=== PATIENT | female | born 1955 | race Caucasian/White ===

== ENCOUNTER 2018-01-23 04:26 | Emergency (ER) | payer MEDICARE, MEDICAID, SELFPAY ==
[2018-01-23] VITALS (16 sets, daily range): BP systolic 129–144; BP diastolic 69–83; PULSE 72–80; RESP 28; TEMP 36.5; O2SAT 90–96
--- NOTE | 2018-01-23 04:46 | ED.GENADUL_ITS ---
Discharge Plan Disposition Patient Disposition: HOME Condition: Good Discharge Details Chief Complaint: SOB Clinical Impression: COPD exacerbation Reason For Visit: VIPUL Primary Care Provider: Valerie Jiang ED Provider: Marcelino Lockhart Horton Meds and New Rx's Prescriptions: New prednisone 20 mg tablet 40 mg PO DAILY Qty: 8 RF: 0 amoxicillin-pot clavulanate [Augmentin] 875-125 mg tablet 1 tab PO BID Qty: 14 RF: 0 Continue tiotropium bromide [Spiriva with HandiHaler] 1 PUFF capsule, w/inhalation device 1 cap Inhalation DAILY RF: 0 buprenorphine-naloxone [Suboxone] 1 EACH film 1 strip PO DAILY RF: 0 quetiapine [Seroquel XR] 200 MG tablet extended release 24 hr 100 mg PO TID RF: 0 budesonide-formoterol [Symbicort] 60 PUFF HFA aerosol inhaler 2 puff Inhalation BID RF: 0 mirtazapine 45 MG tablet 30 mg PO HS RF: 0 gabapentin 800 MG tablet 800 mg PO QID RF: 0 albuterol sulfate 2.5 mg /3 mL (0.083 %) Solution For Nebulization 2.5 mg INHALATION Q4H PRNRF: 0 montelukast [Singulair] 10 MG tablet 10 mg PO DAILY RF: 0 losartan 50 MG tablet 100 mg PO DAILY RF: 0 escitalopram oxalate [Lexapro] 20 MG tablet 30 mg PO DAILY RF: 0 Discharge Instructions Instructions: COPD (Chronic Obstructive Pulmonary Disease) (ED) Additional Instructions: Your EKG, chest x-ray and laboratory studies looked okay tonight. We will start you on prednisone and antibiotics for COPD exacerbation. Please use your albuterol nebulizer every 4-6 hours for wheezing and shortness of breath. Please follow-up with your primary care this week. Return to ED for fever, worsening shortness of breath, chest pain, other concerns. Referrals: Valerie Jiang MD [Primary Care Provider] - Medical Decision Making Patient presenting with shortness of breath, increased cough, increased sputum production and wheezing that has gotten better with DuoNeb treatment. She does continue to smoke. She has no fever. She had no chest pain. She has few wheezes in the lower bases and a little diminished. Saturations are in the low to mid 90s. She does not look to be in distress. Will obtain EKG, chest x-ray , labs and give prednisone as well as start antibiotics for COPD exacerbation. EKG is sinus rhythm at a rate of 70. Normal axis and intervals. No acute ST changes. Chest x-ray read by radiology with chronic changes no infiltrates. Laboratory studies for the most part unremarkable. Troponin negative. Magnesium a little low at 1.6 and will be replaced orally. Patient has been resting comfortably here. She continues to have no difficulty breathing here. She is given Augmentin. She will be discharged home to continue inhalers/ nebulizers every 4-6 hours while ill. Continue prednisone and antibiotic. Follow-up with primary care this week for reevaluation. Return to ED if worse. Medical Records Medical records reviewed: Yes I reviewed the patient's medical records. Lab Data Lab results reviewed: Yes I reviewed the patient's lab results. ECG Data Attestation: I personally reviewed and interpreted this ECG (s) as follows: Interpretation: EKG is sinus rhythm at a rate of 70. Normal axis and intervals. No acute ST changes. HPI General Mode of arrival: EMS . Date/Time Provider Initiated Documentation: 01/23/18 04:36 . Limitations to Documentation: no limitations . Information obtained by: patient, RN notes reviewed and old records reviewed . HPI Narrative: Patient presents to ED with complaint of shortness of breath and cough. She has a history of COPD. She still smokes. For the last few days she has had some increased shortness of breath and cough. There is some increased sputum production but it remains white. She has had no fever that she is aware of. She does have a runny nose. She denies other URI type symptoms. She denies chest pain. She denies leg pain or leg swelling. She did have one episode of vomiting and diarrhea earlier tonight but none since. She denies any abdominal pain. She called the ambulance earlier tonight and sent them away after the DuoNeb because she felt better. Shortness of breath came back and she started to become concerned and called EMS back. She has now had 2 duo nebs and is feeling better but is anxious. Related Data Home Medications Medication Instructions Recorded Confirmed tiotropium bromide [Spiriva with 1 cap INHALATION DAILY 12/25/12 01/23/18 HandiHaler] buprenorphine-naloxone [Suboxone] 1 strip PO DAILY 03/20/14 01/23/18 quetiapine [Seroquel XR] 100 mg PO TID 04/24/14 04/10/17 budesonide-formoterol [Symbicort] 2 puff INHALATION BID 08/25/14 01/23/18 gabapentin 800 mg PO QID 09/11/15 01/23/18 mirtazapine 30 mg PO HS 09/11/15 01/23/18 losartan 100 mg PO DAILY 08/17/16 01/23/18 montelukast [Singulair] 10 mg PO DAILY 08/17/16 01/23/18 escitalopram oxalate [Lexapro] 30 mg PO DAILY 09/08/16 01/23/18 albuterol sulfate 2.5 mg INHALATION Q4H PRN 01/23/18 01/23/18 amoxicillin-pot clavulanate 1 tab PO BID #14 tab 01/23/18 [Augmentin] prednisone 40 mg PO DAILY #8 tab 01/23/18 Previous Rx's Medication Instructions Recorded amoxicillin-pot clavulanate 1 tab PO BID #14 tab 01/23/18 [Augmentin] prednisone 40 mg PO DAILY #8 tab 01/23/18 Allergies Allergy/AdvReac Type Severity Reaction Status Date / Time No Known Allergies Allergy Unverified 01/23/18 04:32 General Stated Complaint: SOB NEGRITA: 3 Review of Systems Constitutional Denies chills, Denies fever(s), Denies headache(s), Denies malaise and Denies weakness Eyes Denies change in vision and Denies eye discharge ENT Denies otalgia, Denies headache(s), Reports nasal congestion, Denies sinus pain , Denies sinus pressure and Denies sore throat Cardiovascular Denies chest pain, Denies syncope, Denies pedal edema, Denies edema, Denies palpitations and Reports dyspnea Respiratory Reports cough, Reports dyspnea and Reports wheezing Gastrointestinal Denies abdominal pain, Reports diarrhea, Denies nausea and Reports vomiting Genitourinary Denies hematuria and Denies dysuria Musculoskeletal Denies back pain, Denies myalgias, Denies arthralgias and Denies numbness Integumentary/Breasts Denies erythema and Denies rash Neurologic Denies syncope, Denies headache(s), Denies numbness and Denies weakness Endocrine Denies palpitations Allergic/Immunologic Reports wheezing PFSH Medical History Multiple sclerosis (Chronic) Anxiety (Chronic) COPD (chronic obstructive pulmonary disease) (Chronic) HTN (hypertension) (Chronic) Hypercholesterolemia (Chronic) Social History Smoking/Tobacco Use Status: Current every day Surgical History H/O section (Inactive) S/P cholecystectomy (Inactive) Status post shoulder surgery (Inactive) Exam Const General: cooperative and no acute distress Orientation: alert and oriented x3 HENMT Head: normocephalic and atraumatic Neck Neck: supple Resp Effort & Inspection: normal respiratory effort Auscultation: diminished lung sounds, no rales, no rhonchi and wheezes lower bilaterally Cardio Rate: regular rate Rhythm: regular rhythm Heart Sounds: S1 normal and S2 normal GI Palpation: soft, no guarding and nontender Skin General skin exam: no erythema Rashes: no rashes Neuro General: alert, oriented x3, no focal motor deficits and CN's II-XI intact bilaterally Extrem General: no pedal edema and no calf tenderness Course Vital Signs Temperature 97.7 F 01/23/18 04:23 Pulse 80 01/23/18 04:23 Respiratory Rate 28 H 01/23/18 04:23 Blood Pressure 144/83 H 01/23/18 04:23 Pulse Oximetry 93 L 01/23/18 04:23 Temperature 97.7 F 01/23/18 04:23 Temperature Source Skin 01/23/18 04:23 Pulse 80 01/23/18 04:23 Respiratory Rate 28 H 01/23/18 04:30 Respiratory Effort 01/23/18 04:30 Respiratory Depth Shallow 01/23/18 04:30 Respiratory Pattern Tachypnea 01/23/18 04:30 Blood Pressure 144/83 H 01/23/18 04:23 Blood Pressure Position Sitting 01/23/18 04:23 Pulse Oximetry 93 L 01/23/18 04:23 Oxygen Delivery Method Room Air 01/23/18 04:23 Oxygen Flow Rate 0 01/23/18 04:23 Pain Level 0 01/23/18 04:23
[2018-01-23] MEDS: predniSONE 20 MG TAB 60 MG PO (05:01)
--- NOTE | 2018-01-23 05:55 | DI.RAD_ITS ---
SYMPTOM/DIAGNOSIS: SOB, COUGH PA AND LATERAL CHEST: Comparison is made with 04/10/17. Heart size and pulmonary vasculature are within normal limits. There is a chronic diffuse interstitial process present. No new focal consolidating infiltrates, effusions or pneumothoraces are identified. There does appear to be hyperinflation of the lungs suggesting COPD. Degenerative changes are seen in the spine. There is reciprocal scoliosis of the thoracolumbar spine. Surgical clips are seen in the right upper quadrant of the abdomen, likely reflecting prior cholecystectomy. IMPRESSION: No acute pulmonary process. Findings suggestive of chronic interstitial disease.
[2018-01-23 05:59] LABS: Abs Immature Grans 0.01 k/cumm (0.0-0.09); Absolute Basophil Count 0.05 k/cumm (0.0-0.2); Absolute Eosinophil Count 0.09 k/cumm (0.0-0.7); Absolute Lymphocyte Count 1.42 k/cumm (1.2-3.4); Absolute Neutrophil Count 4.58 k/cumm (1.2-6.7); Basophils % 0.7; Eosinophils % 1.3; HCT 36.8 % (36.0-46.0); Immature Grans % 0.1; Mean Corp. HGB Concentration 32.6 g/dL (32.0-36.0); Mean Corpuscular Hemoglobin 26.4 pg (27.0-33.0); Mean Corpuscular Volume 81.1 fL (80-95); Mean Platelet Volume 10.8 fL (8.0-11.0); Monocytes % 8.9; Platelet Count 270 x1000/uL (130-400); RBC 4.54 m/cumm (4.00-5.20); White Blood Cell Count 6.75 k/cumm (4.4-10.8)
--- NOTE | 2018-01-23 06:08 | DI.VRAD_ITS ---
EXAM: XR Chest, 2 Views CLINICAL HISTORY: 62 years old, female; Signs and symptoms; Cough and shortness of breath; Patient HX: SOB worsening for a week TECHNIQUE: Frontal and lateral views of the chest. COMPARISON: CR CHEST 2 VIEWS PA,LAT 04/10/2017 4:58 AM FINDINGS: Lungs: Diffuse mild interstitial process. Pleural space: Unremarkable. No pneumothorax. Heart: Unremarkable. No cardiomegaly. Mediastinum: Unremarkable. Bones/joints: Unremarkable. IMPRESSION: Mild chronic interstitial changes. No evidence of acute infiltrate. Dictated and Authenticated by: Kaushal Montemayor MD. Ordering:ARLETH HE MD
[2018-01-23 06:12] LABS: Anion Gap 8.1 mmol/L (3-11); BUN 12 mg/dL (7-18); CO2 31.9 mmol/L (21.0-32.0); CREATININE 0.68 mg/dL (0.55-1.02); Calcium 8.5 mg/dL (8.5-10.1); Chloride 103 mmol/L (98-107); Glucose 138 mg/dL (70-100); Magnesium 1.6 mg/dL (1.8-2.4); Potassium 3.6 mmol/L (3.5-5.1); Sodium 143 mmol/L (136-145)
[2018-01-23 06:22] LABS: Troponin I < 0.02 ng/mL (0.00-0.06)
[2018-01-23] MEDS: Magnesium Oxide 400 MG TAB 800 MG PO (06:55)
[2018-01-23] MEDS: Amoxicillin 875/Clav. 125 TAB PO (06:55)
== END 2018-01-23 07:26 | disposition home or self-care (01) ==
PROVIDERS: Emergency Provider Emergency Medicine; PCP Family Medicine
DX: J44.1 Chronic obstructive pulmonary disease with (acute) exacerbation (principal); F17.210 Nicotine dependence, cigarettes, uncomplicated; E83.42 Hypomagnesemia; I10 Essential (primary) hypertension; G35 Multiple sclerosis
CPT/HCPCS: 36415; 80048; 93005; 99285; 71046; 83735; 84484; 85025; 93010; J7512

== ENCOUNTER 2018-02-19 12:23 | Emergency (ER) | payer MEDICARE, MEDICAID, SELFPAY ==
[2018-02-19] VITALS (7 sets, daily range): BP systolic 77–159; BP diastolic 44–111; PULSE 89–127; RESP 4–28; TEMP 36.7–36.8; O2SAT 88–99
--- NOTE | 2018-02-19 12:28 | ED.GENADUL_ITS ---
Discharge Plan Discharge Details Chief Complaint: SOB Reason For Visit: VIPUL Primary Care Provider: Valerie Jiang ED Provider: Jayda Chen Home Meds and New Rx's Prescriptions: No Action tiotropium bromide [Spiriva with HandiHaler] 1 PUFF capsule, w/inhalation device 1 cap Inhalation DAILY RF: 0 buprenorphine-naloxone [Suboxone] 1 EACH film 1 strip PO DAILY RF: 0 quetiapine [Seroquel XR] 200 MG tablet extended release 24 hr 100 mg PO TID RF: 0 budesonide-formoterol [Symbicort] 60 PUFF HFA aerosol inhaler 2 puff Inhalation BID RF: 0 mirtazapine 45 MG tablet 30 mg PO HS RF: 0 gabapentin 800 MG tablet 800 mg PO QID RF: 0 albuterol sulfate 2.5 mg /3 mL (0.083 %) Solution For Nebulization 2.5 mg INHALATION Q4H PRNRF: 0 prednisone 20 mg tablet 40 mg PO DAILY Qty: 8 RF: 0 amoxicillin-pot clavulanate [Augmentin] 875-125 mg tablet 1 tab PO BID Qty: 14 RF: 0 montelukast [Singulair] 10 MG tablet 10 mg PO DAILY RF: 0 losartan 50 MG tablet 100 mg PO DAILY RF: 0 escitalopram oxalate [Lexapro] 20 MG tablet 30 mg PO DAILY RF: 0 Discharge Data Discharge Date/Time-TO BE ENTERED AT DEPARTURE: 02/19/18 17:57 Medical Decision Making Tatum Loya is a 62 y/o woman with h/o COPD, MS, HLD, HTN, polysubstance on suboxone, anxiety, who presented to the emergency department with 2 days of SOB and anxiety, has not been taking COPD meds. On exam Pt is in mod resp distress, appears chronically ill, wheeze throughout on auscultation. Concern for COPD exacerbation, PE, PNA. Less likely ACS, metabolic/lyte disurbance. Plan for EKG , CXR, screening labs, IVF, duonebs, solumedrol, telemetry. Will monitor. Pt with some improvement after first duoneb here, states that she feels better, but objective exam without major improvement. Will repeat duoneb, plan for mag. Pt reassessed after second duoneb, now reporting that she feels at baseline. Denies any further SOB. Lungs with rales b/l bases, no further wheeze. Will hold mag at this time. CXR with infiltrates vs atelectasis, d-dimer elevated, plan for CT chest for r/ o PE and further characterization of possible infiltrates. Pt continuing to report that she feels at baseline, no further SOB. No resp distress. Will hold abx at this time pending CT. Doubt PE given complete improvement in SOB with duonebs. Tachycardia resolved. Pt developed hypotension to SBP 75. Pt denies any symptoms, reports that she feels the same. Continue fluid bolus. Pt with labile BP between SBP 70-100 despite continued IVF. Concern for early sepsis. Plan for abx for PNA, lactate, blood cultures, levophed if BP not improved after 2L IVF. Pt also becoming somewhat somnolent, but arouses easily to voice. Reports that she has been very sleepy in the afternoons recently with family telling her that she has been difficult to arouse, Pt reports that she thinks this is due to recent nighttime insomnia. Low suspicion PE as etiology at this time as no further SOB, tachycardia. Holding CT at this time pending stabilization. Pt with worsening somnolence, though arouses easily to physical stimulation. Pupils 4mm b/l, possible opiate-related though Pt with polysubstance abuse, possible mixed drug picture. BP not significantly with fluids, starting levophed gtt. Discussed Pt with crit care at [facility], Dr. Clifford accepting physician, requests UDS, no further recs. Plan for [facility]. Trial narcan 0.4mg with good response. Given chronic suboxone use, will use judiciously to prevent full withdrawal. Total of 1.2mg narcan given for recurrent somnolence at time of [facility] transfer. Pt alert, conversing normally. Levophed continued. No CT at this time to prevent delay in transfer. Pt left ED with [facility] team without further incident. Clinical Impression: PNA, shock, AMS Disposition: transferred to [facility] Critical Care Time: I have spent a total of one hour of critical care time with this critically ill Pt Medical Records Medical records reviewed: Yes I reviewed the patient's medical records. Imaging Data Radiologic Study: Attestation: I personally reviewed and interpreted this imaging study as follows: Radiologist's impression: PORTABLE AP CHEST: Comparison is made with 01/23/18. The heart size is normal. The lungs are somewhat suboptimally inflated and there is mild respiratory motion. Leads overlie the chest. There are increased densities at the lung bases, right greater than left which could represent atelectasis versus infiltrates. IMPRESSION: Basilar infiltrates versus atelectasis, right greater than left. Lab Data Lab results reviewed: Yes I reviewed the patient's lab results. 02/19/18 15:20 Blood Blood Culture - Preliminary Gram Positive Cocci 02/19/18 15:35 Blood Blood Culture - Preliminary Laboratory Tests Range/Units 02/19/18 02/19/18 02/19/18 13:11 13:11 13:11 WBC (4.4-10.8) k/cumm 12.00 H RBC (4.00-5.20) m/cumm 4.63 Hgb (12.0-15.5) g/dL 12.1 Hct (36.0-46.0) % 38.6 MCV (80-95) fL 83.4 MCH (27.0-33.0) pg 26.1 L MCHC (32.0-36.0) g/dL 31.3 L RDW (11.7-14.6) % 17.5 H Plt Count (130-400) x1000/uL 263 MPV (8.0-11.0) fL 11.0 Immature Gran % 0.4 Neutrophils % 90.9 Lymphocytes % 4.3 Monocytes % 3.4 Eosinophils % 0.8 Basophils % 0.2 Absolute Neutrophils (1.2-6.7) k/cumm 10.91 H Absolute Lymphocytes (1.2-3.4) k/cumm 0.52 L Absolute Monocytes (0.11-0.7) k/cumm 0.41 Absolute Eosinophils (0.0-0.7) k/cumm 0.10 Absolute Basophils (0.0-0.2) k/cumm 0.02 D-Dimer (<500) ng/mlFEU 1353 H Sample Site pCO2 (34-47) mmHg pO2 (83-108) mmHg O2 Saturation (94-98) % ABG pH (7.35-7.45) ABG HCO3 (22-28) mmol/L ABG Total CO2 (22-29) mmol/L ABG Base Excess (-3-3) mmol/L Oxygen Liter Flow L FiO2 % Sodium (136-145) mmol/L 143 Potassium (3.5-5.1) mmol/L 3.6 Chloride (98-107) mmol/L 101 Carbon Dioxide (21.0-32.0) mmol/L 34.7 H Anion Gap (3-11) mmol/L 7.3 BUN (7-18) mg/dL 16 Creatinine (0.55-1.02) mg/dL 0.79 Estimated GFR/1.73 m2 (mL/min/1.73m2) >= 60.00 Glucose (70-100) mg/dL 127 H Lactate (0.6-1.4) mmol/L Calcium (8.5-10.1) mg/dL 8.5 Total Bilirubin (0.2-1.0) mg/dL 0.4 AST (15-37) U/L 74 H ALT (12-78) U/L 181 H Alkaline Phosphatase (46-116) U/L 127 H Troponin I (0.00-0.06) ng/mL < 0.02 NT-Pro-B Natriuret Pep ( - 299) pg/mL 306 H Total Protein (6.4-8.2) g/dL 7.5 Albumin (3.4-5.0) g/dL 3.1 L Urine Color (Yellow) Urine Clarity Urine pH (5-8) Ur Specific [place] (1.005-1.025) Urine Protein (Negative) mg/dL Urine Ketones (Negative) mg/dL Urine Blood (Negative) Urine Nitrite (Negative) Urine Bilirubin (Negative) Urine Urobilinogen (Up TO 0.2) EU/dL Ur Leukocyte Esterase (Negative) Urine Glucose (Negative) mg/dL Urine Opiates Screen (Negative) Urine Methadone Screen (Negative) Ur Barbiturates Screen (Negative) Ur Tricyclics Screen (Negative) Ur Amphetamines Screen (Negative) U Benzodiazepines Scrn (Negative) Urine Cocaine Screen (Negative) Ur THC Screen (Negative) Range/Units 02/19/18 02/19/18 02/19/18 15:31 15:45 17:20 WBC (4.4-10.8) k/cumm RBC (4.00-5.20) m/cumm Hgb (12.0-15.5) g/dL Hct (36.0-46.0) % MCV (80-95) fL MCH (27.0-33.0) pg MCHC (32.0-36.0) g/dL RDW (11.7-14.6) % Plt Count (130-400) x1000/uL MPV (8.0-11.0) fL Immature Gran % Neutrophils % Lymphocytes % Monocytes % Eosinophils % Basophils % Absolute Neutrophils (1.2-6.7) k/cumm Absolute Lymphocytes (1.2-3.4) k/cumm Absolute Monocytes (0.11-0.7) k/cumm Absolute Eosinophils (0.0-0.7) k/cumm Absolute Basophils (0.0-0.2) k/cumm D-Dimer (<500) ng/mlFEU Sample Site Left radial pCO2 (34-47) mmHg 75 H* pO2 (83-108) mmHg 124 H O2 Saturation (94-98) % 98 ABG pH (7.35-7.45) 7.29 L ABG HCO3 (22-28) mmol/L 36 H ABG Total CO2 (22-29) mmol/L 38 H ABG Base Excess (-3-3) mmol/L 9.0 H Oxygen Liter Flow L FiO2 % 100 Sodium (136-145) mmol/L Potassium (3.5-5.1) mmol/L Chloride (98-107) mmol/L Carbon Dioxide (21.0-32.0) mmol/L Anion Gap (3-11) mmol/L BUN (7-18) mg/dL Creatinine (0.55-1.02) mg/dL Estimated GFR/1.73 m2 (mL/min/1.73m2) Glucose (70-100) mg/dL Lactate (0.6-1.4) mmol/L 1.3 Calcium (8.5-10.1) mg/dL Total Bilirubin (0.2-1.0) mg/dL AST (15-37) U/L ALT (12-78) U/L Alkaline Phosphatase (46-116) U/L Troponin I (0.00-0.06) ng/mL NT-Pro-B Natriuret Pep ( - 299) pg/mL Total Protein (6.4-8.2) g/dL Albumin (3.4-5.0) g/dL Urine Color (Yellow) Yellow Urine Clarity Clear Urine pH (5-8) 5.5 Ur Specific [place] (1.005-1.025) 1.015 Urine Protein (Negative) mg/dL Negative Urine Ketones (Negative) mg/dL Negative Urine Blood (Negative) Negative Urine Nitrite (Negative) Negative Urine Bilirubin (Negative) Negative Urine Urobilinogen (Up TO 0.2) EU/dL 0.2 Ur Leukocyte Esterase (Negative) Negative Urine Glucose (Negative) mg/dL Negative Urine Opiates Screen (Negative) Urine Methadone Screen (Negative) Ur Barbiturates Screen (Negative) Ur Tricyclics Screen (Negative) Ur Amphetamines Screen (Negative) U Benzodiazepines Scrn (Negative) Urine Cocaine Screen (Negative) Ur THC Screen (Negative) Range/Units 02/19/18 02/19/18 02/19/18 17:20 17:20 17:37 WBC (4.4-10.8) k/cumm RBC (4.00-5.20) m/cumm Hgb (12.0-15.5) g/dL Hct (36.0-46.0) % MCV (80-95) fL MCH (27.0-33.0) pg MCHC (32.0-36.0) g/dL RDW (11.7-14.6) % Plt Count (130-400) x1000/uL MPV (8.0-11.0) fL Immature Gran % Neutrophils % Lymphocytes % Monocytes % Eosinophils % Basophils % Absolute Neutrophils (1.2-6.7) k/cumm Absolute Lymphocytes (1.2-3.4) k/cumm Absolute Monocytes (0.11-0.7) k/cumm Absolute Eosinophils (0.0-0.7) k/cumm Absolute Basophils (0.0-0.2) k/cumm D-Dimer (<500) ng/mlFEU Sample Site Right radial pCO2 (34-47) mmHg 57 H pO2 (83-108) mmHg 67 L O2 Saturation (94-98) % 91 L ABG pH (7.35-7.45) 7.33 L ABG HCO3 (22-28) mmol/L 30 H ABG Total CO2 (22-29) mmol/L 32 H ABG Base Excess (-3-3) mmol/L 4.0 H Oxygen Liter Flow L 6 FiO2 % Unknown/not given Sodium (136-145) mmol/L Potassium (3.5-5.1) mmol/L Chloride (98-107) mmol/L Carbon Dioxide (21.0-32.0) mmol/L Anion Gap (3-11) mmol/L BUN (7-18) mg/dL Creatinine (0.55-1.02) mg/dL Estimated GFR/1.73 m2 (mL/min/1.73m2) Glucose (70-100) mg/dL Lactate (0.6-1.4) mmol/L Calcium (8.5-10.1) mg/dL Total Bilirubin (0.2-1.0) mg/dL AST (15-37) U/L ALT (12-78) U/L Alkaline Phosphatase (46-116) U/L Troponin I (0.00-0.06) ng/mL NT-Pro-B Natriuret Pep ( - 299) pg/mL Total Protein (6.4-8.2) g/dL Albumin (3.4-5.0) g/dL Urine Color (Yellow) Cancelled Urine Clarity Cancelled Urine pH (5-8) Cancelled Ur Specific [place] (1.005-1.025) Cancelled Urine Protein (Negative) mg/dL Cancelled Urine Ketones (Negative) mg/dL Cancelled Urine Blood (Negative) Cancelled Urine Nitrite (Negative) Cancelled Urine Bilirubin (Negative) Cancelled Urine Urobilinogen (Up TO 0.2) EU/dL Cancelled Ur Leukocyte Esterase (Negative) Cancelled Urine Glucose (Negative) mg/dL Cancelled Urine Opiates Screen (Negative) Negative Urine Methadone Screen (Negative) Negative Ur Barbiturates Screen (Negative) Negative Ur Tricyclics Screen (Negative) Positive Ur Amphetamines Screen (Negative) Negative U Benzodiazepines Scrn (Negative) Negative Urine Cocaine Screen (Negative) Negative Ur THC Screen (Negative) Negative ECG Data Attestation: I personally reviewed and interpreted this ECG (s) as follows: Interpretation: EKG shows ST at 129 with nl axis, non-specific ST changes, no STEMI, non-diagnostic EKG HPI General Mode of arrival: EMS . Date/Time Provider Initiated Documentation: 02/19/18 12:28 . Limitations to Documentation: no limitations . Information obtained by: patient, EMS, RN notes reviewed and old records reviewed . HPI Narrative: Tatum Loya is a 62 y/o woman with h/o COPD, HTN, HLD, MS, anxiety, polysubstance abuse on suboxone presents to the emergency department with SOB and anxiety. Pt reports that she has been feeling SOB since yesterday. Pt reports that she has also had significant anxiety with her SOB, as she becomes very afraid of dying. She lives at home with relatives. Pt reports that she has not used her COPD meds yesterday or today. She reports chronic cough. Denies fever, n/v/d, chest pain, abd pain, or any other pain, rash, new weakness /n/t. She received duonebs x2 in the field from EMS TA, and reports that it did make her feel better. She thinks that her anxiety is a significant component of her symptoms today. Has not been hospitalized in the past 6 months. No recent travel. Has been eating and drinking as usual. Pt reports that she is on 3L O2 at night, no daytime O2. Baseline O2 sats 90-93%. Related Data Home Medications Medication Instructions Recorded Confirmed tiotropium bromide [Spiriva with 1 cap INHALATION DAILY 12/25/12 01/23/18 HandiHaler] buprenorphine-naloxone [Suboxone] 1 strip PO DAILY 03/20/14 01/23/18 quetiapine [Seroquel XR] 100 mg PO TID 04/24/14 04/10/17 budesonide-formoterol [Symbicort] 2 puff INHALATION BID 08/25/14 01/23/18 gabapentin 800 mg PO QID 09/11/15 01/23/18 mirtazapine 30 mg PO HS 09/11/15 01/23/18 losartan 100 mg PO DAILY 08/17/16 01/23/18 montelukast [Singulair] 10 mg PO DAILY 08/17/16 01/23/18 escitalopram oxalate [Lexapro] 30 mg PO DAILY 09/08/16 01/23/18 albuterol sulfate 2.5 mg INHALATION Q4H PRN 01/23/18 01/23/18 amoxicillin-pot clavulanate 1 tab PO BID #14 tab 01/23/18 [Augmentin] prednisone 40 mg PO DAILY #8 tab 01/23/18 Previous Rx's Medication Instructions Recorded amoxicillin-pot clavulanate 1 tab PO BID #14 tab 01/23/18 [Augmentin] prednisone 40 mg PO DAILY #8 tab 01/23/18 Allergies Allergy/AdvReac Type Severity Reaction Status Date / Time No Known Allergies Allergy Unverified 01/23/18 04:32 General NEGRITA: 3 Review of Systems Review of Systems Constitutional: denies fevers Eyes: denies eye pain ENT: denies facial pain, dental pain, sore throat Cardiovascular: denies chest pain, edema Respiratory: reports SOB, chronic cough GI: denies abdominal pain, vomiting, diarrhea : denies flank pain MSK: denies back pain, neck pain, arthralgias, myalgias Skin: denies rash Neuro: denies headaches, lightheadedness, new weakness PFSH Medical History Anxiety (Chronic) COPD (chronic obstructive pulmonary disease) (Chronic) HTN (hypertension) (Chronic) Hypercholesterolemia (Chronic) Multiple sclerosis (Chronic) Social History Smoking/Tobacco Use Status: Current every day Surgical History H/O section (Inactive) S/P cholecystectomy (Inactive) Status post shoulder surgery (Inactive) Exam Narrative Exam Narrative: Constitutional: chronicalli ill appearing, moderately anxious, mod resp distress speaking in partial sentences HENT: head atraumatic, normocephalic normal inspection, mucous membranes moist Eyes: conjunctiva normal, sclera normal, pupils 3mm b/l Neck: no stridor, normal ROM, trachea midline Chest: normal inspection Resp: mod resp distress with accessory muscle use, wheeze throughout b/l Cardio: tachycardic, normal rhythm, no murmur appreciated GI: abdomen soft, non-tender, non-distended Back: normal inspection, no rash Skin: warm, dry, normal color, no rash Neuro: alert, not altered, grossly non-focal, normal tone Ext: no edema, no posterior calf TTP Psych: anxious mood, normal affect, normal behavior
--- NOTE | 2018-02-19 12:34 | DI.RAD_ITS ---
SYMPTOM/DIAGNOSIS: SOB PORTABLE AP CHEST: Comparison is made with 01/23/18. The heart size is normal. The lungs are somewhat suboptimally inflated and there is mild respiratory motion. Leads overlie the chest. There are increased densities at the lung bases, right greater than left which could represent atelectasis versus infiltrates. IMPRESSION: Basilar infiltrates versus atelectasis, right greater than left.
[2018-02-19] MEDS: Albuterol/Ipratropium 3 ML UPD VIAL UPD (12:57)
[2018-02-19 13:26] LABS: Abs Immature Grans 0.05 k/cumm (0.0-0.09); Absolute Basophil Count 0.02 k/cumm (0.0-0.2); Absolute Monocyte Count 0.41 k/cumm (0.11-0.7); Absolute Neutrophil Count 10.91 k/cumm (1.2-6.7); Basophils % 0.2; Eosinophils % 0.8; HCT 38.6 % (36.0-46.0); HGB 12.1 g/dL (12.0-15.5); Immature Grans % 0.4; Lymphocytes % 4.3; Mean Corp. HGB Concentration 31.3 g/dL (32.0-36.0); Mean Corpuscular Hemoglobin 26.1 pg (27.0-33.0); Mean Corpuscular Volume 83.4 fL (80-95); Monocytes % 3.4; Neutrophils % 90.9; Platelet Count 263 x1000/uL (130-400); RBC 4.63 m/cumm (4.00-5.20); RBC Distribution Width 17.5 % (11.7-14.6)
[2018-02-19 13:29] LABS: Absolute Lymphocyte Count 0.52 k/cumm (1.2-3.4)
[2018-02-19 13:45] LABS: ALT 181 U/L (12-78); AST 74 U/L (15-37); Albumin 3.1 g/dL (3.4-5.0); Alkaline Phosphatase 127 U/L (46-116); Anion Gap 7.3 mmol/L (3-11); BUN 16 mg/dL (7-18); Bilirubin, Total 0.4 mg/dL (0.2-1.0); CO2 34.7 mmol/L (21.0-32.0); CREATININE 0.79 mg/dL (0.55-1.02); Calcium 8.5 mg/dL (8.5-10.1); Chloride 101 mmol/L (98-107); Glucose 127 mg/dL (70-100); NT-proBNP 306 pg/mL; Potassium 3.6 mmol/L (3.5-5.1); Sodium 143 mmol/L (136-145); Total Protein 7.5 g/dL (6.4-8.2); Troponin I < 0.02 ng/mL (0.00-0.06)
[2018-02-19 13:51] LABS: D-Dimer 1353 ng/mlFEU (<500)
[2018-02-19] MEDS: methylPREDNISolone SUCC 125 MG VIAL IVP (14:11)
[2018-02-19] MEDS: CEFEPIME 2 GM in Normal Saline 100 ML IVPB (15:37)
[2018-02-19 15:43] LABS: Lactate-non-spesis 1.3 mmol/L (0.6-1.4)
[2018-02-19] MEDS: LEVOFLOXACIN 750 MG/150 ML BAG 150 MG IVPB (15:58)
[2018-02-19 16:01] LABS: FIO2 100 %; Site Left Radial; pH 7.29 (7.35-7.45)
[2018-02-19 16:04] LABS: HCO3 36 mmol/L (22-28); pCO2 75 mmHg (34-47); pO2 124 mmHg (83-108); sO2 98 % (94-98); tCO2 38 mmol/L (22-29)
--- NOTE | 2018-02-19 16:15 | RESPIRATORY ---
Critical PCO2 results given to Dr. Chen. Pt taken off NRB at this time and changed to 4L via NC. She is keeping sats 88-90% on the 4L
[2018-02-19] MEDS: Naloxone 0.4 MG/ML VIAL ×2 (17:17→17:18)
[2018-02-19] MEDS: VANCOMYCIN 2,000 MG in Normal Saline 500 ML 250 MG IVPB (17:19)
[2018-02-19 17:42] LABS: FIO2 Unknown/Not Given %; pH 7.33 (7.35-7.45)
[2018-02-19 17:43] LABS: FIO2L 6 L; HCO3 30 mmol/L (22-28); Site Right Radial; pCO2 57 mmHg (34-47); pO2 67 mmHg (83-108); sO2 91 % (94-98); tCO2 32 mmol/L (22-29)
[2018-02-19 17:55] LABS: *AMPHETAMINES SCREEN URINE Negative (Negative); *BARBITURATES SCREEN URINE Negative (Negative); *BENZODIAZEPINES SCREEN URINE Negative (Negative); Cannabinoids THC Negative (Negative); Cocaine Screen,Urine Negative (Negative); METHADONE URINE SCREEN Negative (Negative); OPIATES URINE SCREEN Negative (Negative)
[2018-02-19 18:04] LABS: Tricyclic Antidepressants POSITIVE (Negative)
[2018-02-19 18:33] LABS: Bilirubin Negative (Negative); Blood Negative (Negative); Clarity Clear; Glucose Negative (Negative); Ketones Negative (Negative); Leukocyte Esterase Negative (Negative); Nitrite Negative (Negative); Specific Gravity 1.015 (1.005-1.025); Urobilinogen 0.2 EU/dL (Up TO 0.2); pH 5.5 (5-8)
== END 2018-02-19 17:57 ==
LOC: ER 13:15
PROVIDERS: Emergency Provider Student in an Organized Health Care Education/Training Program; PCP Family Medicine
DX: J18.9 Pneumonia, unspecified organism (principal); J44.9 Chronic obstructive pulmonary disease, unspecified; I10 Essential (primary) hypertension
CPT/HCPCS: 36415; 80053; 80307; 82805; 87040; 87077; 93005; 94640; 96374; 96375; 99291; 36600; 71045; 81003; 83605; 83880; 84484; 85025; 85379; 87186; 93010; J1956; J2310; J2930; J7620

== ENCOUNTER 2018-03-19 00:45 | Outpatient (CLI) | payer MEDICARE, MEDICAID, SELFPAY ==
--- NOTE | 2018-03-19 15:10 | DI.MAMMO_ITS ---
SYMPTOMS/DIAGNOSIS: SCREENING, Z12.31 MAMMOGRAM: Mammograms were interpreted according to the usual protocol including computer analysis with CAD system, tomosynthesis and C view imaging. The breasts are of moderate density with fairly symmetrical distribution of fibroglandular tissue. No dominant mass or clumped microcalcification is identified in either breast. Current examination is compared with the previous examinations including September 2016 and there has been no gross interval change in appearance in comparison with the previous studies. CONCLUSION: No specific evidence of malignancy at this time. Routine screening examinations are suggested at yearly intervals in this age group according to the ACS/ACR guidelines. Category 1, breast density category B. MQSA ASSESSMENT OF FINDINGS: Negative. Category 1. Patient will receive a letter notifying them of these results. BI-RADS category B. There are scattered areas of fibroglandular density.
== END 2018-03-19 01:05 ==
PROVIDERS: PCP Family Medicine; Visit Provider Family Medicine
DX: Z12.31 Encounter for screening mammogram for malignant neoplasm of breast (principal)
CPT/HCPCS: 77063; 77067

== ENCOUNTER 2018-04-11 10:39 | Outpatient (REF) | payer MEDICARE, SELFPAY ==
[2018-04-14 06:59] LABS: Benzoylecgonine 159 ng/mL (Cutoff: 50); Cocaine Negative ng/mL (Cutoff: 50); Cocaine Interpretation Positive.
[2018-04-15 12:44] LABS: Fentanyl Interpretation Positive.; Fentanyl by LC-MS/MS Negative
== END 2018-04-11 10:59 ==
LOC: NCHCN 10:39
PROVIDERS: PCP Family Medicine; Visit Provider Family Medicine
DX: F14.10 Cocaine abuse, uncomplicated (principal); F11.20 Opioid dependence, uncomplicated
CPT/HCPCS: 80353; 80354

== ENCOUNTER 2018-04-30 11:30 | Outpatient (CLI) | payer MEDICARE, MEDICAID, SELFPAY | END 2018-04-30 11:50 | PROVIDERS: PCP Family Medicine; Visit Provider Physical Therapy Assistant | DX: Z12.11 Encounter for screening for malignant neoplasm of colon (principal); J44.9 Chronic obstructive pulmonary disease, unspecified; I10 Essential (primary) hypertension; F17.210 Nicotine dependence, cigarettes, uncomplicated; Z80.0 Family history of malignant neoplasm of digestive organs ==

== ENCOUNTER 2018-06-13 12:32 | Outpatient (REF) | payer MEDICARE, MEDICAID, SELFPAY ==
[2018-06-18 07:30] LABS: Benzoylecgonine 52 ng/mL (Cutoff: 50); Cocaine Negative ng/mL (Cutoff: 50); Cocaine Interpretation Positive.
== END 2018-06-13 12:52 ==
LOC: NCHCN 12:32
PROVIDERS: PCP Family Medicine; Visit Provider Family Medicine
DX: F11.20 Opioid dependence, uncomplicated (principal)
CPT/HCPCS: 80353

== ENCOUNTER 2018-07-26 11:20 | Inpatient (IN) | payer MEDICARE, MEDICAID, SELFPAY ==
[2018-07-26] VITALS (18 sets, daily range): BP systolic 88–136; BP diastolic 62–84; PULSE 76–87; RESP 13–20; TEMP 36.6–37.6; O2SAT 85–97
--- NOTE | 2018-07-26 11:58 | DI.RAD_ITS ---
SYMPTOMS/DIAGNOSIS: COUGH, SHORTNESS OF BREATH; RIGHT HEEL PAIN S/P INJURY AP CHEST: A region of infiltration involving the left lower lobe is demonstrated. The right lung is clear. The heart is not enlarged. The findings would be consistent with an acute left lower lobe pneumonitis. RIGHT HEEL: The bony structures are normally mineralized. There is no demonstrated acute fracture. A tiny calcaneal spur is demonstrated, nil else.
[2018-07-26] MEDS: Lactated Ringers 500 ML IV ×2 (12:54→15:30)
[2018-07-26] MEDS: Normal Saline Flush 10 ML SYR IVP ×2 (12:54→19:35)
[2018-07-26 13:51] LABS: Lactate 1.2 mmol/L (0.6-1.4)
[2018-07-26 14:01] LABS: Abs Immature Grans 0.07 k/cumm (0.0-0.09); Absolute Basophil Count 0.01 k/cumm (0.0-0.2); Absolute Monocyte Count 1.11 k/cumm (0.11-0.7); Absolute Neutrophil Count 11.78 k/cumm (1.2-6.7); Basophils % 0.1; HCT 36.1 % (36.0-46.0); HGB 10.9 g/dL (12.0-15.5); Immature Grans % 0.5; Lymphocytes % 10.2; Mean Corp. HGB Concentration 30.2 g/dL (32.0-36.0); Mean Corpuscular Hemoglobin 25.9 pg (27.0-33.0); Mean Corpuscular Volume 85.7 fL (80-95); Mean Platelet Volume 10.3 fL (8.0-11.0); Monocytes % 7.7; Neutrophils % 81.5; Platelet Count 250 x1000/uL (130-400); RBC 4.21 m/cumm (4.00-5.20); White Blood Cell Count 14.45 k/cumm (4.4-10.8)
[2018-07-26 14:02] LABS: Absolute Lymphocyte Count 1.47 k/cumm (1.2-3.4)
[2018-07-26 14:09] LABS: ALT 14 U/L (12-78); AST 14 U/L (15-37); Albumin 2.9 g/dL (3.4-5.0); Alkaline Phosphatase 97 U/L (46-116); Anion Gap 5.7 mmol/L (3-11); BUN 13 mg/dL (7-18); Bilirubin, Total 0.3 mg/dL (0.2-1.0); CO2 35.3 mmol/L (21.0-32.0); CREATININE 0.74 mg/dL (0.55-1.02); Calcium 8.4 mg/dL (8.5-10.1); Chloride 101 mmol/L (98-107); Glucose 97 mg/dL (70-100); Potassium 3.7 mmol/L (3.5-5.1); Sodium 142 mmol/L (136-145); Total Protein 7.4 g/dL (6.4-8.2)
--- NOTE | 2018-07-26 14:34 | ED.GENADUL_ITS ---
Discharge Plan Disposition Condition: Improving Discharge Details Chief Complaint: Dizzy/Sync Admit Date/Time: 07/26/18 14:43 Admit Provider: Rebekah Wilkinson Attending Provider: Rebekah Wilkinson Primary Care Provider: Valerie Jiang ED Provider: Vick Chen Discharge Instructions Activity:: Activity as Tolerated Equipment/Supplies:: No Equipment Needed Diet:: Heart healthy diet Discharge Orders Discharge Orders: Discharge Order (Routine); Ordered 07/28/18 Ordered By: Sangeeta Maya Discharge Data Discharge Date/Time-TO BE ENTERED AT DEPARTURE: 07/26/18 16:49 Medical Decision Making 14:30 -- 63-year-old female with multiple medical problems, here with generalized weakness, recently diagnosed with pneumonia and started on Levaquin -has received only 1 dose yesterday. Patient is hypotensive and hypoxic. Supplemental oxygen was applied and oxygen improved. Patient in no respiratory distress. I will give crystalloid bolus 500 mL. Exam is consistent with pneumonia. Plan to and chest x-ray. I will give a dose of Levaquin 750mg IV. Delay in care secondary to difficult IV access. Eventually access was obtained by Dr. Whalen with ultrasound guidance. Labs reviewed: lactate neg. leukocytosis noted. ECG reviewed and interpreted by me: Normal sinus rhythm 87 bpm, normal axis, no ischemia, nondiagnostic. Patient reassessed after 500ml IVF bolus and she is improved with normalized BP. 14:42 --I called and spoke with Dr. Wilkinson who will admit the patient. Chest x-ray and labs pending at time of admission. HPI General Mode of arrival: ambulatory . Date/Time Provider Initiated Documentation: 07/26/18 11:56 . Limitations to Documentation: no limitations . Information obtained by: patient . HPI Narrative: 63-year-old female with multiple medical problems presents with EMS with complaint of generalized weakness. Patient notes severe generalized weakness this morning after waking. No modifiers. Patient notes that she has had a cough for the past couple days. She was seen by her primary care physician yesterday and diagnosed clinically with pneumonia. She did not have a chest x-ray. She was started on antibiotic which she took yesterday. She did not take dose of antibiotic at today. Cough persists. She has chronic shortness of breath and at baseline uses oxygen 2 L at night. She has no associated chest pain. She does note that she missed her diuretic dosing yesterday. Also of note, patient banged her right foot on bed this am and has pain in her right heel. Related Data Home Medications Medication Instructions Recorded Confirmed Spiriva with HandiHaler 1 cap INHALATION DAILY 12/25/12 07/26/18 Symbicort 2 puff INHALATION BID 08/25/14 07/26/18 gabapentin 800 mg PO QID 09/11/15 07/26/18 montelukast [Singulair] 10 mg PO DAILY 08/17/16 07/26/18 escitalopram oxalate [Lexapro] 20 mg PO DAILY 09/08/16 07/26/18 albuterol sulfate 2.5 mg INHALATION Q4H PRN 01/23/18 07/26/18 atorvastatin 40 mg PO HS 05/04/18 07/26/18 furosemide 20 mg tablet 40 mg PO DAILY tab 06/18/18 07/26/18 mirtazapine 30 mg tablet 30 mg PO HS 06/18/18 07/26/18 amlodipine 5 mg PO DAILY 07/26/18 07/26/18 buprenorphine-naloxone [Suboxone] 1 film SUBLINGUAL DAILY 07/26/18 07/26/18 buprenorphine-naloxone [Suboxone] 1 film SUBLINGUAL DAILY 07/26/18 07/26/18 losartan 100 mg PO DAILY 07/26/18 07/26/18 sumatriptan succinate 50 mg PO DIRECTED 07/26/18 07/26/18 benzonatate 100 mg PO TID #9 cap 07/28/18 guaifenesin [Mucinex] 600 mg PO BID #6 tab 07/28/18 ibuprofen 800 mg PO TID PRN #30 tab 07/28/18 levofloxacin 750 mg PO DAILY #3 tab 07/28/18 nicotine 7 mg TRANSDERMAL DAILY PRN PRN #14 07/28/18 ea nicotine [Nicotrol] 10 mg INHALATION Q2H PRN PRN #30 ea 07/28/18 prednisone 10 mg PO DAILY #30 tab 07/28/18 prochlorperazine maleate 5 mg PO Q8H PRN PRN #10 tab 07/28/18 [Compazine] Previous Rx's Medication Instructions Recorded benzonatate 100 mg PO TID #9 cap 07/28/18 guaifenesin [Mucinex] 600 mg PO BID #6 tab 07/28/18 ibuprofen 800 mg PO TID PRN #30 tab 07/28/18 levofloxacin 750 mg PO DAILY #3 tab 07/28/18 nicotine 7 mg TRANSDERMAL DAILY PRN PRN #14 07/28/18 ea nicotine [Nicotrol] 10 mg INHALATION Q2H PRN PRN #30 ea 07/28/18 prednisone 10 mg PO DAILY #30 tab 07/28/18 prochlorperazine maleate 5 mg PO Q8H PRN PRN #10 tab 07/28/18 [Compazine] Allergies Allergy/AdvReac Type Severity Reaction Status Date / Time No Known Allergies Allergy Unverified 07/26/18 11:43 General Stated Complaint: Dizzy/Sync NEGRITA: 3 Review of Systems Review of Systems All systems reviewed & are unremarkable except as noted in HPI and below Constitutional Denies fever(s) and Reports weakness Cardiovascular Denies syncope Musculoskeletal Reports as per HPI Neurologic Reports as per HPI, Denies syncope and Reports weakness PFS Medical History Family history of colon cancer (Acute) Constipation (Acute) Pancreatic mass (Acute ~01/2017) Lethargy (Chronic) Polysubstance abuse (Chronic) Chronic pain (Chronic) Colon polyps (Chronic) History of suicide attempt (Chronic) Tobacco use (Acute) Allergic rhinitis (Chronic) Anxiety (Chronic) COPD (chronic obstructive pulmonary disease) (Chronic) 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) Depression (Chronic) Edema (Chronic) Goiter diffuse (Chronic) HTN (hypertension) (Chronic) Hepatitis C (Chronic) Hypercholesterolemia (Chronic) Left knee pain (Chronic) Lumbar back pain (Chronic) Migraine headache (Chronic) Multiple sclerosis (Chronic) PETERSON (obstructive sleep apnea) (Chronic) Opioid dependence (Chronic) Cocaine abuse (Resolved) Surgical History H/O section (Inactive) S/P cholecystectomy (Inactive) Status post shoulder surgery (Inactive) Social History Smoking/Tobacco Use Status: Current every day Drug use: Never Do you feel safe in your relationship?: Yes Exam Const General: cooperative and no acute distress HENMT Head: normocephalic Mouth: mucous membranes dry Eyes Conjunctivae: normal conjunctivae Sclera: normal sclerae Neck Neck: trachea midline and supple Resp Auscultation: rales bilaterally, rhonchi and no wheezes Cardio Jugular venous pressure: no JVD Rate: regular rate and not tachycardic Rhythm: regular rhythm GI Palpation: soft, not firm, no guarding, no masses, not rigid and nontender Skin General skin exam: no rashes or lesions noted Neuro General: alert, awake, oriented x3 and tone normal Extrem General: no calf tenderness bilaterally and no edema Right lower extremity: foot Details: tenderness Location: of the calcaneus Details: with squeeze Psych Appearance: grossly normal Mental Status: mental status grossly normal Speech and Movement: speech and movement normal Course Vital Signs Temperature 36.6 C 07/26/18 11:38 Pulse 87 07/26/18 11:38 Respiratory Rate 18 07/26/18 11:38 Blood Pressure 88/62 L 07/26/18 11:38 Pulse Oximetry 89 L 07/26/18 11:38 Temperature 36.6 C 07/26/18 11:38 Temperature Source Skin 07/26/18 11:38 Pulse 87 07/26/18 11:38 Respiratory Rate 18 07/26/18 11:38 Respiratory Effort 07/26/18 11:38 Blood Pressure 88/62 L 07/26/18 11:38 Blood Pressure Position Supine 07/26/18 11:38 Pulse Oximetry 89 L 07/26/18 11:38 Oxygen Delivery Method Nasal Cannula 07/26/18 11:38 Oxygen Flow Rate 1 07/26/18 11:38 Lab/Test Results Lab/Test Results: 07/26/18 11:57 Blood Blood Culture - Pending 07/26/18 11:57 Blood Blood Culture - Pending Laboratory Tests Range/Units 07/26/18 07/26/18 07/26/18 13:40 13:40 13:40 WBC (4.4-10.8) k/cumm 14.45 H RBC (4.00-5.20) m/cumm 4.21 Hgb (12.0-15.5) g/dL 10.9 L Hct (36.0-46.0) % 36.1 MCV (80-95) fL 85.7 MCH (27.0-33.0) pg 25.9 L MCHC (32.0-36.0) g/dL 30.2 L RDW (11.7-14.6) % 15.0 H Plt Count (130-400) x1000/uL 250 MPV (8.0-11.0) fL 10.3 Immature Gran % 0.5 Neutrophils % 81.5 Lymphocytes % 10.2 Monocytes % 7.7 Eosinophils % 0.0 Basophils % 0.1 Absolute Neutrophils (1.2-6.7) k/cumm 11.78 H Absolute Lymphocytes (1.2-3.4) k/cumm 1.47 Absolute Monocytes (0.11-0.7) k/cumm 1.11 H Absolute Eosinophils (0.0-0.7) k/cumm 0.00 Absolute Basophils (0.0-0.2) k/cumm 0.01 Sodium (136-145) mmol/L 142 Potassium (3.5-5.1) mmol/L 3.7 Chloride (98-107) mmol/L 101 Carbon Dioxide (21.0-32.0) mmol/L 35.3 H Anion Gap (3-11) mmol/L 5.7 BUN (7-18) mg/dL 13 Creatinine (0.55-1.02) mg/dL 0.74 Estimated GFR/1.73 m2 (mL/min/1.73m2) >= 60.00 Glucose (70-100) mg/dL 97 Lactate (0.6-1.4) mmol/L 1.2 Calcium (8.5-10.1) mg/dL 8.4 L Total Bilirubin (0.2-1.0) mg/dL 0.3 AST (15-37) U/L 14 L ALT (12-78) U/L 14 Alkaline Phosphatase (46-116) U/L 97 Total Protein (6.4-8.2) g/dL 7.4 Albumin (3.4-5.0) g/dL 2.9 L
[2018-07-26] MEDS: levoFLOXacin 750 MG/150 ML BAG 100 MG IVPB (14:41)
[2018-07-26 15:14] LABS: NT-proBNP 409 pg/mL
[2018-07-26 15:20] LABS: Troponin I < 0.02 ng/mL (0.00-0.06)
[2018-07-26] MEDS: Albuterol/Ipratropium 3 ML UPD VIAL UPD ×2 (15:47→23:55)
[2018-07-26] MEDS: Enoxaparin 40 MG/0.4 ML SYR SC (18:20)
[2018-07-26] MEDS: Lactated Ringers 1,000 ML 100 ML IV (18:20)
--- NOTE | 2018-07-26 18:49 | HPE_ITS ---
Date of service: 07/26/18 Time of Service: 18:27 Assessment and Plan (1) CAP (community acquired pneumonia): Current visit: Yes Status: Acute The patient does need to be hospitalized for this as she is failing at home, which is not to say that she failed antibiotic therapy. I feel that giving levofloxacin another 24 hours is a good plan. Await culture results. Obtain sputum culture. Provide antitussives, nebs, continue symbicort. (2) Acute exacerbation of chronic obstructive pulmonary disease (COPD): Current visit: Yes Status: Acute As above (3) Acute and chronic respiratory failure with hypoxia: Current visit: Yes Status: Acute Due to above - wean O2 as tolerated (4) Dehydration: Current visit: Yes Status: Acute The benefits of IVF outweigh the risks. The patient does have a history of diastolic Dysfunction, so will monitor respiratory status carefully. 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 Continue GPN/suboxone. PT/OT consulted (6) Chronic pain: Current visit: Yes Status: Chronic As above (7) PETERSON (obstructive sleep apnea): Current visit: Yes Status: Chronic Intolerant of CPAP. Continue nocturnal O2 therapy (8) Edema of both lower extremities: Current visit: Yes Status: Acute R/o DVT - check venous doppler BLE's Most likely due to pulmonary hypertension - echo is being obtained (9) Generalized weakness: Current visit: Yes Status: Acute As above (10) Ambulatory dysfunction: Current visit: Yes Status: Acute As above (11) Tobacco use disorder: Current visit: No Status: Acute Advised to quit. Provide nicotrol and nicotine patch (12) Benign hypertension: Current visit: No Status: Chronic Hold antihypertensives given the BP in ED. (13) Discharge planning issues: Current visit: Yes Status: Acute Full code. (14) DVT prophylaxis: Current visit: Yes Status: Acute Lovenox SC History of Present Illness Chief Complaint: I couldn't breathe Narrative: Ms Loya is a 63 year old female with PMHx of COPD and PETERSON with chronic hypoxic respiratory failure, intolerant of CPAP, who uses 3L of O2 at night, as well as HTN, Hyperlipidemia, and Xviiepl-Wlacm-Docns disease, on suboxone therapy, who presented to [facility] ED today complaining of shortness of breath and extreme weakness. The symptoms started about 4 days ago. The patient states that she had a fever, shortness of breath, nonproductive cough, some sore throat and L-sided chest yanelis n only when coughing. She saw her PCP, Dr Jiang, yesterday, who prescribed her levofloxacin for pneumonia. She took her first dose last night, but this morning woke up so weak, she felt she had to come in. She states that her CMT does get worse and she does get weaker whenever she is sick. In the ED, her workup was consistent with pneumonia. She was hypoxic to about 88% on room air and was placed on 2L of O2 by CT. She was hypotensive to 88/62, but responded to IVF. The patient does state that she feels really thirsty and dry. Her BP now is 131/78. She was continued on levofloxacin. We were asked to admit the patient for further evaluation and care. Review of Systems Review of Systems 12 systems reviewed. Pertinent positives and negatives are as per HPI. Also, reports R heel pain. [facility] Medical History Family history of colon cancer (Acute) Constipation (Acute) Pancreatic mass (Acute ~01/2017) Lethargy (Chronic) Polysubstance abuse (Chronic) Chronic pain (Chronic) Colon polyps (Chronic) History of suicide attempt (Chronic) Tobacco use (Acute) Allergic rhinitis (Chronic) Anxiety (Chronic) COPD (chronic obstructive pulmonary disease) (Chronic) 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) Depression (Chronic) Edema (Chronic) Goiter diffuse (Chronic) HTN (hypertension) (Chronic) Hepatitis C (Chronic) Hypercholesterolemia (Chronic) Left knee pain (Chronic) Lumbar back pain (Chronic) Migraine headache (Chronic) Multiple sclerosis (Chronic) PETERSON (obstructive sleep apnea) (Chronic) Opioid dependence (Chronic) Cocaine abuse (Resolved) Surgical History H/O section (Inactive) S/P cholecystectomy (Inactive) Status post shoulder surgery (Inactive) Social History Smoking/Tobacco Use Status: Current every day Drug use: Never Do you feel safe in your relationship?: Yes Meds Home Medications Medication Instructions Recorded Confirmed Type Spiriva with HandiHaler 1 cap INHALATION DAILY 12/25/12 07/26/18 History Symbicort 2 puff INHALATION BID 08/25/14 07/26/18 History gabapentin 800 mg PO QID 09/11/15 07/26/18 History montelukast [Singulair] 10 mg PO DAILY 08/17/16 07/26/18 History escitalopram oxalate [Lexapro] 20 mg PO DAILY 09/08/16 07/26/18 History albuterol sulfate 2.5 mg INHALATION Q4H PRN 01/23/18 07/26/18 History atorvastatin 40 mg PO HS 05/04/18 07/26/18 History furosemide 20 mg tablet 40 mg PO DAILY tab 06/18/18 07/26/18 History mirtazapine 30 mg tablet 30 mg PO HS 06/18/18 07/26/18 History amlodipine 5 mg PO DAILY 07/26/18 07/26/18 History buprenorphine-naloxone [Suboxone] 1 film SUBLINGUAL DAILY 07/26/18 07/26/18 History buprenorphine-naloxone [Suboxone] 1 film SUBLINGUAL DAILY 07/26/18 07/26/18 History levofloxacin [Levaquin] 500 mg PO DAILY 07/26/18 07/26/18 History losartan 100 mg PO DAILY 07/26/18 07/26/18 History sumatriptan succinate 50 mg PO DIRECTED 07/26/18 07/26/18 History Allergies Allergy/AdvReac Type Severity Reaction Status Date / Time No Known Allergies Allergy Unverified 07/26/18 11:43 Exam Narrative Exam Narrative: General: Very pleasant obese female, ill appearing, laying comfortably in bed, not visibly short of breath, no trouble speaking in complete sentences Neurological: A&OX3, generlized, but nonfocal weakness, 4/5. Psychiatric: Appropriate speech pattern/content Skin: Generally dry HEENT: Atraumatic, normocephalic, purple hair, EOMI, Dry MM, no submandibular or cervical lymphadenopathy, no goiter or JVD Cardiovascular: RRR, no m/r/g Lungs: Rhonchi on expiration B Gastrointestinal: abdomen is soft, nontender, nondistended Extremities: +1 BLE edema, no obvious clubbing or cyanosis. Results Imaging Additional studies: CXR: A region of infiltration involving the left lower lobe is demonstrated. The right lung is clear. The heart is not enlarged. The findings would be consistent with an acute left lower lobe pneumonitis. XR R heel: The bony structures are normally mineralized. There is no demonstrated acute fracture. A tiny calcaneal spur is demonstrated, nil else. Also reviewed: Echo 04/28/2017: 1. Left ventricle: The cavity size was normal. Wall thickness was normal. Systolic function was normal. The estimated ejection fraction was 60-65%. Wall motion was normal; there were no regional wall motion abnormalities. Findings consistent with diastolic dysfunction. There was no evidence of elevated ventricular filling pressure by Doppler parameters. 2. Left atrium: The atrium was mildly dilated. 3. Right ventricle: The cavity size was normal. Wall thickness was normal. Systolic function was normal. Labs : 07/26/18 13:40 07/26/18 13:40 Laboratory Results - last 24 hr 07/26/18 07/26/18 07/26/18 13:40 13:40 13:40 WBC 14.45 H RBC 4.21 Hgb 10.9 L Hct 36.1 MCV 85.7 MCH 25.9 L MCHC 30.2 L RDW 15.0 H Plt Count 250 MPV 10.3 Immature Gran % 0.5 Neutrophils % 81.5 Lymphocytes % 10.2 Monocytes % 7.7 Eosinophils % 0.0 Basophils % 0.1 Absolute Neutrophils 11.78 H Absolute Lymphocytes 1.47 Absolute Monocytes 1.11 H Absolute Eosinophils 0.00 Absolute Basophils 0.01 Sodium 142 Potassium 3.7 Chloride 101 Carbon Dioxide 35.3 H Anion Gap 5.7 BUN 13 Creatinine 0.74 Estimated GFR/1.73 m2 >= 60.00 Glucose 97 Lactate 1.2 Calcium 8.4 L Total Bilirubin 0.3 AST 14 L ALT 14 Alkaline Phosphatase 97 Troponin I NT-Pro-B Natriuret Pep Total Protein 7.4 Albumin 2.9 L 07/26/18 13:40 WBC RBC Hgb Hct MCV MCH MCHC RDW Plt Count MPV Immature Gran % Neutrophils % Lymphocytes % Monocytes % Eosinophils % Basophils % Absolute Neutrophils Absolute Lymphocytes Absolute Monocytes Absolute Eosinophils Absolute Basophils Sodium Potassium Chloride Carbon Dioxide Anion Gap BUN Creatinine Estimated GFR/1.73 m2 Glucose Lactate Calcium Total Bilirubin AST ALT Alkaline Phosphatase Troponin I < 0.02 NT-Pro-B Natriuret Pep 409 H Total Protein Albumin Last Vital Signs Temp 37.6 C H 07/26/18 17:13 Pulse 87 07/26/18 17:13 Resp 20 07/26/18 17:13 BP 131/78 07/26/18 17:13 Pulse Ox 94 L 07/26/18 17:13
[2018-07-26] MEDS: guaiFENesin 600 MG TABCR PO (19:36)
[2018-07-26] MEDS: Gabapentin 800 MG TAB PO (19:36)
[2018-07-26] MEDS: Benzonatate 100 MG CAP PO (19:36)
[2018-07-26] MEDS: methylPREDNISolone SUCC 125 MG VIAL 60 MG IVP (19:36)
[2018-07-26] MEDS: Budesonide/Formoterol 160/4.5 6 GM 60 PUFF INH IH (20:47)
[2018-07-26 21:39] LABS: Creatine Kinase 120 U/L (26-192)
[2018-07-26] MEDS: Mirtazapine 15 MG TAB 30 MG PO (22:19)
[2018-07-26] MEDS: Montelukast 10 MG TAB PO (22:19)
[2018-07-27] VITALS (13 sets, daily range): BP systolic 111–174; BP diastolic 69–86; PULSE 74–84; RESP 8–20; TEMP 36.2–37.4; O2SAT 85–96
[2018-07-27] MEDS: methylPREDNISolone SUCC 125 MG VIAL 60 MG IVP ×2 (04:03→12:47)
[2018-07-27] MEDS: Lactated Ringers 1,000 ML 100 ML IV (04:04)
[2018-07-27] MEDS: Normal Saline Flush 10 ML SYR IVP ×6 (04:04→21:45)
[2018-07-27] MEDS: Albuterol/Ipratropium 3 ML UPD VIAL UPD ×2 (05:36→11:25)
--- NOTE | 2018-07-27 07:44 | MERGE_ITS ---
*[facility]* *[facility]* [address] [place] [address] Date of study: 07/27/2018 Transthoracic Echocardiography M-mode, complete 2D, complete spectral Doppler, and color Doppler *STUDY CONCLUSIONS* Summary: 1. Left ventricle: The cavity size was normal. Wall thickness was normal. Systolic function was normal. The estimated ejection fraction was 60-65%. Wall motion was normal; there were no regional wall motion abnormalities. 2. Right ventricle: The cavity size was normal. Systolic function was normal. 3. Left atrium: The atrium was mildly dilated. 4. Mitral valve: Mildly calcified annulus. Mildly thickened leaflets. There was mild regurgitation. 5. Inferior vena cava: The vessel was normal in size. The respirophasic diameter changes were in the normal range (greater than or equal to 50%), consistent with normal central venous pressure. *PATIENT PRESENTATION* Height: 157.5cm ((62in) ) S/D Pressure: 135 / 86 Weight: 82.6kg ((181.6lb) ) BSA: 1.94m^2 Test start time: 07:40 AM. Test stop time: 08:30 AM. CONSULTING Valerie Jiang PERFORMING Unknown PERFORMING [facility] SENIOR MECHANICAL ENGINEER Leslie Leone Yelena A REFERRING Kogan, Yelena A *PROCEDURE DATA* Procedure information: This study was interpreted by [facility]. Pertinent images and digital data are archived for permanent storage and are available for subsequent review. Comparison was made to the study of 04/28/2017. Study status: Routine. Transthoracic echocardiography. M-mode, complete 2D, complete spectral Doppler, and color Doppler. A Transthoracic Echocardiogram was performed. Scanning was performed from the parasternal, apical, subcostal, and suprasternal notch acoustic windows. Images were obtained using an [id number] SC 2000 cardiac ultrasound machine. Image quality was adequate. Study completion: The patient tolerated the procedure well. There were no complications. History: PMH: CHF. *CARDIAC ANATOMY* Left ventricle: The cavity size was normal. Wall thickness was normal. Systolic function was normal. The estimated ejection fraction was 60-65%. Wall motion was normal; there were no regional wall motion abnormalities. Findings consistent with diastolic dysfunction. There was no evidence of elevated ventricular filling pressure by Doppler parameters. Aortic valve: Trileaflet; normal thickness leaflets. Mobility was not restricted. Doppler: Transvalvular velocity was within the normal range. There was no stenosis. There was no significant regurgitation. VTI ratio of LVOT to aortic valve: 0.78. Valve area (VTI): 3cm^2. Indexed valve area (VTI): 1.5cm^2/m^2. Peak velocity ratio of LVOT to aortic valve: 0.77. Valve area (Vmax): 2.9cm^2. Indexed valve area (Vmax): 1.5cm^2/m^2. Mean velocity ratio of LVOT to aortic valve: 0.7. Valve area (Vmean): 2.6cm^2. Indexed valve area (Vmean): 1.4cm^2/m^2. Mean gradient (S): 5.1mm Hg. Peak gradient (S): 9.4mm Hg. Aorta: Aortic root: The aortic root was normal in size. Ascending aorta: The ascending aorta was normal in size. Mitral valve: Mildly calcified annulus. Mildly thickened leaflets. Mobility was not restricted. Doppler: Transvalvular velocity was within the normal range. There was no evidence for stenosis. There was mild regurgitation. Valve area by pressure half-time: 5.8cm^2. Indexed valve area by pressure half-time: 3cm^2/m^2. Peak gradient (D): 3.5mm Hg. Left atrium: The atrium was mildly dilated. Right ventricle: The cavity size was normal. Systolic function was normal. Pulmonic valve: Poorly visualized. Doppler: Transvalvular velocity was within the normal range. There was no evidence for stenosis. There was no significant regurgitation. Tricuspid valve: Structurally normal valve. Doppler: Transvalvular velocity was within the normal range. There was no evidence for stenosis. There was mild regurgitation. Pulmonary artery: Poorly visualized. Pulmonary systolic pressure was within the normal range, in the range of 20mm Hg to 25mm Hg. Right atrium: The atrium was normal in size. Pericardium: There was no pericardial effusion. Systemic veins: Inferior vena cava: The vessel was normal in size. The respirophasic diameter changes were in the normal range (greater than or equal to 50%), consistent with normal central venous pressure. Measurements Left ventricle Value 04/28/2017 Reference LV ID, ED, PLAX 4.6 cm 4.4 3.5 - 6.0 LV ID, ES, PLAX 3.0 cm 2.7 2.1 - 4.0 LV PW thickness, ED, PLAX 0.9 cm 1.0 LV end-diastolic volume, 103 ml 95 1-p A2C LV ejection fraction, 1-p 61 % 55 A2C LV end-diastolic volume, 101 ml 99 1-p A4C LV e', lateral 0.097 m/sec LV E/e', lateral 10 LV e', medial 0.095 m/sec LV E/e', medial 10 LV e', average 0.096 m/sec LV E/e', average 10 Ventricular septum Value 04/28/2017 Reference IVS thickness, ED, PLAX 0.9 cm 1.0 LVOT Value 04/28/2017 Reference LVOT ID, A-P 2.2 cm 2.2 LVOT area 3.8 cm^2 3.9 LVOT peak velocity, S 1.19 m/sec 1.22 LVOT mean velocity, S 0.74 m/sec LVOT VTI, S 25.9 cm 20.7 LVOT peak gradient, S 5.7 mm Hg 6 LVOT mean gradient, S 2.6 mm Hg 2.4 Stroke volume (SV), LVOT 98 ml DP Stroke index (SV/bsa), 50 ml/m^2 LVOT DP Aortic valve Value 04/28/2017 Reference Aortic valve peak 1.5 m/sec velocity, S Aortic valve mean 1.06 m/sec 0.01 velocity, S Aortic valve VTI, S 33.0 cm Aortic mean gradient, S 5.1 mm Hg 5.4 Aortic peak gradient, S 9.4 mm Hg VTI ratio, LVOT/AV 0.78 0.72 Aortic valve area, VTI 3 cm^2 2.8 Velocity ratio, peak, 0.77 LVOT/AV Aortic valve area, peak 2.9 cm^2 3.1 velocity Velocity ratio, mean, 0.7 LVOT/AV Aortic valve area, mean 2.6 cm^2 velocity Aortic valve area/bsa, 1.4 cm^2/m^2 mean velocity Aorta Value 04/28/2017 Reference Aortic root ID, ED 3.0 cm 3.1 Ascending aorta ID, A-P, S 3.3 cm 3.1 Left atrium Value 04/28/2017 Reference LA ID, A-P, ES 3.5 cm LA ID/bsa, A-P 1.8 cm/m^2 <=2.2 LA area, ES, A4C 17.9 cm^2 20 8.8 - 23.4 LA area, ES, A2C 20 cm^2 LA volume, ES, 2-p 59 ml LA volume/bsa, ES, 2-p 30 ml/m^2 LA/aortic root ratio 1.16 0.91 Mitral valve Value 04/28/2017 Reference Mitral E-wave peak 0.94 m/sec 0.91 velocity Mitral A-wave peak 1.12 m/sec 1.05 velocity Mitral deceleration time (L) 131 ms 188 150 - 230 Mitral pressure half-time 38 ms 55 Mitral peak gradient, D 3.5 mm Hg 3.3 Mitral E/A ratio, peak 0.84 0.86 Mitral valve area, PHT, DP 5.8 cm^2 4 Tricuspid valve Value 04/28/2017 Reference Tricuspid regurg peak 2.3 m/sec 3 velocity Tricuspid peak RV-RA 22 mm Hg 35.3 gradient Right atrium Value 04/28/2017 Reference RA area, ES, A4C 14.1 cm^2 14.5 8.3 - 19.5 Legend: (L) and (H) tammy values outside specified reference range. I have personally reviewed the images and have reviewed and edited the reported findings. Electronically signed by Eddie Trevizo 07/27/2018 09:10
--- NOTE | 2018-07-27 08:00 | DI.US_ITS ---
SYMPTOM/DIAGNOSIS: 1+ BILAT LOWER EXTREMITY EDEMA, ? DVT BILATERAL LOWER EXTREMITY ULTRASOUND: The deep veins of both lower extremities were evaluated. They show normal compression, augmentation and color flow. No evidence of a deep venous thrombus is seen in either lower extremity. The saphenofemoral junctions appear intact. No findings to suggest superficial thrombophlebitis are identified. No focal fluid collections are seen in the lower extremities. IMPRESSION: No evidence of a deep venous thrombus in either lower extremity.
[2018-07-27] MEDS: Buprenorphine/Naloxone 12 mg/3 mg FILM 1 EACH SL (11:09)
[2018-07-27] MEDS: Acetaminophen 325 MG TAB PO (11:11)
[2018-07-27] MEDS: guaiFENesin 600 MG TABCR PO ×2 (11:11→20:10)
[2018-07-27] MEDS: Escitalopram 20 MG TAB PO (11:12)
[2018-07-27] MEDS: Gabapentin 800 MG TAB PO ×4 (11:12→20:10)
[2018-07-27] MEDS: Ibuprofen 400 MG TAB PO (11:12)
[2018-07-27] MEDS: Benzonatate 100 MG CAP PO ×3 (11:12→20:10)
[2018-07-27] MEDS: Pantoprazole 40 MG VIAL IVP (11:13)
[2018-07-27] MEDS: Prochlorperazine 5 MG TAB PO (11:13)
[2018-07-27] MEDS: Budesonide/Formoterol 160/4.5 6 GM 60 PUFF INH IH ×2 (11:36→20:10)
--- NOTE | 2018-07-27 14:23 | W.PM.PROGNOT ---
Date of Service Date of service: 07/27/18 Time of Service: 14:23 Assessment and Plan (1) CAP (community acquired pneumonia): Current visit: Yes Status: Acute Improving. Sputum culture revealed rare gram-positive cocci. Blood cultures pending. Continue Levaquin. Change duonebs to as needed. Begin to taper steroids. Repeat labs in the morning. (2) Acute exacerbation of chronic obstructive pulmonary disease (COPD): Current visit: Yes Status: Acute As above. (3) Dehydration: Current visit: Yes Status: Acute Improved. Discontinue IV fluids. BMP in the morning. 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 Continue gabapentin and Suboxone. Continue physical therapy and occupational therapy. (5) Chronic pain: Current visit: Yes Status: Chronic Stable. As above. (6) PETERSON (obstructive sleep apnea): Current visit: Yes Status: Chronic Intolerant of CPAP. Continue nocturnal O2 therapy. (7) Edema of both lower extremities: Current visit: Yes Status: Acute Bilateral lower extremity ultrasounds negative for DVT. Echocardiogram showed LVEF of 60-65%, left atrium was mildly dilated, mitral valve had mild regurgitation, no pulmonary hypertension, although the pulmonary artery was poorly visualized. Discontinue IV fluids. Restart home Lasix. (8) Benign hypertension: Current visit: No Status: Chronic Hypotensive on admission. Antihypertensives currently on hold. Continue to monitor blood pressure and restart antihypertensives as indicated. (9) DVT prophylaxis: Current visit: Yes Status: Acute Subcutaneous Lovenox. (10) Discharge planning issues: Current visit: Yes Status: Acute She is a full code. She has improved overnight, she will likely be ready for discharge home in the next 24-48 hours if she continues to improve. Occupational therapy recommends returning home with home health OT to work on improvement in ADLs/IADLs in the home setting. OT also recommend shower bench to increase safety during bathing routine in the shower. This case was discussed with Dr. Wilkinson who is in agreement. Subjective Interval history since last seen: Tatum states that she feels much better today, she does not feel weak, she has ambulated to the bathroom without shortness of breath, she continues to have a nonproductive cough, she does not feel wheezy. She denies fever, chills, dizziness. She denies chest pain/pressure, palpitations. She is eating and drinking, she did have some nausea, however, antiemetics are helping. Her bowels are functioning normally, no dysuria or hematuria. She is craving nicotine and requesting nicotine replacement. Exam Narrative Exam Narrative: General: Very pleasant overweight female, sitting up in the chair, in no acute distress. She is alert and oriented x3, she is speaking in complete sentences with no increased shortness of breath. HEENT: Normocephalic, atraumatic, her hair is purple, extraocular movements intact, mucous membranes moist. Neck: Supple, no JVD, no lymphadenopathy. Cardiovascular: Heart has regular rate and rhythm, soft systolic murmur 1-2/6, heard best at the left sternal border. Respiratory: Respirations even and unlabored, rhonchi noted bilaterally on expiration. No rales. Gastrointestinal: Normoactive bowel sounds throughout, abdomen is soft, nontender on palpation, nondistended. Extremities: 1+ pitting edema to bilateral lower extremities. Peripheral pulses palpable bilaterally. Objective Objective Clinical Data: Abnormal lab results 07/26/18 Range/Units 13:40 NT-Pro-B Natriuret Pep 409 H ( - 299) pg/mL Vital Signs Temperature 36.3 C L 07/27/18 11:50 Temperature Source Tympanic 07/27/18 11:50 Pulse 84 07/27/18 11:50 Pulse Rhythm Regular 07/26/18 21:00 Pulse 80 07/26/18 14:34 Respiratory Rate 18 07/27/18 11:50 Respiratory Effort 07/26/18 21:00 Respiratory Depth Normal 07/26/18 21:00 Respiratory Pattern Normal 07/26/18 21:00 Blood Pressure 124/72 07/27/18 11:50 Blood Pressure Mean 78 07/26/18 14:33 Blood Pressure Position Supine 07/26/18 11:38 Pulse Oximetry 94 L 07/27/18 11:50 Oxygen Delivery Method Room Air 07/27/18 11:50 Oxygen Flow Rate 0 07/27/18 11:50 Pain Level 8 07/27/18 11:12 Comment 07/26/18 17:13 Intake & Output 07/26/18 07/27/18 07/27/18 23:59 11:59 23:59 Intake Total 710 / 710 1463.333 / 1713.333 250 / 1713.333 Output Total 425 / 425 800 / 800 Balance 285 / 285 663.333 / 913.333 250 / 913.333 Weight 82.7 kg 88.1 kg Intake: IV 650 / 650 983.333 / 983.333 Oral 60 / 60 480 / 730 250 / 730 Output: Urine 425 / 425 800 / 800 Other: Urine Color Yellow Yellow Urine Appearance Clear Clear Urine Odor None Comment patient voids in the bedside commode pt voided unknown amount in toilet. Stool Size Moderate Stool Characteristics Soft Formed Brown Voiding Methods Bedpan Bedside Commode Laboratory Results WBC 14.45 k/cumm (4.4-10.8) H 07/26/18 13:40 RBC 4.21 m/cumm (4.00-5.20) 07/26/18 13:40 Hgb 10.9 g/dL (12.0-15.5) L 07/26/18 13:40 Hct 36.1 % (36.0-46.0) 07/26/18 13:40 MCV 85.7 fL (80-95) 07/26/18 13:40 MCH 25.9 pg (27.0-33.0) L 07/26/18 13:40 MCHC 30.2 g/dL (32.0-36.0) L 07/26/18 13:40 RDW 15.0 % (11.7-14.6) H 07/26/18 13:40 Plt Count 250 x1000/uL (130-400) 07/26/18 13:40 MPV 10.3 fL (8.0-11.0) 07/26/18 13:40 Immature Gran % 0.5 07/26/18 13:40 Neutrophils % 81.5 07/26/18 13:40 Lymphocytes % 10.2 07/26/18 13:40 Monocytes % 7.7 07/26/18 13:40 Eosinophils % 0.0 07/26/18 13:40 Basophils % 0.1 07/26/18 13:40 Absolute Neutrophils 11.78 k/cumm (1.2-6.7) H 07/26/18 13:40 Absolute Lymphocytes 1.47 k/cumm (1.2-3.4) 07/26/18 13:40 Absolute Monocytes 1.11 k/cumm (0.11-0.7) H 07/26/18 13:40 Absolute Eosinophils 0.00 k/cumm (0.0-0.7) 07/26/18 13:40 Absolute Basophils 0.01 k/cumm (0.0-0.2) 07/26/18 13:40 Sodium 142 mmol/L (136-145) 07/26/18 13:40 Potassium 3.7 mmol/L (3.5-5.1) 07/26/18 13:40 Chloride 101 mmol/L (98-107) 07/26/18 13:40 Carbon Dioxide 35.3 mmol/L (21.0-32.0) H 07/26/18 13:40 Anion Gap 5.7 mmol/L (3-11) 07/26/18 13:40 BUN 13 mg/dL (7-18) 07/26/18 13:40 Creatinine 0.74 mg/dL (0.55-1.02) 07/26/18 13:40 Estimated GFR/1.73 m2 >= 60.00 (mL/min/1.73m2) 07/26/18 13:40 Glucose 97 mg/dL (70-100) 07/26/18 13:40 Lactate 1.2 mmol/L (0.6-1.4) 07/26/18 13:40 Calcium 8.4 mg/dL (8.5-10.1) L 07/26/18 13:40 Total Bilirubin 0.3 mg/dL (0.2-1.0) 07/26/18 13:40 AST 14 U/L (15-37) L 07/26/18 13:40 ALT 14 U/L (12-78) 07/26/18 13:40 Alkaline Phosphatase 97 U/L (46-116) 07/26/18 13:40 Creatine Kinase 120 U/L (26-192) 07/26/18 13:40 Troponin I < 0.02 ng/mL (0.00-0.06) 07/26/18 13:40 NT-Pro-B Natriuret Pep 409 pg/mL (-299) H 07/26/18 13:40 Total Protein 7.4 g/dL (6.4-8.2) 07/26/18 13:40 Albumin 2.9 g/dL (3.4-5.0) L 07/26/18 13:40
[2018-07-27] MEDS: levoFLOXacin 750 MG/150 ML BAG 100 MG IVPB (14:26)
--- NOTE | 2018-07-27 14:27 | OT.INIE ---
Occupational Therapy Notes Inpatient Occupational Therapy Evaluation Date: 07/27/18 Referring Doctor:Rebekah Wilkinson MD OT Orders: Eval and Treat Precautions: Standard PATIENT PROFILE/ADMITTING DIAGNOSIS: Pt is a 63 year old female who was admitted through the ER for generalized weakness, pneumonia, hypotensive, and hypoxia. She was dx yesterday with pneumonia and had taken one dose of her medication when she felt significantly worse and presented to the ER. Past Medical History: Family history of colon cancer (Acute) Constipation (Acute) Pancreatic mass (Acute ~01/2017) Lethargy (Chronic) Polysubstance abuse (Chronic) Chronic pain (Chronic) Colon polyps (Chronic) History of suicide attempt (Chronic) Tobacco use (Acute) Allergic rhinitis (Chronic) Anxiety (Chronic) COPD (chronic obstructive pulmonary disease) (Chronic) 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) Depression (Chronic) Edema (Chronic) Goiter diffuse (Chronic) HTN (hypertension) (Chronic) Hepatitis C (Chronic) Hypercholesterolemia (Chronic) Left knee pain (Chronic) Lumbar back pain (Chronic) Migraine headache (Chronic) Multiple sclerosis (Chronic) PETERSON (obstructive sleep apnea) (Chronic) Opioid dependence (Chronic) Cocaine abuse (Resolved) Surgical History H/O section (Inactive) S/P cholecystectomy (Inactive) Status post shoulder surgery (Inactive) Social History/Home Situation: Pt lives in a home with her daughter. She reports that she is able to drive but does not due to not having a car, she reports that her daughter takes care of all driving, grocery shopping, cooking and laundry. Pt reports that she is able to perform her ADLs (I) but she has her daughter who helps and (A) as needed. Equipment owned/DME: grab bars, O2 3L at night SUBJECTIVE: Pt was returning to her room after multiple tests performed this morning. She reports that she feels so much better today and is able to do so much more. She states that when she gets sick she tends to get really sick limiting what she is able to do. Pt is agreeable to OT consult. OBJECTIVE: General Observation: Pleasant, answers questions appropriately Mental Status: A&Ox3 Pain: no c/o pain ROM: RUE AROM WNL L UE AROM WNL STRENGTH: RUE 4/5 throughout globally LUE 4/5 throughout globally FUNCTIONAL MOBILITY/ADLS: Transfers Sit-Stand (I) Stand-sit (S) Bed-Chair (S) Chair-bed (S) BATHING Sitting in chair Bathing UE (I) Bathing LE (I) DRESSING Sitting in chair Dressing UE (I) with donning and doffing hospital gown Dressing LE (I) donning and doffing (B) socks. GROOMING Standing at the sink with good functional standing tolerance, pt was able to wash her hands (I) with (S). TOILETING on toilet (I), no assistive device for functional mobility EATING (I) sitting in chair. BALANCE: Static sitting Normal Dynamic Sitting Normal Static Standing Normal Dynamic Standing Good SPECIAL TESTS: Daily Activity Limitations Standardized Measure [facility] AM -PAC ?6 clicks? Daily Activity Inpatient Short Form: Raw score: 22 INFORMED CONSENT/EDUCATION: Pt instructed in purpose of OT Consult and plan of care. ASSESSMENT: Patient is a 63-year-old female referred to occupational therapy services with diagnosis of generalized weakness, pneumonia, hypotensive and hypoxia. Patient presents with clinical signs and symptoms consistent with dx, as demonstrated by the following impairment level findings/functional limitations: decreased functional activity tolerance, labored breathing post functional activities. Pt does not feel that she needs OT services at this time as she is (I) with ADLs and her daughter (A) when needed. OT will discharge pt from skilled OT services at this time. Patient is assessed as a Low 85068 complexity based on the following: History: See Above Examination: See Above Presentation: Evolving Decision Making: Low based on examination GOALS N/A PLAN OF CARE/TREATMENT PLAN: OT eval only. DISCHARGE RECOMMENDATIONS OT recommends that pt return home with home health services to increase (I) in ADLs/IADLs in the home setting. OT recommends that pt get shower bench to increase pts safety during bathing routine in the shower. TREATMENT TIME/MINUTES/CODES 96126, 07019, 25 minutes (10:40) [facility]
[2018-07-27] MEDS: Furosemide 40 MG TAB PO (15:47)
[2018-07-27] MEDS: Nicotine 7 MG/24 HR PATCH TD (15:48)
--- NOTE | 2018-07-27 15:48 | CHAPLAIN ---
Tatum was having lunch when I visited. She was quiet, but engaged in a conversation. She said he daughter will be in to visit later today.
--- NOTE | 2018-07-27 15:50 | PDOC.CMIN ---
Care Management Initial Assess REASON FOR HOSPITALIZATION:: CAP, Acute on chronic hypoxic respiratory failure PAST MEDICAL HISTORY/PAST SURGICAL HISTORY:: Edema of bilat LE, chronic respiratory failure, DVT prohylaxis, PETERSON, CAP, ambulatory dysfunction, acute exacerbation of COPD, dehydration, generalized weakness, chronic pain, Zgggcof-Mocnc-Tdlgq disease, hx colon cancer, constipation, pancreatic mass, COPD, benign hypertension, tobacco dependence syndrome, hyperlipidemia, lethargy, chronic anxiety, MS, sleep apnea, migraine, allergic rhinitis, depressive disorder, polysubstance abuse, multinodular thyroid, colon polyps, suicide attempt, surgical procedure, right lower lobe pneumonia, Hep C antibody test positive PREVIOUS FUNCTIONAL STATUS/SOCIAL/FAMILY SUPPORTS:: Tatum resides with her adult daughter at [facility] in [facility]. Tatum is disabled and transports via [facility]. She wears home oxygen at night as she is unable to tolerate CPAP device. Tatum reports that she is able to drive but does not currently own a car, she reports that her daughter takes care of all driving, grocery shopping, cooking and laundry. Tatum is mostly independent with ADLs. CURRENT FUNCTIONAL STATUS:: Tatum is sitting on the side of her bed, pleasant in interaction and forthcoming with information. She reports feeling much better. ADVANCE DIRECTIVES:: July Has patient been provided with information about the portal?: Yes Did the patient sign up for the portal?: No CODE STATUS:: Full Code INSURANCE COVERAGE / FINANCIAL ISSUES:: Medicare. Medicaid CURRENT HOME/COMMUNITY SERVICES/EQUIPMENT:: Home oxygen; 3L at night at night for sleep apnea, RCT, suboxone for chronic pain/Lycjldr-Hkbgq-Bjdjq disease. PRIMARY CARE PHYSICIAN:: Valerie Jiang POTENTIAL DISCHARGE NEEDS:: Follow up appointment with PCP, further evaluation with PT/OT. PATIENT/FAMILY EDUCATION NEEDS:: Review discharge instructions regarding medications, activity restrictions and follow up care. Discuss Ask Me Three questions to assure patient understanding of reason for hospitalization and knowledge of self care needs upon discharge. ANTICIPATED BARRIERS TO DISCHARGE:: None identified at this time. TRANSPORTATION:: Transport via [facility]; CM to assist with arranging transportation. PLAN:: Tatum will return home when ready per MD. She will follow up with her PCP and plan of care as prescribed. She will transport via [facility] coordinated by CM.
--- NOTE | 2018-07-27 16:21 | INITIAL_ITS ---
Care Management Initial Assess REASON FOR HOSPITALIZATION:: CAP, Acute on chronic hypoxic respiratory failure PAST MEDICAL HISTORY/PAST SURGICAL HISTORY:: Edema of bilat LE, chronic respiratory failure, DVT prohylaxis, PETERSON, CAP, ambulatory dysfunction, acute exacerbation of COPD, dehydration, generalized weakness, chronic pain, Gwopbvx-Fnkfh-Fepfy disease, hx colon cancer, constipation, pancreatic mass, COPD, benign hypertension, tobacco dependence syndrome, hyperlipidemia, lethargy, chronic anxiety, MS, sleep apnea, migraine, allergic rhinitis, depressive disorder, polysubstance abuse, multinodular thyroid, colon polyps, suicide attempt, surgical procedure, right lower lobe pneumonia, Hep C antibody test positive PREVIOUS FUNCTIONAL STATUS/SOCIAL/FAMILY SUPPORTS:: Tatum resides with her adult daughter at [facility] in [facility]. Tatum is disabled and transports via [facility]. She wears home oxygen at night as she is unable to tolerate CPAP device. Tatum reports that she is able to drive but does not currently own a car, she reports that her daughter takes care of all driving, grocery shopping, cooking and laundry. Tatum is mostly independent with ADLs. CURRENT FUNCTIONAL STATUS:: Tatum is sitting on the side of her bed, pleasant in interaction and forthcoming with information. She reports feeling much better. ADVANCE DIRECTIVES:: July Has patient been provided with information about the portal?: Yes Did the patient sign up for the portal?: No CODE STATUS:: Full Code INSURANCE COVERAGE / FINANCIAL ISSUES:: Medicare. Medicaid CURRENT HOME/COMMUNITY SERVICES/EQUIPMENT:: Home oxygen; 3L at night at night for sleep apnea, RCT, suboxone for chronic pain/Irruqiz-Rfnkb-Gznsk disease. PRIMARY CARE PHYSICIAN:: Valerie Jiang POTENTIAL DISCHARGE NEEDS:: Follow up appointment with PCP, further evaluation with PT/OT. PATIENT/FAMILY EDUCATION NEEDS:: Review discharge instructions regarding medications, activity restrictions and follow up care. Discuss Ask Me Three questions to assure patient understanding of reason for hospitalization and knowledge of self care needs upon discharge. ANTICIPATED BARRIERS TO DISCHARGE:: None identified at this time. TRANSPORTATION:: Transport via RCT; CM to assist with arranging transportation. PLAN:: Tatum will return home when ready per MD. She will follow up with her PCP and plan of care as prescribed. She will transport via [facility] coordinated by CM.
[2018-07-27] MEDS: Enoxaparin 40 MG/0.4 ML SYR SC (17:27)
[2018-07-27 17:46] LABS: Abs Immature Grans 0.04 k/cumm (0.0-0.09); Absolute Basophil Count 0.01 k/cumm (0.0-0.2); Absolute Lymphocyte Count 1.16 k/cumm (1.2-3.4); Absolute Monocyte Count 0.25 k/cumm (0.11-0.7); Absolute Neutrophil Count 7.27 k/cumm (1.2-6.7); Basophils % 0.1; HCT 34.1 % (36.0-46.0); HGB 10.6 g/dL (12.0-15.5); Immature Grans % 0.5; Lymphocytes % 13.3; Mean Corp. HGB Concentration 31.1 g/dL (32.0-36.0); Mean Corpuscular Hemoglobin 25.8 pg (27.0-33.0); Mean Platelet Volume 10.6 fL (8.0-11.0); Monocytes % 2.9; Neutrophils % 83.2; Platelet Count 260 x1000/uL (130-400); RBC 4.11 m/cumm (4.00-5.20); RBC Distribution Width 14.9 % (11.7-14.6); White Blood Cell Count 8.74 k/cumm (4.4-10.8)
[2018-07-27 18:00] LABS: Anion Gap 7.2 mmol/L (3-11); BUN 17 mg/dL (7-18); CO2 32.8 mmol/L (21.0-32.0); CREATININE 0.75 mg/dL (0.55-1.02); Calcium 8.7 mg/dL (8.5-10.1); Chloride 100 mmol/L (98-107); Glucose 141 mg/dL (70-100); Magnesium 1.7 mg/dL (1.8-2.4); Sodium 140 mmol/L (136-145)
[2018-07-27] MEDS: methylPREDNISolone SUCC 40 MG VIAL IVP (21:44)
[2018-07-27] MEDS: Mirtazapine 15 MG TAB 30 MG PO (21:44)
[2018-07-27] MEDS: Montelukast 10 MG TAB PO (21:45)
[2018-07-28 03:55] VITALS: BP 135/79; PULSE 77; RESP 18; TEMP 36.7; O2SAT 92
[2018-07-28 07:18] LABS: HCT 33.8 % (36.0-46.0); HGB 10.6 g/dL (12.0-15.5); Mean Corp. HGB Concentration 31.4 g/dL (32.0-36.0); Mean Corpuscular Hemoglobin 25.7 pg (27.0-33.0); Mean Platelet Volume 10.5 fL (8.0-11.0); Platelet Count 263 x1000/uL (130-400); RBC 4.12 m/cumm (4.00-5.20); White Blood Cell Count 8.96 k/cumm (4.4-10.8)
[2018-07-28] MEDS: Budesonide/Formoterol 160/4.5 6 GM 60 PUFF INH IH (08:22)
[2018-07-28] MEDS: Buprenorphine/Naloxone 12 mg/3 mg FILM 1 EACH SL (08:41)
[2018-07-28] MEDS: Normal Saline Flush 10 ML SYR IVP (08:43)
[2018-07-28] MEDS: Pantoprazole 40 MG VIAL IVP (08:43)
[2018-07-28] MEDS: Magnesium Oxide 400 MG TAB PO (08:44)
[2018-07-28] MEDS: Escitalopram 20 MG TAB PO (08:44)
[2018-07-28] MEDS: guaiFENesin 600 MG TABCR PO (08:44)
[2018-07-28] MEDS: Furosemide 20 MG TAB 40 MG PO (08:44)
[2018-07-28] MEDS: Gabapentin 800 MG TAB PO (08:44)
[2018-07-28] MEDS: Benzonatate 100 MG CAP PO (08:44)
[2018-07-28 08:50] VITALS: BP 150/70; PULSE 86; RESP 21; TEMP 37; O2SAT 93
[2018-07-28] MEDS: Nicotine 7 MG/24 HR PATCH TD (08:54)
[2018-07-28] MEDS: Prochlorperazine 5 MG TAB PO (08:55)
[2018-07-28] MEDS: methylPREDNISolone SUCC 40 MG VIAL IVP (10:18)
--- NOTE | 2018-07-28 10:18 | W.PM.DS.N ---
Date of service: 07/28/18 Time of Service: 10:20 DS: Diagnosis Discharge Diagnosis (1) CAP (community acquired pneumonia): Status: Acute (2) Acute exacerbation of chronic obstructive pulmonary disease (COPD): Status: Acute (3) Dehydration: Status: Acute (4) Alofqvx-Ngzgz-Teapp disease: Status: Chronic (5) Chronic pain: Status: Chronic (6) PETERSON (obstructive sleep apnea): Status: Chronic (7) Edema of both lower extremities: Status: Acute (8) Benign hypertension: Status: Chronic Discharge Plan Disposition Patient Disposition: HOME Condition: Improving Discharge Details Reason For Visit: CAP,ACUTE ON CHRONIC HYPOXIC RESPIRATORY FAILURE Admit Date/Time: 07/26/18 14:43 Admit Provider: Rebekah Wilkinson Attending Provider: Rebekah Wilkinson Primary Care Provider: Valerie Jiang [place] Hospital Course Hospital Course: Tatum Loya is a very pleasant 63-year-old female with a past medical history significant for COPD, obstructive sleep apnea with chronic hypoxic respiratory failure, intolerant of CPAP, who wears oxygen at night at home at baseline, as well as hypertension, hyperlipidemia and Charcot Ashley tooth disease, on Suboxone therapy for history of polysubstance abuse, chronic pain who presented to the emergency department on 07/26/2018. She had been seen by her primary care provider the day prior and was diagnosed with pneumonia. Her primary care provider started her on Levaquin, she received 1 dose. On presentation she had generalized weakness, hypotension and hypoxia. Checks x-ray revealed a region of infiltration involving the left lower lobe. She was given supplemental oxygen, IV fluids and was admitted to the [facility] floor for further observation and management. Although the patient was failing at home, she did not necessarily fail antibiotic therapy. She was continued on Levaquin, started on high-dose IV steroids, given nebulizer treatments and IV fluids. Her condition improved over the following days. By the day of discharge, she is denying shortness of breath, she has an occasional nonproductive cough, denies wheezing. She is eager for discharge home. She has no leukocytosis, she has remained afebrile, she no longer has wheezing on examination, she is no longer requiring supplemental oxygen. Her blood cultures have yielded no growth at 24 hours. She was noted to have bilateral lower extremity edema on admission, she was referred for bilateral lower extremity ultrasounds to assess for DVT, no evidence of DVT was noted. She also had an echocardiogram which showed LVEF of 60-65%, left atrium was mildly dilated, mild mitral regurgitation, no pulmonary hypertension. She initially reported right ankle pain, she had a right heel x-ray which noted a tiny calcaneal spur, no acute fracture with normal mineralization to the bony structures. Throughout the rest of her time in the hospital, she did not report any further right ankle pain. She is discharged home today in improved condition. She will complete a full 7-day course of Levaquin, she will be tapered slowly off of steroids, she will be advised to follow-up with her primary care provider within the next 2 weeks. Home Meds and New Rx's Prescriptions: New Nicotrol 10 mg Cartridge 10 mg Inhalation Q2H PRN PRNQty: 30 RF: 0 benzonatate 100 mg Capsule 100 mg PO TID Qty: 9 RF: 0 nicotine 7 mg/24 hr Patch 24 Hour 7 mg Transdermal DAILY PRN PRNQty: 14 RF: 0 guaifenesin [Mucinex] 600 mg Tablet Extended Release 12hr 600 mg PO BID Qty: 6 RF: 0 prednisone 10 mg tablet 10 mg PO DAILY Qty: 30 RF: 0 levofloxacin 750 mg tablet 750 mg PO DAILY Qty: 3 RF: 0 ibuprofen 800 mg tablet 800 mg PO TID PRN (Reason: pain) Qty: 30 RF: 0 Continued mirtazapine 30 mg tablet 30 mg PO HS RF: 0 furosemide 20 mg tablet 40 mg PO DAILY RF: 0 Spiriva with HandiHaler 1 PUFF capsule, w/inhalation device 1 cap Inhalation DAILY RF: 0 Symbicort 60 PUFF HFA aerosol inhaler 2 puff Inhalation BID RF: 0 gabapentin 800 MG tablet 800 mg PO QID RF: 0 albuterol sulfate 2.5 mg /3 mL (0.083 %) Solution For Nebulization 2.5 mg INHALATION Q4H PRNRF: 0 montelukast [Singulair] 10 MG tablet 10 mg PO DAILY RF: 0 escitalopram oxalate [Lexapro] 20 MG tablet 20 mg PO DAILY RF: 0 atorvastatin 40 mg Tablet 40 mg PO HS RF: 0 amlodipine 5 mg Tablet 5 mg PO DAILY RF: 0 sumatriptan succinate 50 mg Tablet 50 mg PO DIRECTED RF: 0 losartan 100 mg Tablet 100 mg PO DAILY RF: 0 buprenorphine-naloxone [Suboxone] 2-0.5 mg Film 1 film Sublingual DAILY RF: 0 buprenorphine-naloxone [Suboxone] 12-3 mg Film 1 film Sublingual DAILY RF: 0 Discontinued levofloxacin [Levaquin] 500 mg Tablet 500 mg PO DAILY RF: 0 Discharge Instructions Instructions: Community Acquired Pneumonia (DC) Additional Instructions: Take Levaquin x3 more days. Taper steroids: tomorrow morning take 4 tablets (x3 days), then take 3 tablets x3 days, then 2 tablets x3 days, then 1 tablet x3 days, then stop. Call your PCP office Monday to set up a follow up appointment within the next 1-2 weeks. Continue smoking cessation. Take care! Referrals: Megan Victor MD [ NON-[facility] STAFF PHYSICIAN] - Valerie Jiang MD [Primary Care Provider] - (Call your PCP office on Monday to set up a follow-up appointment.) Activity:: Activity as Tolerated Equipment/Supplies:: No Equipment Needed Diet:: Heart healthy diet Discharge Orders Discharge Orders: Discharge Order (Routine); Ordered 07/28/18 Ordered By: Sangeeta Maya Exam Narrative Exam Narrative: General: Very pleasant overweight female, sitting up in bed, in no acute distress. She is alert and oriented x3, she is speaking in complete sentences with no shortness of breath. HEENT: Normocephalic, atraumatic, her hair is purple, extraocular movements intact, mucous membranes moist. Neck: Supple, no JVD, no lymphadenopathy. Cardiovascular: Heart has regular rate and rhythm, no murmur appreciated. Respiratory: Respirations even and unlabored, lung sounds are clear to auscultation throughout, no rales or wheezing. Gastrointestinal: Normoactive bowel sounds throughout, abdomen is soft, nontender on palpation, nondistended. Extremities: Trace edema to bilateral hands and bilateral lower extremities. Peripheral pulses palpable bilaterally. DS: Data Vitals/I&O Vitals and I&O: Vital Signs Temperature 36.7 C 07/28/18 03:55 Temperature Source Tympanic 07/28/18 03:55 Pulse 77 07/28/18 03:55 Pulse Rhythm Regular 07/27/18 22:42 Pulse 80 07/26/18 14:34 Respiratory Rate 18 07/28/18 03:55 Respiratory Effort 07/27/18 22:42 Respiratory Depth Normal 07/27/18 22:42 Respiratory Pattern Normal 07/27/18 22:42 Blood Pressure 135/79 07/28/18 03:55 Blood Pressure Mean 78 07/26/18 14:33 Blood Pressure Position Supine 07/26/18 11:38 Pulse Oximetry 92 L 07/28/18 03:55 Oxygen Delivery Method Room Air 07/28/18 03:55 Oxygen Flow Rate 0 07/28/18 03:55 Pain Level 0 07/28/18 03:55 Comment 07/27/18 23:17 Intake & Output 07/27/18 07/27/18 07/28/18 11:59 23:59 11:59 Intake Total 1463.333 / 2213.333 750 / 2213.333 1130 / 1130 Output Total 800 / 800 Balance 663.333 / 1413.333 750 / 9761.058 3314 / 1130 Weight 88.1 kg 92.788 kg Intake: IV 983.333 / 1003.333 20 / 2778.581 7975 / 1030 Oral 480 / 1210 730 / 1210 100 / 100 Output: Urine 800 / 800 Other: Urine Color Yellow Pale Yellow Urine Appearance Clear Clear Urine Odor None None Comment patient voids in the bedside commode patient voids independently in the bathroom Stool Size Moderate Stool Characteristics Soft Formed Brown Voiding Methods Bedside Commode Completed studies during hospitalization [Text1]: 07/26/2018: AP CHEST: A region of infiltration involving the left lower lobe is demonstrated. The right lung is clear. The heart is not enlarged. The findings would be consistent with an acute left lower lobe pneumonitis. RIGHT HEEL: The bony structures are normally mineralized. There is no demonstrated acute fracture. A tiny calcaneal spur is demonstrated, nil else. Date of study: 07/27/2018 Transthoracic Echocardiography M-mode, complete 2D, complete spectral Doppler, and color Doppler *STUDY CONCLUSIONS* Summary: 1. Left ventricle: The cavity size was normal. Wall thickness was normal. Systolic function was normal. The estimated ejection fraction was 60-65%. Wall motion was normal; there were no regional wall motion abnormalities. 2. Right ventricle: The cavity size was normal. Systolic function was normal. 3. Left atrium: The atrium was mildly dilated. 4. Mitral valve: Mildly calcified annulus. Mildly thickened leaflets. There was mild regurgitation. 5. Inferior vena cava: The vessel was normal in size. The respirophasic diameter changes were in the normal range (greater than or equal to 50%), consistent with normal central venous pressure. BILATERAL LOWER EXTREMITY ULTRASOUND: The deep veins of both lower extremities were evaluated. They show normal compression, augmentation and color flow. No evidence of a deep venous thrombus is seen in either lower extremity. The saphenofemoral junctions appear intact. No findings to suggest superficial thrombophlebitis are identified. No focal fluid collections are seen in the lower extremities. IMPRESSION: No evidence of a deep venous thrombus in either lower extremity. Labs on day of discharge: Labs from last 24 hours 07/28/18 07/27/18 07/27/18 06:40 17:30 17:30 WBC 8.96 8.74 D RBC 4.12 4.11 Hgb 10.6 L 10.6 L Hct 33.8 L 34.1 L MCV 82.0 83.0 MCH 25.7 L 25.8 L MCHC 31.4 L 31.1 L RDW 15.0 H 14.9 H Plt Count 263 260 MPV 10.5 10.6 Immature Gran % 0.5 Neutrophils % 83.2 Lymphocytes % 13.3 Monocytes % 2.9 Eosinophils % 0.0 Basophils % 0.1 Absolute Neutrophils 7.27 H Absolute Lymphocytes 1.16 L Absolute Monocytes 0.25 Absolute Eosinophils 0.00 Absolute Basophils 0.01 Sodium 140 Potassium 4.0 Chloride 100 Carbon Dioxide 32.8 H Anion Gap 7.2 BUN 17 Creatinine 0.75 Estimated GFR/1.73 m2 >= 60.00 Glucose 141 H Calcium 8.7 Magnesium 1.7 L Preliminary micro results at discharge 07/26/18 22:30 Blood Culture - Preliminary Blood NO GROWTH 24 HOURS 07/26/18 22:30 Blood Culture - Preliminary Blood NO GROWTH 24 HOURS [facility] Medical History Family history of colon cancer (Acute) Constipation (Acute) Pancreatic mass (Acute ~01/2017) Lethargy (Chronic) Polysubstance abuse (Chronic) Chronic pain (Chronic) Colon polyps (Chronic) History of suicide attempt (Chronic) Tobacco use (Acute) Allergic rhinitis (Chronic) Anxiety (Chronic) COPD (chronic obstructive pulmonary disease) (Chronic) 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) Depression (Chronic) Edema (Chronic) Goiter diffuse (Chronic) HTN (hypertension) (Chronic) Hepatitis C (Chronic) Hypercholesterolemia (Chronic) Left knee pain (Chronic) Lumbar back pain (Chronic) Migraine headache (Chronic) Multiple sclerosis (Chronic) PETERSON (obstructive sleep apnea) (Chronic) Opioid dependence (Chronic) Cocaine abuse (Resolved) Surgical History H/O section (Inactive) S/P cholecystectomy (Inactive) Status post shoulder surgery (Inactive) Social History Smoking/Tobacco Use Status: Current every day Drug use: Never Do you feel safe in your relationship?: Yes
--- NOTE | 2018-07-28 10:30 | DSE_ITS ---
Date of service: 07/28/18 Time of Service: 10:20 DS: Diagnosis Discharge Diagnosis (1) CAP (community acquired pneumonia): Status: Acute (2) Acute exacerbation of chronic obstructive pulmonary disease (COPD): Status: Acute (3) Dehydration: Status: Acute (4) Rrcxgmy-Rndub-Duszn disease: Status: Chronic (5) Chronic pain: Status: Chronic (6) PETERSON (obstructive sleep apnea): Status: Chronic (7) Edema of both lower extremities: Status: Acute (8) Benign hypertension: Status: Chronic Discharge Plan Disposition Patient Disposition: HOME Condition: Improving Discharge Details Reason For Visit: CAP,ACUTE ON CHRONIC HYPOXIC RESPIRATORY FAILURE Admit Date/Time: 07/26/18 14:43 Admit Provider: Rebekah Wilkinson Attending Provider: Rebekah Wilkinson Primary Care Provider: Valerie Jiang [place] Hospital Course Hospital Course: Tatum Loya is a very pleasant 63-year-old female with a past medical history significant for COPD, obstructive sleep apnea with chronic hypoxic respiratory failure, intolerant of CPAP, who wears oxygen at night at home at baseline, as well as hypertension, hyperlipidemia and Charcot Ashley tooth disease, on Suboxone therapy for history of polysubstance abuse, chronic pain who presented to the emergency department on 07/26/2018. She had been seen by her primary care provider the day prior and was diagnosed with pneumonia. Her primary care provider started her on Levaquin, she received 1 dose. On presentation she had generalized weakness, hypotension and hypoxia. Checks x-ray revealed a region of infiltration involving the left lower lobe. She was given supplemental oxygen, IV fluids and was admitted to the [facility] floor for further observation and management. Although the patient was failing at home, she did not necessarily fail antibiotic therapy. She was continued on Levaquin, started on high-dose IV s teroids, given nebulizer treatments and IV fluids. Her condition improved over the following days. By the day of discharge, she is denying shortness of breath, she has an occasional nonproductive cough, denies wheezing. She is eager for discharge home. She has no leukocytosis, she has remained afebrile, she no longer has wheezing on examination, she is no longer requiring supplemental oxygen. Her blood cultures have yielded no growth at 24 hours. She was noted to have bilateral lower extremity edema on admission, she was referred for bilateral lower extremity ultrasounds to assess for DVT, no evidence of DVT was noted. She also had an echocardiogram which showed LVEF of 60-65%, left atrium was mildly dilated, mild mitral regurgitation, no pulmonary hypertension. She initially reported right ankle pain, she had a right heel x-ray which noted a tiny calcaneal spur, no acute fracture with normal mineralization to the bony structures. Throughout the rest of her time in the hospital, she did not report any further right ankle pain. She is discharged home today in improved condition. She will complete a full 7- day course of Levaquin, she will be tapered slowly off of steroids, she will be advised to follow-up with her primary care provider within the next 2 weeks. Home Meds and New Rx's Prescriptions: New Nicotrol 10 mg Cartridge 10 mg Inhalation Q2H PRN PRNQty: 30 RF: 0 benzonatate 100 mg Capsule 100 mg PO TID Qty: 9 RF: 0 nicotine 7 mg/24 hr Patch 24 Hour 7 mg Transdermal DAILY PRN PRNQty: 14 RF: 0 guaifenesin [Mucinex] 600 mg Tablet Extended Release 12hr 600 mg PO BID Qty: 6 RF: 0 prednisone 10 mg tablet 10 mg PO DAILY Qty: 30 RF: 0 levofloxacin 750 mg tablet 750 mg PO DAILY Qty: 3 RF: 0 ibuprofen 800 mg tablet 800 mg PO TID PRN (Reason: pain) Qty: 30 RF: 0 Continued mirtazapine 30 mg tablet 30 mg PO HS RF: 0 furosemide 20 mg tablet 40 mg PO DAILY RF: 0 Spiriva with HandiHaler 1 PUFF capsule, w/inhalation device 1 cap Inhalation DAILY RF: 0 Symbicort 60 PUFF HFA aerosol inhaler 2 puff Inhalation BID RF: 0 gabapentin 800 MG tablet 800 mg PO QID RF: 0 albuterol sulfate 2.5 mg /3 mL (0.083 %) Solution For Nebulization 2.5 mg INHALATION Q4H PRNRF: 0 montelukast [Singulair] 10 MG tablet 10 mg PO DAILY RF: 0 escitalopram oxalate [Lexapro] 20 MG tablet 20 mg PO DAILY RF: 0 atorvastatin 40 mg Tablet 40 mg PO HS RF: 0 amlodipine 5 mg Tablet 5 mg PO DAILY RF: 0 sumatriptan succinate 50 mg Tablet 50 mg PO DIRECTED RF: 0 losartan 100 mg Tablet 100 mg PO DAILY RF: 0 buprenorphine-naloxone [Suboxone] 2-0.5 mg Film 1 film Sublingual DAILY RF: 0 buprenorphine-naloxone [Suboxone] 12-3 mg Film 1 film Sublingual DAILY RF: 0 Discontinued levofloxacin [Levaquin] 500 mg Tablet 500 mg PO DAILY RF: 0 Discharge Instructions Instructions: Community Acquired Pneumonia (DC) Additional Instructions: Take Levaquin x3 more days. Taper steroids: tomorrow morning take 4 tablets (x3 days), then take 3 tablets x3 days, then 2 tablets x3 days, then 1 tablet x3 days, then stop. Call your PCP office Monday to set up a follow up appointment within the next 1- 2 weeks. Continue smoking cessation. Take care! Referrals: Megan Victor MD [ NON-[facility] STAFF PHYSICIAN] - Valerie Jiang MD [Primary Care Provider] - (Call your PCP office on Monday to set up a follow-up appointment.) Activity:: Activity as Tolerated Equipment/Supplies:: No Equipment Needed Diet:: Heart healthy diet Discharge Orders Discharge Orders: Discharge Order (Routine); Ordered 07/28/18 Ordered By: Sangeeta Maya Exam Narrative Exam Narrative: General: Very pleasant overweight female, sitting up in bed, in no acute distress. She is alert and oriented x3, she is speaking in complete sentences with no shortness of breath. HEENT: Normocephalic, atraumatic, her hair is purple, extraocular movements intact, mucous membranes moist. Neck: Supple, no JVD, no lymphadenopathy. Cardiovascular: Heart has regular rate and rhythm, no murmur appreciated. Respiratory: Respirations even and unlabored, lung sounds are clear to auscultation throughout, no rales or wheezing. Gastrointestinal: Normoactive bowel sounds throughout, abdomen is soft, nontender on palpation, nondistended. Extremities: Trace edema to bilateral hands and bilateral lower extremities. Peripheral pulses palpable bilaterally. DS: Data Vitals/I&O Vitals and I&O: Vital Signs Temperature 36.7 C 07/28/18 03:55 Temperature Source Tympanic 07/28/18 03:55 Pulse 77 07/28/18 03:55 Pulse Rhythm Regular 07/27/18 22:42 Pulse 80 07/26/18 14:34 Respiratory Rate 18 07/28/18 03:55 Respiratory Effort 07/27/18 22:42 Respiratory Depth Normal 07/27/18 22:42 Respiratory Pattern Normal 07/27/18 22:42 Blood Pressure 135/79 07/28/18 03:55 Blood Pressure Mean 78 07/26/18 14:33 Blood Pressure Position Supine 07/26/18 11:38 Pulse Oximetry 92 L 07/28/18 03:55 Oxygen Delivery Method Room Air 07/28/18 03:55 Oxygen Flow Rate 0 07/28/18 03:55 Pain Level 0 07/28/18 03:55 Comment 07/27/18 23:17 Intake & Output 07/27/18 07/27/18 07/28/18 11:59 23:59 11:59 Intake Total 1463.333 / 2213.333 750 / 2213.333 1130 / 1130 Output Total 800 / 800 Balance 663.333 / 1413.333 750 / 3345.479 1015 / 1130 Weight 88.1 kg 92.788 kg Intake: IV 983.333 / 1003.333 20 / 0979.065 0069 / 1030 Oral 480 / 1210 730 / 1210 100 / 100 Output: Urine 800 / 800 Other: Urine Color Yellow Pale Yellow Urine Appearance Clear Clear Urine Odor None None Comment patient voids in the bedside commode patient voids independently in the bathroom Stool Size Moderate Stool Characteristics Soft Formed Brown Voiding Methods Bedside Commode Completed studies during hospitalization [Text1]: 07/26/2018: AP CHEST: A region of infiltration involving the left lower lobe is demonstrated. The right lung is clear. The heart is not enlarged. The findings would be consistent with an acute left lower lobe pneumonitis. RIGHT HEEL: The bony structures are normally mineralized. There is no demonstrated acute fracture. A tiny calcaneal spur is demonstrated, nil else. Date of study: 07/27/2018 Transthoracic Echocardiography M-mode, complete 2D, complete spectral Doppler, and color Doppler *STUDY CONCLUSIONS* Summary: 1. Left ventricle: The cavity size was normal. Wall thickness was normal. Systolic function was normal. The estimated ejection fraction was 60-65%. Wall motion was normal; there were no regional wall motion abnormalities. 2. Right ventricle: The cavity size was normal. Systolic function was normal. 3. Left atrium: The atrium was mildly dilated. 4. Mitral valve: Mildly calcified annulus. Mildly thickened leaflets. There was mild regurgitation. 5. Inferior vena cava: The vessel was normal in size. The respirophasic diameter changes were in the normal range (greater than or equal to 50%), consistent with normal central venous pressure. BILATERAL LOWER EXTREMITY ULTRASOUND: The deep veins of both lower extremities were evaluated. They show normal compression, augmentation and color flow. No evidence of a deep venous thrombus is seen in either lower extremity. The saphenofemoral junctions appear intact. No findings to suggest superficial thrombophlebitis are identified. No focal fluid collections are seen in the lower extremities. IMPRESSION: No evidence of a deep venous thrombus in either lower extremity. Labs on day of discharge: Labs from last 24 hours 07/28/18 07/27/18 07/27/18 06:40 17:30 17:30 WBC 8.96 8.74 D RBC 4.12 4.11 Hgb 10.6 L 10.6 L Hct 33.8 L 34.1 L MCV 82.0 83.0 MCH 25.7 L 25.8 L MCHC 31.4 L 31.1 L RDW 15.0 H 14.9 H Plt Count 263 260 MPV 10.5 10.6 Immature Gran % 0.5 Neutrophils % 83.2 Lymphocytes % 13.3 Monocytes % 2.9 Eosinophils % 0.0 Basophils % 0.1 Absolute Neutrophils 7.27 H Absolute Lymphocytes 1.16 L Absolute Monocytes 0.25 Absolute Eosinophils 0.00 Absolute Basophils 0.01 Sodium 140 Potassium 4.0 Chloride 100 Carbon Dioxide 32.8 H Anion Gap 7.2 BUN 17 Creatinine 0.75 Estimated GFR/1.73 m2 >= 60.00 Glucose 141 H Calcium 8.7 Magnesium 1.7 L Preliminary micro results at discharge 07/26/18 22:30 Blood Culture - Preliminary Blood NO GROWTH 24 HOURS 07/26/18 22:30 Blood Culture - Preliminary Blood NO GROWTH 24 HOURS [facility] Medical History Family history of colon cancer (Acute) Constipation (Acute) Pancreatic mass (Acute ~01/2017) Lethargy (Chronic) Polysubstance abuse (Chronic) Chronic pain (Chronic) Colon polyps (Chronic) History of suicide attempt (Chronic) Tobacco use (Acute) Allergic rhinitis (Chronic) Anxiety (Chronic) COPD (chronic obstructive pulmonary disease) (Chronic) 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) Depression (Chronic) Edema (Chronic) Goiter diffuse (Chronic) HTN (hypertension) (Chronic) Hepatitis C (Chronic) Hypercholesterolemia (Chronic) Left knee pain (Chronic) Lumbar back pain (Chronic) Migraine headache (Chronic) Multiple sclerosis (Chronic) PETERSON (obstructive sleep apnea) (Chronic) Opioid dependence (Chronic) Cocaine abuse (Resolved) Surgical History H/O section (Inactive) S/P cholecystectomy (Inactive) Status post shoulder surgery (Inactive) Social History Smoking/Tobacco Use Status: Current every day Drug use: Never Do you feel safe in your relationship?: Yes
[2018-07-28] MEDS: Bacitracin 1 PACKET (10:55)
[2018-07-28 11:18] VITALS: PULSE 100; PULSE 111; PULSE 113; PULSE 98; O2SAT 86; O2SAT 89; O2SAT 93
--- NOTE | 2018-07-28 14:55 | CMDISCH_ITS ---
- If Service Date Differs Date of service: 07/28/18 Time of Service: 14:53 LACE Index Scoring Tool - Questions: Length of Stay (in days): 2 Acuity (Admit via E.D.?): Yes Comorbidities: Chronic Pulmonary Disease E.D. Visits: 3 - Answers: Total Score: 10 Risk of Readmission: High Risk Care Management Discharge Reason for Hospitalization: CAP, Acute on chronic hypoxic respiratory failure Discharge Plan: Tatum will return home today with no services. She will F/U with PCP and plan of care as prescribed. Tatum states that she will need assistance with transport through [facility] which has arranged for 1130. Tatum will also need to stop at [facility], which [facility] has been notified of. Patient/Family Education Needs: Review DC instructions, any limitations, and discuss 'Ask Me Three' Services Needed at Discharge: Transportation
== END 2018-07-28 11:23 | disposition home or self-care (01) | DRG 190 ==
LOC: ER 16:13 → MS 16:52
PROVIDERS: Nurse Practitioner; Admitting Provider Internal Medicine; Emergency Provider Student in an Organized Health Care Education/Training Program; PCP Family Medicine; Visit Provider Internal Medicine
DX: J44.0 Chronic obstructive pulmonary disease with (acute) lower respiratory infection (principal); J18.9 Pneumonia, unspecified organism; J96.21 Acute and chronic respiratory failure with hypoxia; J44.1 Chronic obstructive pulmonary disease with (acute) exacerbation; R60.0 Localized edema; E86.0 Dehydration; E78.5 Hyperlipidemia, unspecified; R11.0 Nausea; I05.1 Rheumatic mitral insufficiency; I51.7 Cardiomegaly; M77.31 Calcaneal spur, right foot; G60.0 Hereditary motor and sensory neuropathy; I10 Essential (primary) hypertension; G47.33 Obstructive sleep apnea (adult) (pediatric); G89.4 Chronic pain syndrome; F17.210 Nicotine dependence, cigarettes, uncomplicated
CPT/HCPCS: 36415; 36569; 80048; 80053; 82550; 85027; 87040; 93005; 93306; 94618; 94640; 96361; 96365; 97165; 97535; 99223; 99232; 99239; 99285; J1650; 71046; 73650; 83605; 83735; 83880; 84484; 85025; 87070; 87205; 93010; 93970; J1956; J2930; J3490; J7620

== ENCOUNTER 2018-08-08 21:20 | Outpatient (REF) | payer MEDICARE, MEDICAID, SELFPAY ==
[2018-08-16 13:24] LABS: Methylphenidate NEGATIVE; Ritalinic Acid 121 ng/mL
== END 2018-08-08 21:40 ==
LOC: NCHCN 21:20
PROVIDERS: PCP Family Medicine; Visit Provider Family Medicine
DX: F41.9 Anxiety disorder, unspecified (principal); Z51.81 Encounter for therapeutic drug level monitoring
CPT/HCPCS: 80360

== ENCOUNTER 2018-08-17 23:40 | Inpatient (IN) | payer MEDICARE, MEDICAID, SELFPAY ==
--- NOTE | 2018-08-17 01:14 | DI.CT_ITS ---
SYMPTOM/DIAGNOSIS: ALTERED MENTAL STATUS HEAD CT NONCONTRAST: Comparison is made with 24 December 2015. No intracranial hemorrhage, mass or infarct is seen. There is no evidence of skull fracture. There is no significant atrophy. The ventricles are normal in size.. IMPRESSION: No acute abnormality.
[2018-08-17 23:42] VITALS: BP 149/119; PULSE 103; PULSE 106; RESP 20; O2SAT 89
[2018-08-17 23:47] VITALS: BP 149/119; PULSE 105; RESP 17; TEMP 36.1
[2018-08-17 23:51] VITALS: RESP 18
--- NOTE | 2018-08-17 23:51 | DI.RAD_ITS ---
SYMPTOM/DIAGNOSIS: ALTERED MENTAL STATUS AP AND LATERAL CHEST: Comparison is made with 26 July 2018. The exam is limited by patient positioning and technique. There is a right pleural effusion. There is tubing overlying the chest as well as leads. The heart size appears within normal limits. IMPRESSION: Right pleural effusion.
[2018-08-17 23:54] VITALS: BP 59/24; PULSE 101; PULSE 99; RESP 17; O2SAT 94
[2018-08-17 23:56] VITALS: BP 74/33; PULSE 101; PULSE 102; RESP 28; O2SAT 94
[2018-08-18] VITALS (135 sets, daily range): BP systolic 75–149; BP diastolic 20–95; PULSE 75–219; RESP 1–33; TEMP 36–36.3; O2SAT 85–99
[2018-08-18 00:11] LABS: HCO3 30 mmol/L (22-28); pO2 85 mmHg (83-108); sO2 94 % (94-98); tCO2 29 mmol/L (22-29)
[2018-08-18 00:13] LABS: pH 7.19 (7.35-7.45)
[2018-08-18 00:14] LABS: FIO2 12 %; FIO2L NRB L; Site Left Radial; pCO2 79 mmHg (34-47)
[2018-08-18] MEDS: Normal Saline 1,000 ML 1000 ML IV (00:14)
--- NOTE | 2018-08-18 00:15 | ED.GENADUL_ITS ---
Discharge Plan Disposition Patient Disposition: [facility] INPATIENT Condition: Serious Discharge Details Chief Complaint: AMS/LOC Clinical Impression: Acute exacerbation of chronic obstructive pulmonary disease (COPD), Acute and chronic respiratory failure with hypoxia Primary Care Provider: Valerie Jiang ED Provider: Marcelino Lockhart [place] Meds and New Rx's Prescriptions: No Action mirtazapine 30 mg tablet 30 mg PO HS RF: 0 furosemide 20 mg tablet 40 mg PO DAILY RF: 0 Spiriva with HandiHaler 1 PUFF capsule, w/inhalation device 1 cap Inhalation DAILY RF: 0 Symbicort 60 PUFF HFA aerosol inhaler 2 puff Inhalation BID RF: 0 gabapentin 800 MG tablet 800 mg PO QID RF: 0 albuterol sulfate 2.5 mg /3 mL (0.083 %) Solution For Nebulization 2.5 mg INHALATION Q4H PRNRF: 0 melatonin 1 mg Tablet 6 mg PO HS PRNRF: 0 montelukast [Singulair] 10 MG tablet 10 mg PO DAILY RF: 0 escitalopram oxalate [Lexapro] 20 MG tablet 20 mg PO DAILY RF: 0 atorvastatin 40 mg Tablet 40 mg PO HS RF: 0 amlodipine 5 mg Tablet 5 mg PO DAILY RF: 0 sumatriptan succinate 50 mg Tablet 50 mg PO DIRECTED RF: 0 losartan 100 mg Tablet 100 mg PO DAILY RF: 0 buprenorphine-naloxone [Suboxone] 2-0.5 mg Film 1 film Sublingual DAILY RF: 0 Nicotrol 10 mg Cartridge 10 mg Inhalation Q2H PRN PRNQty: 30 RF: 0 nicotine 7 mg/24 hr Patch 24 Hour 7 mg Transdermal DAILY PRN PRNQty: 14 RF: 0 ibuprofen 800 mg tablet 800 mg PO TID PRN (Reason: pain) Qty: 30 RF: 0 prochlorperazine maleate [Compazine] 5 mg tablet 5 mg PO Q8H PRN PRN (Reason: nausea and vomiting) Qty: 10 RF: 0 Medical Decision Making Patient has a history of COPD with documentation of sleep apnea as well as previous events of acute on chronic respiratory failure. She does wake to voice. She denies taking any medication she should have. She denies any street drugs. She has no complaints of anything other than being sleepy. Pupils are normal and reactive. She appears to be nonfocal neurologically. Patient is protecting her airway. On nonrebreather her pulse ox is reasonable. Elected not to proceed with intubation at that time. ABG ordered. Laboratory studies ordered. Head CT and chest x-ray ordered. Fluids running through the IO. Plan to obtain ultrasound-guided IV once back from imaging. Patient's ABG markedly abnormal with a pH of 7.19, PCO2 of 79, PO2 of 85 on nonrebreather. At this point elected to place her on BiPAP. Still wakes easily and still protecting airway. Nair catheter placed. Patient taken to radiology where imaging was obtained. On return ultrasound-guided IV was placed by nursing. CT of head is negative. Chest x-ray does not appear to have anything acute other than elevated right hemidiaphragm. Laboratory studies of significance is white count of 13. Creatinine is a little elevated from baseline and is 1.4. Glucose 235. Urine drug screen negative. Alcohol negative. Troponin negative. Urinalysis negative. Liver function mildly elevated but these tend to go up and down over time. Ultrasound IV infiltrated. Further attempts being made to establish access. For now I/O is still in place. Discussed case with hospitalist. Recommend admission to ICU for stabilization. She has received DuoNeb treatment, albuterol treatment, Solu-Medrol, Zosyn. Will obtain another ABG at this point to see where her respiratory status is. Patient is accepted to the ICU for further management. Ultrasound-guided IV placed by me in the right forearm. There was good blood return and IV easily flushes. Repeat ABG is better on BiPAP. She is now 7.29 with a PCO2 of 64. We will continue her on neb treatments and BiPAP in the ICU. Dr. Del Rio is here to see her. Medical Records Medical records reviewed: Yes I reviewed the patient's medical records. Lab Data Lab results reviewed: Yes I reviewed the patient's lab results. ECG Data Attestation: I personally reviewed and interpreted this ECG (s) as follows: Prior ECG tracings: not available for review Interpretation: Sinus tachycardia at 106. Normal axis and intervals. Evidence of right atrial enlargement. Nonspecific ST changes but no acute elevation or depression. HPI General Mode of arrival: EMS . Date/Time Provider Initiated Documentation: 08/17/18 23:50 . Limitations to Documentation: altered mental status . Information obtained by: patient, EMS and old records reviewed . HPI Narrative: Patient is transported in by EMS for evaluation of altered mental status. Per EMS family reports that they heard her snoring loudly after she had gone to bed. Apparently they checked on her because they did not hear her snoring anymore. There is report of her being apneic. Not completely clear but family may have done CPR. EMS arrived and reports that she was somnolent but able to wake for them. She was rhonchorous. She was mildly hypotensive. An IO was established and patient given fluids. She was placed on nonrebreather. She was transported here. On arrival I am able to wake the patient by just saying her name loudly. She reports no pain other than in her leg where the IO is. She states that she is just tired and wants to sleep. She denies being ill prior. She does not stay awake unless stimulated. Related Data Home Medications Medication Instructions Recorded Confirmed Spiriva with HandiHaler 1 cap INHALATION DAILY 12/25/12 07/26/18 Symbicort 2 puff INHALATION BID 08/25/14 07/26/18 gabapentin 800 mg PO QID 09/11/15 07/26/18 montelukast [Singulair] 10 mg PO DAILY 08/17/16 07/26/18 escitalopram oxalate [Lexapro] 20 mg PO DAILY 09/08/16 08/18/18 albuterol sulfate 2.5 mg INHALATION Q4H PRN 01/23/18 07/26/18 atorvastatin 40 mg PO HS 05/04/18 08/18/18 furosemide 20 mg tablet 40 mg PO DAILY tab 06/18/18 08/18/18 mirtazapine 30 mg tablet 30 mg PO HS 06/18/18 08/18/18 amlodipine 5 mg PO DAILY 07/26/18 08/18/18 buprenorphine-naloxone [Suboxone] 1 film SUBLINGUAL DAILY 07/26/18 07/26/18 losartan 100 mg PO DAILY 07/26/18 08/18/18 sumatriptan succinate 50 mg PO DIRECTED 07/26/18 07/26/18 ibuprofen 800 mg PO TID PRN #30 tab 07/28/18 nicotine 7 mg TRANSDERMAL DAILY PRN PRN #14 07/28/18 ea nicotine [Nicotrol] 10 mg INHALATION Q2H PRN PRN #30 ea 07/28/18 prochlorperazine maleate 5 mg PO Q8H PRN PRN #10 tab 07/28/18 [Compazine] melatonin 6 mg PO HS PRN 08/18/18 08/18/18 Previous Rx's Medication Instructions Recorded ibuprofen 800 mg PO TID PRN #30 tab 07/28/18 nicotine 7 mg TRANSDERMAL DAILY PRN PRN #14 07/28/18 ea nicotine [Nicotrol] 10 mg INHALATION Q2H PRN PRN #30 ea 07/28/18 prochlorperazine maleate 5 mg PO Q8H PRN PRN #10 tab 07/28/18 [Compazine] Allergies Allergy/AdvReac Type Severity Reaction Status Date / Time No Known Allergies Allergy Unverified 08/18/18 00:16 General Stated Complaint: AMS/LOC NEGRITA: 2 Review of Systems Review of Systems Unobtainable due to mental status [facility] Medical History Family history of colon cancer (Acute) Constipation (Acute) Pancreatic mass (Acute ~01/2017) Lethargy (Chronic) Polysubstance abuse (Chronic) Chronic pain (Chronic) Colon polyps (Chronic) History of suicide attempt (Chronic) Tobacco use (Acute) Allergic rhinitis (Chronic) Anxiety (Chronic) COPD (chronic obstructive pulmonary disease) (Chronic) 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) Depression (Chronic) Edema (Chronic) Goiter diffuse (Chronic) HTN (hypertension) (Chronic) Hepatitis C (Chronic) Hypercholesterolemia (Chronic) Left knee pain (Chronic) Lumbar back pain (Chronic) Migraine headache (Chronic) Multiple sclerosis (Chronic) PETERSON (obstructive sleep apnea) (Chronic) Opioid dependence (Chronic) Cocaine abuse (Resolved) Surgical History H/O section (Inactive) S/P cholecystectomy (Inactive) Status post shoulder surgery (Inactive) Social History Smoking/Tobacco Use Status: Current every day Drug use: Never Do you feel safe in your relationship?: Yes Exam Narrative Exam Narrative: Vitals: Afebrile. Not tachycardic. Blood pressure soft in the 90-100 range. Respiratory rate in the teens. Saturations on nonrebreather in the low to mid 90s. Const: Obese female somnolent but wakes to voice. HEENT: NC/AT. Normal facial exam. Eyes: Normal conjunctiva and sclera. PERRL Neck: Supple. Trachea midline. Lungs: Normal respiratory effort. Lungs with diffuse rhonchi/wheeze. Cor: RRR without murmur/gallop. Good radial pulses. GI: Soft. NT/ND. No guarding or rebound. Neuro: Awakes to voice and answers questions, follows commands. OLEARY x4. Ext: No C/C. Some LE edema. Skin: Warm and dry without rash. Course Vital Signs Temperature 97 F L 08/17/18 23:47 Pulse 105 H 08/17/18 23:47 Respiratory Rate 17 08/17/18 23:47 Blood Pressure 149/119 H 08/17/18 23:47 Temperature 97 F L 08/17/18 23:47 Temperature Source Skin 08/17/18 23:47 Pulse 105 H 08/17/18 23:47 Respiratory Rate 18 08/17/18 23:51 Respiratory Effort Grunting 08/17/18 23:51 Blood Pressure 149/119 H 08/17/18 23:47 Lab/Test Results Lab/Test Results: Laboratory Tests Range/Units 08/18/18 00:05 Sample Site Left radial pCO2 (34-47) mmHg 79 H* pO2 (83-108) mmHg 85 O2 Saturation (94-98) % 94 ABG pH (7.35-7.45) 7.19 L* ABG HCO3 (22-28) mmol/L 30 H ABG Total CO2 (22-29) mmol/L 29 ABG Base Excess (-3-3) mmol/L 2.0 Oxygen Liter Flow L Nrb FiO2 % 12 Procedures EJ/Peripheral Line Arm R: Skin Cleansed in Sterile Fashion: Yes Size (gauge): 18 IV Secured and Dressing Applied: Yes Patient Tolerated Procedure: well Additional Comments: Ultrasound-guided IV placed in right forearm by me. Critical Care Time Critical Care Time: Yes Total Critical Care Time: 60 Attestation: Management of altered mental status/acute on chronic respiratory failure.
[2018-08-18] MEDS: Albuterol/Ipratropium 3 ML UPD VIAL UPD ×4 (00:34→18:01)
[2018-08-18 00:40] LABS: Abs Immature Grans 0.07 k/cumm (0.0-0.09); Absolute Basophil Count 0.03 k/cumm (0.0-0.2); Absolute Eosinophil Count 0.27 k/cumm (0.0-0.7); Absolute Monocyte Count 1.33 k/cumm (0.11-0.7); Basophils % 0.2; Eosinophils % 2.1; HCT 37.9 % (36.0-46.0); HGB 11.5 g/dL (12.0-15.5); Immature Grans % 0.5; Mean Corp. HGB Concentration 30.3 g/dL (32.0-36.0); Mean Corpuscular Hemoglobin 25.2 pg (27.0-33.0); Mean Corpuscular Volume 82.9 fL (80-95); Mean Platelet Volume 11.3 fL (8.0-11.0); Monocytes % 10.3; Neutrophils % 79.9; Platelet Count 216 x1000/uL (130-400); RBC 4.57 m/cumm (4.00-5.20); RBC Distribution Width 15.6 % (11.7-14.6); White Blood Cell Count 12.92 k/cumm (4.4-10.8)
[2018-08-18 00:44] LABS: Absolute Neutrophil Count 10.32 k/cumm (1.2-6.7)
[2018-08-18 00:50] LABS: Bilirubin Negative (Negative); Blood Negative (Negative); Clarity Cloudy; Glucose Negative (Negative); Ketones Negative (Negative); Leukocyte Esterase Negative (Negative); Nitrite Negative (Negative); Specific Gravity 1.025 (1.005-1.025); pH 5.5 (5-8)
[2018-08-18 00:58] LABS: ALT 239 U/L (12-78); AST 180 U/L (15-37); Albumin 3.1 g/dL (3.4-5.0); Alkaline Phosphatase 99 U/L (46-116); Anion Gap 11.6 mmol/L (3-11); BUN 9 mg/dL (7-18); Bilirubin, Total 0.4 mg/dL (0.2-1.0); CO2 27.4 mmol/L (21.0-32.0); CREATININE 1.39 mg/dL (0.55-1.02); Calcium 7.8 mg/dL (8.5-10.1); Chloride 103 mmol/L (98-107); Estimated GFR 38.42 (mL/min/1.73m2); Glucose 235 mg/dL (70-100); Magnesium 1.7 mg/dL (1.8-2.4); Potassium 3.5 mmol/L (3.5-5.1); Sodium 142 mmol/L (136-145)
[2018-08-18 00:59] LABS: Bacteria Moderate HPF (Negative); C & S Indicated? Yes; Casts Negative LPF (Negative); Crystals Many Amorphous HPF (Negative); Epithelial Cells Few HPF (Negative); Mucus Heavy (Negative)
[2018-08-18 01:02] LABS: *AMPHETAMINES SCREEN URINE Negative (Negative); *BARBITURATES SCREEN URINE Negative (Negative); *BENZODIAZEPINES SCREEN URINE Negative (Negative); Cannabinoids THC Negative (Negative); Cocaine Screen,Urine Negative (Negative); METHADONE URINE SCREEN Negative (Negative); OPIATES URINE SCREEN Negative (Negative)
[2018-08-18 01:03] LABS: ETHANOL BLOOD < 3.0 mg/dL (<3); Troponin I < 0.02 ng/mL (0.00-0.06)
[2018-08-18 01:04] LABS: Tricyclic Antidepressants Negative (Negative)
[2018-08-18] MEDS: methylPREDNISolone SUCC 125 MG VIAL IVP (01:16)
[2018-08-18] MEDS: Albuterol 2.5 MG/3 ML INH SOLN VIAL UPD (01:17)
[2018-08-18] MEDS: PIPERACILLIN/TAZO 4.5 GM in Normal Saline 100 ML IVPB ×4 (01:37→19:32)
--- NOTE | 2018-08-18 01:38 | DI.VRAD_ITS ---
EXAM: CT Head Without Contrast EXAM DATE/TIME: 08/17/2018 11:54 PM CLINICAL HISTORY: 63 years old, female; Signs and symptoms; Altered mental status/memory loss; Other: Not specified TECHNIQUE: Imaging protocol: Axial computed tomography images of the head/brain without contrast. Coronal and sagittal reformatted images were created and reviewed. Radiation optimization: All CT scans at this facility use at least one of these dose optimization techniques: automated exposure control; mA and/or kV adjustment per patient size (includes targeted exams where dose is matched to clinical indication); or iterative reconstruction. COMPARISON: CT HEAD WITHOUT CONTRAST 09/03/2013 9:56 AM FINDINGS: Brain: There is no evidence of hemorrhage or mass effect. Minimal areas of hypoattenuation in the bilateral periventricular white matter are consistent with gliosis in the setting of chronic microvascular ischemia. Jonas-white matter differentiation is preserved. There is mild cerebral volume loss. Ventricles: Normal. No ventriculomegaly. Bones/joints: Unremarkable. No acute fracture. Sinuses: Small amount of debris is present in a few ethmoid air cells. Paranasal sinuses are otherwise clear. Mastoid air cells: Visualized mastoid air cells are unremarkable. No mastoid effusion. Soft tissues: Unremarkable. Vasculature: Mild vascular calcifications are present. IMPRESSION: No acute intracranial abnormality. Dictated and Authenticated by: Malik Solis MD. Ordering:ARLETH Benson MD
--- NOTE | 2018-08-18 01:42 | DI.VRAD_ITS ---
EXAM: XR Chest, 2 Views EXAM DATE/TIME: 08/17/2018 11:54 PM CLINICAL HISTORY: 63 years old, female; Signs and symptoms; Other: Altered mental status TECHNIQUE: Imaging protocol: XR of the chest, 2 views. COMPARISON: CR XR CHEST 2V PA LATERAL 07/26/2018 3:08 PM FINDINGS: Tubes, catheters and devices: Telemetry leads overlie the thorax. Lungs: Lung volumes are slightly low. Otherwise, no focal consolidation is seen. Pleural space: Apparent elevation of the right hemidiaphragm versus right subpulmonic effusion or dense consolidation at the right base. No pneumothorax. Heart/Mediastinum: Heart size is within normal limits. Vascular calcifications are present in the aortic arch. Bones/joints: Osseous degenerative change commensurate with age are noted, with apparent postoperative changes from right rotator cuff repair and distal clavicle excision. No acute osseous abnormalities are seen. IMPRESSION: Possible elevation of the right hemidiaphragm versus dense right lower lobe consolidation or subpulmonic effusion. Dictated and Authenticated by: Malik Solis MD. Ordering:ARLETH Benson MD
[2018-08-18 02:20] LABS: Ammonia 64 umol/L (11-32)
[2018-08-18 02:38] LABS: BE 4.1 mmol/L (-3-3); HCO3 31 mmol/L (22-28); pH 7.29 (7.35-7.45); pO2 65 mmHg (83-108); sO2 92 % (94-98); tCO2 29 mmol/L (22-29)
[2018-08-18 02:40] LABS: FIO2 60 %; FIO2L BiPAP L; Site Left Radial; pCO2 64 mmHg (34-47)
[2018-08-18] MEDS: Lactated Ringers 1,000 ML 200 ML IV ×2 (03:22→04:30)
--- NOTE | 2018-08-18 03:32 | W.PM.HP.N ---
Date of service: 08/18/18 Time of Service: 03:32 Assessment and Plan (1) Acute and chronic respiratory failure with hypoxia: Current visit: No Status: Acute ABGs on presentation consistent with acute on chronic respiratory failure. This is likely multifactorial, including component of active COPD and sleep apnea. There may also be an element of central apnea, possibly medication or drug related, no presentation is not consistent with opioid overdose. Chest x-ray clearly shows a new area of consolidation in the right base. This may be an elevation of the hemidiaphragm, but could also be a dense infiltrate. Also of note, Dr. Lockhart emergency room felt that the patient may have a blood clot in her brachial vein. Pulmonary embolus contributing to rest. Failure is in the differential. To clarify this and assess the right lower lung field I like to get a CT with contrast. Plan to hydrate her given the creatinine being elevated and get the CT in the morning. We will treat with a single dose of 1 make per cake Lovenox overnight. I agree with IV steroids for COPD exacerbation. Change them to hydrocortisone given her recent long steroid taper and soft blood pressures as she may be at risk for adrenal insufficiency. I agree with Zosyn as antibiotic choice. Looking at her imaging she could have a postobstructive pneumonia, and she is at risk for aspiration given her mental status changes. (2) Mental status, decreased: Current visit: Yes Status: Acute It appears that the mental status changes may have been the cause of the respiratory failure. She is on Suboxone for opiate dependence, and she did have a recent positive fentanyl level, which would not show on her UDS. However, her presentation is not consistent with opiate overdose, that she is also under the influence of a stimulant. Cocaine was negative and her urine and we do not have evidence of this. Hypercarbia could be the cause as well, and she does have untreated sleep apnea, though we still need to explain her acute worsening overnight. For now, we will continue BiPAP and reassess her mental status in the morning. I did send a fentanyl level, which is a send out. She does have a history of overdose attempt noted, though she denies suicidality to Dr. Lockhart. With LFTs up should get acetaminophen level. (3) PETERSON (obstructive sleep apnea): Current visit: No Status: Chronic Treated with BiPAP as long as she will tolerate it. (4) Acute exacerbation of chronic obstructive pulmonary disease (COPD): Current visit: No Status: Acute See above, treating with IV steroids and antibiotics. Continue chronic inhalers and nebulized bronchodilators dilators as needed. I am not continuing the Daliresp as I am not sure she actually started this and it is her only new medication. (5) Tobacco dependence syndrome: Current visit: No Status: Chronic Patient unable to voice or motivation for quitting smoking at this point. She has used nicotine control in the past and this will be ordered for as needed use. (6) Elevated liver enzymes: Current visit: Yes Status: Acute Elevation of her LFTs as noted. She does have a history of hepatitis C exposure, but negative viral loads. She is certainly at risk for steatohepatitis. Her LFTs have been up and down in the past. Her ammonia is mildly elevated, but she has no history of cirrhosis and her labs are not highly suggestive of significant cirrhosis, so I do not think this represents hepatic encephalopathy. (7) Acute renal insufficiency: Current visit: Yes Status: Acute Patient's creatinine is 1.39 at admission, up from 0.75 on 07/27. This most likely prerenal, possibly related to mental status changes and decrease oral intake. We will hold her angiotensin receptor edaurdo, monitor urine output, and give IV fluids and follow. The rest can also cause renal insufficiency, this is held. (8) Polysubstance abuse: Current visit: No Status: Chronic Patient has been on medically assisted treatment with Suboxone. Recent cocaine and fentanyl use as well as missing strips were noted in the history. Her housing situation does seem to be a challenge. Hopefully will be able to further discuss her challenges and make a plan when her mental status improves. (9) DVT prophylaxis: Current visit: No Status: Acute Getting single dose of therapeutic Lovenox for now until CTA done. Should change to prophylactic if negative. (10) Discharge planning issues: Current visit: No Status: Acute Patient is admitted to the ICU on BiPAP. She is full code. History of Present Illness Chief Complaint: not breathing Narrative: 63-year-old female with history of COPD with recent hospitalization, active sleep apnea intolerant of CPAP, opiate dependence on chronic Suboxone who presents after her family members found her not breathing in her bed. Per her family members report, patient went to bed normally last night. Her family members noted she was snoring loudly, but appeared to have an apneic event. She had blurred blue and there was some attempt to resuscitate her, though there was no note of a lack of pulse. EMS was called and she was found to be hypoxic but arousable. Her blood pressure was low, so she was given IV fluids via intraosseous line and placed on a nonrebreather and brought to the emergency room. History from patient is limited due to her mental status, she arouses but very rapidly falls back asleep giving only minimal answers. She does deny any pain other than the IO line. She states she just wants to sleep. She denies taking any drugs or any changes in medication. She denies any suicidal ideation. Of note, she was admitted July 26- for COPD exacerbation. She was on a prolonged course of Levaquin and prednisone taper she did see pulmonology on August 09, with the only medication change the addition of Daliresp prescription. She did desaturate to 86% after 72 feet of walking during that visit, and was prescribed home oxygen for as needed use. Of note in her history she did have cocaine and fentanyl in her system in March. There are documented concerns from her Suboxone treatment team of the daughter that she lives with actively using. She also was short to Suboxone scripts at last visit. Review of Systems Review of Systems Review of systems very limited due to mental status. She was able to deny pain including headache and abdominal pain and chest pain when questioned repeatedly. She does cough, but not more than her chronic. Unobtainable due to mental status [facility] Medical History Family history of colon cancer (Acute) Constipation (Acute) Pancreatic mass (Acute ~01/2017) Lethargy (Chronic) Polysubstance abuse (Chronic) Chronic pain (Chronic) Colon polyps (Chronic) History of suicide attempt (Chronic) Tobacco use (Acute) Allergic rhinitis (Chronic) Anxiety (Chronic) COPD (chronic obstructive pulmonary disease) (Chronic) 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) Depression (Chronic) Edema (Chronic) Goiter diffuse (Chronic) HTN (hypertension) (Chronic) Hepatitis C (Chronic) Hypercholesterolemia (Chronic) Left knee pain (Chronic) Lumbar back pain (Chronic) Migraine headache (Chronic) Multiple sclerosis (Chronic) PETERSON (obstructive sleep apnea) (Chronic) Opioid dependence (Chronic) Cocaine abuse (Resolved) Surgical History H/O section (Inactive) S/P cholecystectomy (Inactive) Status post shoulder surgery (Inactive) Social History Smoking/Tobacco Use Status: Current every day Drug use: Never Substance use type: former substance user Do you feel safe in your relationship?: Yes Additional Social history: Currently lives with her daughter, possible active drug use in the home Has been recently per clinic notes Meds Home Medications Medication Instructions Recorded Confirmed Type Spiriva with HandiHaler 1 cap INHALATION DAILY 12/25/12 07/26/18 History Symbicort 2 puff INHALATION BID 08/25/14 07/26/18 History gabapentin 800 mg PO QID 09/11/15 07/26/18 History montelukast [Singulair] 10 mg PO DAILY 08/17/16 07/26/18 History escitalopram oxalate [Lexapro] 20 mg PO DAILY 09/08/16 08/18/18 History albuterol sulfate 2.5 mg INHALATION Q4H PRN 01/23/18 07/26/18 History atorvastatin 40 mg PO HS 05/04/18 08/18/18 History furosemide 20 mg tablet 40 mg PO DAILY tab 06/18/18 08/18/18 History mirtazapine 30 mg tablet 30 mg PO HS 06/18/18 08/18/18 History amlodipine 5 mg PO DAILY 07/26/18 08/18/18 History buprenorphine-naloxone [Suboxone] 1 film SUBLINGUAL DAILY 07/26/18 07/26/18 History losartan 100 mg PO DAILY 07/26/18 08/18/18 History sumatriptan succinate 50 mg PO DIRECTED 07/26/18 07/26/18 History ibuprofen 800 mg PO TID PRN #30 tab 07/28/18 Rx nicotine 7 mg TRANSDERMAL DAILY PRN PRN #14 07/28/18 Rx ea nicotine [Nicotrol] 10 mg INHALATION Q2H PRN PRN #30 ea 07/28/18 Rx prochlorperazine maleate 5 mg PO Q8H PRN PRN #10 tab 07/28/18 Rx [Compazine] melatonin 6 mg PO HS PRN 08/18/18 08/18/18 History Allergies Allergy/AdvReac Type Severity Reaction Status Date / Time No Known Allergies Allergy Unverified 08/18/18 00:16 Exam Narrative Exam Narrative: General: Sedated and breathing relatively comfortably on BiPAP. Awakes for a few seconds with loud voice or shaking, but immediately falls back asleep, sometimes really answering questions and sometimes not. Oriented to self, place, and year on repeated questioning HEENT: Head is atraumatic. Conjunctive are clear, no icterus. Pupils 4-5 mm and reactive bilaterally. No discharge from the eyes, no rhinorrhea. Mucous membranes mildly dry, no oropharyngeal lesions or exudate or redness. Neck is supple with trachea midline, no masses or lymphadenopathy, no elevation of jugular venous distention Lungs: Diffusely rhonchorous bilaterally on inspiration and expiration. Diminished breath sounds right base. No rales. She is moving air. Cardiovascular: Regular rate and rhythm with no murmurs, gallops, or rubs. Carotid pulses palpable bilaterally. Normal cap refill. Abdomen: Active bowel sounds, soft, nontender nondistended, including right upper quadrant. No organomegaly or other masses. Extremities: 1+ edema in feet bilaterally. Legs and arms not tender to palpation. I do not feel a cord in the legs or the arms. No cyanosis currently on BiPAP. Skin: No rashes. No pressure sores noted. No medication patches on full body exam. Neurologic: Somnolent, but does arouse briefly as above. Neurologic exam limited due to her mental state, but is moving all 4 extremities. Normal voice. Cranial nerves grossly intact, she is able to stick out her tongue and cough and no asymmetry noted. Results Imaging Chest x-ray: image reviewed Imaging Studies: CXR: Possible elevation of the right hemidiaphragm versus dense right lower lobe consolidation or subpulmonic effusion. clearly new from last month CT head without contrast: No acute intracranial abnormality. Labs : 08/18/18 00:35 08/18/18 00:35 Laboratory Results - last 24 hr 08/18/18 08/18/18 08/18/18 00:05 00:35 00:35 WBC 12.92 H RBC 4.57 Hgb 11.5 L Hct 37.9 MCV 82.9 MCH 25.2 L MCHC 30.3 L RDW 15.6 H Plt Count 216 MPV 11.3 H Immature Gran % 0.5 Neutrophils % 79.9 Lymphocytes % 7.0 Monocytes % 10.3 Eosinophils % 2.1 Basophils % 0.2 Absolute Neutrophils 10.32 H Absolute Lymphocytes 0.90 L Absolute Monocytes 1.33 H Absolute Eosinophils 0.27 Absolute Basophils 0.03 Sample Site Left radial pCO2 79 H* pO2 85 O2 Saturation 94 ABG pH 7.19 L* ABG HCO3 30 H ABG Total CO2 29 ABG Base Excess 2.0 Oxygen Liter Flow Nrb FiO2 12 Sodium 142 Potassium 3.5 Chloride 103 Carbon Dioxide 27.4 Anion Gap 11.6 H BUN 9 Creatinine 1.39 H Estimated GFR/1.73 m2 38.42 Glucose 235 H Calcium 7.8 L Magnesium 1.7 L Total Bilirubin 0.4 AST 180 H ALT 239 H Alkaline Phosphatase 99 Ammonia Troponin I < 0.02 Total Protein 7.0 Albumin 3.1 L Urine Color Urine Clarity Urine pH Ur Specific [place] Urine Protein Urine Ketones Urine Blood Urine Nitrite Urine Bilirubin Urine Urobilinogen Ur Leukocyte Esterase Urine RBC Urine WBC Ur Epithelial Cells Urine Crystals Urine Bacteria Urine Casts Urine Mucus Ur Culture Indicated? Urine Glucose Urine Opiates Screen Urine Methadone Screen Ur Barbiturates Screen Ur Tricyclics Screen Ur Amphetamines Screen U Benzodiazepines Scrn Urine Cocaine Screen Ur THC Screen Ethyl Alcohol < 3.0 08/18/18 08/18/18 08/18/18 00:45 00:45 02:00 WBC RBC Hgb Hct MCV MCH MCHC RDW Plt Count MPV Immature Gran % Neutrophils % Lymphocytes % Monocytes % Eosinophils % Basophils % Absolute Neutrophils Absolute Lymphocytes Absolute Monocytes Absolute Eosinophils Absolute Basophils Sample Site pCO2 pO2 O2 Saturation ABG pH ABG HCO3 ABG Total CO2 ABG Base Excess Oxygen Liter Flow FiO2 Sodium Potassium Chloride Carbon Dioxide Anion Gap BUN Creatinine Estimated GFR/1.73 m2 Glucose Calcium Magnesium Total Bilirubin AST ALT Alkaline Phosphatase Ammonia 64 H Troponin I Total Protein Albumin Urine Color Yellow Urine Clarity Cloudy Urine pH 5.5 Ur Specific [place] 1.025 Urine Protein 100 H Urine Ketones Negative Urine Blood Negative Urine Nitrite Negative Urine Bilirubin Negative Urine Urobilinogen 1.0 H Ur Leukocyte Esterase Negative Urine RBC 3-5 H Urine WBC 5-10 Ur Epithelial Cells Few Urine Crystals Many amorphous Urine Bacteria Moderate Urine Casts Negative Urine Mucus Heavy Ur Culture Indicated? Yes Urine Glucose Negative Urine Opiates Screen Negative Urine Methadone Screen Negative Ur Barbiturates Screen Negative Ur Tricyclics Screen Negative Ur Amphetamines Screen Negative U Benzodiazepines Scrn Negative Urine Cocaine Screen Negative Ur THC Screen Negative Ethyl Alcohol 08/18/18 02:32 WBC RBC Hgb Hct MCV MCH MCHC RDW Plt Count MPV Immature Gran % Neutrophils % Lymphocytes % Monocytes % Eosinophils % Basophils % Absolute Neutrophils Absolute Lymphocytes Absolute Monocytes Absolute Eosinophils Absolute Basophils Sample Site Left radial pCO2 64 H* pO2 65 L O2 Saturation 92 L ABG pH 7.29 L ABG HCO3 31 H ABG Total CO2 29 ABG Base Excess 4.1 H Oxygen Liter Flow Bipap FiO2 60 Sodium Potassium Chloride Carbon Dioxide Anion Gap BUN Creatinine Estimated GFR/1.73 m2 Glucose Calcium Magnesium Total Bilirubin AST ALT Alkaline Phosphatase Ammonia Troponin I Total Protein Albumin Urine Color Urine Clarity Urine pH Ur Specific [place] Urine Protein Urine Ketones Urine Blood Urine Nitrite Urine Bilirubin Urine Urobilinogen Ur Leukocyte Esterase Urine RBC Urine WBC Ur Epithelial Cells Urine Crystals Urine Bacteria Urine Casts Urine Mucus Ur Culture Indicated? Urine Glucose Urine Opiates Screen Urine Methadone Screen Ur Barbiturates Screen Ur Tricyclics Screen Ur Amphetamines Screen U Benzodiazepines Scrn Urine Cocaine Screen Ur THC Screen Ethyl Alcohol Last Vital Signs Temp 36.1 C L 08/17/18 23:47 Pulse 76 08/18/18 02:42 Resp 14 08/18/18 02:42 BP 90/53 L 08/18/18 02:42 Pulse Ox 91 L 08/18/18 02:42
[2018-08-18] MEDS: Enoxaparin 80 MG/0.8 ML SYR SC (04:49)
[2018-08-18] MEDS: Lactated Ringers 1,000 ML 1000 ML IV (05:31)
[2018-08-18 06:10] LABS: Abs Immature Grans 0.02 k/cumm (0.0-0.09); Absolute Basophil Count 0.01 k/cumm (0.0-0.2); Absolute Eosinophil Count 0.01 k/cumm (0.0-0.7); Absolute Lymphocyte Count 0.71 k/cumm (1.2-3.4); Absolute Monocyte Count 0.25 k/cumm (0.11-0.7); Absolute Neutrophil Count 8.42 k/cumm (1.2-6.7); Basophils % 0.1; Eosinophils % 0.1; HCT 35.5 % (36.0-46.0); HGB 10.7 g/dL (12.0-15.5); Immature Grans % 0.2; Lymphocytes % 7.5; Mean Corp. HGB Concentration 30.1 g/dL (32.0-36.0); Mean Corpuscular Hemoglobin 25.3 pg (27.0-33.0); Mean Corpuscular Volume 83.9 fL (80-95); Mean Platelet Volume 10.9 fL (8.0-11.0); Monocytes % 2.7; Neutrophils % 89.4; Platelet Count 200 x1000/uL (130-400); RBC 4.23 m/cumm (4.00-5.20); RBC Distribution Width 15.6 % (11.7-14.6); White Blood Cell Count 9.42 k/cumm (4.4-10.8)
[2018-08-18 06:13] LABS: ALT 242 U/L (12-78); AST 191 U/L (15-37); Albumin 3.2 g/dL (3.4-5.0); Alkaline Phosphatase 95 U/L (46-116); Bilirubin, Direct 0.15 mg/dL (0.00-0.20); Bilirubin, Total 0.4 mg/dL (0.2-1.0); Total Protein 7.1 g/dL (6.4-8.2)
[2018-08-18 06:19] LABS: Prothrombin Time 10.4 sec (9.3-11.0)
[2018-08-18 06:20] LABS: Anion Gap 5.7 mmol/L (3-11); BUN 11 mg/dL (7-18); CO2 33.3 mmol/L (21.0-32.0); CREATININE 0.92 mg/dL (0.55-1.02); Calcium 7.7 mg/dL (8.5-10.1); Chloride 104 mmol/L (98-107); Glucose 188 mg/dL (70-100); Potassium 3.2 mmol/L (3.5-5.1); Sodium 143 mmol/L (136-145)
[2018-08-18] MEDS: Furosemide 40 MG/4 ML VIAL IVP (06:26)
[2018-08-18 06:38] LABS: Salicylate < 2.8 mg/dL (2.8-20.0)
[2018-08-18 06:44] LABS: Acetaminophen < 2 ug/mL (10-30)
--- NOTE | 2018-08-18 07:50 | PDOC.CMIN ---
- If Service Date Differs Date of service: 08/18/18 Time of Service: 07:50 Care Management Initial Assess REASON FOR HOSPITALIZATION:: CAP, Acute on chronic hypoxic respiratory failure PAST MEDICAL HISTORY/PAST SURGICAL HISTORY:: Recent hospitalization for resp failure 06/2018, PETERSON, CAP, ambulatory dysfunction, acute exacerbation of COPD, dehydration, generalized weakness, chronic pain, Yznzrft-Dvufg-Vhnuj disease, hx colon cancer, constipation, pancreatic mass, COPD, benign hypertension, tobacco dependence syndrome, hyperlipidemia, lethargy, chronic anxiety, MS, sleep apnea, migraine, allergic rhinitis, depressive disorder, polysubstance abuse, multinodular thyroid, colon polyps, suicide attempt, surgical procedure, right lower lobe pneumonia, Hep C antibody test positive PREVIOUS FUNCTIONAL STATUS/SOCIAL/FAMILY SUPPORTS:: Tatum resides with her adult daughter at [facility] in [facility]. Tatum is disabled and transports via [facility]. She wears home oxygen at night as she is unable to tolerate CPAP device. Tatum reports that she is able to drive but does not currently own a car, she reports that her daughter takes care of all driving, grocery shopping, cooking and laundry. Tatum is mostly independent with ADLs. CURRENT FUNCTIONAL STATUS:: Tatum is alert and engaged during assessment. She is currently on BIPAP and cardiac monitroing. She states she did feel better for a short time after last discharge. She reports she has not used tobacco in the last two weeks. She does state there are three others that smoke in the home. She reports that she met with her provider primary care and pulmonolgist after her last discharge. ADVANCE DIRECTIVES:: None on file next of kin listed as July Has patient been provided with information about the portal?: Yes Did the patient sign up for the portal?: No CODE STATUS:: Full Code INSURANCE COVERAGE / FINANCIAL ISSUES:: Medicaid, Medicare CURRENT HOME/COMMUNITY SERVICES/EQUIPMENT:: Oxygen through [facility] [facility]. [facility] nurse telephonic nurse case manager Anali Alarcon. PRIMARY CARE PHYSICIAN:: POTENTIAL DISCHARGE NEEDS:: Resumption of home oxygen and [facility] services. Follow up with PCP, Pulmonology and updates related to admission faxed to [facility]. PATIENT/FAMILY EDUCATION NEEDS:: Education r/t self management, and medication and treatments. Education disease specific and hands out related to pneumonia and COPD. ANTICIPATED BARRIERS TO DISCHARGE:: Tatum is currently receiving BIPAP support, she will need to return to baseline prior to discharge. TRANSPORTATION:: Via family vs [facility] at time of discharge. PLAN:: Tatum is currently receiving BIPAP support, cardiac monitoring and IV antibiotics. She remains ICU level of care at this time. Anticipate she will return home with resumption of [facility] support and oxygen through [facility]. CM to continue to provide support to patient ongoing discharge planning and disposition. Readmission - Within the Past 30 Days Yes or No: Y - Date of First Admission Date of 1st Admission: 07/26/18 - Date of this Admission Date of Admission: 08/18/18 This admission was: Through ED - Office Visit Since 1st Admission Have you seen your PCP in the office since discharge?: Yes Date of PCP Appointment: Pt unsure which day the appt was Had an appointment Been Scheduled?: No Date of Scheduled Appointment: appointment was not scheduled prior dc Describe barriers for scheduling or getting an appointment: Patient states she had an appointment with her primary care she is unsure of what day she saw her. She states she was feeling better at the time she was seen at her providers office. - Speicalist Appointments Have you seen any other specialist since your 1st Admission?: Yes Date you saw the Specialist: 08/09/18 Specialist Seen: Pulmonolgist - I. Interview patient and/or Family Difficulty reaching your doctor or getting an office appt?: No Have you had trouble purchasing/ or taking medication?: No Have you had trouble with getting meals at home?: No Did you feel ready for discharge when you left the last time: Yes Were services received that you thought were set up on disch: Yes What services were received?: Home oxygen Did you call your physician beore you came to the ED?: No Did your physician tell you to come in?: No - ED visits How many ED visits in the past 12 months: 5 - Assessment for Readmission Summary of readmission circumstances, based upon interviews: Lona states she felt she was ready for discharge on 07/28/18. She states she was able to complete her antibiotics and steroid taper. She met with primary care and her pulmonolgist as directed. She states she feels that she came down with another illness. She reports environmental factors that may contribute to ongoing illness and COPD exacerbation. She states at least three others smoke in the apartment and she notices that her breathing is worse around the tobacco smoke. Ttaum reports she has a good relationship with her primary care and specialist. She reports she has a community services officer that assist her with services in the community. She denies difficulty obtaining medications and states she takes her medications as directed. CM will follow up with [facility] telephonic nurse case manager to identify any other factors that may contributed to Tatum's admission.
--- NOTE | 2018-08-18 07:54 | INITIAL_ITS ---
- If Service Date Differs Date of service: 08/18/18 Time of Service: 07:50 Care Management Initial Assess REASON FOR HOSPITALIZATION:: CAP, Acute on chronic hypoxic respiratory failure PAST MEDICAL HISTORY/PAST SURGICAL HISTORY:: Recent hospitalization for resp failure 06/2018, PETERSON, CAP, ambulatory dysfunction, acute exacerbation of COPD, dehydration, generalized weakness, chronic pain, Mkypque-Yrmil-Sjxac disease, hx colon cancer, constipation, pancreatic mass, COPD, benign hypertension, tobacco dependence syndrome, hyperlipidemia, lethargy, chronic anxiety, MS, sleep apnea, migraine, allergic rhinitis, depressive disorder, polysubstance abuse, multi nodular thyroid, colon polyps, suicide attempt, surgical procedure, right lower lobe pneumonia, Hep C antibody test positive PREVIOUS FUNCTIONAL STATUS/SOCIAL/FAMILY SUPPORTS:: Tatum resides with her adult daughter at [facility] in [facility]. Tatum is disabled and transports via [facility]. She wears home oxygen at night as she is unable to tolerate CPAP device. Tatum reports that she is able to drive but does not currently own a car, she reports that her daughter takes care of all driving, grocery shopping, cooking and laundry. Tatum is mostly independent with ADLs. CURRENT FUNCTIONAL STATUS:: Tatum is alert and engaged during assessment. She is currently on BIPAP and cardiac monitroing. She states she did feel better for a short time after last discharge. She reports she has not used tobacco in the last two weeks. She does state there are three others that smoke in the home. She reports that she met with her provider primary care and pulmonolgist after her last discharge. ADVANCE DIRECTIVES:: None on file next of kin listed as July Has patient been provided with information about the portal?: Yes Did the patient sign up for the portal?: No CODE STATUS:: Full Code INSURANCE COVERAGE / FINANCIAL ISSUES:: Medicaid, Medicare CURRENT HOME/COMMUNITY SERVICES/EQUIPMENT:: Oxygen through [employer]. [facility] nurse returned case inspector Anali Alarcon. PRIMARY CARE PHYSICIAN:: POTENTIAL DISCHARGE NEEDS:: Resumption of home oxygen and [facility] services. Follow up with PCP, Pulmonology and updates related to admission faxed to [facility]. PATIENT/FAMILY EDUCATION NEEDS:: Education r/t self management, and medication and treatments. Education disease specific and hands out related to pneumonia and COPD. ANTICIPATED BARRIERS TO DISCHARGE:: Tatum is currently receiving BIPAP support, she will need to return to baseline prior to discharge. TRANSPORTATION:: Via family vs RCT at time of discharge. PLAN:: Tatum is currently receiving BIPAP support, cardiac monitoring and IV antibiotics. She remains ICU level of care at this time. Anticipate she will return home with resumption of [facility] support and oxygen through [employer]. CM to continue to provide support to patient ongoing discharge planning and disposi tion. Readmission - Within the Past 30 Days Yes or No: Y - Date of First Admission Date of 1st Admission: 07/26/18 - Date of this Admission Date of Admission: 08/18/18 This admission was: Through ED - Office Visit Since 1st Admission Have you seen your PCP in the office since discharge?: Yes Date of PCP Appointment: Pt unsure which day the appt was Had an appointment Been Scheduled?: No Date of Scheduled Appointment: appointment was not scheduled prior dc Describe barriers for scheduling or getting an appointment: Patient states she had an appointment with her primary care she is unsure of what day she saw her. She states she was feeling better at the time she was seen at her providers office. - Speicalist Appointments Have you seen any other specialist since your 1st Admission?: Yes Date you saw the Specialist: 08/09/18 Specialist Seen: Pulmonolgist - I. Interview patient and/or Family Difficulty reaching your doctor or getting an office appt?: No Have you had trouble purchasing/ or taking medication?: No Have you had trouble with getting meals at home?: No Did you feel ready for discharge when you left the last time: Yes Were services received that you thought were set up on disch: Yes What services were received?: Home oxygen Did you call your physician beore you came to the ED?: No Did your physician tell you to come in?: No - ED visits How many ED visits in the past 12 months: 5 - Assessment for Readmission Summary of readmission circumstances, based upon interviews: Lona states she felt she was ready for discharge on 07/28/18. She states she was able to complete her antibiotics and steroid taper. She met with primary care and her pulmonolgist as directed. She states she feels that she came down with another illness. She reports environmental factors that may contribute to ongoing illness and COPD exacerbation. She states at least three others smoke in the apartment and she notices that her breathing is worse around the tobacco smoke. Tatum reports she has a good relationship with her primary care and specialist. She reports she has a community center coordinator that assist her with services in the community. She denies difficulty obtaining medications and states she takes her medications as directed. CM will follow up with [facility] returned case inspector to identify any other factors that may contributed to Tatum's admission.
[2018-08-18 08:45] LABS: FIO2 100 %; Site Left Radial; pH 7.29 (7.35-7.45)
[2018-08-18 08:46] LABS: BE 5.6 mmol/L (-3-3); HCO3 32 mmol/L (22-28); pCO2 67 mmHg (34-47); pO2 106 mmHg (83-108); sO2 97 % (94-98); tCO2 30 mmol/L (22-29)
[2018-08-18] MEDS: Hydrocortisone SOD SUC. 100 MG VIAL IVP (09:08)
[2018-08-18] MEDS: MAGNESIUM SULFATE 2 GM/50 ML BAG IVPB (09:09)
[2018-08-18] MEDS: Escitalopram 20 MG TAB PO (09:09)
[2018-08-18] MEDS: Montelukast 10 MG TAB PO (09:09)
[2018-08-18] MEDS: POTASSIUM CHLORIDE 20 MEQ/100 ML BAG 50 MEQ IVPB ×2 (09:10→12:25)
[2018-08-18] MEDS: Budesonide/Formoterol 160/4.5 6 GM 60 PUFF INH IH ×2 (09:11→19:32)
[2018-08-18 09:42] LABS: Creatine Kinase 150 U/L (26-192)
[2018-08-18] MEDS: Lactated Ringers 1,000 ML 75 ML IV (11:19)
[2018-08-18] MEDS: Pantoprazole 40 MG VIAL IVP (11:20)
[2018-08-18 11:29] LABS: Ammonia 54 umol/L (11-32)
--- NOTE | 2018-08-18 11:38 | PHARADMIT ---
Addendum entered by Shreyas Salgado III 08/22/18 15:39: Pharmacy Note Subjective Plan this morning was to discharge home today. Did not occur. ABX transitioned to PO Augmentin, IV steroids to PO. Objective BP-194/81 K+3.3 SCr-0.80 H&H,Plts,WBC-OK Wgt-89.1 kg BM today Assessment Zosyn dc'd, Losartan, Norvasc,Gabapentin & Potassium strated. Plan MD considered trying Clonidine for HBP & addiction,(was going to talk to ANDREW) Original Note: Admission Pharmacy Clinical Review respiratory failure Code Status Full Code Current Weight 85.2 kg Renally Cleared and Narrow Therapeutic Index Meds Crcl ~64.3 mL/min using adjusted body weight current meds okay QTc Value / Action Taken QTc 475 has escitalopram and formoterol ordered, mirtazapine BP Control, Fever BP-93/58 afebrile Electrolytes reviewed K+ 3.2 mag 1.7 DVT Prophylaxis therapeutic dosing of enoxaparin (80 mg Q12H) Opiate Usage / Scheduled Bowel Regimen Ordered no/prn Plt/SCr for Heparin / Enoxaparin plt 200 SCr 0.92 INR for Warfarin n/a H/H stable, WBC/Bands h/h 10.7/35.5 WBC 9.42 Antibiotic appropriateness zosyn to cover for possible postobstructive pneumonia per H+P Cultures and Sensitivities urine, blood and sputum cultures pending Surgical ABX d/c within 24 hr n/a DM control / Insulin Dosing BG 188 none Heart Failure (Check EF%) (RAHEL's, B-Block, Diuretics) furosemide (on hold) IV to PO Switch n/a Home Meds Reviewed -multiple anticholinergics may enhance anticholinergic effects- tiotropium, prochlorperazine -multiple CLIENT TECHNICAL SPECIALIST depressants: buprenorphine, gabapentin, mirtazapine, prochlorperazine -ibuprofen may diminish the therapeutic effects of furosemide; furosemide may enhance the nephrotoxic effects of ibuprofen -escitalopram may enhance the antiplatelet effects of ibuprofen; ibuprofen may diminish the therapeutic effects of escitalopram Home Meds Not Ordered amlodipine, atorvastatin, buprenorphine/naloxone, gabapentin, ibuprofen, losartan, melatonin, mirtazapine, prochlorperazine, sumatriptan, tiotropium (has scheduled duonebs ordered) Comments
--- NOTE | 2018-08-18 11:54 | DI.CT_ITS ---
SYMPTOM/DIAGNOSIS: ACUTE SOB, HYPOXIA, DENSITY RIGHT LOWER LUNG FIELD. CHEST CT FOR PULMONARY EMBOLUS: CT angiography was performed with multi slice acquisition and multi planar and 3D reconstruction. The exam is limited by respiratory motion. There is an aberrant right subclavian artery. The pulmonary arteries are well opacified with IV contrast. No pulmonary emboli are seen. There are tiny bilateral pleural effusions. There is dense consolidation seen in the right lower lobe with atelectasis. Infiltrates are also seen in the right upper lobe. There are minimal left basilar densities. There is mild underlying emphysema. IMPRESSION: Right upper and lower lobe pneumonia. Right lower lobe atelectasis. No evidence of pulmonary emboli.
[2018-08-18] MEDS: Omnipaque 350 MG/ML 100 ML BTL IJ (11:56)
--- NOTE | 2018-08-18 12:27 | DI.VRAD_ITS ---
EXAM: CT Angiography Chest With Contrast EXAM DATE/TIME: 08/18/2018 6:52 AM CLINICAL HISTORY: 63 years old, female; Signs and symptoms; Shortness of breath; Patient HX: Copd, hypertension TECHNIQUE: Imaging protocol: Axial computed tomographic angiography images of the chest with intravenous contrast using CT angiography protocol. Coronal and sagittal reformatted images were created and reviewed. 3D rendering: MIP reconstructed images were created and reviewed. Contrast material: OMNIPAQUE 350; Contrast volume: 100 ml; Contrast route: R FOREARM IV; COMPARISON: CT CHEST HIGH RESOLUTION 10/16/2014 1:22 PM FINDINGS: Pulmonary arteries: Normal. No pulmonary emboli. Aorta: Normal. No aortic aneurysm. No aortic dissection. Great vessels off aortic arch: Incidental note is made of aberrant right subclavian artery. Lungs: There is mild COPD. There is dense right upper, middle and lower lobe consolidation. There is fairly diffuse patchy pneumonitis in the right upper lobe with moderate right middle and lower lobe aeration. Pleural space: Trace left and small right pleural effusion. Heart: Normal. No cardiomegaly. No pericardial effusion. Mediastinum: There is mild right-sided mediastinal shift there Lymph nodes: Unremarkable. No enlarged lymph nodes. Bones/joints: Unremarkable. No acute fracture. Soft tissues: Unremarkable. Other findings: Respiratory motion slightly limits the exam. IMPRESSION: Significant, patchy right upper middle and lower lobe pneumonia. There is some degree of atelectasis with volume loss. Follow up to assess clearing recommended. No evidence for pulmonary embolus. COMMENT: Preliminary interpretation is based on receipt of 1206 image(s). A final report will be issued subsequently. Dictated and Authenticated by: Vonda Mistry MD. Ordering:DUC Whalen MD
[2018-08-18 13:41] LABS: Lactate 0.8 mmol/L (0.6-1.4)
--- NOTE | 2018-08-18 13:46 | W.PM.PROGNOT ---
Date of Service Date of service: 08/18/18 Time of Service: 08:15 Assessment and Plan (1) Acute and chronic respiratory failure with hypoxia: Current visit: No Status: Acute Due to CAP and acute exacerbation of COPD. BiPAP settings adjusted based on repeat ABG - again rechecking now. No evidence of PE. Continue IV fluids, zosyn, change steroids to IV solumedrol 80 mg IV Q8 hrs (effectively increasing the dose). Continue nebs, symbicort. Wean BiPAP as tolerated. Patient is full code. (2) Mental status, decreased: Current visit: Yes Status: Acute Toxic metabolic encephalopathy, due to CO2 narcosis in addition to possible EtOH interaction with home meds such as gabapentin or suboxone. Mental status is at baseline. I do not think that Ms Loya had an intentional overdose. (3) Acute exacerbation of chronic obstructive pulmonary disease (COPD): Current visit: No Status: Acute The patient does confirm that she started taking daliresp - we do not currently have this in our hospital. Family to bring in her med. (4) PETERSON (obstructive sleep apnea): Current visit: No Status: Chronic Continue BiPAP here; on discharge, could benefit from addressing this again with pulmonology. (5) Tobacco dependence syndrome: Current visit: No Status: Chronic Patient states that she actually quit smoking at home. She was encourage to continue abstinence. (6) Elevated liver enzymes: Current visit: Yes Status: Acute with h/o hepatitis C exposure. She does take gabapentin and endorses some EtOH use at home - and came in with hyperammonemia, which could be secondary to GPN. Continue to hold gabapentin. Monitor LFT's. Also, CPK checked to ensure that the LFT's were not up as part of rhabdomyolysis - CPK was wnl; no evidence for rhabdo. (7) Acute renal insufficiency: Current visit: Yes Status: Acute Creatinine near baseline. Continue IVF - hold ARB. (8) Polysubstance abuse: Current visit: No Status: Chronic On Suboxone. Endorses recent EtOH use. I spoke with her about her medication interactions. Case management is on board to help address housing situation. (9) DVT prophylaxis: Current visit: No Status: Acute Transitionining to prophylactic lovenox dose (10) Discharge planning issues: Current visit: No Status: Acute Continue BiPAP therapy in ICU. Critical Care Time 35 minutes. Subjective Interval history since last seen: Ms Loya states she is feeling better this am. She states that, at home, she was feeling progressively worse for about a week. She spent the night on BiPAP, a lot more awake this am. Denies dizziness, chest pain, shortness of breath, nausea, vomiting. Thirsty. Admits to drinking alcohol 2 nights ago. Exam Narrative Exam Narrative: General: Very pleasant middle-aged female, awake, speaking fluently on BiPAP, following commands, A&Ox3 HEENT: EOMI, MMM Heart: RRR, no m/r/g Lungs: Rhonchi B, moist respiratory sounds GI: Abdomen is soft, nontender, nondistended Extremities: trace edema BLE's, no clubbing or cyanosis Objective Objective Clinical Data: Abnormal lab results 08/18/18 08/18/18 08/18/18 Range/Units 00:05 00:35 00:35 WBC 12.92 H (4.4-10.8) k/cumm Hgb 11.5 L (12.0-15.5) g/dL Hct (36.0-46.0) % MCH 25.2 L (27.0-33.0) pg MCHC 30.3 L (32.0-36.0) g/dL RDW 15.6 H (11.7-14.6) % MPV 11.3 H (8.0-11.0) fL Absolute Neutrophils 10.32 H (1.2-6.7) k/cumm Absolute Lymphocytes 0.90 L (1.2-3.4) k/cumm Absolute Monocytes 1.33 H (0.11-0.7) k/cumm pCO2 79 H* (34-47) mmHg pO2 (83-108) mmHg O2 Saturation (94-98) % ABG pH 7.19 L* (7.35-7.45) ABG HCO3 30 H (22-28) mmol/L ABG Total CO2 (22-29) mmol/L ABG Base Excess (-3-3) mmol/L Potassium (3.5-5.1) mmol/L Carbon Dioxide (21.0-32.0) mmol/L Anion Gap 11.6 H (3-11) mmol/L Creatinine 1.39 H (0.55-1.02) mg/dL Glucose 235 H (70-100) mg/dL Calcium 7.8 L (8.5-10.1) mg/dL Magnesium 1.7 L (1.8-2.4) mg/dL AST 180 H (15-37) U/L ALT 239 H (12-78) U/L Ammonia (11-32) umol/L Albumin 3.1 L (3.4-5.0) g/dL Urine Protein (Negative) mg/dL Urine Urobilinogen (Up TO 0.2) EU/dL Urine RBC (0-2) Salicylates (2.8-20.0) mg/dL Acetaminophen (10-30) ug/mL 08/18/18 08/18/18 08/18/18 Range/Units 00:45 02:00 02:00 WBC (4.4-10.8) k/cumm Hgb (12.0-15.5) g/dL Hct (36.0-46.0) % MCH (27.0-33.0) pg MCHC (32.0-36.0) g/dL RDW (11.7-14.6) % MPV (8.0-11.0) fL Absolute Neutrophils (1.2-6.7) k/cumm Absolute Lymphocytes (1.2-3.4) k/cumm Absolute Monocytes (0.11-0.7) k/cumm pCO2 (34-47) mmHg pO2 (83-108) mmHg O2 Saturation (94-98) % ABG pH (7.35-7.45) ABG HCO3 (22-28) mmol/L ABG Total CO2 (22-29) mmol/L ABG Base Excess (-3-3) mmol/L Potassium (3.5-5.1) mmol/L Carbon Dioxide (21.0-32.0) mmol/L Anion Gap (3-11) mmol/L Creatinine (0.55-1.02) mg/dL Glucose (70-100) mg/dL Calcium (8.5-10.1) mg/dL Magnesium (1.8-2.4) mg/dL AST 191 H (15-37) U/L ALT 242 H (12-78) U/L Ammonia 64 H (11-32) umol/L Albumin 3.2 L (3.4-5.0) g/dL Urine Protein 100 H (Negative) mg/dL Urine Urobilinogen 1.0 H (Up TO 0.2) EU/dL Urine RBC 3-5 H (0-2) Salicylates (2.8-20.0) mg/dL Acetaminophen (10-30) ug/mL 08/18/18 08/18/18 08/18/18 Range/Units 02:32 05:57 05:57 WBC (4.4-10.8) k/cumm Hgb 10.7 L (12.0-15.5) g/dL Hct 35.5 L (36.0-46.0) % MCH 25.3 L (27.0-33.0) pg MCHC 30.1 L (32.0-36.0) g/dL RDW 15.6 H (11.7-14.6) % MPV (8.0-11.0) fL Absolute Neutrophils 8.42 H (1.2-6.7) k/cumm Absolute Lymphocytes 0.71 L (1.2-3.4) k/cumm Absolute Monocytes (0.11-0.7) k/cumm pCO2 64 H* (34-47) mmHg pO2 65 L (83-108) mmHg O2 Saturation 92 L (94-98) % ABG pH 7.29 L (7.35-7.45) ABG HCO3 31 H (22-28) mmol/L ABG Total CO2 (22-29) mmol/L ABG Base Excess 4.1 H (-3-3) mmol/L Potassium 3.2 L (3.5-5.1) mmol/L Carbon Dioxide 33.3 H (21.0-32.0) mmol/L Anion Gap (3-11) mmol/L Creatinine (0.55-1.02) mg/dL Glucose 188 H (70-100) mg/dL Calcium 7.7 L (8.5-10.1) mg/dL Magnesium (1.8-2.4) mg/dL AST (15-37) U/L ALT (12-78) U/L Ammonia (11-32) umol/L Albumin (3.4-5.0) g/dL Urine Protein (Negative) mg/dL Urine Urobilinogen (Up TO 0.2) EU/dL Urine RBC (0-2) Salicylates (2.8-20.0) mg/dL Acetaminophen (10-30) ug/mL 08/18/18 08/18/18 08/18/18 Range/Units 05:57 05:57 08:32 WBC (4.4-10.8) k/cumm Hgb (12.0-15.5) g/dL Hct (36.0-46.0) % MCH (27.0-33.0) pg MCHC (32.0-36.0) g/dL RDW (11.7-14.6) % MPV (8.0-11.0) fL Absolute Neutrophils (1.2-6.7) k/cumm Absolute Lymphocytes (1.2-3.4) k/cumm Absolute Monocytes (0.11-0.7) k/cumm pCO2 67 H* (34-47) mmHg pO2 (83-108) mmHg O2 Saturation (94-98) % ABG pH 7.29 L (7.35-7.45) ABG HCO3 32 H (22-28) mmol/L ABG Total CO2 30 H (22-29) mmol/L ABG Base Excess 5.6 H (-3-3) mmol/L Potassium (3.5-5.1) mmol/L Carbon Dioxide (21.0-32.0) mmol/L Anion Gap (3-11) mmol/L Creatinine (0.55-1.02) mg/dL Glucose (70-100) mg/dL Calcium (8.5-10.1) mg/dL Magnesium (1.8-2.4) mg/dL AST (15-37) U/L ALT (12-78) U/L Ammonia (11-32) umol/L Albumin (3.4-5.0) g/dL Urine Protein (Negative) mg/dL Urine Urobilinogen (Up TO 0.2) EU/dL Urine RBC (0-2) Salicylates < 2.8 L (2.8-20.0) mg/dL Acetaminophen < 2 L (10-30) ug/mL 08/18/18 Range/Units 11:00 WBC (4.4-10.8) k/cumm Hgb (12.0-15.5) g/dL Hct (36.0-46.0) % MCH (27.0-33.0) pg MCHC (32.0-36.0) g/dL RDW (11.7-14.6) % MPV (8.0-11.0) fL Absolute Neutrophils (1.2-6.7) k/cumm Absolute Lymphocytes (1.2-3.4) k/cumm Absolute Monocytes (0.11-0.7) k/cumm pCO2 (34-47) mmHg pO2 (83-108) mmHg O2 Saturation (94-98) % ABG pH (7.35-7.45) ABG HCO3 (22-28) mmol/L ABG Total CO2 (22-29) mmol/L ABG Base Excess (-3-3) mmol/L Potassium (3.5-5.1) mmol/L Carbon Dioxide (21.0-32.0) mmol/L Anion Gap (3-11) mmol/L Creatinine (0.55-1.02) mg/dL Glucose (70-100) mg/dL Calcium (8.5-10.1) mg/dL Magnesium (1.8-2.4) mg/dL AST (15-37) U/L ALT (12-78) U/L Ammonia 54 H (11-32) umol/L Albumin (3.4-5.0) g/dL Urine Protein (Negative) mg/dL Urine Urobilinogen (Up TO 0.2) EU/dL Urine RBC (0-2) Salicylates (2.8-20.0) mg/dL Acetaminophen (10-30) ug/mL Vital Signs Temperature 36 C L 08/18/18 07:40 Temperature Source Tympanic 08/18/18 07:40 Pulse 90 08/18/18 13:01 Pulse 90 08/18/18 13:15 Respiratory Rate 15 08/18/18 13:15 Respiratory Effort Incrsd Work of Breathing 08/18/18 07:40 Respiratory Depth Normal 08/18/18 07:40 Respiratory Pattern Tachypnea 08/18/18 07:40 Blood Pressure 90/77 L 08/18/18 13:01 Blood Pressure Mean 80 08/18/18 13:01 Blood Pressure Position Supine 08/18/18 07:40 Pulse Oximetry 94 L 08/18/18 13:15 Respiratory End-tidal CO2 45 08/18/18 00:01 Oxygen Delivery Method Bi-pap 08/18/18 07:40 Fraction of Inspired Oxygen (FIO2) 50 08/18/18 12:22 Pain Level 0 08/18/18 07:40 Intake & Output 08/17/18 08/18/18 08/18/18 23:59 11:59 23:59 Intake Total 3393.333 / 3393.333 Output Total 1375 / 1375 Balance / Weight 84.7 kg 85.2 kg Intake: IV 3393.333 / 3393.333 Output: Urine 1375 / 1375 Other: Urine Color Pale Yellow Urine Appearance Clear Comment amezquita cath in place and draining light yellow urine. Laboratory Results WBC 9.42 k/cumm (4.4-10.8) 08/18/18 05:57 RBC 4.23 m/cumm (4.00-5.20) 08/18/18 05:57 Hgb 10.7 g/dL (12.0-15.5) L 08/18/18 05:57 Hct 35.5 % (36.0-46.0) L 08/18/18 05:57 MCV 83.9 fL (80-95) 08/18/18 05:57 MCH 25.3 pg (27.0-33.0) L 08/18/18 05:57 MCHC 30.1 g/dL (32.0-36.0) L 08/18/18 05:57 RDW 15.6 % (11.7-14.6) H 08/18/18 05:57 Plt Count 200 x1000/uL (130-400) 08/18/18 05:57 MPV 10.9 fL (8.0-11.0) 08/18/18 05:57 Immature Gran % 0.2 08/18/18 05:57 Neutrophils % 89.4 08/18/18 05:57 Lymphocytes % 7.5 08/18/18 05:57 Monocytes % 2.7 08/18/18 05:57 Eosinophils % 0.1 08/18/18 05:57 Basophils % 0.1 08/18/18 05:57 Absolute Neutrophils 8.42 k/cumm (1.2-6.7) H 08/18/18 05:57 Absolute Lymphocytes 0.71 k/cumm (1.2-3.4) L 08/18/18 05:57 Absolute Monocytes 0.25 k/cumm (0.11-0.7) 08/18/18 05:57 Absolute Eosinophils 0.01 k/cumm (0.0-0.7) 08/18/18 05:57 Absolute Basophils 0.01 k/cumm (0.0-0.2) 08/18/18 05:57 PT 10.4 sec (9.3-11.0) 08/18/18 05:57 INR 1.0 (0.9-1.1) 08/18/18 05:57 Sample Site Left radial 08/18/18 08:32 pCO2 67 mmHg (34-47) H* 08/18/18 08:32 pO2 106 mmHg (83-108) 08/18/18 08:32 O2 Saturation 97 % (94-98) 08/18/18 08:32 ABG pH 7.29 (7.35-7.45) L 08/18/18 08:32 ABG HCO3 32 mmol/L (22-28) H 08/18/18 08:32 ABG Total CO2 30 mmol/L (22-29) H 08/18/18 08:32 ABG Base Excess 5.6 mmol/L (-3-3) H 08/18/18 08:32 Oxygen Liter Flow Bipap 14/5 L 08/18/18 08:32 FiO2 100 % 08/18/18 08:32 Sodium 143 mmol/L (136-145) 08/18/18 05:57 Potassium 3.2 mmol/L (3.5-5.1) L 08/18/18 05:57 Chloride 104 mmol/L (98-107) 08/18/18 05:57 Carbon Dioxide 33.3 mmol/L (21.0-32.0) H 08/18/18 05:57 Anion Gap 5.7 mmol/L (3-11) 08/18/18 05:57 BUN 11 mg/dL (7-18) 08/18/18 05:57 Creatinine 0.92 mg/dL (0.55-1.02) 08/18/18 05:57 Estimated GFR/1.73 m2 >= 60.00 (mL/min/1.73m2) 08/18/18 05:57 Glucose 188 mg/dL (70-100) H 08/18/18 05:57 Lactate 0.8 mmol/L (0.6-1.4) 08/18/18 13:35 Calcium 7.7 mg/dL (8.5-10.1) L 08/18/18 05:57 Magnesium 1.7 mg/dL (1.8-2.4) L 08/18/18 00:35 Total Bilirubin 0.4 mg/dL (0.2-1.0) 08/18/18 02:00 Conjugated Bilirubin 0.15 mg/dL (0.00-0.20) 08/18/18 02:00 AST 191 U/L (15-37) H 08/18/18 02:00 ALT 242 U/L (12-78) H 08/18/18 02:00 Alkaline Phosphatase 95 U/L (46-116) 08/18/18 02:00 Ammonia 54 umol/L (11-32) H 08/18/18 11:00 Creatine Kinase 150 U/L (26-192) 08/18/18 02:00 Troponin I < 0.02 ng/mL (0.00-0.06) 08/18/18 00:35 Total Protein 7.1 g/dL (6.4-8.2) 08/18/18 02:00 Albumin 3.2 g/dL (3.4-5.0) L 08/18/18 02:00 Urine Color Yellow (Yellow) 08/18/18 00:45 Urine Clarity Cloudy 08/18/18 00:45 Urine pH 5.5 (5-8) 08/18/18 00:45 Ur Specific [place] 1.025 (1.005-1.025) 08/18/18 00:45 Urine Protein 100 mg/dL (Negative) H 08/18/18 00:45 Urine Ketones Negative mg/dL (Negative) 08/18/18 00:45 Urine Blood Negative (Negative) 08/18/18 00:45 Urine Nitrite Negative (Negative) 08/18/18 00:45 Urine Bilirubin Negative (Negative) 08/18/18 00:45 Urine Urobilinogen 1.0 EU/dL (Up TO 0.2) H 08/18/18 00:45 Ur Leukocyte Esterase Negative (Negative) 08/18/18 00:45 Urine RBC 3-5 (0-2) H 08/18/18 00:45 Urine WBC 5-10 HPF (0-5) 08/18/18 00:45 Ur Epithelial Cells Few HPF (Negative) 08/18/18 00:45 Urine Crystals Many amorphous HPF (Negative) 08/18/18 00:45 Urine Bacteria Moderate HPF (Negative) 08/18/18 00:45 Urine Casts Negative LPF (Negative) 08/18/18 00:45 Urine Mucus Heavy (Negative) 08/18/18 00:45 Ur Culture Indicated? Yes 08/18/18 00:45 Urine Glucose Negative mg/dL (Negative) 08/18/18 00:45 Salicylates < 2.8 mg/dL (2.8-20.0) L 08/18/18 05:57 Urine Opiates Screen Negative (Negative) 08/18/18 00:45 Urine Methadone Screen Negative (Negative) 08/18/18 00:45 Acetaminophen < 2 ug/mL (10-30) L 08/18/18 05:57 Ur Barbiturates Screen Negative (Negative) 08/18/18 00:45 Ur Tricyclics Screen Negative (Negative) 08/18/18 00:45 Ur Amphetamines Screen Negative (Negative) 08/18/18 00:45 U Benzodiazepines Scrn Negative (Negative) 08/18/18 00:45 Urine Cocaine Screen Negative (Negative) 08/18/18 00:45 Ur THC Screen Negative (Negative) 08/18/18 00:45 Ethyl Alcohol < 3.0 mg/dL (<3) 08/18/18 00:35 CTA chest: Significant, patchy right upper middle and lower lobe pneumonia. There is some degree of atelectasis with volume loss. Follow up to assess clearing recommended. No evidence for pulmonary embolus.
[2018-08-18 15:04] LABS: BE 8.8 mmol/L (-3-3); HCO3 35 mmol/L (22-28); pH 7.34 (7.35-7.45); pO2 71 mmHg (83-108); sO2 93 % (94-98); tCO2 33 mmol/L (22-29)
[2018-08-18 15:06] LABS: Site Right Radial; pCO2 64 mmHg (34-47)
[2018-08-18 15:07] LABS: FIO2 50% %
[2018-08-18] MEDS: Normal Saline Flush 10 ML SYR IVP (15:46)
[2018-08-18] MEDS: methylPREDNISolone SUCC 125 MG VIAL 80 MG IVP (15:47)
[2018-08-18] MEDS: Lactated Ringers 1,000 ML 125 ML IV (21:38)
[2018-08-19] VITALS (36 sets, daily range): BP systolic 106–144; BP diastolic 49–81; PULSE 66–132; RESP 2–29; TEMP 35.6–36.6; O2SAT 88–97
[2018-08-19] MEDS: Albuterol/Ipratropium 3 ML UPD VIAL UPD ×5 (00:01→23:44)
[2018-08-19] MEDS: methylPREDNISolone SUCC 125 MG VIAL 80 MG IVP ×2 (00:02→08:47)
[2018-08-19] MEDS: PIPERACILLIN/TAZO 4.5 GM in Normal Saline 100 ML IVPB ×4 (01:15→19:31)
[2018-08-19] MEDS: Lactated Ringers 1,000 ML 125 ML IV (05:43)
[2018-08-19 06:20] LABS: Abs Immature Grans 0.02 k/cumm (0.0-0.09); Absolute Lymphocyte Count 1.05 k/cumm (1.2-3.4); Absolute Monocyte Count 0.33 k/cumm (0.11-0.7); Absolute Neutrophil Count 9.17 k/cumm (1.2-6.7); HCT 31.6 % (36.0-46.0); HGB 9.7 g/dL (12.0-15.5); Immature Grans % 0.2; Lymphocytes % 9.9; Mean Corp. HGB Concentration 30.7 g/dL (32.0-36.0); Mean Corpuscular Hemoglobin 25.2 pg (27.0-33.0); Mean Corpuscular Volume 82.1 fL (80-95); Mean Platelet Volume 11.3 fL (8.0-11.0); Monocytes % 3.1; Neutrophils % 86.8; Platelet Count 185 x1000/uL (130-400); RBC 3.85 m/cumm (4.00-5.20); RBC Distribution Width 15.8 % (11.7-14.6); White Blood Cell Count 10.57 k/cumm (4.4-10.8)
[2018-08-19 06:27] LABS: Ammonia 40 umol/L (11-32)
[2018-08-19 06:35] LABS: Anion Gap 7.7 mmol/L (3-11); BUN 15 mg/dL (7-18); CO2 33.3 mmol/L (21.0-32.0); CREATININE 0.67 mg/dL (0.55-1.02); Calcium 8.1 mg/dL (8.5-10.1); Chloride 103 mmol/L (98-107); Glucose 200 mg/dL (70-100); Sodium 144 mmol/L (136-145)
[2018-08-19 06:41] LABS: ALT 194 U/L (12-78); AST 84 U/L (15-37); Albumin 2.7 g/dL (3.4-5.0); Alkaline Phosphatase 74 U/L (46-116); Bilirubin, Direct 0.16 mg/dL (0.00-0.20); Bilirubin, Total 0.4 mg/dL (0.2-1.0); Magnesium 1.9 mg/dL (1.8-2.4); Total Protein 6.4 g/dL (6.4-8.2)
[2018-08-19] MEDS: Budesonide/Formoterol 160/4.5 6 GM 60 PUFF INH IH ×2 (08:26→19:31)
[2018-08-19] MEDS: Normal Saline 500 ML 30 ML IV (08:45)
[2018-08-19] MEDS: Pantoprazole 40 MG VIAL IVP (08:46)
[2018-08-19] MEDS: Enoxaparin 40 MG/0.4 ML SYR SC (08:48)
[2018-08-19] MEDS: Normal Saline Flush 10 ML SYR IVP ×5 (08:48→23:44)
[2018-08-19] MEDS: Montelukast 10 MG TAB PO (08:48)
[2018-08-19] MEDS: Escitalopram 20 MG TAB PO (08:48)
[2018-08-19] MEDS: Buprenorphine/Naloxone 12 mg/3 mg FILM 1 EACH SL (11:21)
[2018-08-19] MEDS: Potassium Chloride 20 MEQ TABCR 40 MEQ PO ×2 (11:21→19:31)
--- NOTE | 2018-08-19 11:55 | PGE_ITS ---
Date of Service Date of service: 08/19/18 Time of Service: 11:51 Assessment and Plan (1) Acute and chronic respiratory failure with hypoxia: Current visit: No Status: Acute Due to CAP and acute exacerbation of COPD. Off BiPAP, improved significantly. Mobilize, start to taper steroids, continue BiPAP HS and prn; Continue zosyn, nebs, symbicort. Wean O2 as tolerated. Ok to transfer out of ICU Add Acapella. (2) Mental status, decreased: Current visit: Yes Status: Resolved Toxic metabolic encephalopathy, due to CO2 narcosis in addition to possible EtOH interaction with home meds such as gabapentin or suboxone and with evidence of hyperammonemia. There is no evidence for cirrhosis on abdominal MRI in 2017, and I doubt true hepatic encephalopathy. The patient states she does not normally drink, but did have a little alcohol recently, so it is possible there was an interaction between GPN and EtOH. This could have resulted in hyperammonemia. Her doses of GPN at home are pretty high - will discuss with PCP if it is better to d/c it entirely or decrease the dose. For now, will continue to hold. I feel it is worth it to check her liver ultrasound tomorrow as she is Hep C Ab (+)ronal. Mental status is at baseline. (3) Acute exacerbation of chronic obstructive pulmonary disease (COPD): Current visit: No Status: Acute The patient does confirm that she started taking daliresp - we do not currently have this in our hospital. Family to bring in her med. (4) PETERSON (obstructive sleep apnea): Current visit: No Status: Chronic Continue BiPAP HS + prn on discharge, could benefit from addressing this again with pulmonology. (5) Tobacco dependence syndrome: Current visit: No Status: Chronic Patient states that she actually quit smoking at home. She was encourage to continue abstinence. (6) Elevated liver enzymes: Current visit: Yes Status: Acute with h/o hepatitis C exposure. As above. Checking US abdomen tomorrow. She does take gabapentin and endorses some EtOH use at home - and came in with hyperammonemia, which could be secondary to GPN. Continue to hold gabapentin. (7) Acute renal insufficiency: Current visit: Yes Status: Acute Creatinine near baseline. D/c IVF and resume lasix (8) Polysubstance abuse: Current visit: No Status: Chronic On Suboxone. Endorses recent EtOH use. I spoke with her about her medication interactions. Suboxone resumed. (9) DVT prophylaxis: Current visit: No Status: Acute lovenox SC Suspcion for a thrombosed RUE vein - US venous pending for Monday. (10) Discharge planning issues: Current visit: No Status: Acute Continue BiPAP HS/prn. Ok to transfer to [facility]. Subjective Interval history since last seen: Ms Loya states she is feeling a lot better today, but still quite CHAVARRIA. She complains of chest tightness, denies chest pain, nausea, dizziness. She states that she took 4 of the 800 mg of neurontin per day, as prescribed. She no longer has a gallbladder. Exam Narrative Exam Narrative: General: Very pleasant middle-aged female, sitting in a chair, recovering from just transferring there from bed, slightly tachypneic, speaking in 4-5 word phrases before having to take a deep breath, on 2L of O2, A&Ox3 HEENT: EOMI, MMM Heart: RRR, no m/r/g Lungs: moist but nonproductive cough, quiet crackles at B bases, otherwise CTAB, improved from yesterday GI: Abdomen is soft, nontender, nondistended Extremities: trace edema BLE's, no clubbing or cyanosis Objective Objective Clinical Data: Abnormal lab results 08/18/18 08/19/18 08/19/18 Range/Units 14:04 06:12 06:12 RBC (4.00-5.20) m/cumm Hgb (12.0-15.5) g/dL Hct (36.0-46.0) % MCH (27.0-33.0) pg MCHC (32.0-36.0) g/dL RDW (11.7-14.6) % MPV (8.0-11.0) fL Absolute Neutrophils (1.2-6.7) k/cumm Absolute Lymphocytes (1.2-3.4) k/cumm pCO2 64 H* (34-47) mmHg pO2 71 L (83-108) mmHg O2 Saturation 93 L (94-98) % ABG pH 7.34 L (7.35-7.45) ABG HCO3 35 H (22-28) mmol/L ABG Total CO2 33 H (22-29) mmol/L ABG Base Excess 8.8 H (-3-3) mmol/L Potassium (3.5-5.1) mmol/L Carbon Dioxide (21.0-32.0) mmol/L Glucose (70-100) mg/dL Calcium (8.5-10.1) mg/dL AST 84 H (15-37) U/L ALT 194 H (12-78) U/L Ammonia 40 H (11-32) umol/L Albumin 2.7 L (3.4-5.0) g/dL 08/19/18 08/19/18 Range/Units 06:12 06:12 RBC 3.85 L (4.00-5.20) m/cumm Hgb 9.7 L (12.0-15.5) g/dL Hct 31.6 L (36.0-46.0) % MCH 25.2 L (27.0-33.0) pg MCHC 30.7 L (32.0-36.0) g/dL RDW 15.8 H (11.7-14.6) % MPV 11.3 H (8.0-11.0) fL Absolute Neutrophils 9.17 H (1.2-6.7) k/cumm Absolute Lymphocytes 1.05 L (1.2-3.4) k/cumm pCO2 (34-47) mmHg pO2 (83-108) mmHg O2 Saturation (94-98) % ABG pH (7.35-7.45) ABG HCO3 (22-28) mmol/L ABG Total CO2 (22-29) mmol/L ABG Base Excess (-3-3) mmol/L Potassium 3.0 L (3.5-5.1) mmol/L Carbon Dioxide 33.3 H (21.0-32.0) mmol/L Glucose 200 H (70-100) mg/dL Calcium 8.1 L (8.5-10.1) mg/dL AST (15-37) U/L ALT (12-78) U/L Ammonia (11-32) umol/L Albumin (3.4-5.0) g/dL Vital Signs Temperature 35.6 C L 08/19/18 07:37 Temperature Source Temporal Artery Scan 08/19/18 07:37 Pulse 79 08/19/18 07:39 Pulse 82 08/19/18 07:39 Respiratory Rate 15 08/19/18 07:39 Respiratory Effort 08/19/18 07:37 Respiratory Depth Normal 08/19/18 07:37 Respiratory Pattern Normal 08/19/18 07:37 Blood Pressure 144/79 H 08/19/18 07:39 Blood Pressure Mean 95 08/19/18 07:39 Blood Pressure Position Supine 08/19/18 07:37 Pulse Oximetry 92 L 08/19/18 07:50 Respiratory End-tidal CO2 45 08/18/18 00:01 Oxygen Delivery Method Nasal Cannula 08/19/18 07:50 Oxygen Flow Rate 2 08/19/18 07:50 Fraction of Inspired Oxygen (FIO2) 40 08/19/18 07:37 Pain Level 0 08/19/18 07:37 Intake & Output 08/18/18 08/18/18 08/19/18 11:59 23:59 11:59 Intake Total 3393.333 / 5680.000 2286.667 / 5680.000 2088.167 / 2088.167 Output Total 1375 / 1775 400 / 1775 Balance 2018.333 / 3905.000 1886.667 / 3905.000 2088.167 / 2088.167 Weight 85.2 kg 86 kg Intake: IV 3393.333 / 5680.000 2286.667 / 5680.000 1598.167 / 1598.167 Oral 490 / 490 Output: Urine 1375 / 1775 400 / 1775 Other: Urine Color Pale Yellow Light Leena Yellow Urine Appearance Clear Clear Clear Comment amezquita cath in place and draining light yellow urine. Amezquita intact Amezquita intact draining clear leena colored urine QS. Laboratory Results WBC 10.57 k/cumm (4.4-10.8) 08/19/18 06:12 RBC 3.85 m/cumm (4.00-5.20) L 08/19/18 06:12 Hgb 9.7 g/dL (12.0-15.5) L 08/19/18 06:12 Hct 31.6 % (36.0-46.0) L 08/19/18 06:12 MCV 82.1 fL (80-95) 08/19/18 06:12 MCH 25.2 pg (27.0-33.0) L 08/19/18 06:12 MCHC 30.7 g/dL (32.0-36.0) L 08/19/18 06:12 RDW 15.8 % (11.7-14.6) H 08/19/18 06:12 Plt Count 185 x1000/uL (130-400) 08/19/18 06:12 MPV 11.3 fL (8.0-11.0) H 08/19/18 06:12 Immature Gran % 0.2 08/19/18 06:12 Neutrophils % 86.8 08/19/18 06:12 Lymphocytes % 9.9 08/19/18 06:12 Monocytes % 3.1 08/19/18 06:12 Eosinophils % 0.0 08/19/18 06:12 Basophils % 0.0 08/19/18 06:12 Absolute Neutrophils 9.17 k/cumm (1.2-6.7) H 08/19/18 06:12 Absolute Lymphocytes 1.05 k/cumm (1.2-3.4) L 08/19/18 06:12 Absolute Monocytes 0.33 k/cumm (0.11-0.7) 08/19/18 06:12 Absolute Eosinophils 0.00 k/cumm (0.0-0.7) 08/19/18 06:12 Absolute Basophils 0.00 k/cumm (0.0-0.2) 08/19/18 06:12 PT 10.4 sec (9.3-11.0) 08/18/18 05:57 INR 1.0 (0.9-1.1) 08/18/18 05:57 Sample Site Right radial 08/18/18 14:04 pCO2 64 mmHg (34-47) H* 08/18/18 14:04 pO2 71 mmHg (83-108) L 08/18/18 14:04 O2 Saturation 93 % (94-98) L 08/18/18 14:04 ABG pH 7.34 (7.35-7.45) L 08/18/18 14:04 ABG HCO3 35 mmol/L (22-28) H 08/18/18 14:04 ABG Total CO2 33 mmol/L (22-29) H 08/18/18 14:04 ABG Base Excess 8.8 mmol/L (-3-3) H 08/18/18 14:04 Oxygen Liter Flow Bipap 16/5 L 08/18/18 14:04 FiO2 50% % 08/18/18 14:04 Sodium 144 mmol/L (136-145) 08/19/18 06:12 Potassium 3.0 mmol/L (3.5-5.1) L 08/19/18 06:12 Chloride 103 mmol/L (98-107) 08/19/18 06:12 Carbon Dioxide 33.3 mmol/L (21.0-32.0) H 08/19/18 06:12 Anion Gap 7.7 mmol/L (3-11) 08/19/18 06:12 BUN 15 mg/dL (7-18) 08/19/18 06:12 Creatinine 0.67 mg/dL (0.55-1.02) 08/19/18 06:12 Estimated GFR/1.73 m2 >= 60.00 (mL/min/1.73m2) 08/19/18 06:12 Glucose 200 mg/dL (70-100) H 08/19/18 06:12 Lactate 0.8 mmol/L (0.6-1.4) 08/18/18 13:35 Calcium 8.1 mg/dL (8.5-10.1) L 08/19/18 06:12 Magnesium 1.9 mg/dL (1.8-2.4) 08/19/18 06:12 Total Bilirubin 0.4 mg/dL (0.2-1.0) 08/19/18 06:12 Conjugated Bilirubin 0.16 mg/dL (0.00-0.20) 08/19/18 06:12 AST 84 U/L (15-37) H 08/19/18 06:12 ALT 194 U/L (12-78) H 08/19/18 06:12 Alkaline Phosphatase 74 U/L (46-116) 08/19/18 06:12 Ammonia 40 umol/L (11-32) H 08/19/18 06:12 Creatine Kinase 150 U/L (26-192) 08/18/18 02:00 Troponin I < 0.02 ng/mL (0.00-0.06) 08/18/18 00:35 Total Protein 6.4 g/dL (6.4-8.2) 08/19/18 06:12 Albumin 2.7 g/dL (3.4-5.0) L 08/19/18 06:12 Urine Color Yellow (Yellow) 08/18/18 00:45 Urine Clarity Cloudy 08/18/18 00:45 Urine pH 5.5 (5-8) 08/18/18 00:45 Ur Specific Langford 1.025 (1.005-1.025) 08/18/18 00:45 Urine Protein 100 mg/dL (Negative) H 08/18/18 00:45 Urine Ketones Negative mg/dL (Negative) 08/18/18 00:45 Urine Blood Negative (Negative) 08/18/18 00:45 Urine Nitrite Negative (Negative) 08/18/18 00:45 Urine Bilirubin Negative (Negative) 08/18/18 00:45 Urine Urobilinogen 1.0 EU/dL (Up TO 0.2) H 08/18/18 00:45 Ur Leukocyte Esterase Negative (Negative) 08/18/18 00:45 Urine RBC 3-5 (0-2) H 08/18/18 00:45 Urine WBC 5-10 HPF (0-5) 08/18/18 00:45 Ur Epithelial Cells Few HPF (Negative) 08/18/18 00:45 Urine Crystals Many amorphous HPF (Negative) 08/18/18 00:45 Urine Bacteria Moderate HPF (Negative) 08/18/18 00:45 Urine Casts Negative LPF (Negative) 08/18/18 00:45 Urine Mucus Heavy (Negative) 08/18/18 00:45 Ur Culture Indicated? Yes 08/18/18 00:45 Urine Glucose Negative mg/dL (Negative) 08/18/18 00:45 Salicylates < 2.8 mg/dL (2.8-20.0) L 08/18/18 05:57 Urine Opiates Screen Negative (Negative) 08/18/18 00:45 Urine Methadone Screen Negative (Negative) 08/18/18 00:45 Acetaminophen < 2 ug/mL (10-30) L 08/18/18 05:57 Ur Barbiturates Screen Negative (Negative) 08/18/18 00:45 Ur Tricyclics Screen Negative (Negative) 08/18/18 00:45 Ur Amphetamines Screen Negative (Negative) 08/18/18 00:45 U Benzodiazepines Scrn Negative (Negative) 08/18/18 00:45 Urine Cocaine Screen Negative (Negative) 08/18/18 00:45 Ur THC Screen Negative (Negative) 08/18/18 00:45 Ethyl Alcohol < 3.0 mg/dL (<3) 08/18/18 00:35
--- NOTE | 2018-08-19 12:10 | HOME_ITS ---
Home Oxygen Equipment: Home care [facility] Home oxygen qualifier: Qualifying SaO2: Date: LPM: 2 Useage (hours/day) Portability: Y Comments: used for exertion and nocuturnal
--- NOTE | 2018-08-19 12:22 | PDOC.CMPRO ---
- If Service Date Differs Date of service: 08/19/18 Time of Service: 12:22 Care Management Progress Note S/O: CM met with Tatum at the bedside she is now on 2l of oxygen nasal canula. She is alert and engaged with CM she states she is feeling better today. Tatum is now a medical surgical overflow in the ICU. She remains on IV antibiotics her diuretics will be restarted today. When she returns home she will continue services through [facility] and substance treatment services. A: Tatum is a 63 year old female admitted with, CAP, Acute on chronic hypoxic respiratory failure with a history of recent hospitalization and COPD. P: Tatum will return home when medically ready. She will transport home via [facility]. CM will fax discharge summary to [facility] nurse SACHIN. Lona will resume oxygen through [facility].
--- NOTE | 2018-08-19 12:28 | CMPROGNOTE_ITS ---
- If Service Date Differs Date of service: 08/19/18 Time of Service: 12:22 Care Management Progress Note S/O: CM met with Tatum at the bedside she is now on 2l of oxygen nasal canula. She is alert and engaged with CM she states she is feeling better today. Tatum is now a medical surgical overflow in the ICU. She remains on IV antibiotics her diuretics will be restarted today. When she returns home she will continue services through [facility] and substance treatment services. A: Tatum is a 63 year old female admitted with, CAP, Acute on chronic hypoxic respiratory failure with a history of recent hospitalization and COPD. P: Tatum will return home when medically ready. She will transport home via [facility]. CM will fax discharge summary to [facility] nurse SACHIN. Lona will resume oxygen through [facility].
[2018-08-19] MEDS: Insulin Aspart 300 UNITS/3 ML PEN SC ×2 (12:30→16:59)
[2018-08-19] MEDS: Furosemide 20 MG/2 ML VIAL IVP (12:44)
--- NOTE | 2018-08-19 15:10 | NUR.NOTE ---
Nursing Note: 1500: pt transferred from icu 219 to ms 215 via pt's own bed. pt oriented to call cintron system. see vs for information.
[2018-08-19] MEDS: methylPREDNISolone SUCC 125 MG VIAL 60 MG IVP ×2 (16:41→23:44)
[2018-08-19] MEDS: Ibuprofen 800 MG TAB PO (19:36)
[2018-08-20] VITALS (12 sets, daily range): BP systolic 108–143; BP diastolic 63–82; PULSE 79–89; RESP 1–91; TEMP 35.8–37; O2SAT 2–96
[2018-08-20] MEDS: PIPERACILLIN/TAZO 4.5 GM in Normal Saline 100 ML IVPB ×4 (01:27→19:33)
[2018-08-20] MEDS: Albuterol/Ipratropium 3 ML UPD VIAL UPD ×4 (06:05→23:39)
--- NOTE | 2018-08-20 08:00 | DI.US_ITS ---
SYMPTOMS/DIAGNOSIS: POSSIBLE CLOT IN BRACHIAL VEIN ON BEDSIDE ULTRASOUND; ELEVATED LFTS, HYPERAMMONEMIA ULTRASOUND OF THE RIGHT UPPER EXTREMITY: Thrombus is visible in the median cubital vein just proximal to the IV catheter. Clot is also present within the brachial veins, seen proximally through distally. The cephalic, basilic, axillary, subclavian and internal jugular veins appear free of thrombus. IMPRESSION: Clot in the brachial veins as well as in a superficial vein, the median cubital vein just proximal to the IV catheter. ABDOMINAL ULTRASOUND: The liver is enlarged to 20 cm. The liver appears normal in echogenicity. No focal liver lesions or biliary dilatation is seen. The patient is status post cholecystectomy. The spleen is normal in size. The kidneys and aorta are unremarkable. The tail of the pancreas was unable to be visualized. IMPRESSION: Hepatomegaly. No focal liver lesion or biliary dilatation. Status post cholecystectomy.
[2018-08-20] MEDS: Budesonide/Formoterol 160/4.5 6 GM 60 PUFF INH IH ×2 (08:03→19:33)
[2018-08-20] MEDS: Insulin Aspart 300 UNITS/3 ML PEN SC ×2 (08:26→12:10)
[2018-08-20] MEDS: Buprenorphine/Naloxone 12 mg/3 mg FILM 1 EACH SL (08:30)
[2018-08-20] MEDS: Montelukast 10 MG TAB PO (08:31)
[2018-08-20] MEDS: Furosemide 20 MG TAB 40 MG PO (08:33)
[2018-08-20] MEDS: Escitalopram 20 MG TAB PO (08:33)
[2018-08-20] MEDS: Potassium Chloride 20 MEQ TABCR 40 MEQ PO (08:33)
[2018-08-20] MEDS: Enoxaparin 40 MG/0.4 ML SYR SC (08:35)
[2018-08-20] MEDS: Pantoprazole 40 MG VIAL IVP (08:37)
[2018-08-20] MEDS: methylPREDNISolone SUCC 125 MG VIAL 60 MG IVP ×2 (08:45→15:30)
[2018-08-20] MEDS: Normal Saline Flush 10 ML SYR IVP ×5 (08:55→23:38)
--- NOTE | 2018-08-20 11:59 | OT.INIE ---
Occupational Therapy Notes Inpatient Occupational Therapy Evaluation Date: 08/20/18 Referring Doctor:Rebekah Wilkinson MD OT Orders: Eval and Treat Precautions: Standard PATIENT PROFILE/ADMITTING DIAGNOSIS: Pt is a 63 year old female who was admitted through the ER for acute exacerbation COPD, respiratory failure, hypoxia, and pneumonia. Past Medical History: Family history of colon cancer (Acute) Constipation (Acute) Pancreatic mass (Acute ~01/2017) Lethargy (Chronic) Polysubstance abuse (Chronic) Chronic pain (Chronic) Colon polyps (Chronic) History of suicide attempt (Chronic) Tobacco use (Acute) Allergic rhinitis (Chronic) Anxiety (Chronic) COPD (chronic obstructive pulmonary disease) (Chronic) 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) Depression (Chronic) Edema (Chronic) Goiter diffuse (Chronic) HTN (hypertension) (Chronic) Hepatitis C (Chronic) Hypercholesterolemia (Chronic) Left knee pain (Chronic) Lumbar back pain (Chronic) Migraine headache (Chronic) Multiple sclerosis (Chronic) PETERSON (obstructive sleep apnea) (Chronic) Opioid dependence (Chronic) Cocaine abuse (Resolved) Surgical History H/O section (Inactive) S/P cholecystectomy (Inactive) Status post shoulder surgery (Inactive) Social History/Home Situation: Pt lives in a home with her daughter. She reports that she is able to drive but does not due to not having a car, she reports that her daughter takes care of all driving, grocery shopping, cooking and laundry. Pt reports that she is able to perform her ADLs (I) but she has her daughter who helps and (A) as needed. Equipment owned/DME: grab bars, O2 2L at night SUBJECTIVE: Pt was sitting on the side of her bed, she was pleasant and answered questions appropriately. Pt states that she has pneumonia again and states that once that goes away she feels that she will be so much better. OBJECTIVE: General Observation: Pleasant, answers questions appropriately, has a barking cough which pt states is from pneumonia, O2 nasal cannula, IV Mental Status: A&Ox3 Pain: no c/o pain ROM: RUE AROM WNL L UE AROM WNL STRENGTH: RUE 4/5 throughout globally LUE 4/5 throughout globally FUNCTIONAL MOBILITY/ADLS: Transfers Sit-Stand (I) Stand-sit (I) Bed-Chair (S) Chair-bed (S) BATHING Sitting in chair Bathing UE (I) face and (B) UE DRESSING Sitting in chair Dressing UE (I) with donning and doffing hospital gown Dressing LE (I) donning and doffing (B) socks. GROOMING NT TOILETING on toilet (I), no assistive device for functional mobility EATING (I) sitting in chair. BALANCE: Static sitting Normal Dynamic Sitting Normal Static Standing Normal Dynamic Standing Good SPECIAL TESTS: Daily Activity Limitations Standardized Measure [facility] AM -PAC ?6 clicks? Daily Activity Inpatient Short Form: Raw score: 22, CMS score 25.80% INFORMED CONSENT/EDUCATION: Pt instructed in purpose of OT Consult and plan of care. ASSESSMENT: Patient is a 63-year-old female referred to occupational therapy services with diagnosis of acute exacerbation COPD, respiratory failure, hypoxia and pneumona, she had a recent stay at [facility] on 07/27/18. Patient presents with clinical signs and symptoms consistent with dx, as demonstrated by the following impairment level findings/functional limitations: decreased functional activity tolerance, labored breathing post functional activities. Pt does not feel that she needs OT services at this time as she is (I) with ADLs and her daughter (A) when needed. OT will discharge pt from skilled OT services at this time. Pt is performing ADLs as she was able to on her recent stay at [facility] on 07/27/18. Patient is assessed as a Low 31742 complexity based on the following: History: See Above Examination: See Above Presentation: Evolving Decision Making: Low based on examination GOALS N/A PLAN OF CARE/TREATMENT PLAN: OT eval only. DISCHARGE RECOMMENDATIONS OT recommends that pt return home with home health services to increase (I) in ADLs/IADLs in the home setting. OT recommends that pt get shower bench to increase pts safety during bathing routine in the shower. Pt states that these have not arrived since her most recent stay at [facility] on 07/27/18. TREATMENT TIME/MINUTES/CODES 85221,15 minutes (08:00) [facility]
--- NOTE | 2018-08-20 12:02 | OTIE_ITS ---
Occupational Therapy Notes Inpatient Occupational Therapy Evaluation Date: 08/20/18 Referring Doctor:Rebekah Wilkinson MD OT Orders: Eval and Treat Precautions: Standard PATIENT PROFILE/ADMITTING DIAGNOSIS: Pt is a 63 year old female who was admitted through the ER for acute exacerbation COPD, respiratory failure, hypoxia, and pneumonia. Past Medical History: Family history of colon cancer (Acute) Constipation (Acute) Pancreatic mass (Acute ~01/2017) Lethargy (Chronic) Polysubstance abuse (Chronic) Chronic pain (Chronic) Colon polyps (Chronic) History of suicide attempt (Chronic) Tobacco use (Acute) Allergic rhinitis (Chronic) Anxiety (Chronic) COPD (chronic obstructive pulmonary disease) (Chronic) 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) Depression (Chronic) Edema (Chronic) Goiter diffuse (Chronic) HTN (hypertension) (Chronic) Hepatitis C (Chronic) Hypercholesterolemia (Chronic) Left knee pain (Chronic) Lumbar back pain (Chronic) Migraine headache (Chronic) Multiple sclerosis (Chronic) PETERSON (obstructive sleep apnea) (Chronic) Opioid dependence (Chronic) Cocaine abuse (Resolved) Surgical History H/O section (Inactive) S/P cholecystectomy (Inactive) Status post shoulder surgery (Inactive) Social History/Home Situation: Pt lives in a home with her daughter. She reports that she is able to drive but does not due to not having a car, she reports that her daughter takes care of all driving, grocery shopping, cooking and laundry. Pt reports that she is able to perform her ADLs (I) but she has her daughter who helps and (A) as needed. Equipment owned/DME: grab bars, O2 2L at night SUBJECTIVE: Pt was sitting on the side of her bed, she was pleasant and answered questions appropriately. Pt states that she has pneumonia again and states that once that goes away she feels that she will be so much better. OBJECTIVE: General Observation: Pleasant, answers questions appropriately, has a barking cough which pt states is from pneumonia, O2 nasal cannula, IV Mental Status: A&Ox3 Pain: no c/o pain ROM: RUE AROM WNL L UE AROM WNL STRENGTH: RUE 4/5 throughout globally LUE 4/5 throughout globally FUNCTIONAL MOBILITY/ADLS: Transfers Sit-Stand (I) Stand-sit (I) Bed-Chair (S) Chair-bed (S) BATHING Sitting in chair Bathing UE (I) face and (B) UE DRESSING Sitting in chair Dressing UE (I) with donning and doffing hospital gown Dressing LE (I) donning and doffing (B) socks. GROOMING NT TOILETING on toilet (I), no assistive device for functional mobility EATING (I) sitting in chair. BALANCE: Static sitting Normal Dynamic Sitting Normal Static Standing Normal Dynamic Standing Good SPECIAL TESTS: Daily Activity Limitations Standardized Measure [facility] AM -PAC ?6 clicks? Daily Activity Inpatient Short Form: Raw score: 22, CMS score 25.80% INFORMED CONSENT/EDUCATION: Pt instructed in purpose of OT Consult and plan of care. ASSESSMENT: Patient is a 63-year-old female referred to occupational therapy services with diagnosis of acute exacerbation COPD, respiratory failure, hypoxia and pneumona, she had a recent stay at [facility] on 07/27/18. Patient presents with clinical signs and symptoms consistent with dx, as demonstrated by the following impairment level findings/functional limitations: decreased functional activity tolerance, labored breathing post functional activities. Pt does not feel that she needs OT services at this time as she is (I) with ADLs and her daughter (A) when needed. OT will discharge pt from skilled OT services at this time. Pt is performing ADLs as she was able to on her recent stay at [facility] on 07/27/18. Patient is assessed as a Low 79483 complexity based on the following: History: See Above Examination: See Above Presentation: Evolving Decision Making: Low based on examination GOALS N/A PLAN OF CARE/TREATMENT PLAN: OT eval only. DISCHARGE RECOMMENDATIONS OT recommends that pt return home with home health services to increase (I) in ADLs/IADLs in the home setting. OT recommends that pt get shower bench to increase pts safety during bathing routine in the shower. Pt states that these have not arrived since her most recent stay at [facility] on 07/27/18. TREATMENT TIME/MINUTES/CODES 52757,15 minutes (08:00) [facility]
[2018-08-20 12:40] LABS: Abs Immature Grans 0.06 k/cumm (0.0-0.09); Absolute Basophil Count 0.01 k/cumm (0.0-0.2); Absolute Lymphocyte Count 0.94 k/cumm (1.2-3.4); Absolute Monocyte Count 0.48 k/cumm (0.11-0.7); Absolute Neutrophil Count 8.34 k/cumm (1.2-6.7); Basophils % 0.1; HCT 32.9 % (36.0-46.0); Immature Grans % 0.6; Lymphocytes % 9.6; Mean Corp. HGB Concentration 30.4 g/dL (32.0-36.0); Mean Corpuscular Hemoglobin 25.2 pg (27.0-33.0); Mean Corpuscular Volume 82.9 fL (80-95); Monocytes % 4.9; Neutrophils % 84.8; Platelet Count 204 x1000/uL (130-400); RBC 3.97 m/cumm (4.00-5.20); RBC Distribution Width 16.4 % (11.7-14.6); White Blood Cell Count 9.83 k/cumm (4.4-10.8)
[2018-08-20 12:48] LABS: Ammonia 19 umol/L (11-32)
[2018-08-20 12:52] LABS: ALT 134 U/L (12-78); AST 32 U/L (15-37); Alkaline Phosphatase 69 U/L (46-116); Anion Gap 6.8 mmol/L (3-11); BUN 26 mg/dL (7-18); Bilirubin, Total 0.3 mg/dL (0.2-1.0); CO2 31.2 mmol/L (21.0-32.0); CREATININE 0.79 mg/dL (0.55-1.02); Calcium 8.5 mg/dL (8.5-10.1); Chloride 104 mmol/L (98-107); Glucose 150 mg/dL (70-100); Magnesium 1.9 mg/dL (1.8-2.4); Potassium 4.1 mmol/L (3.5-5.1); Sodium 142 mmol/L (136-145)
--- NOTE | 2018-08-20 17:23 | IN_ITS ---
Date of service: 08/20/18 Time of Service: 13:25 PT Notes Inpatient Physical Therapy Evaluation Date: 08/20/2018 Referring Doctor: Rebekah Wilkinson MD PT Orders: PT CONSULT: Eval/treat Precautions: Fall. Standard. Patient Profile/Admitting Diagnosis: 63-year-old female with chief complaints of severe shortness of breath who presented to the ED on 08/18/2018 when family found her lying in bed not breathing. Patient was diagnosed with acute on chronic respiratory failure with hypoxia, community-acquired pneumonia and altered mental status from toxic metabolic encephalopathy, acute exacerbation of COPD, and acute renal failure. 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) Depression (Chronic) Edema (Chronic) Goiter diffuse (Chronic) HTN (hypertension) (Chronic) Hepatitis C (Chronic) Hypercholesterolemia (Chronic) Left knee pain (Chronic) Lumbar back pain (Chronic) Migraine headache (Chronic) Multiple sclerosis (Chronic) PETERSON (obstructive sleep apnea) (Chronic) Opioid dependence (Chronic) Cocaine abuse (Resolved) Surgical History H/O section (Inactive) S/P cholecystectomy (Inactive) Status post shoulder surgery (Inactive) Social History/Home Situation: Patient lives with disabled daughter along with 2 other people in an apartment with 14-15 steps to enter with rail on the right going up. She has a field nurse case manager in the community who has been facilitating a potential transfer of residence and procurement of shower chair and assistive device for outdoors. Patient was independent with all aspects of mobility related ADLs with use without use of any adaptive equipment or assistive ambulatory device indoors. Patient states that her daughter assists with meal preparation and cooking Equipment Owned/DME: [place] Subjective: Patient pleasant and cooperative. She states that she is slowly getting better but still limited with her breathing. She is agreeable to a PT consult and treatment. Objective: General Observation: Patient seen resting in bed. Oxygen supplementation on 2 L/min via nasal cannula. Mental Status: Alert and oriented x3 Pain: 0/10 Vital Signs: 144/80 4 mmHg, 92% on 2 L/min, 75 bpm. ROM: Right Upper Extremity: Shoulder Flexion 0-110. Shoulder abduction 0-85. Elbow flexion WFL. Wrist flexion WFL. Functional opening and closing of hand WFL. Left Upper Extremity: Shoulder Flexion WFL. Shoulder abduction WFL. Elbow flexion WFL. Wrist flexion WFL. Functional opening and closing of hand WFL. Right Lower Extremity: Hip flexion WFL. Hip abduction WFL. Knee flexion WFL. Ankle dorsiflexion WFL. Ankle plantarflexion WFL. Left Lower Extremity: Hip flexion WFL. Hip abduction WFL. Knee flexion WFL. Ankle dorsiflexion WFL. Ankle plantarflexion WFL. Strength: Right Upper Extremity: Shoulder flexors 3-/5. Shoulder abductors 3-/5. Elbow flexors 4/5. Elbow extensors 4/5. Critical Care Rn strong. Left Upper Extremity: Shoulder flexors 4-/5. Shoulder abductors 4-/5. Elbow flexors 4-/5. Elbow extensors 4-/5. Critical Care Rn strong. Right Lower Extremity: Hip flexors 4-/5. Hip abductors 3+/5. Knee flexors 3+/5. Knee extensors 3+/5. Ankle dorsiflexors 4-/5. Ankle plantarflexors 4-/5. Left Lower Extremity: Hip flexors 4-/5. Hip abductors 3+/5. Knee flexors 3+/5. Knee extensors 3+/5. Ankle dorsiflexors 4-/5. Ankle plantarflexors 4-/5. Sensation: Intact to B LE as to pain and pressure. BED MOBILITY LEVELS/TRANSFERS Rolling minimal assist Supine to sit minimal assist Sit to supine minimal assist Sit to stand minimal assist Stand to sit minimal assist Bed to chair minimal assist Chair to bed minimal assist Gait: Patient is able to tolerate a level surface ambulation 420 feet with CGA of this PT using FWW. Lizeth is slow due to shortness of breath with oxygen saturation ranging from 89 to 92% on 2 L. Patient needed to do 5 standing rests to resaturate and minimize shortness of breath and fatigue. Balance: Static Sitting:Good Dynamic Sitting:Good Static Standing: Fair Dynamic Standing: Fair Special Tests: Mobility Limitations Standardized Measure [facility] AM-PAC 6 clicks Basic Mobility Inpatient Short Form: Raw Score: 18 CMS Score: 47% deficit Informed Consent/Education: Patient instructed in purpose of PT consult and plan of care. Patient was educated with correct technique for pursed lip breathing done intermittently during activity. She was also informed about activity pacing and energy conservation techniques in order to maximize functional performance and to minimize onset of dyspnea and fatigue. Assessment: Patient is a 63 year old female referred to physical therapy services with the diagnosis of acute and chronic respiratory failure with hypoxia, community-acquired pneumonia, acute exacerbation of COPD, and acute renal failure. Patient presents with clinical signs and symptoms consistent with current/admitting diagnoses that have resulted to mobility limitations, gait instability, generalized weakness, and impairment of motor control as demonstrated by the following impairment level findings: 1. Decreased strength to B LE major muscle groups 2. Impaired sitting/standing balance 3. Impaired activity tolerance 4. Shortness of breath Impairments are contributing to the following functional limitations: 1. Dependent bed mobility skills 2. Increased dependence with transfers 3. Inability to safely ambulate without assistive device and physical assistance 4. Increase completion time for mobility ADL performance 5. Increased fall risk 6. Inability to negotiate steps alone safely Patient is assessed as a Moderate 03796 complexity based on the following: History: Patient is a 63-year-old female referred to physical therapy services with the diagnosis of acute and chronic respiratory failure with hypoxia, community-acquired pneumonia, acute exacerbation of COPD, and acute renal failure. Examination: Underlying impairments and functional limitations as indicated above Presentation: Evolving Decision Makin moderate complexity Goals: Goals X1 week 1. Supine-Sit independent 2. Sit-Supine independent 3. Sit-Stand independent 4. Stand-Sit independent 5. Bed-Chair independent 6. Chair-Bed independent 7. Independent gait on level surface with use of least restrictive device for at least 300 feet without report of pain nor dyspnea 8. Independent stair negotiation while holding onto bilateral rails for at least 10 steps without report of pain nor dyspnea 9. Independent with home exercise program 10. Good static and dynamic standing balance/tolerance Plan of Care/Treatment Plan: 1-2x/day, 7 days/week x 1 week. Plan of care has been reviewed with the KEYBOARD ACTION ASSEMBLER providing the service under Physical Therapy direction. Initiate Physical Therapy intervention for strengthening, bed mobility, transfers, gait, stairs, balance training, use of assistive device. DISCHARGE RECOMMENDATIONS: Patient will highly benefit from home health physical therapy services in order to maximize activity tolerance/endurance, assess home safety, and establish/implementing functional maintenance program for optimizing endurance and strengthening. TREATMENT CODE/TIME: 73202 13 minutes, 16009 14 minutes, beginning at 13:2 5 PM. Thank you for this referral. Cydney Jesus, PT, DPT, CLT [facility]
--- NOTE | 2018-08-20 18:06 | PDOC.CMPRO ---
- If Service Date Differs Date of service: 08/20/18 Time of Service: 18:06 Care Management Progress Note S/O:She is alert and engaged with CM she states she is feeling better today. Tatum is now a medical surgical overflow in the ICU. She remains on IV antibiotics When she returns home she will continue services through [facility] and substance treatment services. CM contact community CM today and left a voicemail for Tawnya Alarcon RN [phone] today and left a voicemail to follow up on equipment which was recommended last discharge. Equipment included shower bench which has not been delivered. Per OT patient would benefit from home health services, awaiting PT recommendations. Discharge summary will be faxed to [facility] at [phone] A: Tatum is a 63 year old female admitted with, CAP, Acute on chronic hypoxic respiratory failure with a history of recent hospitalization and COPD. P: Anticipate Pt will be discharged home with new home health services for PT and possibly nursing. She is not ready for discharge today and continues on IV antibiotics q6 hours and IV steroids. When she is discharge home she will resume services through [place] and [facility].
--- NOTE | 2018-08-20 18:39 | CMPROGNOTE_ITS ---
- If Service Date Differs Date of service: 08/20/18 Time of Service: 18:06 Care Management Progress Note S/O:She is alert and engaged with CM she states she is feeling better today. Tatum is now a medical surgical overflow in the ICU. She remains on IV antibiotics When she returns home she will continue services through [facility] and substance treatment services. CM contact community CM today and left a voicemail for Tawnya Alarcon RN [phone] today and left a voicemail to follow up on equipment which was recommended last discharge. Equipment included shower bench which has not been delivered. Per OT patient would benefit from home health services, awaiting PT recommendations. Discharge summary will be faxed to [facility] at [phone] A: Tatum is a 63 year old female admitted with, CAP, Acute on chronic hypoxic respiratory failure with a history of recent hospitalization and COPD. P: Anticipate Pt will be discharged home with new home health services for PT and possibly nursing. She is not ready for discharge today and continues on IV antibiotics q6 hours and IV steroids. When she is discharge home she will resume services through [place] and [facility].
--- NOTE | 2018-08-20 19:51 | PGE_ITS ---
Date of Service Date of service: 08/20/18 Time of Service: 14:45 Assessment and Plan (1) Acute and chronic respiratory failure with hypoxia: Current visit: No Status: Acute Due to CAP and acute exacerbation of COPD. Stedily improving. Continue zosyn, decrease solumedrol - plan to transition to po steroids tomorrow. Continue nebs, symbicort. Wean O2 as tolerated. Nearing discharge home (2) Mental status, decreased: Current visit: Yes Status: Resolved Toxic metabolic encephalopathy, due to CO2 narcosis in addition to possible EtOH interaction with home meds such as gabapentin or suboxone and with evidence of hyperammonemia. There is no evidence for cirrhosis on abdominal MRI in 2017 or ultrasound today - no hepatic encephalopathy. Elevated LFT's and hyperammonemia are due to gabapentin +/- interaction with EtOH. Mental status is completely back to normal, and gabapentin has been discontinued. The patient's pain is well controlled. Will continue to hold gabapentin. Will discuss with PCP. (3) Acute exacerbation of chronic obstructive pulmonary disease (COPD): Current visit: No Status: Acute As above. Will need follow up with outpatient pulmonology. (4) PETERSON (obstructive sleep apnea): Current visit: No Status: Chronic Continue BiPAP HS + prn on discharge, could benefit from addressing this again with pulmonology. (5) Tobacco dependence syndrome: Current visit: No Status: Chronic Patient states that she actually quit smoking at home. She was encourage to continue abstinence. (6) Elevated liver enzymes: Current visit: Yes Status: Acute with h/o hepatitis C exposure. As above. US abdomen with hepatomegaly, but no cirrhosis. I think this is due to EtOH interaction with gabapentin/gabapentin toxicity. (7) Acute renal insufficiency: Current visit: Yes Status: Acute Creatinine near baseline. Continue lasix (8) Polysubstance abuse: Current visit: No Status: Chronic On Suboxone. Endorses recent EtOH use. I spoke with her about her medication interactions. Suboxone resumed. (9) Acute deep vein thrombosis (DVT) of brachial vein of right upper extremity: Current visit: Yes Status: Acute Start eliquis. (10) DVT prophylaxis: Current visit: No Status: Acute Therapeutic eliquis given presence of RUE DVT (11) Discharge planning issues: Current visit: No Status: Acute Continue BiPAP HS/prn. Anticipate discharge in the next 24-48 hrs Subjective Interval history since last seen: Patient states she is feeling better today. Denies dizziness, chest pain, pain in general is controlled. States shortness of breath and cough are better. Denies nausea/vomiting. Exam Narrative Exam Narrative: General: Very pleasant middle-aged female, sitting up in bed, looks very comfortable, speaking with no dyspnea, A&Ox3 HEENT: EOMI, MMM Heart: RRR, no m/r/g Lungs: CTAB GI: Abdomen is soft, nontender, nondistended Extremities: trace edema BLE's, no clubbing or cyanosis Objective Objective Clinical Data: Abnormal lab results 08/20/18 08/20/18 Range/Units 12:25 12:25 RBC 3.97 L (4.00-5.20) m/cumm Hgb 10.0 L (12.0-15.5) g/dL Hct 32.9 L (36.0-46.0) % MCH 25.2 L (27.0-33.0) pg MCHC 30.4 L (32.0-36.0) g/dL RDW 16.4 H (11.7-14.6) % Absolute Neutrophils 8.34 H (1.2-6.7) k/cumm Absolute Lymphocytes 0.94 L (1.2-3.4) k/cumm BUN 26 H D (7-18) mg/dL Glucose 150 H (70-100) mg/dL ALT 134 H (12-78) U/L Albumin 3.0 L (3.4-5.0) g/dL Vital Signs Temperature 36.2 C L 08/20/18 15:41 Temperature Source Tympanic 08/20/18 15:41 Pulse 88 08/20/18 15:41 Pulse Rhythm Regular 08/20/18 09:01 Pulse 89 08/19/18 12:00 Respiratory Rate 20 08/20/18 15:41 Respiratory Effort 08/20/18 09:01 Respiratory Depth Shallow 08/20/18 09:01 Respiratory Pattern Normal 08/20/18 09:01 Blood Pressure 108/63 08/20/18 15:41 Blood Pressure Mean 72 08/19/18 14:53 Blood Pressure Position Sitting 08/19/18 11:52 Pulse Oximetry 82 L 08/20/18 15:41 Respiratory End-tidal CO2 45 08/18/18 00:01 Oxygen Delivery Method Nasal Cannula 08/20/18 15:41 Oxygen Flow Rate 2 08/20/18 15:41 Fraction of Inspired Oxygen (FIO2) 40 08/19/18 07:37 Pain Level 0 08/20/18 03:20 Comment 08/20/18 15:41 Intake & Output 08/19/18 08/20/18 08/20/18 23:59 11:59 23:59 Intake Total 880 / 2968.167 1180 / 1520 340 / 1520 Output Total 425 / 425 900 / 1100 200 / 1100 Balance 455 / 2543.167 280 / 420 140 / 420 Weight 87.4 kg Intake: IV 220 / 1818.167 220 / 320 100 / 320 Oral 660 / 1150 960 / 1200 240 / 1200 Output: Urine 425 / 425 900 / 1100 200 / 1100 Other: Urine Color Pale Yellow Yellow Yellow Urine Appearance Clear Clear Clear Urine Odor Normal Normal Stool Size Moderate Stool Characteristics Formed Voiding Methods Toilet Bedside Commode Bedside Commode Laboratory Results WBC 9.83 k/cumm (4.4-10.8) 08/20/18 12:25 RBC 3.97 m/cumm (4.00-5.20) L 08/20/18 12:25 Hgb 10.0 g/dL (12.0-15.5) L 08/20/18 12:25 Hct 32.9 % (36.0-46.0) L 08/20/18 12:25 MCV 82.9 fL (80-95) 08/20/18 12:25 MCH 25.2 pg (27.0-33.0) L 08/20/18 12:25 MCHC 30.4 g/dL (32.0-36.0) L 08/20/18 12:25 RDW 16.4 % (11.7-14.6) H 08/20/18 12:25 Plt Count 204 x1000/uL (130-400) 08/20/18 12:25 MPV 11.0 fL (8.0-11.0) 08/20/18 12:25 Immature Gran % 0.6 08/20/18 12:25 Neutrophils % 84.8 08/20/18 12:25 Lymphocytes % 9.6 08/20/18 12:25 Monocytes % 4.9 04/22/19 12:25 Eosinophils % 0.0 08/20/18 12:25 Basophils % 0.1 08/20/18 12:25 Absolute Neutrophils 8.34 k/cumm (1.2-6.7) H 08/20/18 12:25 Absolute Lymphocytes 0.94 k/cumm (1.2-3.4) L 08/20/18 12:25 Absolute Monocytes 0.48 k/cumm (0.11-0.7) 08/20/18 12:25 Absolute Eosinophils 0.00 k/cumm (0.0-0.7) 08/20/18 12:25 Absolute Basophils 0.01 k/cumm (0.0-0.2) 08/20/18 12:25 PT 10.4 sec (9.3-11.0) 08/18/18 05:57 INR 1.0 (0.9-1.1) 08/18/18 05:57 Sample Site Right radial 08/18/18 14:04 pCO2 64 mmHg (34-47) H* 08/18/18 14:04 pO2 71 mmHg (83-108) L 08/18/18 14:04 O2 Saturation 93 % (94-98) L 08/18/18 14:04 ABG pH 7.34 (7.35-7.45) L 08/18/18 14:04 ABG HCO3 35 mmol/L (22-28) H 08/18/18 14:04 ABG Total CO2 33 mmol/L (22-29) H 08/18/18 14:04 ABG Base Excess 8.8 mmol/L (-3-3) H 08/18/18 14:04 Oxygen Liter Flow Bipap 16/5 L 08/18/18 14:04 FiO2 50% % 08/18/18 14:04 Sodium 142 mmol/L (136-145) 08/20/18 12:25 Potassium 4.1 mmol/L (3.5-5.1) D 08/20/18 12:25 Chloride 104 mmol/L (98-107) 08/20/18 12:25 Carbon Dioxide 31.2 mmol/L (21.0-32.0) 08/20/18 12:25 Anion Gap 6.8 mmol/L (3-11) 08/20/18 12:25 BUN 26 mg/dL (7-18) H D 08/20/18 12:25 Creatinine 0.79 mg/dL (0.55-1.02) 08/20/18 12:25 Estimated GFR/1.73 m2 >= 60.00 (mL/min/1.73m2) 08/20/18 12:25 Glucose 150 mg/dL (70-100) H 08/20/18 12:25 Lactate 0.8 mmol/L (0.6-1.4) 08/18/18 13:35 Calcium 8.5 mg/dL (8.5-10.1) 08/20/18 12:25 Magnesium 1.9 mg/dL (1.8-2.4) 08/20/18 12:25 Total Bilirubin 0.3 mg/dL (0.2-1.0) 08/20/18 12:25 Conjugated Bilirubin 0.10 mg/dL (0.00-0.20) 08/20/18 12:25 AST 32 U/L (15-37) 08/20/18 12:25 ALT 134 U/L (12-78) H 08/20/18 12:25 Alkaline Phosphatase 69 U/L (46-116) 08/20/18 12:25 Ammonia 19 umol/L (11-32) 08/20/18 12:25 Creatine Kinase 150 U/L (26-192) 08/18/18 02:00 Troponin I < 0.02 ng/mL (0.00-0.06) 08/18/18 00:35 Total Protein 7.0 g/dL (6.4-8.2) 08/20/18 12:25 Albumin 3.0 g/dL (3.4-5.0) L 08/20/18 12:25 Urine Color Yellow (Yellow) 08/18/18 00:45 Urine Clarity Cloudy 08/18/18 00:45 Urine pH 5.5 (5-8) 08/18/18 00:45 Ur Specific [place] 1.025 (1.005-1.025) 08/18/18 00:45 Urine Protein 100 mg/dL (Negative) H 08/18/18 00:45 Urine Ketones Negative mg/dL (Negative) 08/18/18 00:45 Urine Blood Negative (Negative) 08/18/18 00:45 Urine Nitrite Negative (Negative) 08/18/18 00:45 Urine Bilirubin Negative (Negative) 08/18/18 00:45 Urine Urobilinogen 1.0 EU/dL (Up TO 0.2) H 08/18/18 00:45 Ur Leukocyte Esterase Negative (Negative) 08/18/18 00:45 Urine RBC 3-5 (0-2) H 08/18/18 00:45 Urine WBC 5-10 HPF (0-5) 08/18/18 00:45 Ur Epithelial Cells Few HPF (Negative) 08/18/18 00:45 Urine Crystals Many amorphous HPF (Negative) 08/18/18 00:45 Urine Bacteria Moderate HPF (Negative) 08/18/18 00:45 Urine Casts Negative LPF (Negative) 08/18/18 00:45 Urine Mucus Heavy (Negative) 08/18/18 00:45 Ur Culture Indicated? Yes 08/18/18 00:45 Urine Glucose Negative mg/dL (Negative) 08/18/18 00:45 Salicylates < 2.8 mg/dL (2.8-20.0) L 08/18/18 05:57 Urine Opiates Screen Negative (Negative) 08/18/18 00:45 Urine Methadone Screen Negative (Negative) 08/18/18 00:45 Acetaminophen < 2 ug/mL (10-30) L 08/18/18 05:57 Ur Barbiturates Screen Negative (Negative) 08/18/18 00:45 Ur Tricyclics Screen Negative (Negative) 08/18/18 00:45 Ur Amphetamines Screen Negative (Negative) 08/18/18 00:45 U Benzodiazepines Scrn Negative (Negative) 08/18/18 00:45 Urine Cocaine Screen Negative (Negative) 08/18/18 00:45 Ur THC Screen Negative (Negative) 08/18/18 00:45 Ethyl Alcohol < 3.0 mg/dL (<3) 08/18/18 00:35 US abdomen; Hepatomegaly. No focal liver lesion or biliary dilatation. Status post cholecystectomy. US arterial of RUE: Clot in the brachial veins as well as in a superficial vein, the median cubital vein just proximal to the IV catheter.
[2018-08-20] MEDS: Apixaban 5 MG TAB 10 MG PO (20:40)
[2018-08-20] MEDS: methylPREDNISolone SUCC 40 MG VIAL IVP (23:38)
[2018-08-21] VITALS (10 sets, daily range): BP systolic 163–192; BP diastolic 77–100; PULSE 76–104; RESP 8–24; TEMP 36.4–36.9; O2SAT 84–93
[2018-08-21] MEDS: PIPERACILLIN/TAZO 4.5 GM in Normal Saline 100 ML IVPB ×4 (01:26→19:30)
[2018-08-21] MEDS: Normal Saline Flush 10 ML SYR IVP ×4 (01:26→19:29)
[2018-08-21] MEDS: Albuterol/Ipratropium 3 ML UPD VIAL UPD ×4 (05:10→23:01)
[2018-08-21] MEDS: Budesonide/Formoterol 160/4.5 6 GM 60 PUFF INH IH ×2 (07:21→19:30)
[2018-08-21 08:16] LABS: Abs Immature Grans 0.09 k/cumm (0.0-0.09); Absolute Lymphocyte Count 1.37 k/cumm (1.2-3.4); Absolute Neutrophil Count 5.99 k/cumm (1.2-6.7); HCT 31.4 % (36.0-46.0); HGB 9.7 g/dL (12.0-15.5); Immature Grans % 1.1; Lymphocytes % 17.5; Mean Corp. HGB Concentration 30.9 g/dL (32.0-36.0); Mean Corpuscular Hemoglobin 25.5 pg (27.0-33.0); Mean Corpuscular Volume 82.4 fL (80-95); Mean Platelet Volume 11.7 fL (8.0-11.0); Monocytes % 5.1; Neutrophils % 76.3; Platelet Count 205 x1000/uL (130-400); RBC 3.81 m/cumm (4.00-5.20); RBC Distribution Width 16.6 % (11.7-14.6); White Blood Cell Count 7.85 k/cumm (4.4-10.8)
[2018-08-21 08:20] LABS: Anion Gap 7.2 mmol/L (3-11); BUN 29 mg/dL (7-18); CO2 29.8 mmol/L (21.0-32.0); CREATININE 0.66 mg/dL (0.55-1.02); Calcium 8.9 mg/dL (8.5-10.1); Chloride 105 mmol/L (98-107); Glucose 166 mg/dL (70-100); Magnesium 2.1 mg/dL (1.8-2.4); Potassium 4.2 mmol/L (3.5-5.1); Sodium 142 mmol/L (136-145)
[2018-08-21] MEDS: methylPREDNISolone SUCC 40 MG VIAL IVP (08:21)
[2018-08-21] MEDS: Pantoprazole 40 MG VIAL IVP (08:21)
[2018-08-21] MEDS: Montelukast 10 MG TAB PO (08:22)
[2018-08-21] MEDS: Furosemide 20 MG TAB 40 MG PO (08:22)
[2018-08-21] MEDS: Apixaban 5 MG TAB 10 MG PO ×2 (08:22→19:30)
[2018-08-21] MEDS: Escitalopram 20 MG TAB PO (08:22)
[2018-08-21 08:35] LABS: Diff Comment RBC Morph Reviewed
[2018-08-21] MEDS: Acetaminophen 325 MG TAB PO ×2 (08:35→18:16)
[2018-08-21 08:36] LABS: Hypochromasia 2+; Microcytosis 2+; Polychromasia Present
[2018-08-21] MEDS: Insulin Aspart 300 UNITS/3 ML PEN SC ×2 (08:36→16:42)
--- NOTE | 2018-08-21 09:03 | PDOC.CMPRO ---
Care Management Progress Note S/O: Tatum was lying in bed, quite pleasant in interaction and using good humor to interact with this rewriter. Later, she was up ambulating with PT with oxygen. CM continues to follow. A: Tatum is a 63 year old female admitted with, CAP, Acute on chronic hypoxic respiratory failure with a history of recent hospitalization and COPD. P: Anticipate Pt will be discharged home with new home health services for PT/OT and possibly nursing. She is not ready for discharge today and continues on IV antibiotics q6 hours and IV steroids. When she will discharge home she will resume services through [place] and [facility]. Anali Alarcon RN Case Manager [phone] today was left a voicemail yesterday by ARNEL Núñez to follow up on equipment which was recommended last discharge. Equipment included shower bench which has not yet been delivered. Discharge summary will be faxed to [facility] at [phone].
--- NOTE | 2018-08-21 09:10 | CMPROGNOTE_ITS ---
Care Management Progress Note S/O: Tatum was lying in bed, quite pleasant in interaction and using good humor to interact with this rewriter. Later, she was up ambulating with PT with oxygen. CM continues to follow. A: Tatum is a 63 year old female admitted with, CAP, Acute on chronic hypoxic respiratory failure with a history of recent hospitalization and COPD. P: Anticipate Pt will be discharged home with new home health services for PT/OT and possibly nursing. She is not ready for discharge today and continues on IV antibiotics q6 hours and IV steroids. When she will discharge home she will resume services through [place] and [facility]. Anali Alarcon RN Case Manager [phone] today was left a voicemail yesterday by ARNEL Núñez to follow up on equipment which was recommended last discharge. Equipment included shower bench which has not yet been delivered. Discharge summary will be faxed to [facility] at [phone].
[2018-08-21] MEDS: Buprenorphine/Naloxone 12 mg/3 mg FILM 1 EACH SL (09:34)
[2018-08-21] MEDS: Losartan 50 MG TAB 100 MG PO (10:57)
--- NOTE | 2018-08-21 11:32 | PT.INTREAT ---
Date of service: 08/21/18 Time of Service: 10:30 PT Notes Inpatient Physical Therapy Treatment Note [facility] Date: 08/21/18 PRECAUTIONS: Standard SUBJECTIVE: Pt reports that she is SOB and having a lot of sputum today. OBJECTIVE: Sit-stand: SBA Stand-sit: SBA GAIT Assistive Device: FWW Weight bearing: Full Assist: SBA Distance: 150ft VITALS: 88%-92% 2L THEREX: Pt completed UE and LE ther ex as per flow sheet in the seated position. ASSESSMENT: Pt tolerated today's session well. PLAN: Cont as per PT POC. TREATMENT CODE/TIME: 10:30-10:53 (23) APRIL GOLD
--- NOTE | 2018-08-21 12:54 | NUR.NOTE ---
patient rings and reports sob. bring hob up over 45 degress. patient is dusky, appears wide eye and anxious, patient initally 84 percent room air, 1 L02 applied, full vs taken and evaluated, patient rebounds to 91-92 % on the 1L 02. after 3 minutes patient stated she feels better. she has concern that she is not ready to be discharged, this has been passed on to [facility] at [facility]. Nursing Note:
[2018-08-21] MEDS: predniSONE 20 MG TAB 40 MG PO ×2 (14:09→19:29)
--- NOTE | 2018-08-21 15:40 | CHAPLAIN ---
Tatum told me that she received a call from her sister in law telling Tatum that her brother Marcelino was in [facility] and has been diagnosed with cancer in several organs and parts of his body. Marcelino is Tatum's only living sibling. She said they talk on the phone and Marcelino would travel from [place], [place] once a month to visit her. Tatum doesn't have a car, so she said will not be able to travel to visit Marcelino. Tatum lives with her daughter and is keeping updated on her brother, by her sister law calling her daughter. Tatum asked that we pray for Marcelino, so we did.
--- NOTE | 2018-08-21 18:56 | W.PM.PROGNOT ---
Date of Service Date of service: 08/21/18 Time of Service: 11:30 Assessment and Plan (1) Acute and chronic respiratory failure with hypoxia: Current visit: No Status: Acute Due to CAP and acute exacerbation of COPD. Improving, but not yet at baseline O2 requirement - will monitor for 1 more day. Continue zosyn, transition to PO steroids. Continue nebs, symbicort. Wean O2 as tolerated. Nearing discharge home (2) Mental status, decreased: Current visit: Yes Status: Resolved Toxic metabolic encephalopathy, due to CO2 narcosis in addition to possible EtOH interaction with home meds such as gabapentin or suboxone and with evidence of hyperammonemia. There is no evidence for cirrhosis on abdominal MRI in 2017 or ultrasound today - no hepatic encephalopathy. Elevated LFT's and hyperammonemia are due to gabapentin +/- interaction with EtOH. Mental status is completely back to normal, and gabapentin has been discontinued. The patient's pain is well controlled. Will continue to hold gabapentin. Will discuss with PCP. (3) Acute exacerbation of chronic obstructive pulmonary disease (COPD): Current visit: No Status: Acute As above. Will need follow up with outpatient pulmonology. (4) PETERSON (obstructive sleep apnea): Current visit: No Status: Chronic Continue BiPAP HS + prn on discharge, could benefit from addressing this again with pulmonology. (5) Tobacco dependence syndrome: Current visit: No Status: Chronic Patient states that she actually quit smoking at home. She was encourage to continue abstinence. (6) Elevated liver enzymes: Current visit: Yes Status: Acute with h/o hepatitis C exposure. As above. US abdomen with hepatomegaly, but no cirrhosis. I think this is due to EtOH interaction with gabapentin/gabapentin toxicity. (7) Acute renal insufficiency: Current visit: Yes Status: Acute Creatinine near baseline. Continue lasix (8) Polysubstance abuse: Current visit: No Status: Chronic On Suboxone. Endorses recent EtOH use. I spoke with her about her medication interactions. Continue suboxone (9) Acute deep vein thrombosis (DVT) of brachial vein of right upper extremity: Current visit: Yes Status: Acute Continue eliquis. (10) DVT prophylaxis: Current visit: No Status: Acute Therapeutic eliquis given presence of RUE DVT (11) Discharge planning issues: Current visit: No Status: Acute Continue BiPAP HS/prn. Anticipate discharge tomorrow Subjective Interval history since last seen: Feels better today - almost ready to go home. Apparently the patient did desaturate to low 80's on room air, however, and normally uses oxygen only when ambulating. She denies dizziness, chest pain, shortness of breath, nausea, vomiting. Complains of anxiety. Exam Narrative Exam Narrative: General: Very pleasant middle-aged female, sitting up in bed, looks very comfortable, speaking with no dyspnea, A&Ox3 HEENT: EOMI, MMM Heart: RRR, no m/r/g Lungs: CTAB GI: Abdomen is soft, nontender, nondistended Extremities: trace edema BLE's, no clubbing or cyanosis Objective Objective Clinical Data: Abnormal lab results 08/21/18 08/21/18 Range/Units 07:30 07:35 RBC 3.81 L (4.00-5.20) m/cumm Hgb 9.7 L (12.0-15.5) g/dL Hct 31.4 L (36.0-46.0) % MCH 25.5 L (27.0-33.0) pg MCHC 30.9 L (32.0-36.0) g/dL RDW 16.6 H (11.7-14.6) % MPV 11.7 H (8.0-11.0) fL BUN 29 H (7-18) mg/dL Glucose 166 H (70-100) mg/dL Vital Signs Temperature 36.9 C 08/21/18 15:40 Temperature Source Tympanic 08/21/18 15:40 Pulse 76 08/21/18 15:40 Pulse Rhythm Regular 08/21/18 08:37 Pulse 89 08/19/18 12:00 Respiratory Rate 19 08/21/18 15:40 Respiratory Effort Non-Labored 08/21/18 08:37 Respiratory Depth Normal 08/21/18 08:37 Respiratory Pattern Normal 08/21/18 08:37 Blood Pressure 168/96 H 08/21/18 15:40 Blood Pressure Mean 72 08/19/18 14:53 Blood Pressure Position Sitting 08/19/18 11:52 Pulse Oximetry 92 L 08/21/18 15:40 Respiratory End-tidal CO2 45 08/18/18 00:01 Oxygen Delivery Method Nasal Cannula 08/21/18 15:40 Oxygen Flow Rate 1 08/21/18 15:40 Fraction of Inspired Oxygen (FIO2) 40 08/19/18 07:37 Pain Level 9 08/21/18 18:16 Comment 08/21/18 12:55 Intake & Output 08/20/18 08/21/18 08/21/18 23:59 11:59 23:59 Intake Total 450 / 1630 840 / 1320 480 / 1320 Output Total 200 / 1100 700 / 700 Balance 250 / 530 840 / 620 -220 / 620 Weight 88.8 kg Intake: IV 210 / 430 200 / 200 Oral 240 / 1200 640 / 1120 480 / 1120 Output: Urine 200 / 1100 700 / 700 Other: Urine Color Pale Yellow Urine Appearance Clear Clear Urine Odor Normal Comment voided in the commode pt stated just peed unseen by this nurse pt stated she voided, unseen by this nurse Stool Size Moderate Stool Characteristics Soft Voiding Methods Bedside Commode Bedside Commode Laboratory Results WBC 7.85 k/cumm (4.4-10.8) 08/21/18 07:35 RBC 3.81 m/cumm (4.00-5.20) L 08/21/18 07:35 Hgb 9.7 g/dL (12.0-15.5) L 08/21/18 07:35 Hct 31.4 % (36.0-46.0) L 08/21/18 07:35 MCV 82.4 fL (80-95) 08/21/18 07:35 MCH 25.5 pg (27.0-33.0) L 08/21/18 07:35 MCHC 30.9 g/dL (32.0-36.0) L 08/21/18 07:35 RDW 16.6 % (11.7-14.6) H 08/21/18 07:35 Plt Count 205 x1000/uL (130-400) 08/21/18 07:35 MPV 11.7 fL (8.0-11.0) H 08/21/18 07:35 Immature Gran % 1.1 08/21/18 07:35 Neutrophils % 76.3 08/21/18 07:35 Lymphocytes % 17.5 08/21/18 07:35 Monocytes % 5.1 08/21/18 07:35 Eosinophils % 0.0 08/21/18 07:35 Basophils % 0.0 08/21/18 07:35 Absolute Neutrophils 5.99 k/cumm (1.2-6.7) 08/21/18 07:35 Absolute Lymphocytes 1.37 k/cumm (1.2-3.4) 08/21/18 07:35 Absolute Monocytes 0.40 k/cumm (0.11-0.7) 08/21/18 07:35 Absolute Eosinophils 0.00 k/cumm (0.0-0.7) 08/21/18 07:35 Absolute Basophils 0.00 k/cumm (0.0-0.2) 08/21/18 07:35 Differential Comment Rbc morph reviewed 08/21/18 07:35 RBC Morphology See below 08/21/18 07:35 Polychromasia Present 08/21/18 07:35 Hypochromasia 2+ 08/21/18 07:35 Microcytosis 2+ 08/21/18 07:35 PT 10.4 sec (9.3-11.0) 08/18/18 05:57 INR 1.0 (0.9-1.1) 08/18/18 05:57 Sample Site Right radial 08/18/18 14:04 pCO2 64 mmHg (34-47) H* 08/18/18 14:04 pO2 71 mmHg (83-108) L 08/18/18 14:04 O2 Saturation 93 % (94-98) L 08/18/18 14:04 ABG pH 7.34 (7.35-7.45) L 08/18/18 14:04 ABG HCO3 35 mmol/L (22-28) H 08/18/18 14:04 ABG Total CO2 33 mmol/L (22-29) H 08/18/18 14:04 ABG Base Excess 8.8 mmol/L (-3-3) H 08/18/18 14:04 Oxygen Liter Flow Bipap 16/5 L 08/18/18 14:04 FiO2 50% % 08/18/18 14:04 Sodium 142 mmol/L (136-145) 08/21/18 07:30 Potassium 4.2 mmol/L (3.5-5.1) 08/21/18 07:30 Chloride 105 mmol/L (98-107) 08/21/18 07:30 Carbon Dioxide 29.8 mmol/L (21.0-32.0) 08/21/18 07:30 Anion Gap 7.2 mmol/L (3-11) 08/21/18 07:30 BUN 29 mg/dL (7-18) H 08/21/18 07:30 Creatinine 0.66 mg/dL (0.55-1.02) 08/21/18 07:30 Estimated GFR/1.73 m2 >= 60.00 (mL/min/1.73m2) 08/21/18 07:30 Glucose 166 mg/dL (70-100) H 08/21/18 07:30 Lactate 0.8 mmol/L (0.6-1.4) 08/18/18 13:35 Calcium 8.9 mg/dL (8.5-10.1) 08/21/18 07:30 Magnesium 2.1 mg/dL (1.8-2.4) 08/21/18 07:30 Total Bilirubin 0.3 mg/dL (0.2-1.0) 08/20/18 12:25 Conjugated Bilirubin 0.10 mg/dL (0.00-0.20) 08/20/18 12:25 AST 32 U/L (15-37) 08/20/18 12:25 ALT 134 U/L (12-78) H 08/20/18 12:25 Alkaline Phosphatase 69 U/L (46-116) 08/20/18 12:25 Ammonia 19 umol/L (11-32) 08/20/18 12:25 Creatine Kinase 150 U/L (26-192) 08/18/18 02:00 Troponin I < 0.02 ng/mL (0.00-0.06) 08/18/18 00:35 Total Protein 7.0 g/dL (6.4-8.2) 08/20/18 12:25 Albumin 3.0 g/dL (3.4-5.0) L 08/20/18 12:25 Urine Color Yellow (Yellow) 08/18/18 00:45 Urine Clarity Cloudy 08/18/18 00:45 Urine pH 5.5 (5-8) 08/18/18 00:45 Ur Specific [place] 1.025 (1.005-1.025) 08/18/18 00:45 Urine Protein 100 mg/dL (Negative) H 08/18/18 00:45 Urine Ketones Negative mg/dL (Negative) 08/18/18 00:45 Urine Blood Negative (Negative) 08/18/18 00:45 Urine Nitrite Negative (Negative) 08/18/18 00:45 Urine Bilirubin Negative (Negative) 08/18/18 00:45 Urine Urobilinogen 1.0 EU/dL (Up TO 0.2) H 08/18/18 00:45 Ur Leukocyte Esterase Negative (Negative) 08/18/18 00:45 Urine RBC 3-5 (0-2) H 08/18/18 00:45 Urine WBC 5-10 HPF (0-5) 08/18/18 00:45 Ur Epithelial Cells Few HPF (Negative) 08/18/18 00:45 Urine Crystals Many amorphous HPF (Negative) 08/18/18 00:45 Urine Bacteria Moderate HPF (Negative) 08/18/18 00:45 Urine Casts Negative LPF (Negative) 08/18/18 00:45 Urine Mucus Heavy (Negative) 08/18/18 00:45 Ur Culture Indicated? Yes 08/18/18 00:45 Urine Glucose Negative mg/dL (Negative) 08/18/18 00:45 Salicylates < 2.8 mg/dL (2.8-20.0) L 08/18/18 05:57 Urine Opiates Screen Negative (Negative) 08/18/18 00:45 Urine Methadone Screen Negative (Negative) 08/18/18 00:45 Acetaminophen < 2 ug/mL (10-30) L 08/18/18 05:57 Ur Barbiturates Screen Negative (Negative) 08/18/18 00:45 Ur Tricyclics Screen Negative (Negative) 08/18/18 00:45 Ur Amphetamines Screen Negative (Negative) 08/18/18 00:45 U Benzodiazepines Scrn Negative (Negative) 08/18/18 00:45 Urine Cocaine Screen Negative (Negative) 08/18/18 00:45 Ur THC Screen Negative (Negative) 08/18/18 00:45 Ethyl Alcohol < 3.0 mg/dL (<3) 08/18/18 00:35
[2018-08-21] MEDS: amLODIPine 5 MG TAB PO (22:52)
[2018-08-22] VITALS (11 sets, daily range): BP systolic 146–194; BP diastolic 81–102; PULSE 74–102; RESP 1–24; TEMP 36.4–37.1; O2SAT 83–93
[2018-08-22] MEDS: PIPERACILLIN/TAZO 4.5 GM in Normal Saline 100 ML IVPB ×3 (02:26→14:21)
[2018-08-22] MEDS: Albuterol/Ipratropium 3 ML UPD VIAL UPD ×4 (05:42→23:41)
[2018-08-22] MEDS: Budesonide/Formoterol 160/4.5 6 GM 60 PUFF INH IH ×2 (07:33→19:29)
[2018-08-22] MEDS: Normal Saline Flush 10 ML SYR IVP ×3 (08:32→15:33)
[2018-08-22] MEDS: Pantoprazole 40 MG VIAL IVP (08:35)
[2018-08-22] MEDS: Normal Saline 500 ML IV (08:47)
[2018-08-22] MEDS: Buprenorphine/Naloxone 12 mg/3 mg FILM 1 EACH SL (08:55)
[2018-08-22] MEDS: Furosemide 20 MG TAB 40 MG PO (08:57)
[2018-08-22] MEDS: Escitalopram 20 MG TAB PO (08:57)
[2018-08-22] MEDS: predniSONE 20 MG TAB 40 MG PO ×3 (08:57→19:28)
[2018-08-22] MEDS: Losartan 50 MG TAB 100 MG PO (08:58)
[2018-08-22] MEDS: Montelukast 10 MG TAB PO (08:58)
[2018-08-22] MEDS: Apixaban 5 MG TAB 10 MG PO ×2 (08:58→19:28)
[2018-08-22 09:55] LABS: Abs Immature Grans 0.32 k/cumm (0.0-0.09); HCT 32.1 % (36.0-46.0); HGB 10.2 g/dL (12.0-15.5); Mean Corp. HGB Concentration 31.8 g/dL (32.0-36.0); Mean Corpuscular Hemoglobin 25.6 pg (27.0-33.0); Mean Corpuscular Volume 80.7 fL (80-95); Platelet Count 225 x1000/uL (130-400); RBC 3.98 m/cumm (4.00-5.20); RBC Distribution Width 16.4 % (11.7-14.6); White Blood Cell Count 8.88 k/cumm (4.4-10.8)
[2018-08-22 10:13] LABS: Absolute Monocyte Count 0.62 k/cumm (0.11-0.7); Absolute Neutrophil Count 5.68 k/cumm (1.2-6.7); Diff Comment Manual Differential; Hypochromasia 1+; Polychromasia Present
[2018-08-22 10:23] LABS: Anion Gap 8.2 mmol/L (3-11); BUN 21 mg/dL (7-18); CO2 29.8 mmol/L (21.0-32.0); Calcium 8.3 mg/dL (8.5-10.1); Chloride 101 mmol/L (98-107); Glucose 168 mg/dL (70-100); Magnesium 1.9 mg/dL (1.8-2.4); Potassium 3.3 mmol/L (3.5-5.1); Sodium 139 mmol/L (136-145)
[2018-08-22] MEDS: amLODIPine 5 MG TAB PO (10:47)
[2018-08-22] MEDS: Potassium Chloride 20 MEQ TABCR 40 MEQ PO ×2 (11:20→19:28)
[2018-08-22] MEDS: Gabapentin 600 MG TAB PO ×3 (11:20→19:29)
--- NOTE | 2018-08-22 13:44 | CHAPLAIN ---
Tatmu was resting in bed. She said she had been up and ambulating with RT and PT staff. Yesterday during our visit, Tatum told me she had just received word that her brother, Marcelino, had been diagnosed with cancer, which had spread to multiple organs and body parts. Today she said she learned through a phone call that her brother's family was making arrangements to take him home as there were not going to pursue curative measures. Marcelino is Tatum's only surviving sibling. They have kept in touch by phone mostly. Tatum said she will ask a friend to drive her to the [place] where Marcelino lives, so she can visit him after she returns home. Tatum asked that we pray for Marcelino and we did that. She was appreciative of the prayer shawl I gave her.
--- NOTE | 2018-08-22 14:22 | PT.INTREAT ---
Date of service: 08/22/18 Time of Service: 14:22 PT Notes 08/22/18 SUBJECTIVE: Tatum stating she feels slightly SOB. She thinks it has something to do with her elevated blood pressure today. She notes being tired but needs to walk so she can be strong enough to go home tomorrow. OBJECTIVE: Supine in bed. Agreeable to PT treatment. TRANSFERS Supine to sit: S Sit to supine: S Sit to stand: S Stand to sit: S GAIT Device: FWW Weight bearing: Full Assist: SBA Distance: 75'x2 Deviation: 2 L NC, 1 seated rest break due to SOB and Fatigue in LE's. STAIRS: Ascend and descend 2-6 steps, 3-4 steps, 2 rails, Step to pattern, SBA VITALS: Pre BP: 141/94, HR 84, SaO2 92-97%. ASSESSMENT: No LOB during treatment this afternoon. She does appear to be fatigued but is motivated to improve her condition. PLAN: Continue current POC progressing toward's established goals. Treatment time: 20 minutes APRIL Swanson, [employer]
--- NOTE | 2018-08-22 15:09 | PDOC.CMPRO ---
- If Service Date Differs Date of service: 08/22/18 Time of Service: 15:09 Care Management Progress Note S/O: SACHIN met with Lona at the bedside she is sitting up in the bed she states she is not ready for discharge. She states that she is short or breath with activity and has 14 stairs at home. She wants to restart her Gabapentin and states she has been compliant with it in the past. She feels that it helps with her pain and anxiety. Lona is enrolled in MAT team through primary care she states that she has been reliable with her medication and that she meets with regularly. Lona reports that she knows she has a history of anxiety and the shortness of breath scares her and makes her feel more anxious. Lona declines home health services she states that her roommates would not appreciate home health going into the home. She will continue to receive services through [facility] including new housing. Lona would like a 4 wheeled walker so that she could stop and rest with the seat. SACHIN will review with PT to determine if 4WW would be appropriate. SACHIN did contact primary care office and updated them with inpatient status she is able to see them at any time after discharge for her MAT visit. A: Tatum is a 63 year old female admitted with, CAP, Acute on chronic hypoxic respiratory failure with a history of recent hospitalization and COPD. P: Anticipate She is not ready for discharge today she was restarted on her medications for blood pressure and gabapentin. When she will discharge home she will resume services through [facility] and [facility]. Anali Alarcon RN Case Manager [phone] today who confirmed she is working on equipment which was recommended last discharge. Equipment included shower bench which has not yet been delivered. Discharge summary will be faxed to [facility] at [phone].
--- NOTE | 2018-08-22 15:17 | W.PM.PROGNOT ---
Date of Service Date of service: 08/22/18 Time of Service: 15:17 Assessment and Plan (1) Acute and chronic respiratory failure with hypoxia: Current visit: No Status: Acute Due to community-acquired pneumonia and acute COPD exacerbation. Improved. Does use home oxygen at baseline. Day 5 of antibiotics, transition from Zosyn to Augmentin. Transition to oral steroids yesterday, maintain current dose. Continue nebulizer treatments and Symbicort inhaler. (2) Acute exacerbation of chronic obstructive pulmonary disease (COPD): Current visit: No Status: Acute Improving, treat as above. Will need follow-up with outpatient pulmonology. (3) Mental status, decreased: Current visit: Yes Status: Resolved Mentally, back to baseline. Likely toxic metabolic encephalopathy due to CO2 narcosis in addition to possible alcohol interaction with gabapentin and/or Suboxone and with evidence of hyperammonemia. No evidence of cirrhosis on abdominal MRI from 2017 or current ultrasound, no hepatic encephalopathy. Gabapentin initially held, discussed with primary care provider, will resume gabapentin at lower dose and monitor overnight. (4) PETERSON (obstructive sleep apnea): Current visit: No Status: Chronic Continue BiPAP at at bedtime. Follow-up with pulmonology as an outpatient. (5) Tobacco dependence syndrome: Current visit: No Status: Chronic She reports that she quit smoking at home. Encourage continued smoking cessation. (6) Elevated liver enzymes: Current visit: Yes Status: Acute Improving. Likely related to alcohol interaction with medications as above. Encourage abstinence from alcohol. No cirrhosis on imaging. (7) Acute renal insufficiency: Current visit: Yes Status: Acute Renal function back near baseline. Continue Lasix and monitor BMP. (8) Polysubstance abuse: Current visit: No Status: Chronic Continue Suboxone. Continue to encourage abstinence from alcohol. (9) Acute deep vein thrombosis (DVT) of brachial vein of right upper extremity: Current visit: Yes Status: Acute Continue Eliquis. (10) Hypertension: Current visit: No Status: Chronic Blood pressure increased today. Resume home amlodipine. Give IV Lasix x1 in the setting of shortness of breath and edema with hypertension. Taper steroids as indicated. Resume gabapentin as this reportedly helps with her anxiety, which may be contributing to her hypertension. Consider increasing amlodipine dose as needed. (11) DVT prophylaxis: Current visit: No Status: Acute Therapeutic on Eliquis. (12) Discharge planning issues: Current visit: No Status: Acute She is a full code. This case was discussed with Dr. Wilkinson who is in agreement. Subjective Interval history since last seen: Tatum continues to report shortness of breath with activity today, she is wheezing, she continues to cough, her cough is productive with clear to white sputum. She remains on supplemental oxygen, she does have oxygen at home. She reports feeling anxious today. She is pleased that her gabapentin was restarted at a lower dose today, she believes this will help with her anxiety. She was nauseated this morning but her nausea has since resolved. She is eating and drinking and tolerating her diet. Her bowels are moving normally. She reports edema in her feet as well as in her hands, left greater than right. She does not feel ready for discharge home. She continues to work with physical therapy. Exam Narrative Exam Narrative: General: Very pleasant middle-aged female, sitting up in bed, A&Ox3, in NAD. Speaking complete sentences with no shortness of breath. HEENT: Extraocular movements intact, mucous membranes moist. Heart: Heart has regular rate and rhythm, no murmur appreciated. Lungs: Respirations appear even and unlabored, diminished lung sounds with expiratory wheezes noted throughout. GI: Abdomen is soft, nontender, nondistended Extremities: Trace edema to bilateral upper extremities, left greater than right. Trace edema BLE's, no clubbing or cyanosis Objective Objective Clinical Data: Abnormal lab results 08/22/18 08/22/18 Range/Units 09:46 09:46 RBC 3.98 L (4.00-5.20) m/cumm Hgb 10.2 L (12.0-15.5) g/dL Hct 32.1 L (36.0-46.0) % MCH 25.6 L (27.0-33.0) pg MCHC 31.8 L (32.0-36.0) g/dL RDW 16.4 H (11.7-14.6) % Potassium 3.3 L (3.5-5.1) mmol/L BUN 21 H D (7-18) mg/dL Glucose 168 H (70-100) mg/dL Calcium 8.3 L (8.5-10.1) mg/dL Vital Signs Temperature 36.6 C 08/22/18 11:45 Temperature Source Tympanic 08/22/18 11:45 Pulse 87 08/22/18 11:45 Pulse Rhythm Regular 08/22/18 09:01 Pulse 89 08/19/18 12:00 Respiratory Rate 16 08/22/18 11:45 Respiratory Effort 08/22/18 09:01 Respiratory Depth Normal 08/22/18 09:01 Respiratory Pattern Normal 08/22/18 09:01 Blood Pressure 194/81 H 08/22/18 11:45 Blood Pressure Mean 72 08/19/18 14:53 Blood Pressure Position Sitting 08/19/18 11:52 Pulse Oximetry 91 L 08/22/18 11:45 Respiratory End-tidal CO2 45 08/18/18 00:01 Oxygen Delivery Method Nasal Cannula 08/22/18 11:45 Oxygen Flow Rate 0.5 08/22/18 11:45 Fraction of Inspired Oxygen (FIO2) 40 08/19/18 07:37 Pain Level 0 08/22/18 11:45 Comment 08/22/18 11:45 Intake & Output 08/21/18 08/22/18 08/22/18 23:59 11:59 23:59 Intake Total 940 / 1780 1013.339 / 1253.339 240 / 1253.339 Output Total 1200 / 1200 500 / 500 Balance -260 / 580 513.339 / 753.339 240 / 753.339 Weight 89.1 kg Intake: IV 220 / 420 283.339 / 283.339 Oral 720 / 1360 730 / 970 240 / 970 Output: Urine 1200 / 1200 500 / 500 Other: Urine Color Light Angela Yellow Light Angela Urine Appearance Clear Cloudy Comment pt stated she voided, unseen by this nurse Unable to measure mixed with toilet paper. Stool Size Small Stool Characteristics Formed Brown Voiding Methods Bedside Commode Bedside Commode Laboratory Results WBC 8.88 k/cumm (4.4-10.8) 08/22/18 09:46 RBC 3.98 m/cumm (4.00-5.20) L 08/22/18 09:46 Hgb 10.2 g/dL (12.0-15.5) L 08/22/18 09:46 Hct 32.1 % (36.0-46.0) L 08/22/18 09:46 MCV 80.7 fL (80-95) 08/22/18 09:46 MCH 25.6 pg (27.0-33.0) L 08/22/18 09:46 MCHC 31.8 g/dL (32.0-36.0) L 08/22/18 09:46 RDW 16.4 % (11.7-14.6) H 08/22/18 09:46 Plt Count 225 x1000/uL (130-400) 08/22/18 09:46 MPV 11.0 fL (8.0-11.0) 08/22/18 09:46 Immature Gran % See Differential 08/22/18 09:46 Neutrophils % 64.0 08/22/18 09:46 Lymphocytes % 27.0 08/22/18 09:46 Monocytes % 7.0 08/22/18 09:46 Eosinophils % 0.0 08/22/18 09:46 Basophils % 0.0 08/22/18 09:46 Metamyelocytes % 1.0 % 08/22/18 09:46 Myelocytes % 1.0 % 08/22/18 09:46 Absolute Neutrophils 5.68 k/cumm (1.2-6.7) 08/22/18 09:46 Absolute Lymphocytes 2.40 k/cumm (1.2-3.4) 08/22/18 09:46 Absolute Monocytes 0.62 k/cumm (0.11-0.7) 08/22/18 09:46 Absolute Eosinophils 0.00 k/cumm (0.0-0.7) 08/22/18 09:46 Absolute Basophils 0.00 k/cumm (0.0-0.2) 08/22/18 09:46 Differential Comment Manual differential 08/22/18 09:46 RBC Morphology See below 08/22/18 09:46 Polychromasia Present 08/22/18 09:46 Hypochromasia 1+ 08/22/18 09:46 Microcytosis 2+ 08/21/18 07:35 PT 10.4 sec (9.3-11.0) 08/18/18 05:57 INR 1.0 (0.9-1.1) 08/18/18 05:57 Sample Site Right radial 08/18/18 14:04 pCO2 64 mmHg (34-47) H* 08/18/18 14:04 pO2 71 mmHg (83-108) L 08/18/18 14:04 O2 Saturation 93 % (94-98) L 08/18/18 14:04 ABG pH 7.34 (7.35-7.45) L 08/18/18 14:04 ABG HCO3 35 mmol/L (22-28) H 08/18/18 14:04 ABG Total CO2 33 mmol/L (22-29) H 08/18/18 14:04 ABG Base Excess 8.8 mmol/L (-3-3) H 08/18/18 14:04 Oxygen Liter Flow Bipap 16/5 L 08/18/18 14:04 FiO2 50% % 08/18/18 14:04 Sodium 139 mmol/L (136-145) 08/22/18 09:46 Potassium 3.3 mmol/L (3.5-5.1) L 08/22/18 09:46 Chloride 101 mmol/L (98-107) 08/22/18 09:46 Carbon Dioxide 29.8 mmol/L (21.0-32.0) 08/22/18 09:46 Anion Gap 8.2 mmol/L (3-11) 08/22/18 09:46 BUN 21 mg/dL (7-18) H D 08/22/18 09:46 Creatinine 0.80 mg/dL (0.55-1.02) 08/22/18 09:46 Estimated GFR/1.73 m2 >= 60.00 (mL/min/1.73m2) 08/22/18 09:46 Glucose 168 mg/dL (70-100) H 08/22/18 09:46 Lactate 0.8 mmol/L (0.6-1.4) 08/18/18 13:35 Calcium 8.3 mg/dL (8.5-10.1) L 08/22/18 09:46 Magnesium 1.9 mg/dL (1.8-2.4) 08/22/18 09:46 Total Bilirubin 0.3 mg/dL (0.2-1.0) 08/20/18 12:25 Conjugated Bilirubin 0.10 mg/dL (0.00-0.20) 08/20/18 12:25 AST 32 U/L (15-37) 08/20/18 12:25 ALT 134 U/L (12-78) H 08/20/18 12:25 Alkaline Phosphatase 69 U/L (46-116) 08/20/18 12:25 Ammonia 19 umol/L (11-32) 08/20/18 12:25 Creatine Kinase 150 U/L (26-192) 08/18/18 02:00 Troponin I < 0.02 ng/mL (0.00-0.06) 08/18/18 00:35 Total Protein 7.0 g/dL (6.4-8.2) 08/20/18 12:25 Albumin 3.0 g/dL (3.4-5.0) L 08/20/18 12:25 Urine Color Yellow (Yellow) 08/18/18 00:45 Urine Clarity Cloudy 08/18/18 00:45 Urine pH 5.5 (5-8) 08/18/18 00:45 Ur Specific [place] 1.025 (1.005-1.025) 08/18/18 00:45 Urine Protein 100 mg/dL (Negative) H 08/18/18 00:45 Urine Ketones Negative mg/dL (Negative) 08/18/18 00:45 Urine Blood Negative (Negative) 08/18/18 00:45 Urine Nitrite Negative (Negative) 08/18/18 00:45 Urine Bilirubin Negative (Negative) 08/18/18 00:45 Urine Urobilinogen 1.0 EU/dL (Up TO 0.2) H 08/18/18 00:45 Ur Leukocyte Esterase Negative (Negative) 08/18/18 00:45 Urine RBC 3-5 (0-2) H 08/18/18 00:45 Urine WBC 5-10 HPF (0-5) 08/18/18 00:45 Ur Epithelial Cells Few HPF (Negative) 08/18/18 00:45 Urine Crystals Many amorphous HPF (Negative) 08/18/18 00:45 Urine Bacteria Moderate HPF (Negative) 08/18/18 00:45 Urine Casts Negative LPF (Negative) 08/18/18 00:45 Urine Mucus Heavy (Negative) 08/18/18 00:45 Ur Culture Indicated? Yes 08/18/18 00:45 Urine Glucose Negative mg/dL (Negative) 08/18/18 00:45 Salicylates < 2.8 mg/dL (2.8-20.0) L 08/18/18 05:57 Urine Opiates Screen Negative (Negative) 08/18/18 00:45 Urine Methadone Screen Negative (Negative) 08/18/18 00:45 Acetaminophen < 2 ug/mL (10-30) L 08/18/18 05:57 Ur Barbiturates Screen Negative (Negative) 08/18/18 00:45 Ur Tricyclics Screen Negative (Negative) 08/18/18 00:45 Ur Amphetamines Screen Negative (Negative) 08/18/18 00:45 U Benzodiazepines Scrn Negative (Negative) 08/18/18 00:45 Urine Cocaine Screen Negative (Negative) 08/18/18 00:45 Ur THC Screen Negative (Negative) 08/18/18 00:45 Ethyl Alcohol < 3.0 mg/dL (<3) 08/18/18 00:35
[2018-08-22] MEDS: Furosemide 20 MG/2 ML VIAL IVP (15:32)
--- NOTE | 2018-08-22 15:51 | CMPROGNOTE_ITS ---
- If Service Date Differs Date of service: 08/22/18 Time of Service: 15:09 Care Management Progress Note S/O: SACHIN met with Lona at the bedside she is sitting up in the bed she states she is not ready for discharge. She states that she is short or breath with activity and has 14 stairs at home. She wants to restart her Gabapentin and states she has been compliant with it in the past. She feels that it helps with her pain and anxiety. Lona is enrolled in MAT team through primary care she states that she has been reliable with her medication and that she meets with regularly. Lona reports that she knows she has a history of anxiety and the shortness of breath scares her and makes her feel more anxious. Lona declines home health services she states that her roommates would not appreciate home health going into the home. She will continue to receive services through [facility] including new housing. Lona would like a 4 wheeled walker so that she could stop and rest with the seat. SACHIN will review with PT to determine if 4WW would be appropriate. SACHIN did contact primary care office and updated them with inpatient status she is able to see them at any time after discharge for her MAT visit. A: Tatum is a 63 year old female admitted with, CAP, Acute on chronic hypoxic respiratory failure with a history of recent hospitalization and COPD. P: Anticipate She is not ready for discharge today she was restarted on her medications for blood pressure and gabapentin. When she will discharge home she will resume services through [facility] and [facility] Anali Alarcon RN Case Manager [phone] today who confirmed she is working on equipment which was recommended last discharge. Equipment included shower bench which has not yet been delivered. Discharge summary will be faxed to [facility] at [phone].
[2018-08-22] MEDS: Insulin Aspart 300 UNITS/3 ML PEN SC (16:59)
[2018-08-22] MEDS: Amoxicillin 875/Clav. 125 TAB PO (19:29)
[2018-08-22] MEDS: Acetaminophen 325 MG TAB PO (21:33)
[2018-08-22] MEDS: Mirtazapine 15 MG TAB 30 MG PO (21:33)
[2018-08-23 00:10] VITALS: BP 176/91; PULSE 73; RESP 18; TEMP 36.8; O2SAT 92
[2018-08-23 01:25] VITALS: O2SAT 92
[2018-08-23 03:40] VITALS: BP 172/93; PULSE 81; RESP 18; TEMP 36.7; O2SAT 93
[2018-08-23] MEDS: Albuterol/Ipratropium 3 ML UPD VIAL UPD (05:49)
[2018-08-23 07:52] VITALS: BP 158/94; PULSE 82; RESP 20; TEMP 36.3; O2SAT 92
[2018-08-23] MEDS: Losartan 50 MG TAB 100 MG PO (08:11)
[2018-08-23] MEDS: Apixaban 5 MG TAB 10 MG PO (08:11)
[2018-08-23] MEDS: predniSONE 20 MG TAB 40 MG PO ×2 (08:12→14:28)
[2018-08-23] MEDS: Pantoprazole 40 MG VIAL IVP (08:12)
[2018-08-23] MEDS: Gabapentin 600 MG TAB PO ×2 (08:12→14:29)
[2018-08-23] MEDS: Furosemide 20 MG TAB 40 MG PO (08:12)
[2018-08-23] MEDS: Potassium Chloride 20 MEQ TABCR 40 MEQ PO (08:13)
[2018-08-23] MEDS: amLODIPine 5 MG TAB PO (08:13)
[2018-08-23] MEDS: Amoxicillin 875/Clav. 125 TAB PO (08:13)
[2018-08-23] MEDS: Escitalopram 20 MG TAB PO (08:13)
[2018-08-23] MEDS: Normal Saline Flush 10 ML SYR IVP (08:13)
[2018-08-23] MEDS: Montelukast 10 MG TAB PO (08:13)
[2018-08-23] MEDS: Buprenorphine/Naloxone 12 mg/3 mg FILM 1 EACH SL (08:33)
[2018-08-23 10:13] LABS: Anion Gap 6.5 mmol/L (3-11); BUN 19 mg/dL (7-18); CO2 33.5 mmol/L (21.0-32.0); CREATININE 0.72 mg/dL (0.55-1.02); Calcium 8.8 mg/dL (8.5-10.1); Chloride 100 mmol/L (98-107); Glucose 159 mg/dL (70-100); Potassium 4.3 mmol/L (3.5-5.1); Sodium 140 mmol/L (136-145)
[2018-08-23 10:14] VITALS: PULSE 75; PULSE 91; RESP 20; RESP 24; O2SAT 90; O2SAT 93
[2018-08-23] MEDS: Budesonide/Formoterol 160/4.5 6 GM 60 PUFF INH IH (10:14)
[2018-08-23 12:17] LABS: Fentanyl Interpretation Negative.; Fentanyl by LC-MS/MS Negative; Norfentanyl by LC-MS/MS Negative
--- NOTE | 2018-08-23 12:28 | DSE_ITS ---
Date of service: 08/23/18 Time of Service: 12:25 DS: Diagnosis Discharge Diagnosis (1) Acute and chronic respiratory failure with hypoxia: Status: Acute (2) Acute exacerbation of chronic obstructive pulmonary disease (COPD): Status: Acute (3) Mental status, decreased: Status: Resolved (4) PETERSON (obstructive sleep apnea): Status: Chronic (5) Tobacco dependence syndrome: Status: Chronic (6) Elevated liver enzymes: Status: Acute (7) Acute renal insufficiency: Status: Acute (8) Polysubstance abuse: Status: Chronic (9) Acute deep vein thrombosis (DVT) of brachial vein of right upper extremity: Status: Acute (10) Hypertension: Status: Chronic Discharge Plan Disposition Patient Disposition: HOME Condition: Improving Discharge Details Reason For Visit: RESPIRATORY FAILURE Admit Date/Time: 08/18/18 02:49 Admit Provider: Koby Del Rio Attending Provider: Koby Del Rio Primary Care Provider: Valerie Jiang [facility] Course Hospital Course: Tatum Loya is a very pleasant 63 year old female with a past medical history significant for COPD, PETERSON, intolerant of CPAP, history of opiate dependence on chronic suboxone, HTN, depression, anxiety, [id number], and multiple sclerosis. She presented to the ED on 08/18/18 via EMS after her family found her unresponsive in bed. At the time of her presentation, she was responsive to voice, shw was able to protect her airway, her ABGs were consistent with acute on chronic respiratory failure, she was placed on biPAP. She had Leukocytosis to 13, creatinine was slightly elevated fro baseline at 1.4, glucose was 235, UDS and ETOH negative. Troponin was negative, UA negative, LFTs elevated, ammonia elevated. She went on to have an abdominal ultrasound which showed hepatomegaly, no focal liver lesion or biliary dilatation, no cirrhosis noted. A DVT of the right brachial vein was detected when an IV was being placed under ultrasound guidance for which she was started on Apixiban. This finding prom pted a chest CT for pulmonary embolus, she was found at that time to have right upper and lower lobe pneumonia and right lower lobe atelectasis with no evidence of pulmonary emboli. She also had an ultrasound of the right upper extremity which showed a clot in the brachial veins as well as in a superficial vein. Tatum was recently hospitalized for COPD exacerbation and was discharged with a long steroid taper and antibiotics. Given this, there was concern for adrenal insufficiency with her low blood pressure on presentation and she was started on IV hydrocortisone. She was also initiated on IV zosyn, nebulizer treatments and continued on supplemental oxygen. By the following morning, she was awake and alert and reported feeling better. It was noted that she was on high dose gabapentin at 3200 mg/day, this was initially held in the setting of toxic metabolic encephalopathy, due to CO2 narcosis in addition to possible alcohol interaction with home medications including high-dose gabapentin and Suboxone. The patient had increasing anxiety while off of gabapentin. This was discussed with her primary care provider, her primary care provider agreed with restarting gabapentin at a lower dose in the setting of improved liver function tests and mental status returned to baseline. Her respiratory status improved to baseline over the following days, she did receive 1 extra dose of IV Lasix the day prior to her discharge due to shortness of breath and concern for fluid overload, with resolution of her shortness of breath. Her gabapentin was resumed at a lower dose, 600 mg 3 times daily, the day prior to her discharge with improvement in her anxiety. She worked with physical therapy, she would benefit from a walker at the time of discharge. She was recently seen by pulmonology on 08/09/18 at which time Daliresp was added to her regimen. She will need to follow up with Pulmonology. She will be discharged home on a steroid taper and will remain on antibiotics for 1 more day for a full 7-day course. She will be discharged on a decreased gabapentin dose. She will follow-up with her primary care provider for Suboxone. She will be discharged home on apixaban, 10 mg BID x8 more doses then decrease to 5 mg PO BID for DVT RUE. She will follow up with her PCP as scheduled. She chronically has oxygen at home, she does require 2 L to maintain appropriate oxygen saturation while ambulating. Home Meds and New Rx's Prescriptions: New gabapentin [Neurontin] 600 mg Tablet 600 mg PO TID Qty: 42 RF: 0 amoxicillin-pot clavulanate 875-125 mg Tablet 1 tab PO BID Qty: 3 RF: 0 prednisone 10 mg tablet 10 mg PO DIRECTED Qty: 36 RF: 0 apixaban 5 mg tablet 5 mg PO BID Qty: 60 RF: 0 omeprazole 40 mg capsule,delayed release(DR/EC) 40 mg PO DAILY Qty: 30 RF: 0 Continued mirtazapine 30 mg tablet 30 mg PO HS RF: 0 furosemide 20 mg tablet 40 mg PO DAILY RF: 0 Spiriva with HandiHaler 1 PUFF capsule, w/inhalation device 1 cap Inhalation DAILY RF: 0 Symbicort 60 PUFF HFA aerosol inhaler 2 puff Inhalation BID RF: 0 albuterol sulfate 2.5 mg /3 mL (0.083 %) Solution For Nebulization 2.5 mg INHALATION Q4H PRNRF: 0 melatonin 1 mg Tablet 6 mg PO HS PRNRF: 0 montelukast [Singulair] 10 MG tablet 10 mg PO DAILY RF: 0 escitalopram oxalate [Lexapro] 20 MG tablet 20 mg PO DAILY RF: 0 atorvastatin 40 mg Tablet 40 mg PO HS RF: 0 amlodipine 5 mg Tablet 5 mg PO DAILY RF: 0 sumatriptan succinate 50 mg Tablet 50 mg PO DIRECTED RF: 0 losartan 100 mg Tablet 100 mg PO DAILY RF: 0 buprenorphine-naloxone [Suboxone] 2-0.5 mg Film 1 film Sublingual DAILY RF: 0 Nicotrol 10 mg Cartridge 10 mg Inhalation Q2H PRN PRNQty: 30 RF: 0 nicotine 7 mg/24 hr Patch 24 Hour 7 mg Transdermal DAILY PRN PRNQty: 14 RF: 0 prochlorperazine maleate [Compazine] 5 mg tablet 5 mg PO Q8H PRN PRN (Reason: nausea and vomiting) Qty: 10 RF: 0 Discontinued gabapentin 800 MG tablet 800 mg PO QID RF: 0 No Action ibuprofen 800 mg tablet 800 mg PO TID PRN (Reason: pain) Qty: 30 RF: 0 Discharge Instructions Instructions: Deep Venous Thrombosis (DC), COPD (Chronic Obstructive Pulmonary Disease) (DC), Pneumonia (DC), Safe Use of Anticoagulants (DC) Additional Instructions: Taper prednisone as follows: take 4 tabs twice per day, then decrease to 4 tabs daily x2 days, then 3 tab x2 days, then 2 tab x2 days, then 1 tab x2 days, then stop. Take Apixiban (for blood clot in your arm): 10 mg twice per day x 4 days (8 more doses), then decrease to 5 mg twice per day. Take antibiotics until they are gone. Your gabapentin dose has been decreased to 600 mg 3 times a day. He should not drink or use any other substances while taking gabapentin and Suboxone. Follow-up with your primary care provider as scheduled. Follow-up with pulmonology as scheduled. Take care! Stand Alone Forms: Nursing Discharge Form Referrals: Valerie Jiang MD [Primary Care Provider] - 08/27/18 1:50 pm (also has an appointment 0n 08/24 with MAT TEAM @ 10:40) Activity:: Activity as Tolerated Equipment/Supplies:: Walker Diet:: Carb counting/heart healthy diet Discharge Orders Discharge Orders: Discharge Order (Routine); Ordered 08/23/18 Ordered By: Sangeeta Maya Exam Narrative Exam Narrative: General: Very pleasant middle-aged female, sitting up in bed, A&Ox3, in NAD. Speaking complete sentences with no shortness of breath. HEENT: Extraocular movements intact, mucous membranes moist. Heart: Heart has regular rate and rhythm, no murmur appreciated. Lungs: Respirations appear even and unlabored, lung sounds clear to auscultation throughout. No wheezes or rhonchi. GI: Abdomen is soft, nontender, nondistended Extremities: Trace edema to bilateral upper extremities, left greater than right. Trace edema BLE's, no clubbing or cyanosis DS: Data Vitals/I&O Vitals and I&O: Vital Signs Temperature 36.3 C L 08/23/18 07:52 Temperature Source Tympanic 08/23/18 07:52 Pulse 82 08/23/18 07:52 Pulse Rhythm Regular 08/23/18 07:55 Pulse 89 08/19/18 12:00 Respiratory Rate 20 08/23/18 07:52 Respiratory Effort Non-Labored 08/23/18 07:55 Respiratory Depth Normal 08/23/18 07:55 Respiratory Pattern Normal 08/23/18 07:55 Blood Pressure 158/94 H 08/23/18 07:52 Blood Pressure Mean 72 08/19/18 14:53 Blood Pressure Position Sitting 08/19/18 11:52 Pulse Oximetry 92 L 08/23/18 07:52 Respiratory End-tidal CO2 45 08/18/18 00:01 Oxygen Delivery Method Nasal Cannula 08/23/18 07:52 Oxygen Flow Rate 0.5 08/23/18 07:52 Fraction of Inspired Oxygen (FIO2) 40 08/19/18 07:37 Pain Level 0 08/23/18 03:40 Comment 08/23/18 03:40 Intake & Output 08/22/18 08/23/18 08/23/18 23:59 11:59 23:59 Intake Total 365 / 6052.370 5867 / 1000 Output Total 1825 / 2325 2225 / 2225 Balance -1460 / -946.661 -1225 / -1225 Weight 88.4 kg Intake: IV 125 / 408.339 10 / 10 Oral 240 / 970 990 / 990 Output: Urine 182 / 2325 2225 / 2225 Other: Urine Color Pale Yellow Urine Appearance Clear Clear Urine Odor None None Comment commode Voiding Methods Bedside Commode Bedside Commode Completed studies during hospitalization [Text1]: 08/17/[address] NONCONTRAST: Comparison is made with 24 December 2015. No intracranial hemorrhage, mass or infarct is seen. There is no evidence of skull fracture. There is no significant atrophy. The ventricles are normal in size.. IMPRESSION: No acute abnormality. AP AND LATERAL CHEST: Comparison is made with 26 July 2018. The exam is limited by patient positioning and technique. There is a right pleural effusion. There is tubing overlying the chest as well as leads. The heart size appears within normal limits. IMPRESSION: Right pleural effusion. 08/18/[address] FOR PULMONARY EMBOLUS: CT angiography was performed with multi slice acquisition and multi planar and 3D reconstruction. The exam is limited by respiratory motion. There is an aberrant right subclavian artery. The pulmonary arteries are well opacified with IV contrast. No pulmonary emboli are seen. There are tiny bilateral pleural effusions. There is dense consolidation seen in the right lower lobe with atelectasis. Infiltrates are also seen in the right upper lobe. There are minimal left basilar densities. There is mild underlying emphysema. IMPRESSION: Right upper and lower lobe pneumonia. Right lower lobe atelectasis. No evidence of pulmonary emboli. 08/20/2018 ULTRASOUND OF THE RIGHT UPPER EXTREMITY: Thrombus is visible in the median cubital vein just proximal to the IV catheter. Clot is also present within the brachial veins, seen proximally through distally. The cephalic, basilic, axillary, subclavian and internal jugular veins appear free of thrombus. IMPRESSION: Clot in the brachial veins as well as in a superficial vein, the median cubital vein just proximal to the IV catheter. ABDOMINAL ULTRASOUND: The liver is enlarged to 20 cm. The liver appears normal in echogenicity. No focal liver lesions or biliary dilatation is seen. The patient is status post cholecystectomy. The spleen is normal in size. The kidneys and aorta are unremarkable. The tail of the pancreas was unable to be visualized. IMPRESSION: Hepatomegaly. No focal liver lesion or biliary dilatation. Status post cholecystectomy. Labs on day of discharge: Labs from last 24 hours 08/23/18 08:40 Sodium 140 Potassium 4.3 D Chloride 100 Carbon Dioxide 33.5 H Anion Gap 6.5 BUN 19 H Creatinine 0.72 Estimated GFR/1.73 m2 >= 60.00 Glucose 159 H Calcium 8.8 Preliminary micro results at discharge 08/18/18 13:35 Blood Culture - Preliminary Blood NO GROWTH 96 HOURS 08/18/18 11:00 Blood Culture - Preliminary Blood NO GROWTH 96 HOURS [facility] Medical History Family history of colon cancer (Acute) Constipation (Acute) Pancreatic mass (Acute ~01/2017) Lethargy (Chronic) Polysubstance abuse (Chronic) Chronic pain (Chronic) Colon polyps (Chronic) History of suicide attempt (Chronic) Tobacco use (Acute) Allergic rhinitis (Chronic) Anxiety (Chronic) COPD (chronic obstructive pulmonary disease) (Chronic) 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) Depression (Chronic) Edema (Chronic) Goiter diffuse (Chronic) HTN (hypertension) (Chronic) Hepatitis C (Chronic) Hypercholesterolemia (Chronic) Left knee pain (Chronic) Lumbar back pain (Chronic) Migraine headache (Chronic) Multiple sclerosis (Chronic) PETERSON (obstructive sleep apnea) (Chronic) Opioid dependence (Chronic) Cocaine abuse (Resolved) Surgical History H/O section (Inactive) S/P cholecystectomy (Inactive) Status post shoulder surgery (Inactive) Social History Smoking/Tobacco Use Status: Current every day Drug use: Never Substance use type: former substance user Do you feel safe in your relationship?: Yes Additional Social history: Currently lives with her daughter, possible active drug use in the home Has been recently per clinic notes
[2018-08-23 13:53] VITALS: BP 168/91; PULSE 78; RESP 20; TEMP 37.2; O2SAT 94
[2018-08-23] MEDS: Fluconazole 150 MG TAB PO (14:28)
--- NOTE | 2018-08-23 14:37 | PDOC.CMDIS ---
- If Service Date Differs Date of service: 08/23/18 Time of Service: 14:37 LACE Index Scoring Tool - Questions: Length of Stay (in days): 7 - 13 Acuity (Admit via E.D.?): Yes Care Management Discharge Reason for Hospitalization: CAP, Acute on chronic hypoxic respiratory failure Discharge Plan: Tatum is being discharge home today, CM coordianted FWW through [facility] and [facility]. She will stop at [facility] in [place], [place] to obtain her medications. She will resume services through [facility]. Lona feels ready for discharge per her report. She will follow up with primary care and MAT team, CM will fax the discharge summary to [facility]. Patient declines home health service. Patient/Family Education Needs: discharge education, limitations and follow up plan of care. Services Needed at Discharge: DME Agency, Oxygen Therapy, Transportation
--- NOTE | 2018-08-23 14:45 | CMDISCH_ITS ---
- If Service Date Differs Date of service: 08/23/18 Time of Service: 14:37 LACE Index Scoring Tool - Questions: Length of Stay (in days): 7 - 13 Acuity (Admit via E.D.?): Yes Care Management Discharge Reason for Hospitalization: CAP, Acute on chronic hypoxic respiratory failure Discharge Plan: Tatum is being discharge home today, CM coordianted FWW through [facility] and transportation [facility]. She will stop at [facility] in [place], [place] to obtain her medications. She will resume services through [facility]. Lona feels ready for discharge per her report. She will follow up with primary care and MAT team, CM will fax the discharge summary to [facility]. Patient declines home health service. Patient/Family Education Needs: discharge education, limitations and follow up plan of care. Services Needed at Discharge: DME Agency, Oxygen Therapy, Transportation
--- NOTE | 2018-08-24 05:00 | PT.INTREAT ---
Date of service: 08/21/18 Time of Service: 04:46 PT Notes Inpatient Physical Therapy Treatment Note [facility] Date: 08/21/2018 Precautions: Fall. Standard. Subjective: Patient denies headache nor chest pain at time of visit. Objective: General Observation: Patient seen resting in bed. Oxygen supplementation on 0.5 L/min via nasal cannula. Mental Status: Alert and oriented x3 Pain: 0/10 BED MOBILITY LEVELS/TRANSFERS Rolling SBA Supine to sit SBA Sit to supine SBA Sit to stand SBA Stand to sit SBA Bed to chair SBA Chair to bed SBA Gait: Patient is able to tolerate ambulation for 25 feet with CGA of this PT using FWW. Lizeth is slow due to shortness of breath with oxygen saturation ranging from 89 to 92% on 2 L. THERA EX: Patient was instructed with intermittently performing pursed lip breathing during seated and standing exercises. Chest expansion exercises with deep breathing activity was also performed. Assessment: Patient continues to oxygen supplementation to prevent desaturation during activity. Patient will continue to benefit performing correct breathing techniques, activity pacing, and energy conservation techniques. Plan: Continue with PT POC as initially established. TREATMENT CODE/TIME: 45526 16 minutes beginning at 14:46 PM.
--- NOTE | 2018-08-24 05:17 | PT.INTREAT ---
Date of service: 08/22/18 Time of Service: 10:10 PT Notes Inpatient Physical Therapy Treatment Note [facility] Date: 08/22/2018 PRECAUTIONS: Fall. Standard. SUBJECTIVE: Patient reports headache yesterday afternoon accompanied with right shoulder pain that radiated to her neck. Pain subsided with pain medication. She is agreeable to PT treatment this morning. OBJECTIVE: Patient seen resting in bed with oxygen supplement on 0.5 L/min via NC PAIN: 0/10 BED MOBILITY/TRANSFERS Rolling L/R: SBA Supine-sit: SBA Sit-supine: SBA Sit-stand: SBA Stand-sit: SBA Bed-Chair: SBA Chair-bed: SBA GAIT: Patient was able to tolerate level surface ambulation 150 feet to standing breaks using FWW. She was instructed to perform pursed lip breathing throughout ambulation. No reports of headache, chest pain, dizziness where he received. No LOB noted. Oxygen saturation was above 90%-95% on 2 L of oxygen. THEREX: Patient performed seated balance exercises coordinated with pursed lip breathing. See exercise flow sheet. STAIRS: Patient tolerated up-and-down stairs 3 x 4 inch step 2 x 6 inch steps twice while holding onto B rails. ASSESSMENT: Patient does well with 2 L of oxygen during activity and rest 0.5 L of oxygen at rest. Patient will benefit from use of front-wheeled walker in order to conserve energy maximize activity tolerance. PLAN: Continue with PT POC has been established. TREATMENT CODE/TIME: 15329 25 minutes, 55940 12 minutes, beginning at 10:10 AM.
--- NOTE | 2018-08-24 05:28 | PTTR_ITS ---
Date of service: 08/22/18 Time of Service: 10:10 PT Notes Inpatient Physical Therapy Treatment Note [facility] Date: 08/22/2018 PRECAUTIONS: Fall. Standard. SUBJECTIVE: Patient reports headache yesterday afternoon accompanied with right shoulder pain that radiated to her neck. Pain subsided with pain medication. She is agreeable to PT treatment this morning. OBJECTIVE: Patient seen resting in bed with oxygen supplement on 0.5 L/min via NC PAIN: 0/10 BED MOBILITY/TRANSFERS Rolling L/R: SBA Supine-sit: SBA Sit-supine: SBA Sit-stand: SBA Stand-sit: SBA Bed-Chair: SBA Chair-bed: SBA GAIT: Patient was able to tolerate level surface ambulation 150 feet to standing breaks using FWW. She was instructed to perform pursed lip breathing throughout ambulation. No reports of headache, chest pain, dizziness where he received. No LOB noted. Oxygen saturation was above 90%-95% on 2 L of oxygen. THEREX: Patient performed seated balance exercises coordinated with pursed lip breathing. See exercise flow sheet. STAIRS: Patient tolerated up-and-down stairs 3 x 4 inch step 2 x 6 inch steps twice while holding onto B rails. ASSESSMENT: Patient does well with 2 L of oxygen during activity and rest 0.5 L of oxygen at rest. Patient will benefit from use of front-wheeled walker in order to conserve energy maximize activity tolerance. PLAN: Continue with PT POC has been established. TREATMENT CODE/TIME: 86455 25 minutes, 33292 12 minutes, beginning at 10:10 AM.
--- NOTE | 2018-08-24 05:28 | PT.INDS ---
Date of service: 08/23/18 Time of Service: 09:45 PT Notes Inpatient Physical Therapy Discharge Summary Dates: 08/23/2018 Dates of Service: 08/20/2018 through 08/23/2018 Referring Doctor: Rebekah Wilkinson MD PT Orders: PT CONSULT: Eval/treat Precautions: Fall. Standard. Patient Profile/Admitting Diagnosis: 63-year-old female with chief complaints of severe shortness of breath who presented to the ED on 08/18/2018 when family found her lying in bed not breathing. Patient was diagnosed with acute on chronic respiratory failure with hypoxia, community-acquired pneumonia and altered mental status from toxic metabolic encephalopathy, acute exacerbation of COPD, and acute renal failure. 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) Depression (Chronic) Edema (Chronic) Goiter diffuse (Chronic) HTN (hypertension) (Chronic) Hepatitis C (Chronic) Hypercholesterolemia (Chronic) Left knee pain (Chronic) Lumbar back pain (Chronic) Migraine headache (Chronic) Multiple sclerosis (Chronic) PETERSON (obstructive sleep apnea) (Chronic) Opioid dependence (Chronic) Cocaine abuse (Resolved) Surgical History H/O section (Inactive) S/P cholecystectomy (Inactive) Status post shoulder surgery (Inactive) Social History/Home Situation: Patient lives with disabled daughter along with 2 other people in an apartment with 14-15 steps to enter with rail on the right going up. She has a pillowcase folder in the community who has been facilitating a potential transfer of residence and procurement of shower chair and assistive device for outdoors. Patient was independent with all aspects of mobility related ADLs with use without use of any adaptive equipment or assistive ambulatory device indoors. Patient states that her daughter assists with meal preparation and cooking Equipment Owned/DME: [place] Subjective: Patient is looking forward to going home today. She states she slept well and does not feel short of breath. Objective: General Observation: Patient seen resting in bed. Oxygen supplementation on 0.5 L/min via nasal cannula. Mental Status: Alert and oriented x3 Pain: 0/10 ROM: Right Upper Extremity: Shoulder Flexion 0-110. Shoulder abduction 0-85. Elbow flexion WFL. Wrist flexion WFL. Functional opening and closing of hand WFL. Left Upper Extremity: Shoulder Flexion WFL. Shoulder abduction WFL. Elbow flexion WFL. Wrist flexion WFL. Functional opening and closing of hand WFL. Right Lower Extremity: Hip flexion WFL. Hip abduction WFL. Knee flexion WFL. Ankle dorsiflexion WFL. Ankle plantarflexion WFL. Left Lower Extremity: Hip flexion WFL. Hip abduction WFL. Knee flexion WFL. Ankle dorsiflexion WFL. Ankle plantarflexion WFL. Strength: Right Upper Extremity: Shoulder flexors 3-/5. Shoulder abductors 3-/5. Elbow flexors 4/5. Elbow extensors 4/5. Baseboard Heating Installer strong. Left Upper Extremity: Shoulder flexors 4-/5. Shoulder abductors 4-/5. Elbow flexors 4-/5. Elbow extensors 4-/5. Baseboard Heating Installer strong. Right Lower Extremity: Hip flexors 4-/5. Hip abductors 3+/5. Knee flexors 3+/5. Knee extensors 3+/5. Ankle dorsiflexors 4-/5. Ankle plantarflexors 4-/5. Left Lower Extremity: Hip flexors 4-/5. Hip abductors 3+/5. Knee flexors 3+/5. Knee extensors 3+/5. Ankle dorsiflexors 4-/5. Ankle plantarflexors 4-/5. Sensation: Intact to B LE as to pain and pressure. BED MOBILITY LEVELS/TRANSFERS Rolling supervision Supine to sit supervision Sit to supine supervision Sit to stand supervision supervision Stand to sit supervision Bed to chair supervision Chair to bed supervision Gait: Patient is able to tolerate a level surface ambulation 120 feet + 145 feet feet with SBAof this PT using FWW. Up and down stairs twice managing three 4-inch steps and two 6-inch. steps. Lizeth is faster with decreased SOB. seen. Balance: Static Sitting:Good Dynamic Sitting:Good Static Standing: Fair Dynamic Standing: Fair Special Tests: Mobility Limitations Standardized Measure [employer] AM-PAC 6 clicks Basic Mobility Inpatient Short Form: Raw Score: 22 CMS Score: 18% deficit Assessment: Patient is a 63 year old female referred to physical therapy services with the diagnosis of acute and chronic respiratory failure with hypoxia, community-acquired pneumonia, acute exacerbation of COPD, and acute renal failure. Patient presents with clinical signs and symptoms consistent with current/admitting diagnoses that have resulted to mobility limitations, gait instability, generalized weakness, and impairment of motor control as demonstrated by the following impairment level findings: 1. Decreased strength to B LE major muscle groups 2. Impaired sitting/standing balance 3. Impaired activity tolerance 4. Shortness of breath Impairments are contributing to the following functional limitations: 1. Dependent bed mobility skills 2. Increased dependence with transfers 3. Inability to safely ambulate without assistive device and physical assistance 4. Increase completion time for mobility ADL performance 5. Increased fall risk 6. Inability to negotiate steps alone safely Goals: Goals X1 week 1. Supine-Sit independent NOT MET 2. Sit-Supine independent NOT MET 3. Sit-Stand independent NOT MET 4. Stand-Sit independent NOT MET 5. Bed-Chair independent NOT MET 6. Chair-Bed independent NOT MET 7. Independent gait on level surface with use of least restrictive device for at least 300 feet without report of pain nor dyspnea NOT MET 8. Independent stair negotiation while holding onto bilateral rails for at least 10 steps without report of pain nor dyspnea NOT MET 9. Independent with home exercise program MET 10. Good static and dynamic standing balance/tolerance NOT MET DISCHARGE RECOMMENDATIONS: Patient will highly benefit from home health physical therapy services in order to maximize activity tolerance/endurance, assess home safety, and establish/implementing functional maintenance program for optimizing endurance and strengthening. Patient refused said recommendation she states that she does not feel comfortable with her home situation being in a long term. She states that once she finds her home she will consider home health services if still needed. TREATMENT CODE/TIME: [id number] 27 minutes, beginning at 9:45 AM. Thank you for this referral. Cydney Jesus, PT, DPT, CLT [facility], [facility]
== END 2018-08-23 15:16 | disposition home or self-care (01) | DRG 189 ==
LOC: ER 08-18 02:56 → ICU 08-18 03:47 → MS 08-19 15:24 → ICU 08-28 13:37
PROVIDERS: Nurse Practitioner; Admitting Provider Family Medicine; Emergency Provider Emergency Medicine; PCP Family Medicine; Visit Provider Internal Medicine
DX: J96.21 Acute and chronic respiratory failure with hypoxia (principal); J18.1 Lobar pneumonia, unspecified organism; G92 Toxic encephalopathy; J44.1 Chronic obstructive pulmonary disease with (acute) exacerbation; N17.9 Acute kidney failure, unspecified; I82.621 Acute embolism and thrombosis of deep veins of right upper extremity; F11.20 Opioid dependence, uncomplicated; J44.0 Chronic obstructive pulmonary disease with (acute) lower respiratory infection; J98.11 Atelectasis; I82.611 Acute embolism and thrombosis of superficial veins of right upper extremity; E72.20 Disorder of urea cycle metabolism, unspecified; J96.22 Acute and chronic respiratory failure with hypercapnia; T42.6X1A Poisoning by other antiepileptic and sedative-hypnotic drugs, accidental (unintentional), initial encounter; R41.82 Altered mental status, unspecified; G47.33 Obstructive sleep apnea (adult) (pediatric); F17.210 Nicotine dependence, cigarettes, uncomplicated; R74.8 Abnormal levels of other serum enzymes; I10 Essential (primary) hypertension; F41.8 Other specified anxiety disorders; G35 Multiple sclerosis; E87.70 Fluid overload, unspecified; R16.0 Hepatomegaly, not elsewhere classified; Z72.89 Other problems related to lifestyle; Z99.81 Dependence on supplemental oxygen
CPT/HCPCS: 36415; 36416; 51702; 71275; 80048; 80053; 80076; 80307; 82550; 82805; 87040; 94618; 94640; 96361; 96365; 97110; 97162; 97165; 97530; 99223; 99232; 99239; 99291; J1650; 36600; 70450; 71046; 76700; 80320; 80329; 80354; 81003; 81015; 82140; 83605; 83735; 84484; 85025; 85610; 87070; 87086; 87205; 93971; 94660; J1720; J1940; J1941; J2543; J2930; J3480; J3490; J7512; J7613; J7620

== ENCOUNTER 2018-09-08 17:22 | Emergency (ER) | payer MEDICARE, MEDICAID, SELFPAY ==
[2018-09-08] VITALS (11 sets, daily range): BP systolic 107–165; BP diastolic 60–113; PULSE 81–140; RESP 20–32; TEMP 36.5–37; O2SAT 84–98
--- NOTE | 2018-09-08 18:21 | ED.GENADUL_ITS ---
Discharge Plan Disposition Patient Disposition: HOME Condition: Improving Discharge Details Chief Complaint: Headache Clinical Impression: Headache Primary Care Provider: Valerie Jiang ED Provider: Luis Clifford Home Meds and New Rx's Prescriptions: No Action mirtazapine 30 mg tablet 30 mg PO HS RF: 0 furosemide 20 mg tablet 40 mg PO DAILY RF: 0 Spiriva with HandiHaler 1 PUFF capsule, w/inhalation device 1 cap Inhalation DAILY RF: 0 Symbicort 60 PUFF HFA aerosol inhaler 2 puff Inhalation BID RF: 0 albuterol sulfate 2.5 mg /3 mL (0.083 %) Solution For Nebulization 2.5 mg INHALATION Q4H PRNRF: 0 melatonin 1 mg Tablet 6 mg PO HS PRNRF: 0 gabapentin [Neurontin] 600 mg Tablet 600 mg PO TID Qty: 42 RF: 0 apixaban 5 mg tablet 5 mg PO BID Qty: 60 RF: 0 omeprazole 40 mg capsule,delayed release(DR/EC) 40 mg PO DAILY Qty: 30 RF: 0 montelukast [Singulair] 10 MG tablet 10 mg PO DAILY RF: 0 escitalopram oxalate [Lexapro] 20 MG tablet 20 mg PO DAILY RF: 0 atorvastatin 40 mg Tablet 40 mg PO HS RF: 0 amlodipine 5 mg Tablet 5 mg PO DAILY RF: 0 sumatriptan succinate 50 mg Tablet 50 mg PO DIRECTED RF: 0 losartan 100 mg Tablet 100 mg PO DAILY RF: 0 buprenorphine-naloxone [Suboxone] 2-0.5 mg Film 1 film Sublingual DAILY RF: 0 Nicotrol 10 mg Cartridge 10 mg Inhalation Q2H PRN PRNQty: 30 RF: 0 ibuprofen 800 mg tablet 800 mg PO TID PRN (Reason: pain) Qty: 30 RF: 0 prochlorperazine maleate [Compazine] 5 mg tablet 5 mg PO Q8H PRN PRN (Reason: nausea and vomiting) Qty: 10 RF: 0 Discharge Instructions Instructions: General Headache (ED) Additional Instructions: Please return to the emergency department for increasing pain focal neurologic deficit fever chills neck stiffness or other concern Referrals: Valerie Jiang MD [Primary Care Provider] - Medical Decision Making 63-year-old female with gradual onset headache no red flags no infectious symptoms no symptoms consistent with subarachnoid hemorrhage or dural venous sinus thrombosis or pseudotumor cerebri. Will treat patient symptomatically with Compazine Toradol and IV fluid and reassess. Patient IV infiltrated but feeling better even before treatment prefers no additional IV insertion elicited to intramuscular medication will DC the IV fluid but give Compazine and Toradol IM. 7:21 PM patient resting comfortably headache is now 1 of 10 requesting discharge no other complaints will discharge to home with follow-up patient agrees to return for increasing pain nausea vomiting fever chills or other concern. SRINI Loya is a very pleasant 63 year old female with a past medical history significant for COPD(quit smoking 1 month ago on 2 L home oxygen at night and as needed during the day), PETERSON, intolerant of CPAP, history of opiate dependence on chronic suboxone, HTN, depression, anxiety, [id number], and multiple sclerosis presents with 3 days of what she describes as a migraine headache. Patient states at rest 3 days ago she had a gradual onset throbbing frontal headache with some mild intermittent nausea no vomiting no trauma no fever chills neck stiffness change in gait or other focal neurologic change.pain is acute constant nothing she is taking at home for pain is improved no visual changes no cough chest pain shortness of breath. General Date/Time Provider Initiated Documentation: 09/08/18 17:58 . Related Data Home Medications Medication Instructions Recorded Confirmed Spiriva with HandiHaler 1 cap INHALATION DAILY 12/25/12 08/19/18 Symbicort 2 puff INHALATION BID 08/25/14 08/19/18 montelukast [Singulair] 10 mg PO DAILY 08/17/16 08/19/18 escitalopram oxalate [Lexapro] 20 mg PO DAILY 09/08/16 08/19/18 albuterol sulfate 2.5 mg INHALATION Q4H PRN 01/23/18 08/19/18 atorvastatin 40 mg PO HS 05/04/18 08/19/18 furosemide 20 mg tablet 40 mg PO DAILY tab 06/18/18 08/19/18 mirtazapine 30 mg tablet 30 mg PO HS 06/18/18 08/19/18 amlodipine 5 mg PO DAILY 07/26/18 08/19/18 buprenorphine-naloxone [Suboxone] 1 film SUBLINGUAL DAILY 07/26/18 08/19/18 losartan 100 mg PO DAILY 07/26/18 08/19/18 sumatriptan succinate 50 mg PO DIRECTED 07/26/18 08/19/18 Nicotrol 10 mg INHALATION Q2H PRN PRN #30 ea 07/28/18 08/19/18 ibuprofen 800 mg PO TID PRN #30 tab 07/28/18 08/19/18 prochlorperazine maleate 5 mg PO Q8H PRN PRN #10 tab 07/28/18 08/19/18 [Compazine] melatonin 6 mg PO HS PRN 08/18/18 08/19/18 apixaban 5 mg PO BID #60 tab 08/23/18 gabapentin [Neurontin] 600 mg PO TID #42 tab 08/23/18 omeprazole 40 mg PO DAILY #30 cap 08/23/18 Previous Rx's Medication Instructions Recorded Nicotrol 10 mg INHALATION Q2H PRN PRN #30 ea 07/28/18 ibuprofen 800 mg PO TID PRN #30 tab 07/28/18 prochlorperazine maleate 5 mg PO Q8H PRN PRN #10 tab 07/28/18 [Compazine] apixaban 5 mg PO BID #60 tab 08/23/18 gabapentin [Neurontin] 600 mg PO TID #42 tab 08/23/18 omeprazole 40 mg PO DAILY #30 cap 08/23/18 Allergies Allergy/AdvReac Type Severity Reaction Status Date / Time No Known Allergies Allergy Unverified 08/18/18 00:16 General Stated Complaint: Headache NEGRITA: 3 Review of Systems Review of Systems All systems reviewed & are unremarkable except as noted in HPI and below PFSH Social History Smoking/Tobacco Use Status: Former Tobacco Use Quit Date: 08/13/18 Alcohol Intake: never Drug use: Never Substance use type: former substance user Do you feel safe in your relationship?: Yes Additional Social history: Currently lives with her daughter, possible active drug use in the home Has been recently per clinic notes Exam Narrative Exam Narrative: Pulse oximetry reviewed by me and is normal [] Constitutional: Pt is in no acute distress. he is well appearing. he oriented to person, place, and time. Eyes: conjunctivae are normal. Pupils are equal, round, and reactive to light. No scleral icterus. extraocular muscles are intact Ears/Nose/Mouth/Throat: mucus membranes are moist. Neck supple negative jolt accentuation Musculoskeletal: neck is supple. normal range of motion in all extremities. Cardiovascular: Normal rate and rhythm. No lower extremity edema [] Respiratory: effort is normal . pt exhibits no stridor or respiratory distress. L CTA [] GastrointestinaI: abdomen soft, +BS, nontender, -rebound, -guarding. Neurological: alert and oriented to person, place, and time. he has normal strength, no tremor. Skin: Skin is warm and dry. he is not diaphoretic. Distal perfusion in tact, warm extremities, cap refill ? 2 seconds. Hem/Lymph/Imm: No cervical LAD, no goiter, no conjunctival pallor Psych: normal mood and affect. behavior is normal Triage and nurse notes reviewed.[] Course Vital Signs Temperature 37.0 C 09/08/18 17:28 Pulse 117 H 09/08/18 17:28 Respiratory Rate 32 H 09/08/18 17:28 Blood Pressure 142/79 H 09/08/18 17:28 Pulse Oximetry 98 09/08/18 17:28 Temperature 37.0 C 09/08/18 17:28 Temperature Source Skin 09/08/18 17:28 Pulse 117 H 09/08/18 17:28 Respiratory Rate 32 H 09/08/18 17:28 Respiratory Effort Non-Labored 09/08/18 17:30 Blood Pressure 142/79 H 09/08/18 17:28 Pulse Oximetry 98 09/08/18 17:28 Pain Level 10 09/08/18 17:28
[2018-09-08] MEDS: Prochlorperazine 10 MG/2 ML VIAL IVP (18:31)
[2018-09-08] MEDS: Ketorolac 15 MG/ML VIAL IVP (18:31)
[2018-09-08] MEDS: diphenhydrAMINE 25 MG CAP PO (18:32)
== END 2018-09-08 19:50 | disposition home or self-care (01) ==
PROVIDERS: Emergency Provider Emergency Medicine; PCP Family Medicine
DX: R51 Headache (principal); R11.0 Nausea; J44.9 Chronic obstructive pulmonary disease, unspecified; Z87.891 Personal history of nicotine dependence; I10 Essential (primary) hypertension; F41.8 Other specified anxiety disorders; G35 Multiple sclerosis
CPT/HCPCS: 96372; 99284; J0780; J1885

== ENCOUNTER 2018-09-09 16:02 | Inpatient (IN) | payer MEDICARE, MEDICAID, SELFPAY ==
[2018-09-09] VITALS (36 sets, daily range): BP systolic 99–141; BP diastolic 60–79; PULSE 83–113; RESP 10–30; TEMP 36.7–38.6; O2SAT 78–97
--- NOTE | 2018-09-09 16:14 | W.ED.GENAD ---
Discharge Plan Disposition Patient Disposition: [facility] INPATIENT Condition: Stable Discharge Details Chief Complaint: Headache Clinical Impression: Pulmonary embolism, Headache Admit Date/Time: 09/09/18 20:02 Admit Provider: Yariel Rodarte Attending Provider: Yariel Rodarte Primary Care Provider: Valerie Jiang ED Provider: Lisa Farah Discharge Instructions Activity:: No Strenuous Activity Equipment/Supplies:: No Equipment Needed Diet:: As Tolerated Discharge Orders Discharge Orders: Discharge Order (Routine); Ordered 09/11/18 Ordered By: Dylan Stephens Discharge Data Discharge Date/Time-TO BE ENTERED AT DEPARTURE: 09/09/18 20:43 Medical Decision Making Patient is 63-year-old female presenting today with chief complaint of headache. Patient does have history of migraines and reports that this was similar but much worse than migraine. Patient was here yesterday and treated with Compazine and Toradol with good resolution of her symptoms. However, she reports she came back again last night after being discharged home. The patient initially been denying any illness, she is noted to have a fever 38.2 ?C. Tachycardic at 103. Patient is hypoxic at 78. Patient has history of hypoxia associated with COPD and does use chronic home O2. Patient is typically on 2 L, she responded well to going up to 3 L. She denies feeling short of breath. She denies any chest pain. States that she is had occasional nausea but no vomiting and abdominal pain. Denies any visual changes. On exam, patient appears uncomfortable. Findings consistent with photophobia. Neuro exam is intact. Patient does appear tachypneic diminished lung sounds with again, patient reports that this shortness of breath is chronic and unchanged. Patient was recently admitted for RUE DVT, reports she has been taking her anticoagulant as prescribed. Plan to obtain CT of head, laboratory evaluation. Delay in labs secondary to difficulty obtaining IV access. CO2 42, gap 0.6. Troponin <0.02. With patient on 2L, using ear probe, O2 is noted to be in low 90s. FINDINGS: Lungs: Increased interstitial lung markings suggesting edema, infection or fibrotic changes. Pleural space: Unremarkable. No pleural effusion. No pneumothorax. Heart/Mediastinum: Unremarkable. No cardiomegaly. Vasculature: Mild atherosclerosis. Bones/joints: Scoliosis and degenerative disc disease. Right rotator cuff anchor. IMPRESSION: Increased interstitial lung markings suggesting edema, infection or fibrotic changes. Slightly increased. FINDINGS: Brain: Normal. No hemorrhage. No significant white matter disease. No edema. Ventricles: Normal. No ventriculomegaly. Bones/joints: Unremarkable. No acute fracture. Sinuses: Visualized sinuses are unremarkable. No acute sinusitis. Mastoid air cells: Visualized mastoid air cells are unremarkable. No mastoid effusion. Soft tissues: Unremarkable. IMPRESSION: No acute intracranial abnormality. Consulted with radiolgist, discussed findings of the new PE and infiltrate. These have been compared to old CT imaging was deemed that the pulmonary emboli a new finding. Patient already started on Cefepime and Vanco. Will consult with hospitalist. Spoke with Dr. Rodarte regarding admission. He agrees to admission to med surg floor. We discussed anticoagulation. He advised Lovenox SC instead of IV heparin. Patient last took her apixaban at 0700, will give 1mg/kg dose of Lovenox at this time. HPI General Mode of arrival: wheelchair. Date/Time Provider Initiated Documentation: 09/09/18 16:03. Limitations to Documentation: no limitations. Information obtained by: patient and RN notes reviewed. HPI Narrative: Patient is a 63 year old female with history of anxiety, COPD, depression, HTN, hyperlipidemia, hepatitis C, migraines, DVT, MS, PETERSON, sleep apnea, muscular dystrophy, opiate addiction, presenting for RUFFIN. Patient currently anticoagulated with apixaban. Was seen here yesterday and treated with Toradol and Compazine with good relief. Returns today with recurrent symptoms. She denies trauma. Denies illness. Chronically O2 in the high 80s- low 90s per patient reprot, she is typically on 2L NC at home. Denies feeling SOB at this time. No CP. States that RUFFIN came back last night, rates at 10/10 and states that pain has been constant since onset. Attempted treatment with sumatriptan wihout improvement in her pain. Reports that she has had occassional nausea but no vomiting. No neck pain, no fevers/chills. States this is worse than her typical migraines. Related Data Home Medications Medication Instructions Recorded Confirmed Spiriva with HandiHaler 1 cap INHALATION DAILY 12/25/12 09/09/18 Symbicort 2 puff INHALATION BID 08/25/14 09/09/18 montelukast [Singulair] 10 mg PO DAILY 08/17/16 09/09/18 escitalopram oxalate [Lexapro] 20 mg PO DAILY 09/08/16 09/09/18 albuterol sulfate 2.5 mg INHALATION Q4H PRN 01/23/18 09/09/18 atorvastatin 40 mg PO HS 05/04/18 09/09/18 furosemide 20 mg tablet 40 mg PO DAILY tab 06/18/18 09/09/18 mirtazapine 30 mg tablet 30 mg PO HS 06/18/18 09/09/18 amlodipine 5 mg PO DAILY 07/26/18 09/09/18 buprenorphine-naloxone [Suboxone] 1 film SUBLINGUAL DAILY 07/26/18 09/09/18 losartan 100 mg PO DAILY 07/26/18 09/09/18 sumatriptan succinate 50 mg PO DIRECTED 07/26/18 09/09/18 Nicotrol 10 mg INHALATION Q2H PRN PRN #30 ea 07/28/18 09/09/18 ibuprofen 800 mg PO TID PRN #30 tab 07/28/18 09/09/18 prochlorperazine maleate 5 mg PO Q8H PRN PRN #10 tab 07/28/18 09/09/18 [Compazine] melatonin 6 mg PO HS PRN 08/18/18 09/09/18 gabapentin [Neurontin] 600 mg PO TID #42 tab 08/23/18 09/09/18 omeprazole 40 mg PO DAILY #30 cap 08/23/18 09/09/18 fondaparinux 7.5 mg SC DAILY #6 ml 09/11/18 prednisone 10 mg PO DAILY #45 tab 09/11/18 Previous Rx's Medication Instructions Recorded Nicotrol 10 mg INHALATION Q2H PRN PRN #30 ea 07/28/18 ibuprofen 800 mg PO TID PRN #30 tab 07/28/18 prochlorperazine maleate 5 mg PO Q8H PRN PRN #10 tab 07/28/18 [Compazine] gabapentin [Neurontin] 600 mg PO TID #42 tab 08/23/18 omeprazole 40 mg PO DAILY #30 cap 08/23/18 fondaparinux 7.5 mg SC DAILY #6 ml 09/11/18 prednisone 10 mg PO DAILY #45 tab 09/11/18 Allergies Allergy/AdvReac Type Severity Reaction Status Date / Time No Known Allergies Allergy Unverified 09/09/18 16:22 General NEGRITA: 3 Review of Systems Constitutional Reports as per HPI, Denies chills, Denies fever(s), Reports headache(s), Denies lethargy and Denies poor appetite Eyes Denies change in vision ENT Denies dizziness and Reports headache(s) Cardiovascular Reports as per HPI, Denies chest pain, Denies chest pain with activity, Denies dyspnea and Denies dyspnea on exertion Respiratory Reports as per HPI, Denies chest congestion, Denies cough, Denies pain on inspiration, Denies pain with cough, Denies dyspnea, Denies dyspnea on exertion and Denies wheezing Gastrointestinal Reports as per HPI, Denies abdominal pain, Denies diarrhea, Reports nausea and Denies vomiting Musculoskeletal Reports as per HPI and Denies back pain Integumentary/Breasts Reports as per HPI and Denies rash Neurologic Reports as per HPI, Denies dizziness and Reports headache(s) Allergic/Immunologic Denies wheezing [facility] Medical History Acute deep vein thrombosis (DVT) of brachial vein of right upper extremity (Acute) PETERSON (obstructive sleep apnea) (Chronic) Chronic pain (Chronic) Ereylrg-Eqzey-Dmxmi disease (Chronic) Family history of colon cancer (Chronic) Constipation (Chronic) Pancreatic mass (Chronic ~01/2017) Chronic obstructive lung disease (Chronic) Benign hypertension (Chronic) Tobacco dependence syndrome (Chronic) Hyperlipidemia (Chronic) Chronic anxiety (Chronic) Multiple sclerosis (Chronic) Omogjti-Mnzjh-Vcldy disease (Chronic) Sleep apnea (Chronic) Migraine (Chronic) Allergic rhinitis (Chronic) Depressive disorder (Chronic) Polysubstance abuse (Chronic) Multinodular thyroid (Chronic) Colon polyps (Chronic) History of suicide attempt (Chronic) Tobacco use disorder (Chronic 04/15/14) Hepatitis C antibody test positive (Chronic) Tobacco use (Acute) Allergic rhinitis (Chronic) Anxiety (Chronic) COPD (chronic obstructive pulmonary disease) (Chronic) 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) Depression (Chronic) Edema (Chronic) Goiter diffuse (Chronic) HTN (hypertension) (Chronic) Hepatitis C (Chronic) Hypercholesterolemia (Chronic) Left knee pain (Chronic) Lumbar back pain (Chronic) Migraine headache (Chronic) Multiple sclerosis (Chronic) PETERSON (obstructive sleep apnea) (Chronic) Opioid dependence (Chronic) Cocaine abuse (Resolved) Surgical History History of Surgical Procedure (Chronic) H/O section (Inactive) S/P cholecystectomy (Inactive) Status post shoulder surgery (Inactive) Social History Smoking/Tobacco Use Status: Former Tobacco Use Quit Date: 08/13/18 Alcohol Intake: never Drug use: Never Substance use type: former substance user Do you feel safe at home: Yes Do you feel safe in your relationship?: Yes Additional Social history: Currently lives with her daughter, possible active drug use in the home Has been recently per clinic notes Exam Const General: cooperative, healthy appearing, comfortable, no acute distress and well developed Nutritional Appearance: well nourished and overweight Orientation: alert, awake and oriented x3 HENMT Head: normal to inspection, no palpable skull fracture, normocephalic and atraumatic Ears: hearing grossly normal bilaterally, external ears normal and TM's normal bilaterally General nose exam: external nose normal Face and sinus: normal facial exam and sinuses nontender Mouth: mucous membranes dry (patient appears dry) Neck Neck: normal visual inspection, full ROM, no meningeal signs, trachea midline and supple Chest Chest: normal inspection of the chest, normal palpation of entire chest wall and no crepitus Resp Effort & Inspection: normal respiratory effort, able to speak in complete sentences and no respiratory distress Auscultation: clear to auscultation bilaterally, no rales, no rhonchi and no wheezes Cardio Rate: regular rate Rhythm: regular rhythm Heart Sounds: S1 normal and S2 normal GI Inspection: no edema, non-distended and obesity Palpation: soft, no hepatosplenomegaly, not firm, no guarding, not rigid and nontender Auscultation: normal bowel sounds Back/Spine/Pelvis Back: no CVA tenderness Thoracic/Lumbar Spine: thoracic and lumbar spine normal to inspection Skin General skin exam: no rashes or lesions noted Trauma: no lacerations or abrasions Neuro General: alert, awake and oriented x3 Cranial Nerves: CN's II-XI intact bilaterally Cognition: normal cognition Speech: speech normal Gait: gait abnormal (came in via wheelchair) Motor: muscle tone normal throughout, strength 5/5 throughout, no pronator drift, no movement abnormalities noted and no fasciculations Extrem General: normal to inspection, normal capillary refill, no pedal edema, no calf tenderness and normal gait Psych Appearance: grossly normal and well kempt Mental Status: mental status grossly normal Speech and Movement: speech and movement normal
--- NOTE | 2018-09-09 16:31 | DI.RAD_ITS ---
SYMPTOMS/DIAGNOSIS: FEVER, HEADACHE, HYPOXIC AP AND LATERAL CHEST: Comparison is made with [id number]. The heart size is within normal limits. There are underlying fibrotic changes. There is mild motion on the lateral view. There is a question of increased vascular prominence and increased markings at the lung bases which could represent mild pulmonary edema. No definite effusions are seen. IMPRESSION: Question of mild pulmonary edema.
--- NOTE | 2018-09-09 16:31 | DI.CT_ITS ---
SYMPTOMS/DIAGNOSIS: HEADACHE NONCONTRAST HEAD CT: Comparison is made with [id number]. No intracranial hemorrhage, mass or infarct is seen. The orbits, sinuses and mastoid air cells are unremarkable as visualized. IMPRESSION: Negative head CT.
--- NOTE | 2018-09-09 16:43 | ED.GENADUL_ITS ---
Discharge Plan Disposition Patient Disposition: [facility] INPATIENT Condition: Stable Discharge Details Chief Complaint: Headache Clinical Impression: Pulmonary embolism, Headache Admit Date/Time: 09/09/18 20:02 Admit Provider: Yariel Rodarte Attending Provider: Yariel Rodarte Primary Care Provider: Valerie Jiang ED Provider: Lisa Farah Discharge Instructions Activity:: No Strenuous Activity Equipment/Supplies:: No Equipment Needed Diet:: As Tolerated Discharge Orders Discharge Orders: Discharge Order (Routine); Ordered 09/11/18 Ordered By: Dylan Stephens Discharge Data Discharge Date/Time-TO BE ENTERED AT DEPARTURE: 09/09/18 20:43 Medical Decision Making Patient is 63-year-old female presenting today with chief complaint of headache. Patient does have history of migraines and reports that this was similar but much worse than migraine. Patient was here yesterday and treated with Compazine and Toradol with good resolution of her symptoms. However, she reports she came back again last night after being discharged home. The patient initially been denying any illness, she is noted to have a fever 38.2 ?C. Tachycardic at 103. Patient is hypoxic at 78. Patient has history of hypoxia associated with COPD and does use chronic home O2. Patient is typically on 2 L, she responded well to going up to 3 L. She denies feeling short of breath. She denies any chest pain. States that she is had occasional nausea but no vomiting and abdominal pain. Denies any visual changes. On exam, patient appears uncomfortable. Findings consistent with photophobia. Neuro exam is intact. Patient does appear tachypneic diminished lung sounds with again, patient reports that this shortness of breath is chronic and unchanged. Patient was recently admitted for RUE DVT, reports she has been taking her anticoagulant as prescribed. Plan to obtain CT of head, laboratory evaluation. Delay in labs secondary to difficulty obtaining IV access. CO2 42, gap 0.6. Troponin <0.02. With patient on 2L, using ear probe, O2 is noted to be in low 90s. FINDINGS: Lungs: Increased interstitial lung markings suggesting edema, infection or fibrotic changes. Pleural space: Unremarkable. No pleural effusion. No pneumothorax. Heart/Mediastinum: Unremarkable. No cardiomegaly. Vasculature: Mild atherosclerosis. Bones/joints: Scoliosis and degenerative disc disease. Right rotator cuff anchor. IMPRESSION: Increased interstitial lung markings suggesting edema, infection or fibrotic changes. Slightly increased. FINDINGS: Brain: Normal. No hemorrhage. No significant white matter disease. No edema. Ventricles: Normal. No ventriculomegaly. Bones/joints: Unremarkable. No acute fracture. Sinuses: Visualized sinuses are unremarkable. No acute sinusitis. Mastoid air cells: Visualized mastoid air cells are unremarkable. No mastoid effusion. Soft tissues: Unremarkable. IMPRESSION: No acute intracranial abnormality. Consulted with radiolgist, discussed findings of the new PE and infiltrate. These have been compared to old CT imaging was deemed that the pulmonary emboli a new finding. Patient already started on Cefepime and Vanco. Will consult with hospitalist. Spoke with Dr. Rodarte regarding admission. He agrees to admission to med surg floor. We discussed anticoagulation. He advised Lovenox SC instead of IV heparin. Patient last took her apixaban at 0700, will give 1mg/kg dose of Lovenox at this time. HPI General Mode of arrival: wheelchair . Date/Time Provider Initiated Documentation: 09/09/18 16:03 . Limitations to Documentation: no limitations . Information obtained by: patient and RN notes reviewed . HPI Narrative: Patient is a 63 year old female with history of anxiety, COPD, depression, HTN, hyperlipidemia, hepatitis C, migraines, DVT, MS, PETERSON, sleep apnea, muscular d ystrophy, opiate addiction, presenting for RUFFIN. Patient currently anticoagulated with apixaban. Was seen here yesterday and treated with Toradol and Compazine with good relief. Returns today with recurrent symptoms. She denies trauma. Denies illness. Chronically O2 in the high 80s- low 90s per patient reprot, she is typically on 2L NC at home. Denies feeling SOB at this time. No CP. States that RUFFIN came back last night, rates at 10/10 and states that pain has been constant since onset. Attempted treatment with sumatriptan wihout improvement in her pain. Reports that she has had occassional nausea but no vomiting. No neck pain, no fevers/chills. States this is worse than her typical migraines. Related Data Home Medications Medication Instructions Recorded Confirmed Spiriva with HandiHaler 1 cap INHALATION DAILY 12/25/12 09/09/18 Symbicort 2 puff INHALATION BID 08/25/14 09/09/18 montelukast [Singulair] 10 mg PO DAILY 08/17/16 09/09/18 escitalopram oxalate [Lexapro] 20 mg PO DAILY 09/08/16 09/09/18 albuterol sulfate 2.5 mg INHALATION Q4H PRN 01/23/18 09/09/18 atorvastatin 40 mg PO HS 05/04/18 09/09/18 furosemide 20 mg tablet 40 mg PO DAILY tab 06/18/18 09/09/18 mirtazapine 30 mg tablet 30 mg PO HS 06/18/18 09/09/18 amlodipine 5 mg PO DAILY 07/26/18 09/09/18 buprenorphine-naloxone [Suboxone] 1 film SUBLINGUAL DAILY 07/26/18 09/09/18 losartan 100 mg PO DAILY 07/26/18 09/09/18 sumatriptan succinate 50 mg PO DIRECTED 07/26/18 09/09/18 Nicotrol 10 mg INHALATION Q2H PRN PRN #30 ea 07/28/18 09/09/18 ibuprofen 800 mg PO TID PRN #30 tab 07/28/18 09/09/18 prochlorperazine maleate 5 mg PO Q8H PRN PRN #10 tab 07/28/18 09/09/18 [Compazine] melatonin 6 mg PO HS PRN 08/18/18 09/09/18 gabapentin [Neurontin] 600 mg PO TID #42 tab 08/23/18 09/09/18 omeprazole 40 mg PO DAILY #30 cap 08/23/18 09/09/18 fondaparinux 7.5 mg SC DAILY #6 ml 09/11/18 prednisone 10 mg PO DAILY #45 tab 09/11/18 Previous Rx's Medication Instructions Recorded Nicotrol 10 mg INHALATION Q2H PRN PRN #30 ea 07/28/18 ibuprofen 800 mg PO TID PRN #30 tab 07/28/18 prochlorperazine maleate 5 mg PO Q8H PRN PRN #10 tab 07/28/18 [Compazine] gabapentin [Neurontin] 600 mg PO TID #42 tab 08/23/18 omeprazole 40 mg PO DAILY #30 cap 08/23/18 fondaparinux 7.5 mg SC DAILY #6 ml 09/11/18 prednisone 10 mg PO DAILY #45 tab 09/11/18 Allergies Allergy/AdvReac Type Severity Reaction Status Date / Time No Known Allergies Allergy Unverified 09/09/18 16:22 General NEGRITA: 3 Review of Systems Constitutional Reports as per HPI, Denies chills, Denies fever(s), Reports headache(s), Denies lethargy and Denies poor appetite Eyes Denies change in vision ENT Denies dizziness and Reports headache(s) Cardiovascular Reports as per HPI, Denies chest pain, Denies chest pain with activity, Denies dyspnea and Denies dyspnea on exertion Respiratory Reports as per HPI, Denies chest congestion, Denies cough, Denies pain on inspiration, Denies pain with cough, Denies dyspnea, Denies dyspnea on exertion and Denies wheezing Gastrointestinal Reports as per HPI, Denies abdominal pain, Denies diarrhea, Reports nausea and Denies vomiting Musculoskeletal Reports as per HPI and Denies back pain Integumentary/Breasts Reports as per HPI and Denies rash Neurologic Reports as per HPI, Denies dizziness and Reports headache(s) Allergic/Immunologic Denies wheezing [facility] Medical History Acute deep vein thrombosis (DVT) of brachial vein of right upper extremity (Acute) PETERSON (obstructive sleep apnea) (Chronic) Chronic pain (Chronic) Ssoxiuf-Atutn-Nnhvt disease (Chronic) Family history of colon cancer (Chronic) Constipation (Chronic) Pancreatic mass (Chronic ~01/2017) Chronic obstructive lung disease (Chronic) Benign hypertension (Chronic) Tobacco dependence syndrome (Chronic) Hyperlipidemia (Chronic) Chronic anxiety (Chronic) Multiple sclerosis (Chronic) Kmgzzmk-Xcgok-Jxxme disease (Chronic) Sleep apnea (Chronic) Migraine (Chronic) Allergic rhinitis (Chronic) Depressive disorder (Chronic) Polysubstance abuse (Chronic) Multinodular thyroid (Chronic) Colon polyps (Chronic) History of suicide attempt (Chronic) Tobacco use disorder (Chronic 04/15/14) Hepatitis C antibody test positive (Chronic) Tobacco use (Acute) Allergic rhinitis (Chronic) Anxiety (Chronic) COPD (chronic obstructive pulmonary disease) (Chronic) 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) Depression (Chronic) Edema (Chronic) Goiter diffuse (Chronic) HTN (hypertension) (Chronic) Hepatitis C (Chronic) Hypercholesterolemia (Chronic) Left knee pain (Chronic) Lumbar back pain (Chronic) Migraine headache (Chronic) Multiple sclerosis (Chronic) PETERSON (obstructive sleep apnea) (Chronic) Opioid dependence (Chronic) Cocaine abuse (Resolved) Surgical History History of Surgical Procedure (Chronic) H/O section (Inactive) S/P cholecystectomy (Inactive) Status post shoulder surgery (Inactive) Social History Smoking/Tobacco Use Status: Former Tobacco Use Quit Date: 08/13/18 Alcohol Intake: never Drug use: Never Substance use type: former substance user Do you feel safe at home: Yes Do you feel safe in your relationship?: Yes Additional Social history: Currently lives with her daughter, possible active drug use in the home Has been recently per clinic notes Exam Const General: cooperative, healthy appearing, comfortable, no acute distress and well developed Nutritional Appearance: well nourished and overweight Orientation: alert, awake and oriented x3 HENMT Head: normal to inspection, no palpable skull fracture, normocephalic and atraumatic Ears: hearing grossly normal bilaterally, external ears normal and TM's normal bilaterally General nose exam: external nose normal Face and sinus: normal facial exam and sinuses nontender Mouth: mucous membranes dry (patient appears dry) Neck Neck: normal visual inspection, full ROM, no meningeal signs, trachea midline and supple Chest Chest: normal inspection of the chest, normal palpation of entire chest wall and no crepitus Resp Effort & Inspection: normal respiratory effort, able to speak in complete sentences and no respiratory distress Auscultation: clear to auscultation bilaterally, no rales, no rhonchi and no wheezes Cardio Rate: regular rate Rhythm: regular rhythm Heart Sounds: S1 normal and S2 normal GI Inspection: no edema, non-distended and obesity Palpation: soft, no hepatosplenomegaly, not firm, no guarding, not rigid and nontender Auscultation: normal bowel sounds Back/Spine/Pelvis Back: no CVA tenderness Thoracic/Lumbar Spine: thoracic and lumbar spine normal to inspection Skin General skin exam: no rashes or lesions noted Trauma: no lacerations or abrasions Neuro General: alert, awake and oriented x3 Cranial Nerves: CN's II-XI intact bilaterally Cognition: normal cognition Speech: speech normal Gait: gait abnormal (came in via wheelchair) Motor: muscle tone normal throughout, strength 5/5 throughout, no pronator drift, no movement abnormalities noted and no fasciculations Extrem General: normal to inspection, normal capillary refill, no pedal edema, no calf tenderness and normal gait Psych Appearance: grossly normal and well kempt Mental Status: mental status grossly normal Speech and Movement: speech and movement normal
[2018-09-09 17:24] LABS: HCO3 (Venous) 46 mmol/L (22-28); O2 Sat (Venous) 45 % (70-80); TCO2 (Venous) 44 mmol/L (22-29); pCO2 (Venous) 88 mm/Hg (34-47); pH (Venous) 7.32 (7.32-7.43); pO2 (Venous) 25 mm/Hg (28-44)
[2018-09-09 17:25] LABS: Lactate-non-spesis 2.6 mmol/l (0.6-1.4)
[2018-09-09 17:39] LABS: Abs Immature Grans 0.09 k/cumm (0.0-0.09); Absolute Basophil Count 0.02 k/cumm (0.0-0.2); Absolute Eosinophil Count 0.01 k/cumm (0.0-0.7); Absolute Lymphocyte Count 1.38 k/cumm (1.2-3.4); Absolute Monocyte Count 0.81 k/cumm (0.11-0.7); Basophils % 0.2; Eosinophils % 0.1; HCT 34.6 % (36.0-46.0); HGB 10.1 g/dL (12.0-15.5); Immature Grans % 0.8; Lymphocytes % 12.6; Mean Corp. HGB Concentration 29.2 g/dL (32.0-36.0); Mean Corpuscular Hemoglobin 25.4 pg (27.0-33.0); Mean Corpuscular Volume 86.9 fL (80-95); Mean Platelet Volume 10.9 fL (8.0-11.0); Monocytes % 7.4; Neutrophils % 78.9; Platelet Count 185 x1000/uL (130-400); RBC 3.98 m/cumm (4.00-5.20); RBC Distribution Width 16.5 % (11.7-14.6); White Blood Cell Count 10.92 k/cumm (4.4-10.8)
[2018-09-09] MEDS: Normal Saline 1,000 ML 150 ML IV (17:39)
[2018-09-09] MEDS: diphenhydrAMINE 50 MG/ML VIAL 25 MG IVP (17:39)
[2018-09-09] MEDS: Prochlorperazine 10 MG/2 ML VIAL IVP (17:39)
--- NOTE | 2018-09-09 17:39 | DI.VRAD_ITS ---
EXAM: XR Chest, 2 Views EXAM DATE/TIME: 09/09/2018 4:34 PM CLINICAL HISTORY: 63 years old, female; Signs and symptoms; Other: Headache TECHNIQUE: Imaging protocol: XR of the chest, 2 views. COMPARISON: CR XR CHEST 2V PA LATERAL 08/18/2018 1:03 AM FINDINGS: Lungs: Increased interstitial lung markings suggesting edema, infection or fibrotic changes. Pleural space: Unremarkable. No pleural effusion. No pneumothorax. Heart/Mediastinum: Unremarkable. No cardiomegaly. Vasculature: Mild atherosclerosis. Bones/joints: Scoliosis and degenerative disc disease. Right rotator cuff anchor. IMPRESSION: Increased interstitial lung markings suggesting edema, infection or fibrotic changes. Slightly increased. Dictated and Authenticated by: Ke Galdamez MD. Ordering:ZACHARY Gonzalez MD
[2018-09-09 17:40] LABS: Absolute Neutrophil Count 8.62 k/cumm (1.2-6.7)
[2018-09-09] MEDS: Normal Saline Flush 10 ML SYR IVP ×2 (17:40→19:26)
--- NOTE | 2018-09-09 17:40 | DI.VRAD_ITS ---
EXAM: CT Head Without Contrast EXAM DATE/TIME: 09/09/2018 4:34 PM CLINICAL HISTORY: 63 years old, female; Signs and symptoms; Other: Headache TECHNIQUE: Imaging protocol: Axial computed tomography images of the head/brain without contrast. Coronal and sagittal reformatted images were created and reviewed. Radiation optimization: All CT scans at this facility use at least one of these dose optimization techniques: automated exposure control; mA and/or kV adjustment per patient size (includes targeted exams where dose is matched to clinical indication); or iterative reconstruction. COMPARISON: CT HEAD WO 08/18/2018 12:48 AM FINDINGS: Brain: Normal. No hemorrhage. No significant white matter disease. No edema. Ventricles: Normal. No ventriculomegaly. Bones/joints: Unremarkable. No acute fracture. Sinuses: Visualized sinuses are unremarkable. No acute sinusitis. Mastoid air cells: Visualized mastoid air cells are unremarkable. No mastoid effusion. Soft tissues: Unremarkable. IMPRESSION: No acute intracranial abnormality. Dictated and Authenticated by: Ke Galdamez MD. Ordering:ZACHARY Gonzalez MD
[2018-09-09 17:44] LABS: Magnesium 1.7 mg/dL (1.8-2.4)
[2018-09-09 17:47] LABS: ALT 95 U/L (12-78); AST 37 U/L (15-37); Alkaline Phosphatase 94 U/L (46-116); Anion Gap 0.6 mmol/L (3-11); BUN 10 mg/dL (7-18); Bilirubin, Total 0.4 mg/dL (0.2-1.0); CO2 42.4 mmol/L (21.0-32.0); CREATININE 0.54 mg/dL (0.55-1.02); Calcium 8.5 mg/dL (8.5-10.1); Chloride 99 mmol/L (98-107); Glucose 148 mg/dL (70-100); Potassium 4.6 mmol/L (3.5-5.1); Sodium 142 mmol/L (136-145); Total Protein 6.9 g/dL (6.4-8.2)
[2018-09-09 17:51] LABS: Troponin I < 0.02 ng/mL (0.00-0.06)
[2018-09-09 17:52] LABS: Lipase 50 U/L (73-393)
[2018-09-09 17:53] LABS: INR 0.9 (0.9-1.1); PTT Activated 20.3 sec (21.0-31.4); Prothrombin Time 9.2 sec (9.3-11.0)
[2018-09-09 17:57] LABS: Bilirubin Negative (Negative); Blood Trace-intact (Negative); Clarity Clear; Glucose Negative (Negative); Ketones Negative (Negative); Leukocyte Esterase Negative (Negative); Nitrite Negative (Negative); Specific Gravity 1.015 (1.005-1.025); pH 7.5 (5-8)
[2018-09-09 18:08] LABS: WBC 0-2 HPF (0-5)
[2018-09-09 18:09] LABS: Bacteria Negative HPF (Negative); C & S Indicated? No; Casts Negative LPF (Negative); Crystals Negative HPF (Negative); Epithelial Cells Few HPF (Negative); Mucus Negative (Negative); Other Cells Negative (Negative); RBC Negative (0-2)
--- NOTE | 2018-09-09 18:30 | DI.CT_ITS ---
SYMPTOM/DIAGNOSIS: HYPOXIC, FEBRILE, TACHYCARDIC PE CHEST CT: CT angiography was performed with multi slice acquisition and multi planar and 3D reconstruction. The exam is somewhat limited by patient respiratory motion. There are filling defects seen in the lower lobe branches to the right lower lobe. There is also question of filling defects in the left lower lobe. There are increased densities at the posterior lung bases which could represent atelectasis versus pulmonary infarct. The lungs are not well evaluated due to respiratory motion. Underlying emphysematous changes are present. There is motion at the aortic root. There is no evidence of dissection. There is am aberrant right subclavian artery. No pleural or pericardial effusions are seen. The heart size is within normal limits. There is no evidence of adenopathy. No spine or rib fracture is seen. Bilateral thyroid nodules are identified. IMPRESSION: Exam is limited by respiratory motion. Emboli are demonstrated to both lower lobes. There is a question of a pulmonary infarct versus atelectasis posteriorly. ABDOMEN AND PELVIC CT: The exam was performed during the arterial phase. There is no evidence of aneurysm, stenosis or dissection of the aorta. The celiac, superior mesenteric and renal arteries as well as iliac arteries also appear intact without evidence of occlusion or significant stenosis. There is some respiratory motion on the exam. The liver, spleen, pancreas, kidneys and adrenals are grossly normal. The patient is status post cholecystectomy. No biliary dilatation is seen. The uterus, ovaries and bladder are unremarkable. There is no bowel dilatation or inflammatory change. There are degenerative changes in the spine. IMPRESSION: The exam is limited by patient motion. No acute abnormality is identified.
[2018-09-09] MEDS: Omnipaque 350 MG/ML 100 ML BTL IJ (18:32)
[2018-09-09] MEDS: ACETAMINOPHEN 1,000 MG/100 ML BTL 400 MG IVPB (18:39)
--- NOTE | 2018-09-09 18:47 | DI.VRAD_ITS ---
EXAM: CT Angiography Chest With Contrast EXAM DATE/TIME: 09/09/2018 6:19 PM CLINICAL HISTORY: 63 years old, female; Signs and symptoms; Fever and tachypnea and other: Hypoxic; Patient HX: Hypoxic, febrile, tachycardic; Additional info: PT unable to hold breath TECHNIQUE: Imaging protocol: Axial computed tomographic angiography images of the chest with intravenous contrast using CT angiography protocol. Coronal and sagittal reformatted images were created and reviewed. 3D rendering: MIP reconstructed images were created and reviewed. Radiation optimization: All CT scans at this facility use at least one of these dose optimization techniques: automated exposure control; mA and/or kV adjustment per patient size (includes targeted exams where dose is matched to clinical indication); or iterative reconstruction. Contrast material: OMNI 350; Contrast volume: 100 ml; Contrast route: IV; COMPARISON: CT CHEST PE CTA 08/18/2018 11:50 AM FINDINGS: Pulmonary arteries: Small pulmonary emboli to the lobes bilaterally. Aorta: Normal. No aortic aneurysm. No aortic dissection. Great vessels off aortic arch: Aberrant right subclavian artery. Thyroid: 2 cm right thyroid nodule. Other bilateral small nodules in the thyroid gland. Lungs: Atelectasis versus infiltrate versus infarcts at the pulmonary bases posterior segments. Pleural space: Normal. No pneumothorax. No pleural effusion. Heart: Normal. No cardiomegaly. No pericardial effusion. Lymph nodes: Unremarkable. No enlarged lymph nodes. Bones/joints: Unremarkable. No acute fracture. Soft tissues: Unremarkable. IMPRESSION: 1. Small pulmonary emboli to the lobes bilaterally. No Right heart strain. 2. Atelectasis versus infiltrate versus infarcts at the pulmonary bases posterior segments. 3. Bilateral nodules in the thyroid gland. Consider ultrasound. 4. THIS REPORT CONTAINS FINDINGS THAT MAY BE CRITICAL TO PATIENT CARE. The findings were verbally communicated via telephone conference with RICARDO MCKINNEY at 6:47 PM EDT on 09/09/2018. The findings were acknowledged and understood. EXAM: CT Angiography Abdomen With Contrast EXAM DATE/TIME: 09/09/2018 6:19 PM CLINICAL HISTORY: 63 years old, female; Signs and symptoms; Fever and tachypnea and other: Hypoxic; Patient HX: Hypoxic, febrile, tachycardic; Additional info: PT unable to hold breath TECHNIQUE: Imaging protocol: Axial computed tomographic angiography images of the abdomen with intravenous contrast material. Coronal and sagittal reformatted images were created and reviewed. 3D rendering: MIP reconstructed images were created and reviewed. Radiation optimization: All CT scans at this facility use at least one of these dose optimization techniques: automated exposure control; mA and/or kV adjustment per patient size (includes targeted exams where dose is matched to clinical indication); or iterative reconstruction. Contrast material: OMNI 350; Contrast volume: 100 ml; Contrast route: IV; COMPARISON: CT CHEST PE CTA 08/18/2018 11:50 AM FINDINGS: Lungs: Unremarkable. No consolidation. VASCULATURE: Aorta: Atherosclerosis in the aorta causing no significant stenosis. Celiac trunk and mesenteric arteries: No occlusion or significant stenosis. Renal arteries: No occlusion or significant stenosis. ABDOMEN: Liver: Normal. No mass. Gallbladder and bile ducts: Cholecystectomy. Pancreas: Normal. No ductal dilation. Spleen: Normal. No splenomegaly. Adrenals: Normal. No mass. Kidneys and ureters: Small subcentimeter cysts in the kidneys.. No hydronephrosis. Stomach and bowel: Unremarkable. No obstruction. No mucosal thickening. Unable to identify the appendix. Intraperitoneal space: Unremarkable. No free air. No significant fluid collection. Bones/joints: Degenerative changes in the spine. Soft tissues: Unremarkable. Lymph nodes: Unremarkable. No enlarged lymph nodes. IMPRESSION: No hemodynamically significant stenosis in the vessels of the abdomen and pelvis. Dictated and Authenticated by: Ke Galdamez MD. Ordering:ZACHARY Gonzalez MD
[2018-09-09] MEDS: VANCOMYCIN 1,000 MG in Normal Saline 250 ML 166.6666 MG IVPB (19:09)
[2018-09-09] MEDS: CEFEPIME 2 GM in Normal Saline 100 ML IVPB (19:10)
--- NOTE | 2018-09-09 19:24 | ED.GENADUL_ITS ---
Discharge Plan Discharge Details Chief Complaint: Headache Admit Date/Time: 09/09/18 20:02 Admit Provider: Yariel Rodarte Attending Provider: Yariel Rodarte Primary Care Provider: Valerie Jiang ED Provider: Lisa Faarh Discharge Data Discharge Date/Time-TO BE ENTERED AT DEPARTURE: 09/09/18 20:43 Medical Decision Making ECG Data Attestation: I personally reviewed and interpreted this ECG (s) as follows: (Sinus tachycardia rate of 109 normal axis normal intervals nonspecific T wave changes no STEMI) HPI General Mode of arrival: wheelchair . Date/Time Provider Initiated Documentation: 09/09/18 16:03 . Limitations to Documentation: no limitations . Information obtained by: patient and RN notes reviewed . Related Data Home Medications Medication Instructions Recorded Confirmed Spiriva with HandiHaler 1 cap INHALATION DAILY 12/25/12 09/09/18 Symbicort 2 puff INHALATION BID 08/25/14 09/09/18 montelukast [Singulair] 10 mg PO DAILY 08/17/16 09/09/18 escitalopram oxalate [Lexapro] 20 mg PO DAILY 09/08/16 09/09/18 albuterol sulfate 2.5 mg INHALATION Q4H PRN 01/23/18 09/09/18 atorvastatin 40 mg PO HS 05/04/18 09/09/18 furosemide 20 mg tablet 40 mg PO DAILY tab 06/18/18 09/09/18 mirtazapine 30 mg tablet 30 mg PO HS 06/18/18 09/09/18 amlodipine 5 mg PO DAILY 07/26/18 09/09/18 buprenorphine-naloxone [Suboxone] 1 film SUBLINGUAL DAILY 07/26/18 09/09/18 losartan 100 mg PO DAILY 07/26/18 09/09/18 sumatriptan succinate 50 mg PO DIRECTED 07/26/18 09/09/18 Nicotrol 10 mg INHALATION Q2H PRN PRN #30 ea 07/28/18 09/09/18 ibuprofen 800 mg PO TID PRN #30 tab 07/28/18 09/09/18 prochlorperazine maleate 5 mg PO Q8H PRN PRN #10 tab 07/28/18 09/09/18 [Compazine] melatonin 6 mg PO HS PRN 04/20/19 05/12/19 apixaban 5 mg PO BID #60 tab 08/23/18 09/09/18 gabapentin [Neurontin] 600 mg PO TID #42 tab 08/23/18 09/09/18 omeprazole 40 mg PO DAILY #30 cap 08/23/18 09/09/18 Previous Rx's Medication Instructions Recorded Nicotrol 10 mg INHALATION Q2H PRN PRN #30 ea 07/28/18 ibuprofen 800 mg PO TID PRN #30 tab 07/28/18 prochlorperazine maleate 5 mg PO Q8H PRN PRN #10 tab 07/28/18 [Compazine] apixaban 5 mg PO BID #60 tab 08/23/18 gabapentin [Neurontin] 600 mg PO TID #42 tab 08/23/18 omeprazole 40 mg PO DAILY #30 cap 08/23/18 Allergies Allergy/AdvReac Type Severity Reaction Status Date / Time No Known Allergies Allergy Unverified 09/09/18 16:22 General Stated Complaint: Headache NEGRITA: 3 PFSH Medical History Acute deep vein thrombosis (DVT) of brachial vein of right upper extremity (Acute) PETERSON (obstructive sleep apnea) (Chronic) Chronic pain (Chronic) Ejtbhhj-Pywax-Ebqkn disease (Chronic) Family history of colon cancer (Chronic) Constipation (Chronic) Pancreatic mass (Chronic ~01/2017) Chronic obstructive lung disease (Chronic) Benign hypertension (Chronic) Tobacco dependence syndrome (Chronic) Hyperlipidemia (Chronic) Chronic anxiety (Chronic) Multiple sclerosis (Chronic) Sgmuepq-Qxyjh-Fozhw disease (Chronic) Sleep apnea (Chronic) Migraine (Chronic) Allergic rhinitis (Chronic) Depressive disorder (Chronic) Polysubstance abuse (Chronic) Multinodular thyroid (Chronic) Colon polyps (Chronic) History of suicide attempt (Chronic) Tobacco use disorder (Chronic 04/15/14) Hepatitis C antibody test positive (Chronic) Tobacco use (Acute) Allergic rhinitis (Chronic) Anxiety (Chronic) COPD (chronic obstructive pulmonary disease) (Chronic) 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) Depression (Chronic) Edema (Chronic) Goiter diffuse (Chronic) HTN (hypertension) (Chronic) Hepatitis C (Chronic) Hypercholesterolemia (Chronic) Left knee pain (Chronic) Lumbar back pain (Chronic) Migraine headache (Chronic) Multiple sclerosis (Chronic) PETERSON (obstructive sleep apnea) (Chronic) Opioid dependence (Chronic) Cocaine abuse (Resolved) Surgical History History of Surgical Procedure (Chronic) H/O section (Inactive) S/P cholecystectomy (Inactive) Status post shoulder surgery (Inactive) Social History Smoking/Tobacco Use Status: Former Tobacco Use Quit Date: 08/13/18 Alcohol Intake: never Drug use: Never Substance use type: former substance user Do you feel safe at home: Yes Do you feel safe in your relationship?: Yes Additional Social history: Currently lives with her daughter, possible active drug use in the home Has been recently per clinic notes Course Vital Signs Respiratory Rate 21 09/09/18 16:03 Pulse Oximetry 78 L 09/09/18 16:03 Temperature 36.7 C 09/09/18 19:11 Temperature Source Temporal Artery Scan 09/09/18 16:17 Pulse 108 H 09/09/18 19:11 Pulse 108 H 09/09/18 18:40 Respiratory Rate 15 09/09/18 19:11 Respiratory Effort Incrsd Work of Breathing 09/09/18 16:19 Blood Pressure 138/69 09/09/18 19:11 Blood Pressure Mean 80 09/09/18 16:04 Blood Pressure Position Supine 09/09/18 16:17 Pulse Oximetry 94 L 09/09/18 19:11 Oxygen Delivery Method Nasal Cannula 09/09/18 16:17 Oxygen Flow Rate 3 09/09/18 16:17 Pain Level 6 09/09/18 19:11 Lab/Test Results Lab/Test Results: 09/09/18 18:05 Blood Blood Culture - Pending 09/09/18 17:00 Blood Blood Culture - Pending Laboratory Tests Range/Units 09/09/18 09/09/18 09/09/18 17:00 17:00 17:00 WBC (4.4-10.8) k/cumm 10.92 H RBC (4.00-5.20) m/cumm 3.98 L Hgb (12.0-15.5) g/dL 10.1 L Hct (36.0-46.0) % 34.6 L MCV (80-95) fL 86.9 MCH (27.0-33.0) pg 25.4 L MCHC (32.0-36.0) g/dL 29.2 L RDW (11.7-14.6) % 16.5 H Plt Count (130-400) x1000/uL 185 MPV (8.0-11.0) fL 10.9 Immature Gran % 0.8 Neutrophils % 78.9 Lymphocytes % 12.6 Monocytes % 7.4 Eosinophils % 0.1 Basophils % 0.2 Absolute Neutrophils (1.2-6.7) k/cumm 8.62 H Absolute Lymphocytes (1.2-3.4) k/cumm 1.38 Absolute Monocytes (0.11-0.7) k/cumm 0.81 H Absolute Eosinophils (0.0-0.7) k/cumm 0.01 Absolute Basophils (0.0-0.2) k/cumm 0.02 PT (9.3-11.0) sec 9.2 L INR (0.9-1.1) 0.9 APTT (21.0-31.4) sec 20.3 L VBG pH (7.32-7.43) VBG pCO2 (34-47) mm/Hg VBG pO2 (28-44) mm/Hg VBG HCO3 (22-28) mmol/L VBG Total CO2 (22-29) mmol/L VBG O2 Saturation (70-80) % VBG Base Excess (-3-3) mmol/L Sodium (136-145) mmol/L 142 Potassium (3.5-5.1) mmol/L 4.6 Chloride (98-107) mmol/L 99 Carbon Dioxide (21.0-32.0) mmol/L 42.4 H Anion Gap (3-11) mmol/L 0.6 L BUN (7-18) mg/dL 10 Creatinine (0.55-1.02) mg/dL 0.54 L Estimated GFR/1.73 m2 (mL/min/1.73m2) >= 60.00 Glucose (70-100) mg/dL 148 H Lactate (0.6-1.4) mmol/l Calcium (8.5-10.1) mg/dL 8.5 Magnesium (1.8-2.4) mg/dL Total Bilirubin (0.2-1.0) mg/dL 0.4 AST (15-37) U/L 37 ALT (12-78) U/L 95 H Alkaline Phosphatase (46-116) U/L 94 Troponin I (0.00-0.06) ng/mL < 0.02 Total Protein (6.4-8.2) g/dL 6.9 Albumin (3.4-5.0) g/dL 3.0 L Lipase (73-393) U/L Urine Color (Yellow) Urine Clarity Urine pH (5-8) Ur Specific [place] (1.005-1.025) Urine Protein (Negative) mg/dL Urine Ketones (Negative) mg/dL Urine Blood (Negative) Urine Nitrite (Negative) Urine Bilirubin (Negative) Urine Urobilinogen (Up TO 0.2) EU/dL Ur Leukocyte Esterase (Negative) Urine RBC (0-2) Urine WBC (0-5) HPF Ur Epithelial Cells (Negative) HPF Urine Crystals (Negative) HPF Urine Bacteria (Negative) HPF Urine Casts (Negative) LPF Urine Mucus (Negative) Urine Other (Negative) Ur Culture Indicated? Urine Glucose (Negative) mg/dL Range/Units 09/09/18 09/09/18 09/09/18 17:00 17:00 17:00 WBC (4.4-10.8) k/cumm RBC (4.00-5.20) m/cumm Hgb (12.0-15.5) g/dL Hct (36.0-46.0) % MCV (80-95) fL MCH (27.0-33.0) pg MCHC (32.0-36.0) g/dL RDW (11.7-14.6) % Plt Count (130-400) x1000/uL MPV (8.0-11.0) fL Immature Gran % Neutrophils % Lymphocytes % Monocytes % Eosinophils % Basophils % Absolute Neutrophils (1.2-6.7) k/cumm Absolute Lymphocytes (1.2-3.4) k/cumm Absolute Monocytes (0.11-0.7) k/cumm Absolute Eosinophils (0.0-0.7) k/cumm Absolute Basophils (0.0-0.2) k/cumm PT (9.3-11.0) sec INR (0.9-1.1) APTT (21.0-31.4) sec VBG pH (7.32-7.43) 7.32 VBG pCO2 (34-47) mm/Hg 88 H VBG pO2 (28-44) mm/Hg 25 L VBG HCO3 (22-28) mmol/L 46 H VBG Total CO2 (22-29) mmol/L 44 H VBG O2 Saturation (70-80) % 45 L VBG Base Excess (-3-3) mmol/L Sodium (136-145) mmol/L Potassium (3.5-5.1) mmol/L Chloride (98-107) mmol/L Carbon Dioxide (21.0-32.0) mmol/L Anion Gap (3-11) mmol/L BUN (7-18) mg/dL Creatinine (0.55-1.02) mg/dL Estimated GFR/1.73 m2 (mL/min/1.73m2) Glucose (70-100) mg/dL Lactate (0.6-1.4) mmol/l 2.6 H Calcium (8.5-10.1) mg/dL Magnesium (1.8-2.4) mg/dL 1.7 L Total Bilirubin (0.2-1.0) mg/dL AST (15-37) U/L ALT (12-78) U/L Alkaline Phosphatase (46-116) U/L Troponin I (0.00-0.06) ng/mL Total Protein (6.4-8.2) g/dL Albumin (3.4-5.0) g/dL Lipase (73-393) U/L Urine Color (Yellow) Urine Clarity Urine pH (5-8) Ur Specific [place] (1.005-1.025) Urine Protein (Negative) mg/dL Urine Ketones (Negative) mg/dL Urine Blood (Negative) Urine Nitrite (Negative) Urine Bilirubin (Negative) Urine Urobilinogen (Up TO 0.2) EU/dL Ur Leukocyte Esterase (Negative) Urine RBC (0-2) Urine WBC (0-5) HPF Ur Epithelial Cells (Negative) HPF Urine Crystals (Negative) HPF Urine Bacteria (Negative) HPF Urine Casts (Negative) LPF Urine Mucus (Negative) Urine Other (Negative) Ur Culture Indicated? Urine Glucose (Negative) mg/dL Range/Units 09/09/18 09/09/18 17:00 17:25 WBC (4.4-10.8) k/cumm RBC (4.00-5.20) m/cumm Hgb (12.0-15.5) g/dL Hct (36.0-46.0) % MCV (80-95) fL MCH (27.0-33.0) pg MCHC (32.0-36.0) g/dL RDW (11.7-14.6) % Plt Count (130-400) x1000/uL MPV (8.0-11.0) fL Immature Gran % Neutrophils % Lymphocytes % Monocytes % Eosinophils % Basophils % Absolute Neutrophils (1.2-6.7) k/cumm Absolute Lymphocytes (1.2-3.4) k/cumm Absolute Monocytes (0.11-0.7) k/cumm Absolute Eosinophils (0.0-0.7) k/cumm Absolute Basophils (0.0-0.2) k/cumm PT (9.3-11.0) sec INR (0.9-1.1) APTT (21.0-31.4) sec VBG pH (7.32-7.43) VBG pCO2 (34-47) mm/Hg VBG pO2 (28-44) mm/Hg VBG HCO3 (22-28) mmol/L VBG Total CO2 (22-29) mmol/L VBG O2 Saturation (70-80) % VBG Base Excess (-3-3) mmol/L Sodium (136-145) mmol/L Potassium (3.5-5.1) mmol/L Chloride (98-107) mmol/L Carbon Dioxide (21.0-32.0) mmol/L Anion Gap (3-11) mmol/L BUN (7-18) mg/dL Creatinine (0.55-1.02) mg/dL Estimated GFR/1.73 m2 (mL/min/1.73m2) Glucose (70-100) mg/dL Lactate (0.6-1.4) mmol/l Calcium (8.5-10.1) mg/dL Magnesium (1.8-2.4) mg/dL Total Bilirubin (0.2-1.0) mg/dL AST (15-37) U/L ALT (12-78) U/L Alkaline Phosphatase (46-116) U/L Troponin I (0.00-0.06) ng/mL Total Protein (6.4-8.2) g/dL Albumin (3.4-5.0) g/dL Lipase (73-393) U/L 50 L Urine Color (Yellow) Yellow Urine Clarity Clear Urine pH (5-8) 7.5 Ur Specific [place] (1.005-1.025) 1.015 Urine Protein (Negative) mg/dL 30 H Urine Ketones (Negative) mg/dL Negative Urine Blood (Negative) Trace-intact H Urine Nitrite (Negative) Negative Urine Bilirubin (Negative) Negative Urine Urobilinogen (Up TO 0.2) EU/dL 1.0 H Ur Leukocyte Esterase (Negative) Negative Urine RBC (0-2) Negative Urine WBC (0-5) HPF 0-2 Ur Epithelial Cells (Negative) HPF Few Urine Crystals (Negative) HPF Negative Urine Bacteria (Negative) HPF Negative Urine Casts (Negative) LPF Negative Urine Mucus (Negative) Negative Urine Other (Negative) Negative Ur Culture Indicated? No Urine Glucose (Negative) mg/dL Negative
[2018-09-09] MEDS: Enoxaparin 80 MG/0.8 ML SYR 90 MG SC (19:25)
[2018-09-09] MEDS: methylPREDNISolone SUCC 125 MG VIAL IVP (19:26)
--- NOTE | 2018-09-09 20:22 | HPE_ITS ---
Date of service: 09/09/18 Time of Service: 20:20 Assessment and Plan (1) Acute on chronic respiratory failure with hypoxia and hypercapnia: Current visit: Yes Status: Acute Multifactorial cause including underlying COPD and untreated PETERSON with superimposed bilateral pulmonary emboli and possible healthcare acquired pneumonia. Will support her with noninvasive positive pressure ventilation overnight and treat her pneumonia with broad-spectrum antibiotics including cefepime and vancomycin while obtaining blood and sputum cultures. We will treat her COPD with aerosolized bronchodilators and IV corticosteroids. We will switch her apixaban to enoxaparin to treat her bilateral pulmonary emboli and her right brachial DVT. (2) HCAP (healthcare-associated pneumonia): Current visit: Yes Status: Acute Treatment with broad-spectrum antibiotics aerosolized bronchodilators and IV corticosteroids as well as noninvasive positive pressure ventilation as outlined above. (3) COPD exacerbation: Current visit: Yes Status: Acute Treatment as outlined above. 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 (4) Pulmonary embolism: Current visit: Yes Status: Acute Apixaban has been changed to enoxaparin. Consideration may be given for transitioning to Pradaxa Qualifiers: Chronicity: acute Acute cor pulmonale presence: without acute cor pulmonale (5) Acute deep vein thrombosis (DVT) of brachial vein of right upper extremity: Current visit: Yes Status: Acute As above for treatment of PE (6) PETERSON (obstructive sleep apnea): Current visit: No Status: Chronic We will treat her with noninvasive positive pressure ventilation for tonig ht. Consideration should be given for retrying her on home BiPAP. For now I will place her gabapentin on hold. Also consideration should be given for dose reduction in her Suboxone therapy (7) Benign hypertension: Current visit: No Status: Chronic Continue home medications (8) Tobacco use disorder: Current visit: No Status: Chronic We will treat her with topical nicotine replacement (9) Depressive disorder: Current visit: No Status: Chronic Continue home medications History of Present Illness Chief Complaint: Migraine headache Narrative: 63-year-old female with history of COPD and obstructive sleep apnea not currently being treated with CPAP, right brachial DVT treated w/ Apixaban was in the emergency department yesterday with a migraine headache. Patient has a history of chronic migraine headaches as well as a history of narcotic abuse for which she is on Suboxone therapy. Patient's migraine headache developed over 3-day. With gradual throbbing frontal headache with intermittent nausea but no vomiting. She had no fevers chills or neck stiffness she was successfully treated in the emergency department with IV fluids and Compazine and Toradol. Patient returned to the emergency department with recurrent migraine headache today. This time the patient does have a low-grade fever and elevated white blood cell count but no neck tenderness or nuchal rigidity. Work-up this time in the emergency room included a CT scan of the head without contrast which showed no acute intracranial abnormality. However, the patient was found to be hypoxemic on her current presentation with an oxygen saturation of 78% on 2 L/min per nasal cannula patient underwent a CT scan of her chest but also CT angiogram of her abdomen and pelvis. CTA of the chest showed small pulmonary emboli bilaterally with no evidence for right heart strain. She was also noted to have atelectasis versus infiltrate versus pulmonary infarct at the pulmonary bases posteriorly. She also has bilateral nodules of her thyroid gland which is not a new finding. CT of the abdomen and pelvis showed no hemodynamically significant stenosis of the abdominal pelvic vessels. The patient was recently hospitalized at [facility] -08/23/2018 for acute on chronic respiratory failure due to COPD exacerbation, PETERSON and community aquired pneumonia. During that hospitalization she was found to have a right brachial DVT (incidental finding when IV was started under US guidance). She subsequently had CTA of her chest and no PE was found at the time but she was found to have pneumonia involving right upper and lower lobes. Patient was treated w/ Zosyn x 6 days and discharged home on one additional day of Augmentin and sent home on prednisone taper. During her hospitalization she had acute decline in mental status felt to be related to her CO2 retention and exacerbated by her gabapentin and her narcotics. After resolution of her acute respiratory failure, she was discharged home on a reduced dose of gabapentin. Currently the patient is hypersomnolent, unable to maintain conversation to get adequate history. I have had respiratory therapy apply BIPAP to treat her hyoxemic and hypercarbic respiratory failure (VBG pCO2 of 88, pH 7.32, pO2 25; subsequent ABG on 3 LPM NC pH 7.39, pCO2 67, pO2 66). Patient is now admitted for treatment of acute on chronic respiratory failure secondary to pulmonary emboli superimposed on COPD and PETERSON and possible concomitant HCAP given her fever of 38.6 and leukocytosis of 10,920 w/ lactate of 2.6. I have discontinued her Apixaban and started her on enoxaparin 1 mg/kg/SC q12h. Per BRETT Cisneros, the patient's caregiver claims that the patient has been compliant w/ use of her Apixaban, therefore, I am treating this as a failure of Apixaban. The patient could be switched from lovenox to Pradaxa upon discharge home as this is a direct thrombin inhibitor, and a different class than Apixaban. Review of Systems Review of Systems Unobtainable due to mental condition [facility] Medical History Acute deep vein thrombosis (DVT) of brachial vein of right upper extremity (Acute) PETERSON (obstructive sleep apnea) (Chronic) Chronic pain (Chronic) Zozufab-Sazsb-Lasrj disease (Chronic) Family history of colon cancer (Chronic) Constipation (Chronic) Pancreatic mass (Chronic ~01/2017) Chronic obstructive lung disease (Chronic) Benign hypertension (Chronic) Tobacco dependence syndrome (Chronic) Hyperlipidemia (Chronic) Chronic anxiety (Chronic) Multiple sclerosis (Chronic) Cmfxlnw-Npsyj-Vuhxz disease (Chronic) Sleep apnea (Chronic) Migraine (Chronic) Allergic rhinitis (Chronic) Depressive disorder (Chronic) Polysubstance abuse (Chronic) Multinodular thyroid (Chronic) Colon polyps (Chronic) History of suicide attempt (Chronic) Tobacco use disorder (Chronic 04/15/14) Hepatitis C antibody test positive (Chronic) Tobacco use (Acute) Allergic rhinitis (Chronic) Anxiety (Chronic) COPD (chronic obstructive pulmonary disease) (Chronic) 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) Depression (Chronic) Edema (Chronic) Goiter diffuse (Chronic) HTN (hypertension) (Chronic) Hepatitis C (Chronic) Hypercholesterolemia (Chronic) Left knee pain (Chronic) Lumbar back pain (Chronic) Migraine headache (Chronic) Multiple sclerosis (Chronic) PETERSON (obstructive sleep apnea) (Chronic) Opioid dependence (Chronic) Cocaine abuse (Resolved) Surgical History History of Surgical Procedure (Chronic) H/O section (Inactive) S/P cholecystectomy (Inactive) Status post shoulder surgery (Inactive) Social History Smoking/Tobacco Use Status: Former Tobacco Use Quit Date: 08/13/18 Alcohol Intake: never Drug use: Never Substance use type: former substance user Do you feel safe at home: Yes Do you feel safe in your relationship?: Yes Additional Social history: Currently lives with her daughter, possible active drug use in the home Has been recently per clinic notes Meds Home Medications Medication Instructions Recorded Confirmed Type Spiriva with HandiHaler 1 cap INHALATION DAILY 12/25/12 09/09/18 History Symbicort 2 puff INHALATION BID 08/25/14 09/09/18 History montelukast [Singulair] 10 mg PO DAILY 08/17/16 09/09/18 History escitalopram oxalate [Lexapro] 20 mg PO DAILY 09/08/16 09/09/18 History albuterol sulfate 2.5 mg INHALATION Q4H PRN 01/23/18 09/09/18 History atorvastatin 40 mg PO HS 05/04/18 09/09/18 History furosemide 20 mg tablet 40 mg PO DAILY tab 06/18/18 09/09/18 History mirtazapine 30 mg tablet 30 mg PO HS 06/18/18 09/09/18 History amlodipine 5 mg PO DAILY 07/26/18 09/09/18 History buprenorphine-naloxone [Suboxone] 1 film SUBLINGUAL DAILY 07/26/18 09/09/18 History losartan 100 mg PO DAILY 07/26/18 09/09/18 History sumatriptan succinate 50 mg PO DIRECTED 07/26/18 09/09/18 History Nicotrol 10 mg INHALATION Q2H PRN PRN #30 ea 07/28/18 09/09/18 Rx ibuprofen 800 mg PO TID PRN #30 tab 07/28/18 09/09/18 Rx prochlorperazine maleate 5 mg PO Q8H PRN PRN #10 tab 07/28/18 09/09/18 Rx [Compazine] melatonin 6 mg PO HS PRN 08/18/18 09/09/18 History apixaban 5 mg PO BID #60 tab 08/23/18 09/09/18 Rx gabapentin [Neurontin] 600 mg PO TID #42 tab 08/23/18 09/09/18 Rx omeprazole 40 mg PO DAILY #30 cap 08/23/18 09/09/18 Rx Allergies Allergy/AdvReac Type Severity Reaction Status Date / Time No Known Allergies Allergy Unverified 09/09/18 16:22 Exam Const General: cooperative, ill appearing chronically and lethargic Nutritional Appearance: obese Limitations: altered mental status [facility] Head: normal to inspection, no palpable skull fracture, normocephalic and atraumatic Ears: TM's normal bilaterally General nose exam: external nose normal Face and sinus: normal facial exam Mouth: oral mucosae normal, oropharynx normal and other (Mallampati class 4 airway) Neck Neck: normal visual inspection, full ROM, no lymphadenopathy, no meningeal signs and trachea midline Carotids: normal carotid upstroke Lymphatic: no lymphadenopathy noted Resp Effort & Inspection: normal respiratory effort and prolonged expiratory phase Auscultation: no crackles, diminished lung sounds bilaterally in the lower lung cerda, no rhonchi and no wheezes Cardio Jugular venous pressure: no JVD Palpation: normal PMI Rate: regular rate Rhythm: regular rhythm Heart Sounds: S1 normal, S2 normal and murmur systolic early, I/ and at the apex Bruits: no abdominal aortic bruits and no carotid bruits Pulses: normal peripheral pulses GI Inspection: obesity Palpation: soft and no hepatosplenomegaly Percussion: normal to percussion Auscultation: normal bowel sounds Back/Spine/Pelvis Back: no CVA tenderness Cervical Spine: normal cervical lordosis Thoracic/Lumbar Spine: thoracic and lumbar spine normal to inspection Skin General skin exam: no rashes or lesions noted Neuro General: moves all extremities, no focal motor deficits and obtunded (lethargic but arouseable; orient to person/place) Cranial Nerves: PERRL, EOM intact bilaterally, no nystagmus, facial strength normal, tongue midline, gag reflex normal, able to rotate head bilaterally and able to elevate shoulders bilaterally Cognition: abnormal cognition Speech: speech normal Motor: muscle tone normal throughout, strength 5/5 throughout and no movement abnormalities noted Sensory Exam: no sensory deficits noted Extrem General: normal to inspection, full ROM, normal capillary refill, no calf tenderness and pedal edema bilaterally Psych Appearance: disheveled Speech and Movement: speech and movement normal Affect: blunted Attitude: cooperative Other: unable to assess her thought content nor her insight as she is somnolent; she is arouseable and will answer her name and knows that she is in the hospital but unable to state date/name of hospital or why she came to the hospital Results Imaging Chest x-ray: report reviewed Abdomen CT scan report/results: report reviewed CT scan - chest: report reviewed CT scan - pelvis: report reviewed Labs : 09/09/18 17:00 09/09/18 17:00 Laboratory Results - last 24 hr 09/09/18 09/09/18 09/09/18 17:00 17:00 17:00 WBC 10.92 H RBC 3.98 L Hgb 10.1 L Hct 34.6 L MCV 86.9 MCH 25.4 L MCHC 29.2 L RDW 16.5 H Plt Count 185 MPV 10.9 Immature Gran % 0.8 Neutrophils % 78.9 Lymphocytes % 12.6 Monocytes % 7.4 Eosinophils % 0.1 Basophils % 0.2 Absolute Neutrophils 8.62 H Absolute Lymphocytes 1.38 Absolute Monocytes 0.81 H Absolute Eosinophils 0.01 Absolute Basophils 0.02 PT 9.2 L INR 0.9 APTT 20.3 L VBG pH VBG pCO2 VBG pO2 VBG HCO3 VBG Total CO2 VBG O2 Saturation VBG Base Excess Sodium 142 Potassium 4.6 Chloride 99 Carbon Dioxide 42.4 H Anion Gap 0.6 L BUN 10 Creatinine 0.54 L Estimated GFR/1.73 m2 >= 60.00 Glucose 148 H Lactate Calcium 8.5 Magnesium Total Bilirubin 0.4 AST 37 ALT 95 H Alkaline Phosphatase 94 Troponin I < 0.02 Total Protein 6.9 Albumin 3.0 L Lipase Urine Color Urine Clarity Urine pH Ur Specific [place] Urine Protein Urine Ketones Urine Blood Urine Nitrite Urine Bilirubin Urine Urobilinogen Ur Leukocyte Esterase Urine RBC Urine WBC Ur Epithelial Cells Urine Crystals Urine Bacteria Urine Casts Urine Mucus Urine Other Ur Culture Indicated? Urine Glucose 09/09/18 09/09/18 09/09/18 17:00 17:00 17:00 WBC RBC Hgb Hct MCV MCH MCHC RDW Plt Count MPV Immature Gran % Neutrophils % Lymphocytes % Monocytes % Eosinophils % Basophils % Absolute Neutrophils Absolute Lymphocytes Absolute Monocytes Absolute Eosinophils Absolute Basophils PT INR APTT VBG pH 7.32 VBG pCO2 88 H VBG pO2 25 L VBG HCO3 46 H VBG Total CO2 44 H VBG O2 Saturation 45 L VBG Base Excess Sodium Potassium Chloride Carbon Dioxide Anion Gap BUN Creatinine Estimated GFR/1.73 m2 Glucose Lactate 2.6 H Calcium Magnesium 1.7 L Total Bilirubin AST ALT Alkaline Phosphatase Troponin I Total Protein Albumin Lipase Urine Color Urine Clarity Urine pH Ur Specific [place] Urine Protein Urine Ketones Urine Blood Urine Nitrite Urine Bilirubin Urine Urobilinogen Ur Leukocyte Esterase Urine RBC Urine WBC Ur Epithelial Cells Urine Crystals Urine Bacteria Urine Casts Urine Mucus Urine Other Ur Culture Indicated? Urine Glucose 09/09/18 09/09/18 17:00 17:25 WBC RBC Hgb Hct MCV MCH MCHC RDW Plt Count MPV Immature Gran % Neutrophils % Lymphocytes % Monocytes % Eosinophils % Basophils % Absolute Neutrophils Absolute Lymphocytes Absolute Monocytes Absolute Eosinophils Absolute Basophils PT INR APTT VBG pH VBG pCO2 VBG pO2 VBG HCO3 VBG Total CO2 VBG O2 Saturation VBG Base Excess Sodium Potassium Chloride Carbon Dioxide Anion Gap BUN Creatinine Estimated GFR/1.73 m2 Glucose Lactate Calcium Magnesium Total Bilirubin AST ALT Alkaline Phosphatase Troponin I Total Protein Albumin Lipase 50 L Urine Color Yellow Urine Clarity Clear Urine pH 7.5 Ur Specific [place] 1.015 Urine Protein 30 H Urine Ketones Negative Urine Blood Trace-intact H Urine Nitrite Negative Urine Bilirubin Negative Urine Urobilinogen 1.0 H Ur Leukocyte Esterase Negative Urine RBC Negative Urine WBC 0-2 Ur Epithelial Cells Few Urine Crystals Negative Urine Bacteria Negative Urine Casts Negative Urine Mucus Negative Urine Other Negative Ur Culture Indicated? No Urine Glucose Negative Last Vital Signs Temp 36.7 C 09/09/18 19:11 Pulse 97 H 09/09/18 19:45 Resp 20 09/09/18 19:50 BP 118/72 09/09/18 19:45 Pulse Ox 91 L 09/09/18 19:50
[2018-09-09 22:13] LABS: Lactate 0.6 mmol/L (0.6-1.4)
[2018-09-09 22:27] LABS: HCO3 41 mmol/L (22-28); pH 7.39 (7.35-7.45); pO2 66 mmHg (83-108); sO2 95 % (94-98)
[2018-09-09] MEDS: Montelukast 10 MG TAB PO (22:29)
[2018-09-09] MEDS: Mirtazapine 15 MG TAB 30 MG PO (22:29)
[2018-09-09] MEDS: Atorvastatin 40 MG TAB PO (22:29)
[2018-09-09 22:31] LABS: pCO2 67 mmHg (34-47)
[2018-09-10 01:11] LABS: Lactate 0.7 mmol/L (0.6-1.4)
[2018-09-10] MEDS: methylPREDNISolone SUCC 125 MG VIAL 80 MG IVP ×2 (01:37→13:32)
[2018-09-10] MEDS: CEFEPIME 2 GM in Normal Saline 100 ML IVPB ×3 (01:38→21:21)
[2018-09-10] MEDS: Normal Saline Flush 10 ML SYR IVP ×3 (01:40→13:31)
[2018-09-10 01:51] LABS: Procalcitonin < 0.1 ng/mL
[2018-09-10 03:30] VITALS: BP 134/87; PULSE 79; RESP 18; TEMP 36.6; O2SAT 95
[2018-09-10] MEDS: VANCOMYCIN 1,250 MG in Normal Saline 250 ML 250 MG IV (03:47)
[2018-09-10 07:40] VITALS: BP 110/70; PULSE 89; RESP 22; TEMP 36.7; O2SAT 93
--- NOTE | 2018-09-10 07:59 | PDOC.CMIN ---
- If Service Date Differs Date of service: 09/10/18 Time of Service: 07:59 Care Management Initial Assess REASON FOR HOSPITALIZATION:: PE and HCAP PAST MEDICAL HISTORY/PAST SURGICAL HISTORY:: Recent hospitalization for resp failure 06/2018, PETERSON, CAP, ambulatory dysfunction, acute exacerbation of COPD, dehydration, generalized weakness, chronic pain, Hglftdy-Jdzwg-Zgcyz disease, hx colon cancer, constipation, pancreatic mass, COPD, benign hypertension, tobacco dependence syndrome, hyperlipidemia, lethargy, chronic anxiety, MS, sleep apnea, migraine, allergic rhinitis, depressive disorder, polysubstance abuse, multinodular thyroid, colon polyps, suicide attempt, surgical procedure, right lower lobe pneumonia, Hep C antibody treated with Harvoni PREVIOUS FUNCTIONAL STATUS/SOCIAL/FAMILY SUPPORTS:: Tatum resides with her adult daughter at [facility] in [facility]. Tatum is disabled and transports via [facility]. She wears home oxygen at night as she is unable to tolerate CPAP device. Tatum reports that she is able to drive but does not currently own a car, she reports that her daughter takes care of all driving, grocery shopping, cooking and laundry. Tatum is mostly independent with ADLs. CURRENT FUNCTIONAL STATUS:: Lona is sitting up in the chair she is alert and engaged with CM during assessment. She states she had a headache for several days prior to admission. She states that her breathing feels good and does not relate her breathing to reason for admission. ADVANCE DIRECTIVES:: None - CM provided the forms to have the patient complete. Has patient been provided with information about the portal?: Yes Did the patient sign up for the portal?: No CODE STATUS:: Full Code INSURANCE COVERAGE / FINANCIAL ISSUES:: Medicare, Medicaid CURRENT HOME/COMMUNITY SERVICES/EQUIPMENT:: MATHEW Pate, MAT program, Dayan Henry, behavioral health, and [facility] Anali Alarcon RN and [employer] PRIMARY CARE PHYSICIAN:: POTENTIAL DISCHARGE NEEDS:: Follow up appointment with primary care prior to discharge. Anticoagulation to be determine prior to discharge and coordinated by CM. PATIENT/FAMILY EDUCATION NEEDS:: Discharge education, limitations and follow up plan of care including ask me three and self management. ANTICIPATED BARRIERS TO DISCHARGE:: None identified. TRANSPORTATION:: Via private car with [facility] at time of discharge coordinated. PLAN:: Lona is receiving IV antibiotics for HCAP, she is being treated with Lovenox for PE anticipate she will transition to oral medicaiton for treatment of PE when ready. She will be discharged when medically ready with resumptions of community resources including home oxygen through [facility]. Readmission - Within the Past 30 Days Yes or No: Y - Date of First Admission Date of 1st Admission: 08/18/18 - Date of this Admission Date of Admission: 09/09/18 This admission was: Through ED - Office Visit Since 1st Admission Have you seen your PCP in the office since discharge?: Yes Date of PCP Appointment: 08/24/18 - ED visits How many ED visits in the past 12 months: 6 - Assessment for Readmission Summary of readmission circumstances, based upon interviews: Tatum states she has not smoked since July 2018. She states that she feels her breathing has been better since returning home. She reports that her headache is what brought her into the ED. She states she has been able to obtain her medications and follow up with pcp.
[2018-09-10] MEDS: Enoxaparin 100 MG/ML SYR 90 MG SC ×2 (08:10→19:44)
[2018-09-10] MEDS: Escitalopram 20 MG TAB PO (08:13)
[2018-09-10] MEDS: Omeprazole 20 MG CAPCR 40 MG PO (08:13)
[2018-09-10] MEDS: Buprenorphine/Naloxone 12 mg/3 mg FILM 1 EACH SL (08:13)
[2018-09-10] MEDS: amLODIPine 5 MG TAB PO (08:14)
[2018-09-10] MEDS: Furosemide 20 MG TAB 40 MG PO (08:14)
[2018-09-10] MEDS: Docusate Sodium 100 MG CAP PO (08:14)
[2018-09-10] MEDS: Losartan 50 MG TAB 100 MG PO (08:14)
--- NOTE | 2018-09-10 08:20 | INITIAL_ITS ---
- If Service Date Differs Date of service: 09/10/18 Time of Service: 07:59 Care Management Initial Assess REASON FOR HOSPITALIZATION:: PE and HCAP PAST MEDICAL HISTORY/PAST SURGICAL HISTORY:: Recent hospitalization for resp failure 06/2018, PETERSON, CAP, ambulatory dysfunction, acute exacerbation of COPD, dehydration, generalized weakness, chronic pain, Wpbxuou-Vsfmz-Uvppl disease, hx colon cancer, constipation, pancreatic mass, COPD, benign hypertension, tobacco dependence syndrome, hyperlipidemia, lethargy, chronic anxiety, MS, sleep apnea, migraine, allergic rhinitis, depressive disorder, polysubstance abuse, multinodular thyroid, colon polyps, suicide attempt, surgical procedure, right lower lobe pneumonia, Hep C antibody treated with Harvoni PREVIOUS FUNCTIONAL STATUS/SOCIAL/FAMILY SUPPORTS:: Tatum resides with her adult daughter at [facility] in [facility]. Tatum is disabled and transports via [facility]. She wears home oxygen at night as she is unable to tolerate CPAP device. Tatum reports that she is able to drive but does not currently own a car, she reports that her daughter takes care of all driving, grocery shopping, cooking and laundry. Tatum is mostly independent with ADLs. CURRENT FUNCTIONAL STATUS:: Lona is sitting up in the chair she is alert and engaged with CM during assessment. She states she had a headache for several days prior to admission. She states that her breathing feels good and does not relate her breathing to reason for admission. ADVANCE DIRECTIVES:: None - CM provided the forms to have the patient complete. Has patient been provided with information about the portal?: Yes Did the patient sign up for the portal?: No CODE STATUS:: Full Code INSURANCE COVERAGE / FINANCIAL ISSUES:: Medicare, Medicaid CURRENT HOME/COMMUNITY SERVICES/EQUIPMENT:: MATHEW Pate, MAT program, Dayan Henry, behavioral health, and [facility] Anali Alarcon RN and [employer] PRIMARY CARE PHYSICIAN:: POTENTIAL DISCHARGE NEEDS:: Follow up appointment with primary care prior to discharge. Anticoagulation to be determine prior to discharge and coordinated by CM. PATIENT/FAMILY EDUCATION NEEDS:: Discharge education, limitations and follow up plan of care including ask me three and self management. ANTICIPATED BARRIERS TO DISCHARGE:: None identified. TRANSPORTATION:: Via private car with [facility] at time of discharge coordinated. PLAN:: Lona is receiving IV antibiotics for HCAP, she is being treated with Lovenox for PE anticipate she will transition to oral medicaiton for treatment of PE when ready. She will be discharged when medically ready with resumptions of community resources including home oxygen through [facility]. Readmission - Within the Past 30 Days Yes or No: Y - Date of First Admission Date of 1st Admission: 08/18/18 - Date of this Admission Date of Admission: 09/09/18 This admission was: Through ED - Office Visit Since 1st Admission Have you seen your PCP in the office since discharge?: Yes Date of PCP Appointment: 08/24/18 - ED visits How many ED visits in the past 12 months: 6 - Assessment for Readmission Summary of readmission circumstances, based upon interviews: Tatum states she has not smoked since July 2018. She states that she feels her breathing has been better since returning home. She reports that her headache is what brought her into the ED. She states she has been able to obtain her medications and follow up with pcp.
[2018-09-10 08:22] LABS: Abs Immature Grans 0.03 k/cumm (0.0-0.09); Absolute Basophil Count 0.02 k/cumm (0.0-0.2); Absolute Eosinophil Count 0.12 k/cumm (0.0-0.7); Absolute Lymphocyte Count 0.84 k/cumm (1.2-3.4); Absolute Monocyte Count 0.06 k/cumm (0.11-0.7); Absolute Neutrophil Count 5.52 k/cumm (1.2-6.7); Basophils % 0.3; Eosinophils % 1.8; HCT 34.1 % (36.0-46.0); HGB 10.2 g/dL (12.0-15.5); Immature Grans % 0.5; Lymphocytes % 12.7; Mean Corp. HGB Concentration 29.9 g/dL (32.0-36.0); Mean Corpuscular Hemoglobin 25.3 pg (27.0-33.0); Mean Corpuscular Volume 84.6 fL (80-95); Mean Platelet Volume 12.1 fL (8.0-11.0); Monocytes % 0.9; Neutrophils % 83.8; Platelet Count 138 x1000/uL (130-400); RBC 4.03 m/cumm (4.00-5.20); RBC Distribution Width 16.7 % (11.7-14.6); White Blood Cell Count 6.59 k/cumm (4.4-10.8)
[2018-09-10 08:38] LABS: Anion Gap 6.5 mmol/L (3-11); BUN 13 mg/dL (7-18); CO2 34.5 mmol/L (21.0-32.0); CREATININE 0.44 mg/dL (0.55-1.02); Calcium 8.4 mg/dL (8.5-10.1); Chloride 101 mmol/L (98-107); Glucose 195 mg/dL (70-100); Potassium 4.3 mmol/L (3.5-5.1); Sodium 142 mmol/L (136-145)
[2018-09-10] MEDS: Budesonide/Formoterol 160/4.5 6 GM 60 PUFF INH IH ×2 (09:14→19:44)
[2018-09-10] MEDS: Magnesium Oxide 400 MG TAB PO (11:35)
[2018-09-10] MEDS: Normal Saline 500 ML 30 ML IV (13:25)
--- NOTE | 2018-09-10 14:46 | PHARADMIT ---
Admission Pharmacy Clinical Review pulmonary emboli, HCAP Code Status Full Code Current Weight 91 kg Renally Cleared and Narrow Therapeutic Index Meds Crcl ~104.1 mL/min using adjusted body weight current meds okay QTc Value / Action Taken QTc 420 BP Control, Fever BP 110/70 afebrile Electrolytes reviewed within normal limits DVT Prophylaxis therapeutic dosing of enoxaparin Opiate Usage / Scheduled Bowel Regimen Ordered kyung/prn Plt/SCr for Heparin / Enoxaparin plt 138 SCr 0.44 INR for Warfarin n/a H/H stable, WBC/Bands h/h 10.2/34.1 WBC 6.59 Antibiotic appropriateness vanco and cefepime Cultures and Sensitivities blood cultures pending Surgical ABX d/c within 24 hr n/a DM control / Insulin Dosing BG 195 none Heart Failure (Check EF%) (RAHEL's, B-Block, Diuretics) furosemide, losartan, IV to PO Switch n/a Home Meds Reviewed -multiple anticholinergic meds: tiotropium, prochlorperazine -multiple MAINTENANCE MECHANIC TECHNICIAN depressants: gabapentin, buprenorphine, mirtazapine, prochlorperazone -omeprazole may increase the serum concentration of escitalopram -increased bleed risk with the use of apixaban and ibuprofen and escitalopram -ibuprofen may diminish the therapeutic effect of furosemide, furosemide may enhance the nephrotoxic effect of ibuprofen Home Meds Not Ordered apixaban, ibuprofen Comments vanco trough ordered for tomorrow @0900 procalcitonin negative, another one is ordered for tomorrow
--- NOTE | 2018-09-10 15:02 | W.PM.PROGNOT ---
Date of Service Date of service: 09/10/18 Time of Service: 15:02 Assessment and Plan (1) Acute on chronic respiratory failure with hypoxia and hypercapnia: Current visit: Yes Status: Acute Multifactorial in setting of underlying COPD and untreated PETERSON, with superimposed b/l PEs. Also with potential for Healthcare acquired pneumonia. Appears improved. Continue Steroids, broad spectrum antibiotics, and nebs. Will benefit from NIPPV on an as needed basis. Also on therapeutic Lovenox. (2) HCAP (healthcare-associated pneumonia): Current visit: Yes Status: Acute Evidence of infection vs. atelectasis vs. Pulmonary infarcts in the setting of PEs. Current Procalcitonin level is undetectable. Patient had a minimal leukocytosis and a mild temperature at time of admission, along with hypoxia - however, this was also in the setting of newly diagnosed PEs and underlying COPD. Currently on Vancomycin and Cefepime. Plan on repeat Procalcitonin levels tomorrow morning, and if undetectable consider discontinuation of antibiotic therapy. (3) Pulmonary embolism: Current visit: Yes Status: Acute Deemed as potential anticoagulation failure on Apixaban. Currently with Eliquis on hold and on therapeutic doses of lovenox. Discussed case with Hematology at [facility] - recommendation for one month of treatment with Fondaparinox, then consideration for rechallenge with Apixaban, as well as follow-up with Hematology as an outpatient. Of note, Extremity Venous Study from 07/27 was negative for LE DVT, and on 08/20 positive for clot in the RUE. Qualifiers: Chronicity: acute Acute cor pulmonale presence: without acute cor pulmonale (4) Chronic pain: Current visit: Yes Status: Chronic Continue Suboxone, resume Gabapentin. (5) Migraine: Current visit: No Status: Chronic Reports headache resolved. (6) Multinodular thyroid: Current visit: No Status: Chronic History of a Multinodular Thyroid, and with evidence of nodules by CT at time of admission. Also with evidence of markedly suppressed TSH with normal FT4, last checked 06/2017 - likely represents Subclinical Hyperthyroidism. Will recommend continued outpatient follow-up. (7) DVT prophylaxis: Current visit: Yes Status: Acute On therapeutic lovenox. Continue PPI therapy. Subjective Interval history since last seen: 63-year-old woman with a prior history of Upper Extremity Clot on anticoagulation and recent hospitalization, admitted from [facility] Emergency Department on 09/09 with a diagnosis of PE and potential Pneumonia. Mrs. Loya has a Past Medical History significant for COPD, PETERSON not utilizing CPAP, Outcxpx-Kyuxo-Njsll dz, HTN, dyslipidemia, MS, depression/anxiety, and Tobacco Use. She also has a history of Polysubstance and Opiate abuse, currently on Suboxone therapy. The patient was hospitalized and treated in late June for a COPD exacerbation, and again in July for Pneumonia with a concurrent Hypoxic Hypercapnic respiratory failure, treated with broad spectrum antibiotics, steroids, and BiPAP therapy - of note, she was also found to have an altered mental status felt secondary to CO2 retention that was exacerbated by Gabapentin and narcotics. During that stay she was found to have a Right brachial vein DVT incidentally when attempting to have an IV placed under ultrasound guidance. Her subsequent CTA showed no evidence of a PE, and she was initiated on anticoagulation with Apixaban prior to being discharged in stable condition. She initially presented to the ED with complaints of a migrained headache for over 3 days. She was also noted to have a mild fever, mild leukocytosis, and hypoxia, leading to further imaging with CT scan. Her CT showed evidence of small PEs bilaterally without Right heart strain, as well as atelectasis vs. infiltrate vs. infarcts at the bases. She was referred for admission. Mrs. Loya was initially somnolent at time of admission, but appears to be at her baseline this morning. Also reports that her headache is resolved, and states that her breathing remains at baseline. No overnight events reported. Remains afebrile. Exam Narrative Exam Narrative: General: Patient appears comfortable, AAOX3, NAD Neck: Supple CV: Regular, nontachycardic, S1S2, No rubs, murmurs, or gallops. Pulmonary: Clear to auscultation bilaterally, with mild bibasilar crackles with diminished breathsounds, no wheezing Abdomen: + Bowel Sounds, soft, nontender, nondistended Vascular: No lower extremity edema Psych: Normal mood and affect. Objective Objective Clinical Data: Abnormal lab results 09/09/18 09/09/18 09/09/18 Range/Units 17:00 17:00 17:00 WBC 10.92 H (4.4-10.8) k/cumm RBC 3.98 L (4.00-5.20) m/cumm Hgb 10.1 L (12.0-15.5) g/dL Hct 34.6 L (36.0-46.0) % MCH 25.4 L (27.0-33.0) pg MCHC 29.2 L (32.0-36.0) g/dL RDW 16.5 H (11.7-14.6) % MPV (8.0-11.0) fL Absolute Neutrophils 8.62 H (1.2-6.7) k/cumm Absolute Lymphocytes (1.2-3.4) k/cumm Absolute Monocytes 0.81 H (0.11-0.7) k/cumm PT 9.2 L (9.3-11.0) sec APTT 20.3 L (21.0-31.4) sec pCO2 (34-47) mmHg pO2 (83-108) mmHg ABG HCO3 (22-28) mmol/L VBG pCO2 (34-47) mm/Hg VBG pO2 (28-44) mm/Hg VBG HCO3 (22-28) mmol/L VBG Total CO2 (22-29) mmol/L VBG O2 Saturation (70-80) % Carbon Dioxide 42.4 H (21.0-32.0) mmol/L Anion Gap 0.6 L (3-11) mmol/L Creatinine 0.54 L (0.55-1.02) mg/dL Glucose 148 H (70-100) mg/dL Lactate (0.6-1.4) mmol/l Calcium (8.5-10.1) mg/dL Magnesium (1.8-2.4) mg/dL ALT 95 H (12-78) U/L Albumin 3.0 L (3.4-5.0) g/dL Lipase (73-393) U/L Urine Protein (Negative) mg/dL Urine Blood (Negative) Urine Urobilinogen (Up TO 0.2) EU/dL 09/09/18 09/09/18 09/09/18 Range/Units 17:00 17:00 17:00 WBC (4.4-10.8) k/cumm RBC (4.00-5.20) m/cumm Hgb (12.0-15.5) g/dL Hct (36.0-46.0) % MCH (27.0-33.0) pg MCHC (32.0-36.0) g/dL RDW (11.7-14.6) % MPV (8.0-11.0) fL Absolute Neutrophils (1.2-6.7) k/cumm Absolute Lymphocytes (1.2-3.4) k/cumm Absolute Monocytes (0.11-0.7) k/cumm PT (9.3-11.0) sec APTT (21.0-31.4) sec pCO2 (34-47) mmHg pO2 (83-108) mmHg ABG HCO3 (22-28) mmol/L VBG pCO2 88 H (34-47) mm/Hg VBG pO2 25 L (28-44) mm/Hg VBG HCO3 46 H (22-28) mmol/L VBG Total CO2 44 H (22-29) mmol/L VBG O2 Saturation 45 L (70-80) % Carbon Dioxide (21.0-32.0) mmol/L Anion Gap (3-11) mmol/L Creatinine (0.55-1.02) mg/dL Glucose (70-100) mg/dL Lactate 2.6 H (0.6-1.4) mmol/l Calcium (8.5-10.1) mg/dL Magnesium 1.7 L (1.8-2.4) mg/dL ALT (12-78) U/L Albumin (3.4-5.0) g/dL Lipase (73-393) U/L Urine Protein (Negative) mg/dL Urine Blood (Negative) Urine Urobilinogen (Up TO 0.2) EU/dL 09/09/18 09/09/18 09/09/18 Range/Units 17:00 17:25 22:10 WBC (4.4-10.8) k/cumm RBC (4.00-5.20) m/cumm Hgb (12.0-15.5) g/dL Hct (36.0-46.0) % MCH (27.0-33.0) pg MCHC (32.0-36.0) g/dL RDW (11.7-14.6) % MPV (8.0-11.0) fL Absolute Neutrophils (1.2-6.7) k/cumm Absolute Lymphocytes (1.2-3.4) k/cumm Absolute Monocytes (0.11-0.7) k/cumm PT (9.3-11.0) sec APTT (21.0-31.4) sec pCO2 67 H* (34-47) mmHg pO2 66 L (83-108) mmHg ABG HCO3 41 H (22-28) mmol/L VBG pCO2 (34-47) mm/Hg VBG pO2 (28-44) mm/Hg VBG HCO3 (22-28) mmol/L VBG Total CO2 (22-29) mmol/L VBG O2 Saturation (70-80) % Carbon Dioxide (21.0-32.0) mmol/L Anion Gap (3-11) mmol/L Creatinine (0.55-1.02) mg/dL Glucose (70-100) mg/dL Lactate (0.6-1.4) mmol/l Calcium (8.5-10.1) mg/dL Magnesium (1.8-2.4) mg/dL ALT (12-78) U/L Albumin (3.4-5.0) g/dL Lipase 50 L (73-393) U/L Urine Protein 30 H (Negative) mg/dL Urine Blood Trace-intact H (Negative) Urine Urobilinogen 1.0 H (Up TO 0.2) EU/dL 09/10/18 09/10/18 Range/Units 06:35 06:35 WBC (4.4-10.8) k/cumm RBC (4.00-5.20) m/cumm Hgb 10.2 L (12.0-15.5) g/dL Hct 34.1 L (36.0-46.0) % MCH 25.3 L (27.0-33.0) pg MCHC 29.9 L (32.0-36.0) g/dL RDW 16.7 H (11.7-14.6) % MPV 12.1 H (8.0-11.0) fL Absolute Neutrophils (1.2-6.7) k/cumm Absolute Lymphocytes 0.84 L (1.2-3.4) k/cumm Absolute Monocytes 0.06 L (0.11-0.7) k/cumm PT (9.3-11.0) sec APTT (21.0-31.4) sec pCO2 (34-47) mmHg pO2 (83-108) mmHg ABG HCO3 (22-28) mmol/L VBG pCO2 (34-47) mm/Hg VBG pO2 (28-44) mm/Hg VBG HCO3 (22-28) mmol/L VBG Total CO2 (22-29) mmol/L VBG O2 Saturation (70-80) % Carbon Dioxide 34.5 H (21.0-32.0) mmol/L Anion Gap (3-11) mmol/L Creatinine 0.44 L (0.55-1.02) mg/dL Glucose 195 H (70-100) mg/dL Lactate (0.6-1.4) mmol/l Calcium 8.4 L (8.5-10.1) mg/dL Magnesium (1.8-2.4) mg/dL ALT (12-78) U/L Albumin (3.4-5.0) g/dL Lipase (73-393) U/L Urine Protein (Negative) mg/dL Urine Blood (Negative) Urine Urobilinogen (Up TO 0.2) EU/dL Vital Signs Temperature 36.7 C 09/10/18 07:40 Temperature Source Tympanic 09/10/18 07:40 Pulse 89 09/10/18 07:40 Pulse 103 H 09/09/18 20:11 Respiratory Rate 22 09/10/18 07:40 Respiratory Effort Non-Labored 09/10/18 07:50 Respiratory Depth Normal 09/10/18 07:50 Respiratory Pattern Normal 09/10/18 07:50 Blood Pressure 110/70 09/10/18 07:40 Blood Pressure Mean 83 09/09/18 20:00 Blood Pressure Position Supine 09/09/18 16:17 Pulse Oximetry 93 L 09/10/18 07:40 Oxygen Delivery Method Cpap 09/10/18 07:40 Oxygen Flow Rate 0 09/10/18 03:30 Fraction of Inspired Oxygen (FIO2) 30 09/10/18 07:40 Pain Level 6 09/09/18 19:11 Comment 09/10/18 03:30 Intake & Output 09/09/18 09/10/18 09/10/18 23:59 11:59 23:59 Intake Total 717.5 / 717.5 840 / 1347.5 507.5 / 1347.5 Output Total 900 / 900 Balance 717.5 / 717.5 -60 / 447.5 507.5 / 447.5 Weight 91.5 kg 91 kg Intake: IV 717.5 / 717.5 350 / 377.5 27.5 / 377.5 Oral 490 / 970 480 / 970 Output: Urine 900 / 900 Other: Urine Color Light Angela Urine Appearance Cloudy Urine Odor Strong Comment Room smells like urine. Enc lambert care. Bed linens, gown etc changed even though were dry. Voiding Methods Bedside Commode Laboratory Results WBC 6.59 k/cumm (4.4-10.8) D 09/10/18 06:35 RBC 4.03 m/cumm (4.00-5.20) 09/10/18 06:35 Hgb 10.2 g/dL (12.0-15.5) L 09/10/18 06:35 Hct 34.1 % (36.0-46.0) L 09/10/18 06:35 MCV 84.6 fL (80-95) 09/10/18 06:35 MCH 25.3 pg (27.0-33.0) L 09/10/18 06:35 MCHC 29.9 g/dL (32.0-36.0) L 09/10/18 06:35 RDW 16.7 % (11.7-14.6) H 09/10/18 06:35 Plt Count 138 x1000/uL (130-400) 09/10/18 06:35 MPV 12.1 fL (8.0-11.0) H 09/10/18 06:35 Immature Gran % 0.5 09/10/18 06:35 Neutrophils % 83.8 09/10/18 06:35 Lymphocytes % 12.7 09/10/18 06:35 Monocytes % 0.9 09/10/18 06:35 Eosinophils % 1.8 09/10/18 06:35 Basophils % 0.3 09/10/18 06:35 Absolute Neutrophils 5.52 k/cumm (1.2-6.7) 09/10/18 06:35 Absolute Lymphocytes 0.84 k/cumm (1.2-3.4) L 09/10/18 06:35 Absolute Monocytes 0.06 k/cumm (0.11-0.7) L 09/10/18 06:35 Absolute Eosinophils 0.12 k/cumm (0.0-0.7) 09/10/18 06:35 Absolute Basophils 0.02 k/cumm (0.0-0.2) 09/10/18 06:35 PT 9.2 sec (9.3-11.0) L 09/09/18 17:00 INR 0.9 (0.9-1.1) 09/09/18 17:00 APTT 20.3 sec (21.0-31.4) L 09/09/18 17:00 Sample Site Unknown 09/09/18 22:10 pCO2 67 mmHg (34-47) H* 09/09/18 22:10 pO2 66 mmHg (83-108) L 09/09/18 22:10 O2 Saturation 95 % (94-98) 09/09/18 22:10 ABG pH 7.39 (7.35-7.45) 09/09/18 22:10 ABG HCO3 41 mmol/L (22-28) H 09/09/18 22:10 ABG Total CO2 Not Applicable 09/09/18 22:10 ABG Base Excess mmol/L (-3-3) 09/09/18 22:10 VBG pH 7.32 (7.32-7.43) 09/09/18 17:00 VBG pCO2 88 mm/Hg (34-47) H 09/09/18 17:00 VBG pO2 25 mm/Hg (28-44) L 09/09/18 17:00 VBG HCO3 46 mmol/L (22-28) H 09/09/18 17:00 VBG Total CO2 44 mmol/L (22-29) H 09/09/18 17:00 VBG O2 Saturation 45 % (70-80) L 09/09/18 17:00 VBG Base Excess mmol/L (-3-3) 09/09/18 17:00 Sodium 142 mmol/L (136-145) 09/10/18 06:35 Potassium 4.3 mmol/L (3.5-5.1) 09/10/18 06:35 Chloride 101 mmol/L (98-107) 09/10/18 06:35 Carbon Dioxide 34.5 mmol/L (21.0-32.0) H 09/10/18 06:35 Anion Gap 6.5 mmol/L (3-11) 09/10/18 06:35 BUN 13 mg/dL (7-18) 09/10/18 06:35 Creatinine 0.44 mg/dL (0.55-1.02) L 09/10/18 06:35 Estimated GFR/1.73 m2 >= 60.00 (mL/min/1.73m2) 09/10/18 06:35 Glucose 195 mg/dL (70-100) H 09/10/18 06:35 Lactate 0.7 mmol/L (0.6-1.4) 09/10/18 01:07 Calcium 8.4 mg/dL (8.5-10.1) L 09/10/18 06:35 Magnesium 1.7 mg/dL (1.8-2.4) L 09/09/18 17:00 Total Bilirubin 0.4 mg/dL (0.2-1.0) 09/09/18 17:00 AST 37 U/L (15-37) 09/09/18 17:00 ALT 95 U/L (12-78) H 09/09/18 17:00 Alkaline Phosphatase 94 U/L (46-116) 09/09/18 17:00 Troponin I < 0.02 ng/mL (0.00-0.06) 09/09/18 17:00 Total Protein 6.9 g/dL (6.4-8.2) 09/09/18 17:00 Albumin 3.0 g/dL (3.4-5.0) L 09/09/18 17:00 Lipase 50 U/L (73-393) L 09/09/18 17:00 Procalcitonin < 0.1 ng/mL 09/10/18 01:07 Urine Color Yellow (Yellow) 09/09/18 17:25 Urine Clarity Clear 09/09/18 17:25 Urine pH 7.5 (5-8) 09/09/18 17:25 Ur Specific [place] 1.015 (1.005-1.025) 09/09/18 17:25 Urine Protein 30 mg/dL (Negative) H 09/09/18 17:25 Urine Ketones Negative mg/dL (Negative) 09/09/18 17:25 Urine Blood Trace-intact (Negative) H 09/09/18 17:25 Urine Nitrite Negative (Negative) 09/09/18 17:25 Urine Bilirubin Negative (Negative) 09/09/18 17:25 Urine Urobilinogen 1.0 EU/dL (Up TO 0.2) H 09/09/18 17:25 Ur Leukocyte Esterase Negative (Negative) 09/09/18 17:25 Urine RBC Negative (0-2) 09/09/18 17:25 Urine WBC 0-2 HPF (0-5) 09/09/18 17:25 Ur Epithelial Cells Few HPF (Negative) 09/09/18 17:25 Urine Crystals Negative HPF (Negative) 09/09/18 17:25 Urine Bacteria Negative HPF (Negative) 09/09/18 17:25 Urine Casts Negative LPF (Negative) 09/09/18 17:25 Urine Mucus Negative (Negative) 09/09/18 17:25 Urine Other Negative (Negative) 09/09/18 17:25 Ur Culture Indicated? No 09/09/18 17:25 Urine Glucose Negative mg/dL (Negative) 09/09/18 17:25 Patient ABO/Rh O Positive 09/09/18 17:00 Antibody Screen Negative 09/09/18 17:00
[2018-09-10 16:04] VITALS: BP 128/75; PULSE 85; RESP 19; TEMP 37.7; O2SAT 94
[2018-09-10] MEDS: Gabapentin 600 MG TAB PO (19:44)
[2018-09-10] MEDS: methylPREDNISolone SUCC 40 MG VIAL IVP (19:44)
[2018-09-10] MEDS: Normal Saline Flush 10 ML SYR 20 ML IVP (19:45)
[2018-09-10] MEDS: Nystatin POWDER 60 GM JAR TP (19:45)
[2018-09-10 20:53] VITALS: BP 115/63; PULSE 87; RESP 18; TEMP 36.4; O2SAT 97
[2018-09-10] MEDS: Atorvastatin 40 MG TAB PO (21:21)
[2018-09-10] MEDS: Montelukast 10 MG TAB PO (21:21)
[2018-09-10] MEDS: Mirtazapine 15 MG TAB 30 MG PO (21:21)
[2018-09-11] MEDS: Normal Saline Flush 10 ML SYR IVP ×4 (02:34→13:40)
[2018-09-11 03:34] VITALS: BP 144/85; PULSE 69; RESP 20; TEMP 36.8; O2SAT 94
[2018-09-11] MEDS: methylPREDNISolone SUCC 40 MG VIAL IVP (04:48)
[2018-09-11] MEDS: CEFEPIME 2 GM in Normal Saline 100 ML IVPB (06:05)
--- NOTE | 2018-09-11 07:00 | DI.US_ITS ---
SYMPTOMS/DIAGNOSIS: NEW PULMONARY EMBOLI, H/O RIGHT UPPER EXTREMITY DVT, BILATERAL HAND AND FEET SWELLING RIGHT UPPER EXTREMITY ULTRASOUND: Comparison is made with July,. Thrombus is demonstrated in one of the brachial veins. The previous exam showed a clot within both brachial veins. The remaining visualized veins of the upper extremity appear free of thrombus. IMPRESSION: Deep venous thrombosis in one of the brachial veins. LEFT UPPER EXTREMITY ULTRASOUND: Thrombus is visualized in a superficial vein of the lateral forearm. No deep venous thrombosis is identified. The jugular and subclavian veins also appear free of thrombus. IMPRESSION: Superficial thrombophlebitis of the left forearm. BILATERAL LOWER EXTREMITY ULTRASOUND: The femoral and popliteal veins and visualized portions of the calf veins are freely compressible. No thrombus is identified. The Doppler venous waveform augments normally. No superficial thrombophlebitis or Scott's cyst is seen in either lower extremity. IMPRESSION: Negative bilateral lower extremity ultrasound. No evidence of DVT.
[2018-09-11 07:20] VITALS: BP 153/83; PULSE 78; RESP 20; TEMP 36.4; O2SAT 94
[2018-09-11 07:40] LABS: Abs Immature Grans 0.02 k/cumm (0.0-0.09); Absolute Lymphocyte Count 0.96 k/cumm (1.2-3.4); Absolute Monocyte Count 0.41 k/cumm (0.11-0.7); HCT 30.8 % (36.0-46.0); HGB 9.2 g/dL (12.0-15.5); Immature Grans % 0.3; Lymphocytes % 14.6; Mean Corp. HGB Concentration 29.9 g/dL (32.0-36.0); Mean Corpuscular Hemoglobin 24.9 pg (27.0-33.0); Mean Corpuscular Volume 83.5 fL (80-95); Mean Platelet Volume 11.4 fL (8.0-11.0); Monocytes % 6.2; Neutrophils % 78.9; Platelet Count 194 x1000/uL (130-400); RBC 3.69 m/cumm (4.00-5.20); RBC Distribution Width 17.4 % (11.7-14.6); White Blood Cell Count 6.59 k/cumm (4.4-10.8)
[2018-09-11 08:09] LABS: Anion Gap 4.8 mmol/L (3-11); BUN 23 mg/dL (7-18); CO2 34.2 mmol/L (21.0-32.0); CREATININE 0.55 mg/dL (0.55-1.02); Calcium 8.1 mg/dL (8.5-10.1); Chloride 103 mmol/L (98-107); Glucose 190 mg/dL (70-100); Magnesium 1.8 mg/dL (1.8-2.4); Potassium 3.9 mmol/L (3.5-5.1); Sodium 142 mmol/L (136-145)
[2018-09-11 08:46] LABS: Procalcitonin < 0.1 ng/mL
[2018-09-11] MEDS: Nicotine 7 MG/24 HR PATCH TD (08:53)
[2018-09-11] MEDS: Furosemide 20 MG TAB 40 MG PO (08:54)
[2018-09-11] MEDS: Escitalopram 20 MG TAB PO (08:54)
[2018-09-11] MEDS: Buprenorphine/Naloxone 12 mg/3 mg FILM 1 EACH SL (08:55)
[2018-09-11] MEDS: Omeprazole 20 MG CAPCR 40 MG PO (08:55)
[2018-09-11] MEDS: Gabapentin 600 MG TAB PO ×2 (08:55→13:40)
[2018-09-11] MEDS: Losartan 50 MG TAB 100 MG PO (08:55)
[2018-09-11] MEDS: amLODIPine 5 MG TAB PO (08:55)
[2018-09-11] MEDS: Normal Saline Flush 10 ML SYR 20 ML IVP (08:56)
[2018-09-11] MEDS: Enoxaparin 100 MG/ML SYR 90 MG SC ×2 (08:56→17:33)
[2018-09-11] MEDS: Nystatin POWDER 60 GM JAR TP (08:56)
[2018-09-11] MEDS: Docusate Sodium 100 MG CAP PO (09:18)
[2018-09-11 09:20] VITALS: O2SAT 95
[2018-09-11 09:21] LABS: *AMPHETAMINES SCREEN URINE Negative (Negative); *BARBITURATES SCREEN URINE Negative (Negative); *BENZODIAZEPINES SCREEN URINE Negative (Negative); Cannabinoids THC Negative (Negative); Cocaine Screen,Urine Negative (Negative); METHADONE URINE SCREEN Negative (Negative); OPIATES URINE SCREEN Negative (Negative)
[2018-09-11] MEDS: Budesonide/Formoterol 160/4.5 6 GM 60 PUFF INH IH (09:26)
[2018-09-11 09:46] LABS: Tricyclic Antidepressants POSITIVE (Negative)
[2018-09-11] MEDS: Acetaminophen 325 MG TAB PO (12:08)
[2018-09-11] MEDS: Potassium Chloride 10 MEQ TABCR PO (12:09)
[2018-09-11] MEDS: Magnesium Oxide 400 MG TAB PO (12:09)
[2018-09-11 15:58] VITALS: BP 128/77; PULSE 91; RESP 20; TEMP 37.2; O2SAT 94
--- NOTE | 2018-09-11 16:35 | DSE_ITS ---
Date of service: 09/11/18 Time of Service: 16:16 DS: Diagnosis Discharge Diagnosis (1) Acute on chronic respiratory failure with hypoxia and hypercapnia: Status: Acute (2) HCAP (healthcare-associated pneumonia): Status: Acute (3) Pulmonary embolism: Status: Acute (4) Chronic pain: Status: Chronic (5) Migraine: Status: Chronic (6) Multinodular thyroid: Status: Chronic (7) DVT prophylaxis: Status: Acute Discharge Plan Disposition Patient Disposition: HOME W/HOME HEALTH SERVICE Condition: Stable Discharge Details Reason For Visit: PULMONARY EMBOLI, HCAP Admit Date/Time: 09/09/18 20:02 Admit Provider: Yariel Rodarte Attending Provider: Yariel Rodarte Primary Care Provider: Valerie Jiang Hospital Course Hospital Course: Chief Complaint: Headache HPI: 63-year-old woman with a prior history of Right Upper Extremity Clot on anticoagulation and recent hospitalization, admitted from [facility] Emergency Department on 09/09 with a diagnosis of PE and potential Pneumonia. Mrs. Loya has a Past Medical History significant for COPD, PETERSON not utilizing CPAP, Nkeaghq-Uqrum-Vvczk dz, HTN, dyslipidemia, MS, depression/anxiety, and Tobacco Use. She also has a history of Polysubstance and Opiate abuse, currently on Suboxone therapy. The patient was hospitalized and treated in late June for a COPD exacerbation, and again in July for Pneumonia with a concurrent Hypoxic Hypercapnic respiratory failure, treated with broad spectrum antibiotics, steroids, and BiPAP therapy - of note, she was also found to have an altered mental status felt secondary to CO2 retention that was exacerbated by Gabapentin and narcotics. During that stay she was found to have a Right brachial vein DVT incidentally when attempting to have an IV placed under ultrasound guidance. CTA showed no evidence of a PE, and she was initiated on anticoagulation with Apixaban prior to being discharged in stable condition. She initially presented to the ED for her current admission with complaints of a migraine headache for over 3 days. She was also noted to have a mild fever, mild leukocytosis, and hypoxia, leading to further imaging with CT scan. Her CT showed evidence of small PEs bilaterally without evidence Right heart strain, as well as atelectasis vs. infiltrate vs. infarcts at the bases. She was referred for admission. Mrs. Loya was initially somnolent at time of admission, but appears to be at her baseline shortly after. Also reports that her headache is resolved, and states that her breathing remains at baseline. Procalcitonin level at time of admission was undetectable, and remains that way this morning. No overnight events reported. Remains afebrile. Hospital Course: (1) Acute on chronic respiratory failure with hypoxia and hypercapnia: Multifactorial in setting of underlying COPD and untreated PETERSON, with superimposed b/l PEs. Appears improved. Continue Steroids, but with broad spectrum antibiotics discontinued. Also on therapeutic anticoagulation. Tatum requires the usage of non-invasive ventilation via the Trilogy due to Hypercapnic and Hypoxic Chronic Respiratory Failure secondary to COPD. She is currently hospitalized due to her complex medical history and co-morbidities. She was hypercapnic as seen on the attached blood gas. NIV therapy via the Clara Draeger has been utilized since admission date and she has made gradual improvements. Currently the patient still continues to have periods of shortness of breath, lethargy, weakness, overall fatigue and headaches. She has tried and failed on traditional cpap/bi-pap used to treat her underlying PETERSON in the home environment. NIV is medically necessary for this patient upon D/C as it will allow for a variety of settings that will better meet her current disease progression. The Trilogy will allow for two different NIV prescriptions, one to utilize while sleeping (AVAPS AE) and one to use during the wakefulness/daytime (MPV-SIP). Avaps AE will assist the patient with meeting her demands of tidal volume and minute ventilation by allowing for the following: longer expiratory times to reduce the effects of flow limitations and air trapping, decrease her work of breathing, increase her oxygenation, improve her overall quality of life. MPV-SIP will be used to help with periods of shortness of breath during the waking hours. Given her current disease, her worsening respiratory status and more frequent hospitalizations a standard bi-level therapy will no longer meet her ventilation needs. It is medically necessary that she use NIV therapy via the Trilogy up to 24 hours daily (Avaps-Ae/MPV). Failure to receive NIV ventilation may result in serious medical consequences. The trilogy also operates on a battery which will allow her to use the therapy during power outages or medical appointments as a lapse in usage or an interruption in therapy may lead to life threating consequences. (2) HCAP (healthcare-associated pneumonia): Evidence of infection vs. atelectasis vs. Pulmonary infarcts in the setting of PEs. Admission Procalcitonin level was undetectable, and again undetectable this morning. Antibiotics discontinued. Patient remains afebrile with normal WBC. Patient had a minimal leukocytosis and a mild temperature at time of admission, along with hypoxia - however, this was also in the setting of newly diagnosed PEs, RUE DVT, and underlying COPD. Highly doubt infection as etiology. (3) Pulmonary embolism: Deemed as potential anticoagulation failure on Apixaban. Currently with Eliquis on hold and on therapeutic doses of lovenox. Discussed case with Hematology at [facility] - recommendation for one month of treatment with Fondaparinox, then consideration for rechallenge with Apixaban, as well as follow-up with Hematology as an outpatient. Of note, Extremity Venous Study from 07/27 was negative for LE DVT, and on 08/20 positive for clot in the RUE. Ultrasound today with RUE DVT, no LE DVTs. (4) Chronic pain: Continue Suboxone, resume Gabapentin. (5) Migraine: Reports headache resolved. (6) Multinodular thyroid: History of a Multinodular Thyroid, and with evidence of nodules by CT at time of admission. Also with evidence of markedly suppressed TSH with normal FT4, last checked 06/2017 - likely represents Subclinical Hyperthyroidism. Will recommend continued outpatient follow-up. (7) Disposition: Discharge home today with RCT - follow-up with Hematology at [facility] soon, and PCP within one week. Patient will benefit from Home Health for PT/OT/VNA. Home Meds and New Rx's Prescriptions: New fondaparinux 7.5 mg/0.6 mL syringe 7.5 mg SC DAILY Qty: 6 RF: 0 prednisone 10 mg tablet 10 mg PO DAILY Qty: 45 RF: 0 Continued mirtazapine 30 mg tablet 30 mg PO HS RF: 0 furosemide 20 mg tablet 40 mg PO DAILY RF: 0 Spiriva with HandiHaler 1 PUFF capsule, w/inhalation device 1 cap Inhalation DAILY RF: 0 Symbicort 60 PUFF HFA aerosol inhaler 2 puff Inhalation BID RF: 0 albuterol sulfate 2.5 mg /3 mL (0.083 %) Solution For Nebulization 2.5 mg INHALATION Q4H PRNRF: 0 melatonin 1 mg Tablet 6 mg PO HS PRNRF: 0 gabapentin [Neurontin] 600 mg Tablet 600 mg PO TID Qty: 42 RF: 0 omeprazole 40 mg capsule,delayed release(DR/EC) 40 mg PO DAILY Qty: 30 RF: 0 montelukast [Singulair] 10 MG tablet 10 mg PO DAILY RF: 0 escitalopram oxalate [Lexapro] 20 MG tablet 20 mg PO DAILY RF: 0 atorvastatin 40 mg Tablet 40 mg PO HS RF: 0 amlodipine 5 mg Tablet 5 mg PO DAILY RF: 0 sumatriptan succinate 50 mg Tablet 50 mg PO DIRECTED RF: 0 losartan 100 mg Tablet 100 mg PO DAILY RF: 0 buprenorphine-naloxone [Suboxone] 2-0.5 mg Film 1 film Sublingual DAILY RF: 0 Nicotrol 10 mg Cartridge 10 mg Inhalation Q2H PRN PRNQty: 30 RF: 0 ibuprofen 800 mg tablet 800 mg PO TID PRN (Reason: pain) Qty: 30 RF: 0 prochlorperazine maleate [Compazine] 5 mg tablet 5 mg PO Q8H PRN PRN (Reason: nausea and vomiting) Qty: 10 RF: 0 Discontinued apixaban 5 mg tablet 5 mg PO BID Qty: 60 RF: 0 Discharge Instructions Additional Instructions: Please see your primary care provider within 1 week of discharge, and the environmental test technician (blood and clot doctors) over the next 2-3 weeks. Referrals: Valerie Jiang MD [Primary Care Provider] - 09/19/18 10:10 am Activity:: No Strenuous Activity Equipment/Supplies:: No Equipment Needed Diet:: As Tolerated Discharge Orders Discharge Orders: Discharge Order (Routine); Ordered 09/11/18 Ordered By: Dylan Stephens Exam Narrative Exam Narrative: General: Patient appears comfortable, AAOX3, NAD Neck: Supple CV: Regular, nontachycardic, S1S2, No rubs, murmurs, or gallops. Pulmonary: Clear to auscultation bilaterally, with mild bibasilar crackles with diminished breathsounds, no wheezing Abdomen: + Bowel Sounds, soft, nontender, nondistended Vascular: No lower extremity edema Psych: Normal mood and affect. DS: Data Vitals/I&O Vitals and I&O: Vital Signs Temperature 37.2 C 09/11/18 15:58 Temperature Source Tympanic 09/11/18 15:58 Pulse 91 H 09/11/18 15:58 Pulse Rhythm Regular 09/11/18 09:39 Pulse 103 H 09/09/18 20:11 Respiratory Rate 20 09/11/18 15:58 Respiratory Effort 09/11/18 09:39 Respiratory Depth Normal 09/11/18 09:39 Respiratory Pattern Normal 09/11/18 09:39 Blood Pressure 128/77 09/11/18 15:58 Blood Pressure Mean 83 09/09/18 20:00 Blood Pressure Position Supine 09/09/18 16:17 Pulse Oximetry 94 L 09/11/18 15:58 Oxygen Delivery Method Nasal Cannula 09/11/18 15:58 Oxygen Flow Rate 2 09/11/18 15:58 Fraction of Inspired Oxygen (FIO2) 30 09/10/18 07:40 Pain Level 6 09/09/18 19:11 Comment 09/10/18 03:30 Intake & Output 09/10/18 09/11/18 09/11/18 23:59 11:59 23:59 Intake Total 1447.5 / 2287.5 1230 / 1470 240 / 1470 Output Total 300 / 600 300 / 600 Balance 1447.5 / 1387.5 930 / 870 -60 / 870 Weight 91.2 kg Intake: IV 487.5 / 837.5 400 / 400 Oral 960 / 1450 830 / 1070 240 / 1070 Output: Urine 300 / 600 300 / 600 Other: Urine Color Light Angela Yellow Urine Appearance Clear Urine Odor Normal Comment pt missed hat patient states shes been emptying the hat in her toilet. Stool Size Moderate Stool Characteristics Formed Hard Brown Voiding Methods Toilet Toilet Toilet Completed studies during hospitalization [Text1]: Exam(s) 09/09/[address]:CT head wo SYMPTOMS/DIAGNOSIS: HEADACHE NONCONTRAST HEAD CT: Comparison is made with [id number]. No intracranial hemorrhage, mass or infarct is seen. The orbits, sinuses and mastoid air cells are unremarkable as visualized. IMPRESSION: Negative head CT. -------- Exam(s) 09/09/2018 a RAD:XR chest 2V PA & lateral SYMPTOMS/DIAGNOSIS: FEVER, HEADACHE, HYPOXIC AP AND LATERAL CHEST: Comparison is made with [id number]. The heart size is within normal limits. There are underlying fibrotic changes. There is mild motion on the lateral view. There is a question of increased vascular prominence and increased markings at the lung bases which could represent mild pulmonary edema. No definite effusions are seen. IMPRESSION: Question of mild pulmonary edema. --------- EXAM: CT Angiography Chest With Contrast EXAM DATE/TIME: 09/09/2018 6:19 PM CLINICAL HISTORY: 63 years old, female; Signs and symptoms; Fever and tachypnea and other: Hypoxic; Patient HX: Hypoxic, febrile, tachycardic; Additional info: PT unable to hold breath COMPARISON: CT CHEST PE CTA 08/18/2018 11:50 AM FINDINGS: Pulmonary arteries: Small pulmonary emboli to the lobes bilaterally. Aorta: Normal. No aortic aneurysm. No aortic dissection. Great vessels off aortic arch: Aberrant right subclavian artery. Thyroid: 2 cm right thyroid nodule. Other bilateral small nodules in the thyroid gland. Lungs: Atelectasis versus infiltrate versus infarcts at the pulmonary bases posterior segments. Pleural space: Normal. No pneumothorax. No pleural effusion. Heart: Normal. No cardiomegaly. No pericardial effusion. Lymph nodes: Unremarkable. No enlarged lymph nodes. Bones/joints: Unremarkable. No acute fracture. Soft tissues: Unremarkable. IMPRESSION: 1. Small pulmonary emboli to the lobes bilaterally. No Right heart strain. 2. Atelectasis versus infiltrate versus infarcts at the pulmonary bases posterior segments. 3. Bilateral nodules in the thyroid gland. Consider ultrasound. 4. THIS REPORT CONTAINS FINDINGS THAT MAY BE CRITICAL TO PATIENT CARE. The findings were verbally communicated via telephone conference with RICARDO MCKINNEY at 6:47 PM EDT on 09/09/2018. The findings were acknowledged and understood. EXAM: CT Angiography Abdomen With Contrast EXAM DATE/TIME: 09/09/2018 6:19 PM CLINICAL HISTORY: 63 years old, female; Signs and symptoms; Fever and tachypnea and other: Hypoxic; Patient HX: Hypoxic, febrile, tachycardic; Additional info: PT unable to hold breath COMPARISON: CT CHEST PE CTA 08/18/2018 11:50 AM FINDINGS: Lungs: Unremarkable. No consolidation. VASCULATURE: Aorta: Atherosclerosis in the aorta causing no significant stenosis. Celiac trunk and mesenteric arteries: No occlusion or significant stenosis. Renal arteries: No occlusion or significant stenosis. ABDOMEN: Liver: Normal. No mass. Gallbladder and bile ducts: Cholecystectomy. Pancreas: Normal. No ductal dilation. Spleen: Normal. No splenomegaly. Adrenals: Normal. No mass. Kidneys and ureters: Small subcentimeter cysts in the kidneys.. No hydronephrosis. Stomach and bowel: Unremarkable. No obstruction. No mucosal thickening. Unable to identify the appendix. Intraperitoneal space: Unremarkable. No free air. No significant fluid collection. Bones/joints: Degenerative changes in the spine. Soft tissues: Unremarkable. Lymph nodes: Unremarkable. No enlarged lymph nodes. IMPRESSION: No hemodynamically significant stenosis in the vessels of the abdomen and pelvis. --------- Exam(s) 09/11/2018 a US:US extremity venous BI a US:US upper extremity venous LT a US:US upper extremity venous RT SYMPTOMS/DIAGNOSIS: NEW PULMONARY EMBOLI, H/O RIGHT UPPER EXTREMITY DVT, BILATERAL HAND AND FEET SWELLING RIGHT UPPER EXTREMITY ULTRASOUND: Comparison is made with July,. Thrombus is demonstrated in one of the brachial veins. The previous exam showed a clot within both brachial veins. The remaining visualized veins of the upper extremity appear free of thrombus. IMPRESSION: Deep venous thrombosis in one of the brachial veins. LEFT UPPER EXTREMITY ULTRASOUND: Thrombus is visualized in a superficial vein of the lateral forearm. No deep venous thrombosis is identified. The jugular and subclavian veins also appear free of thrombus. IMPRESSION: Superficial thrombophlebitis of the left forearm. BILATERAL LOWER EXTREMITY ULTRASOUND: The femoral and popliteal veins and visualized portions of the calf veins are freely compressible. No thrombus is identified. The Doppler venous waveform augments normally. No superficial thrombophlebitis or Scott's cyst is seen in either lower extremity. IMPRESSION: Negative bilateral lower extremity ultrasound. No evidence of DVT. Labs on day of discharge: Labs from last 24 hours 09/11/18 09/11/18 09/11/18 09:00 08:44 06:50 WBC RBC Hgb Hct MCV MCH MCHC RDW Plt Count MPV Immature Gran % Neutrophils % Lymphocytes % Monocytes % Eosinophils % Basophils % Absolute Neutrophils Absolute Lymphocytes Absolute Monocytes Absolute Eosinophils Absolute Basophils Sodium Potassium Chloride Carbon Dioxide Anion Gap BUN Creatinine Estimated GFR/1.73 m2 Glucose Calcium Magnesium Procalcitonin < 0.1 Vancomycin Trough Cancelled Urine Opiates Screen Negative Urine Methadone Screen Negative Ur Barbiturates Screen Negative Ur Tricyclics Screen Positive Ur Amphetamines Screen Negative U Benzodiazepines Scrn Negative Urine Cocaine Screen Negative Ur THC Screen Negative Legionella Source Legionella Reprt Status Legionella Final Result 09/11/18 09/11/18 09/09/18 06:50 06:50 17:25 WBC 6.59 RBC 3.69 L Hgb 9.2 L Hct 30.8 L MCV 83.5 MCH 24.9 L MCHC 29.9 L RDW 17.4 H Plt Count 194 MPV 11.4 H Immature Gran % 0.3 Neutrophils % 78.9 Lymphocytes % 14.6 Monocytes % 6.2 Eosinophils % 0.0 Basophils % 0.0 Absolute Neutrophils 5.20 Absolute Lymphocytes 0.96 L Absolute Monocytes 0.41 Absolute Eosinophils 0.00 Absolute Basophils 0.00 Sodium 142 Potassium 3.9 Chloride 103 Carbon Dioxide 34.2 H Anion Gap 4.8 BUN 23 H D Creatinine 0.55 Estimated GFR/1.73 m2 >= 60.00 Glucose 190 H Calcium 8.1 L Magnesium 1.8 Procalcitonin Vancomycin Trough Urine Opiates Screen Urine Methadone Screen Ur Barbiturates Screen Ur Tricyclics Screen Ur Amphetamines Screen U Benzodiazepines Scrn Urine Cocaine Screen Ur THC Screen Legionella Source (see note) Legionella Reprt Status (see note) Legionella Final Result (see note) Preliminary micro results at discharge 09/09/18 18:05 Blood Culture - Preliminary Blood NO GROWTH 24 HOURS 09/09/18 17:00 Blood Culture - Preliminary Blood NO GROWTH 24 HOURS [facility] Medical History Acute deep vein thrombosis (DVT) of brachial vein of right upper extremity (Acute) PETERSON (obstructive sleep apnea) (Chronic) Chronic pain (Chronic) Fxazltv-Cccnz-Xrsfl disease (Chronic) Family history of colon cancer (Chronic) Constipation (Chronic) Pancreatic mass (Chronic ~01/2017) Chronic obstructive lung disease (Chronic) Benign hypertension (Chronic) Tobacco dependence syndrome (Chronic) Hyperlipidemia (Chronic) Chronic anxiety (Chronic) Multiple sclerosis (Chronic) Kzwkksd-Xguss-Qmznw disease (Chronic) Sleep apnea (Chronic) Migraine (Chronic) Allergic rhinitis (Chronic) Depressive disorder (Chronic) Polysubstance abuse (Chronic) Multinodular thyroid (Chronic) Colon polyps (Chronic) History of suicide attempt (Chronic) Tobacco use disorder (Chronic 04/15/14) Hepatitis C antibody test positive (Chronic) Tobacco use (Acute) Allergic rhinitis (Chronic) Anxiety (Chronic) COPD (chronic obstructive pulmonary disease) (Chronic) 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) Depression (Chronic) Edema (Chronic) Goiter diffuse (Chronic) HTN (hypertension) (Chronic) Hepatitis C (Chronic) Hypercholesterolemia (Chronic) Left knee pain (Chronic) Lumbar back pain (Chronic) Migraine headache (Chronic) Multiple sclerosis (Chronic) PETERSON (obstructive sleep apnea) (Chronic) Opioid dependence (Chronic) Cocaine abuse (Resolved) Surgical History History of Surgical Procedure (Chronic) H/O section (Inactive) S/P cholecystectomy (Inactive) Status post shoulder surgery (Inactive) Social History Smoking/Tobacco Use Status: Former Tobacco Use Quit Date: 08/13/18 Alcohol Intake: never Drug use: Never Substance use type: former substance user Do you feel safe at home: Yes Do you feel safe in your relationship?: Yes Additional Social history: Currently lives with her daughter, possible active drug use in the home Has been recently per clinic notes
--- NOTE | 2018-09-11 16:39 | PDOC.CMDIS ---
- If Service Date Differs Date of service: 09/11/18 Time of Service: 16:39 LACE Index Scoring Tool - Questions: Length of Stay (in days): 3 Acuity (Admit via E.D.?): Yes Comorbidities: Diabetes w/o Complication, Chronic Pulmonary Disease, Liver or Renal Disease E.D. Visits: 6 - Answers: Total Score: 15 Risk of Readmission: High Risk Care Management Discharge Reason for Hospitalization: PE and HCAP Discharge Plan: Lona is being discharged home with new home heatlh services including PT, OT and nursing. She will need to give herself daily injections of Fundaparinux. CM coordianted anticoagulation through [facility]. The medication with a starter kit will be delievered to her home on 09/12/18. Lona will have her daughter fashion artist her the daily injections CM will fax information to home health and primary care. Lona will need follow up with hematology r/t PE's and multiple DVT's. She has requested hematology follow up to be scheduled [facility] hematology. CM will fax discharge summary to service and follow up with patient appointment and time she will also need RCT coordinated for the appointment. Tatum will receive her NIV at home through [facility], she also has follow up with her primary care on 09/12/18. Lona feels ready for discharge, RCT coorindated for 1730 pm by SACHIN. Patient/Family Education Needs: Discharge education, limitations and follow up plan of care including self management and ask me three. Services Needed at Discharge: DME Agency, Home Health Care Services, Occupational Therapy, Respiratory Therapy, Respiratory Care Services, Physical Therapy, Transportation
--- NOTE | 2018-09-11 16:44 | PDOC.HHF2F ---
1. Encounter Date and Reason I certify that ROLLY KRUSE was seen by Dylan Stephens on 09/11/18 and that I had a [id number] encounter with this patient that meets the physician face to face encounter requirements. 2. Clinical Findings Supporting Skilled Need and Homebound Status I certify that home health services are medically necessary, include either intermittent long term and/or physical/speech therapy, and that this patient is homebound in that absences from the home require considerable and taxing effort and are infrequent or of short duration, or are attributable to the need to receive medical care. [X] (a) Attached documentation from encounter provides clinical findings supporting skilled need and homebound status (including what assistance patient requires to leave the home). The encounter with the patient was in whole, or in part, for the following medical condition, which is the primary reason for home health care: PULMONARY EMBOLI, HCAP Senior Care: New injections once daily with Fondaparinox. New diagnosis of PE, failed anticoagulation with Eliquis. Physical Therapy/Occupation Therapy: Chronic Deconditioning. Multiple Hospitalizations. Speech Therapy: Homebound: 3. Certification and Authentication I certify that I composed the above information based on my clinical judgement relating to this patient's medical condition and, if applicable, clinical findings communicated to me by the NPP or inpatient physician who performed the Home Health Referral. All further orders will be obtained through (Community Based Physician - PCP)
--- NOTE | 2018-09-11 16:45 | CMDISCH_ITS ---
- If Service Date Differs Date of service: 09/11/18 Time of Service: 16:39 LACE Index Scoring Tool - Questions: Length of Stay (in days): 3 Acuity (Admit via E.D.?): Yes Comorbidities: Diabetes w/o Complication, Chronic Pulmonary Disease, Liver or Renal Disease E.D. Visits: 6 - Answers: Total Score: 15 Risk of Readmission: High Risk Care Management Discharge Reason for Hospitalization: PE and HCAP Discharge Plan: Lona is being discharged home with new home heatlh services including PT, OT and nursing. She will need to give herself daily injections of Fundaparinux. CM coordianted anticoagulation through [facility]. The medication with a starter kit will be delievered to her home on 09/12/18. Lona will have her daughter inclusion manager her the daily injections CM will fax information to home health and primary care. Lona will need follow up with hematology r/t PE's and multiple DVT's. She has requested hematology follow up to be scheduled [facility] hematology. CM will fax discharge summary to service and follow up with patient appointment and time she will also need RCT coordinated for the appointment. Tatum will receive her NIV at home through [facility], she also has follow up with her primary care on 09/12/18. Lona feels ready for discharge, RCT coorindated for 1730 pm by SACHIN. Patient/Family Education Needs: Discharge education, limitations and follow up plan of care including self management and ask me three. Services Needed at Discharge: DME Agency, Home Health Care Services, Occupational Therapy, Respiratory Therapy, Respiratory Care Services, Physical Therapy, Transportation
== END 2018-09-11 17:40 | disposition home health service (06) | DRG 189 ==
LOC: ER 16:14 → MS 20:38
PROVIDERS: Admitting Provider Internal Medicine; Emergency Provider Physician Assistant; PCP Family Medicine; Visit Provider Internal Medicine
DX: J96.22 Acute and chronic respiratory failure with hypercapnia (principal); I26.99 Other pulmonary embolism without acute cor pulmonale; J18.9 Pneumonia, unspecified organism; J44.0 Chronic obstructive pulmonary disease with (acute) lower respiratory infection; F11.20 Opioid dependence, uncomplicated; I82.621 Acute embolism and thrombosis of deep veins of right upper extremity; J96.21 Acute and chronic respiratory failure with hypoxia; Y95 Nosocomial condition; G47.33 Obstructive sleep apnea (adult) (pediatric); I10 Essential (primary) hypertension; E78.5 Hyperlipidemia, unspecified; F41.8 Other specified anxiety disorders; F17.210 Nicotine dependence, cigarettes, uncomplicated; Z79.01 Long term (current) use of anticoagulants; E04.2 Nontoxic multinodular goiter; I80.8 Phlebitis and thrombophlebitis of other sites
CPT/HCPCS: 36415; 36569; 71275; 74177; 80048; 80053; 80307; 82805; 83690; 84145; 86850; 86900; 86901; 87040; 87449; 94640; 96361; 96365; 96366; 96368; 96375; 99223; 99233; 99239; 99285; 70450; 71046; 80202; 81003; 81015; 83605; 83735; 84484; 85025; 85049; 85610; 85730; 93970; 93971; 94660; 99284; J0131; J0780; J1200; J1650; J2930; J3370; J3490

== ENCOUNTER 2018-11-20 10:48 | Outpatient (CLI) | payer MEDICARE, MEDICAID, SELFPAY ==
[2018-11-20 11:38] LABS: Hemoglobin A1C 6.5 % (4.5-6.2)
[2018-11-20 13:07] LABS: TSH (W/Ref FT4) < 0.01 uIU/mL (0.36-3.74)
[2018-11-20 13:23] LABS: FREE T4 1.85 ng/dL (0.76-1.46)
[2018-11-22 08:47] LABS: HCV RNA Detection Quantitative 82940 IU/mL (UNDECT)
== END 2018-11-20 11:08 ==
PROVIDERS: PCP Family Medicine; Visit Provider Family Medicine
DX: E04.2 Nontoxic multinodular goiter (principal); B19.20 Unspecified viral hepatitis C without hepatic coma
CPT/HCPCS: 36415; 83036; 84439; 84443; 87522

== ENCOUNTER 2018-12-12 09:03 | Emergency (ER) | payer MEDICARE, MEDICAID, SELFPAY ==
[2018-12-12] VITALS (58 sets, daily range): BP systolic 52–145; BP diastolic 33–103; PULSE 82–130; RESP 8–42; TEMP 36.2; O2SAT 70–93
[2018-12-12] MEDS: Rocuronium 50 MG/5 ML SYR 120 MG IVP (09:13)
[2018-12-12] MEDS: Ketamine 500 MG/10 ML VIAL 100 MG IV (09:15)
--- NOTE | 2018-12-12 09:20 | DI.RAD_ITS ---
SYMPTOMS/DIAGNOSIS: TUBE PLACEMENT PORTABLE SUPINE CHEST: Comparison is made with [id number]. An endotracheal tube has been inserted which lies at the chrsitine and should be pulled back 4-5 cm. The lungs are not well inflated but appear grossly clear. No pneumothorax is seen. IMPRESSION: Low placement of endotracheal tube which should be retracted 4-5 cm.
--- NOTE | 2018-12-12 09:21 | DI.CT_ITS ---
SYMPTOMS/DIAGNOSIS: ALTERED MENTAL STATUS NONCONTRAST HEAD CT: Comparison is made with [id number]. No intracranial hemorrhage, mass or infarct is seen. There is no evidence of fracture. There is debris within the nasal cavity and a small amount of mucous in the right sphenoid sinus. The mastoid air cells appear clear. IMPRESSION: No acute abnormality.
--- NOTE | 2018-12-12 09:23 | W.ED.GENAD ---
Discharge Plan Disposition Patient Disposition: [facility] Condition: Critical Discharge Details Chief Complaint: AMS/LOC Clinical Impression: Acute respiratory failure with hypoxia, Aspiration into airway Primary Care Provider: Valerie Jiang ED Provider: Sudhir Walker [facility] Meds and New Rx's Prescriptions: No Action mirtazapine 30 mg tablet 30 mg PO HS RF: 0 furosemide 20 mg tablet 40 mg PO DAILY RF: 0 Spiriva with HandiHaler 1 PUFF capsule, w/inhalation device 1 cap Inhalation DAILY RF: 0 Symbicort 60 PUFF HFA aerosol inhaler 2 puff Inhalation BID RF: 0 albuterol sulfate 2.5 mg /3 mL (0.083 %) Solution For Nebulization 2.5 mg INHALATION Q4H PRNRF: 0 melatonin 1 mg Tablet 6 mg PO HS PRNRF: 0 gabapentin [Neurontin] 600 mg Tablet 600 mg PO TID Qty: 42 RF: 0 omeprazole 40 mg capsule,delayed release(DR/EC) 40 mg PO DAILY Qty: 30 RF: 0 fondaparinux 7.5 mg/0.6 mL syringe 7.5 mg SC DAILY Qty: 6 RF: 0 prednisone 10 mg tablet 10 mg PO DAILY Qty: 45 RF: 0 montelukast [Singulair] 10 MG tablet 10 mg PO DAILY RF: 0 escitalopram oxalate [Lexapro] 20 MG tablet 20 mg PO DAILY RF: 0 atorvastatin 40 mg Tablet 40 mg PO HS RF: 0 amlodipine 5 mg Tablet 5 mg PO DAILY RF: 0 sumatriptan succinate 50 mg Tablet 50 mg PO DIRECTED RF: 0 losartan 100 mg Tablet 100 mg PO DAILY RF: 0 buprenorphine-naloxone [Suboxone] 2-0.5 mg Film 1 film Sublingual DAILY RF: 0 Nicotrol 10 mg Cartridge 10 mg Inhalation Q2H PRN PRNQty: 30 RF: 0 ibuprofen 800 mg tablet 800 mg PO TID PRN (Reason: pain) Qty: 30 RF: 0 prochlorperazine maleate [Compazine] 5 mg tablet 5 mg PO Q8H PRN PRN (Reason: nausea and vomiting) Qty: 10 RF: 0 Medical Decision Making 63 yo female with mutltiple medical problems including donnie on cpap but per chart review doesn't wear it consistently, substance abuse, pe, who comes in after he daughter found her unrepsonsive. EMS arrived and she was not responding to verbal or painful stimuli, they placed her on cpap and brought her here. They gave her narcan enroute without any significant relief and had a finger stick of 160. She arrives on cpap and makes no noise, will withdraw arms and feet to painful stimuli but otherwise no purpuseful movement, PERRL, no signs of trauma. She has an oxygen saturation of 70% on the cpap on arrival and given her mental status I intubated her using a size 3 cmac blade withou grade I view of the cords after 100mg ketamine and 120mg rocuronium. Lung sounds are diffusely coarse with crackles at the bases. Will obtain CT head given ams and also cta of the chest given hx of Pe and recent hcap in August. I suspect she did not wear her cpap machine last night and led to hypercapnia given her end tidal co2 after intubation was over 70 pt remains hypoxic in the 80's despite 100% fio2 and 10 of peep, will increase peep. CT shows severe atelectasis and debris in left bronchi vs mass. She is othewise hd stable. Labs show troponin of 0.09 likely demand and has rodri with creatinine above 2. Spoke with hospitalist Dr. Church who feels pt should be transferred to higher level of care. Pt lost IV in left ac, will place central line given I can't find another site peripherally central line placed without complications, is becoming more hypotensive, no evidence of ptx on cxr. Will start levophed drip. Spoke with [facility] [place] and Dr. Davenport accepted in transfer, will go by [facility] Differential Diagnosis donnie, overdose, pe, pna, copd, chf Imaging Data Radiologic Study: Attestation: I personally reviewed and interpreted this imaging study as follows: Imaging: CT Scan Radiologist's impression: IMPRESSION: Severe atelectasis of the left lung with midline shift. There is debris in the left bronchi vs mass. No pulmonary emboli are seen. [id number]: Total DLP = 0.00 mGy-cm Radiologic Study #2: Attestation: I personally reviewed and interpreted this imaging study as follows: Imaging: CT Scan Radiologist's impression: IMPRESSION: No acute abnormality. on ct head Radiologic Study #3: Attestation: I personally reviewed and interpreted this imaging study as follows: Imaging: X-Ray My impression: 1st portable shows ET tube at the christine Radiologic Study #4: Attestation: I personally reviewed and interpreted this imaging study as follows: Imaging: X-Ray My impression: no interval change on cxr, central line in place Lab Data Lab results reviewed: Yes I reviewed the patient's lab results. ECG Data Attestation: I personally reviewed and interpreted this ECG (s) as follows: Prior ECG tracings: not available for review Interpretation: sinus tachycardia rate of 106, pr 156 HPI General Mode of arrival: EMS. Date/Time Provider Initiated Documentation: 12/12/18 09:20. Limitations to Documentation: other (unresponsive). Information obtained by: EMS. History of Present Illness 63 year old F presents to the emergency department with the chief complaint of unresponsive, Patient started experiencing this unknown and it has been constant. Patient notes other (unable to obtain due to mental status). Patient did receive the following treatments prior to arrival, none Related Data Home Medications Medication Instructions Recorded Confirmed Spiriva with HandiHaler 1 cap INHALATION DAILY 12/25/12 09/09/18 Symbicort 2 puff INHALATION BID 08/25/14 09/09/18 montelukast [Singulair] 10 mg PO DAILY 08/17/16 09/09/18 escitalopram oxalate [Lexapro] 20 mg PO DAILY 09/08/16 09/09/18 albuterol sulfate 2.5 mg INHALATION Q4H PRN 01/23/18 09/09/18 atorvastatin 40 mg PO HS 05/04/18 09/09/18 furosemide 20 mg tablet 40 mg PO DAILY tab 06/18/18 09/09/18 mirtazapine 30 mg tablet 30 mg PO HS 06/18/18 09/09/18 amlodipine 5 mg PO DAILY 07/26/18 09/09/18 buprenorphine-naloxone [Suboxone] 1 film SUBLINGUAL DAILY 07/26/18 09/09/18 losartan 100 mg PO DAILY 07/26/18 09/09/18 sumatriptan succinate 50 mg PO DIRECTED 07/26/18 09/09/18 Nicotrol 10 mg INHALATION Q2H PRN PRN #30 ea 07/28/18 09/09/18 ibuprofen 800 mg PO TID PRN #30 tab 07/28/18 09/09/18 prochlorperazine maleate 5 mg PO Q8H PRN PRN #10 tab 07/28/18 09/09/18 [Compazine] melatonin 6 mg PO HS PRN 08/18/18 09/09/18 gabapentin [Neurontin] 600 mg PO TID #42 tab 08/23/18 09/09/18 omeprazole 40 mg PO DAILY #30 cap 08/23/18 09/09/18 fondaparinux 7.5 mg SC DAILY #6 ml 09/11/18 prednisone 10 mg PO DAILY #45 tab 09/11/18 Previous Rx's Medication Instructions Recorded Nicotrol 10 mg INHALATION Q2H PRN PRN #30 ea 07/28/18 ibuprofen 800 mg PO TID PRN #30 tab 07/28/18 prochlorperazine maleate 5 mg PO Q8H PRN PRN #10 tab 07/28/18 [Compazine] gabapentin [Neurontin] 600 mg PO TID #42 tab 08/23/18 omeprazole 40 mg PO DAILY #30 cap 08/23/18 fondaparinux 7.5 mg SC DAILY #6 ml 09/11/18 prednisone 10 mg PO DAILY #45 tab 09/11/18 Allergies Allergy/AdvReac Type Severity Reaction Status Date / Time No Known Allergies Allergy Unverified 09/09/18 16:22 General Stated Complaint: AMS/LOC NEGRITA: 1 Review of Systems Review of Systems Unobtainable due to mental status [facility] Social History Smoking/Tobacco Use Status: Former Tobacco Use Quit Date: 08/13/18 Alcohol Intake: never Drug use: Never Substance use type: former substance user Do you feel safe at home: Yes Do you feel safe in your relationship?: Yes Additional Social history: Currently lives with her daughter, possible active drug use in the home Has been recently per clinic notes Exam Const General: other (unresponsive) Orientation: obtunded HENMT Head: normal to inspection Ears: external ears normal General nose exam: external nose normal Mouth: moist mucous membranes Eyes General: appearance normal, both eyes and all related structures Neck Neck: normal visual inspection Resp Effort & Inspection: other (small brief spontaneous respirations) Cardio Rate: regular rate Skin General skin exam: no rashes or lesions noted Neuro General: obtunded Extrem General: normal capillary refill Course Vital Signs Temperature 36.2 C L 12/12/18 09:18 Pulse 124 H 12/12/18 09:18 Respiratory Rate 26 H 12/12/18 09:18 Blood Pressure 144/103 H 12/12/18 09:18 Pulse Oximetry 70 L 12/12/18 09:18 Temperature 36.2 C L 12/12/18 09:18 Temperature Source Temporal Artery Scan 12/12/18 09:18 Pulse 124 H 12/12/18 09:18 Respiratory Rate 26 H 12/12/18 09:18 Blood Pressure 144/103 H 12/12/18 09:18 Blood Pressure Position Sitting 12/12/18 09:18 Pulse Oximetry 70 L 12/12/18 09:18 Oxygen Delivery Method Room Air 12/12/18 09:18 Oxygen Flow Rate 0 12/12/18 09:18 Lab/Test Results Lab/Test Results: 12/12/18 09:02 Blood Blood Culture - Pending 12/12/18 09:02 Blood Blood Culture - Pending Procedures Central Line Placement Right IJ: Time Out Performed: Yes Patient Placed on Monitor/Pulse Ox: Yes MD Prep: mask, gown and gloves Central Line Prep: Chlorhexidine scrub Local Anesthetic: Lidocaine 1% Amount of anesthesia used (mL): 5 Ultrasound Used for Placement: Yes Central Line Lumen Inserted: triple Post Procedure: good blood return, all ports aspirated, flushed, capped and sutured in place with 3-0 nylon Post Procedure X-Ray: tip of catheter in good position Complications: none Intubation Time out performed: Yes sedative: Ketamine Mg Given: 100 paralytic: Rocuronium Mg Given: 120 Laryngoscope: fiberoptic video scope ET Tube Size: 8 ET Tube Uncuffed: Yes Tube Secured Depth (cm): 24 Tube Secured Location: lips Tube Placement Confirmation: visualized tube passing through cords, equal breath sounds bilaterally, no breath sounds over epigastrum and confirmation by capnometry Patient Tolerated Procedure: well Additional Comments: pulled back after fist xray 2cm due to et tube being at the christine Critical Care Time Critical Care Time: Yes Total Critical Care Time: 150 (minutes) Attestation: time spent on lab review, frequent reassessments and hd monitoring in patient with hypoxic respiratory failure and potential to deteriorate at any time. Time doesn't include time spent doing seperate billable procedures
[2018-12-12 09:41] LABS: Bilirubin Moderate (Negative); Blood Trace-intact (Negative); Clarity Cloudy (Clear); Glucose Negative (Negative); Ketones 15 mg/dL (Negative); Leukocyte Esterase Negative (Negative); Nitrite Negative (Negative); Specific Gravity >= 1.030 (1.005-1.025)
[2018-12-12 09:41] LABS: Abs Immature Grans 0.12 k/cumm (0.0-0.09); Absolute Basophil Count 0.01 k/cumm (0.0-0.2); Absolute Eosinophil Count 0.01 k/cumm (0.0-0.7); Absolute Lymphocyte Count 1.29 k/cumm (1.2-3.4); Absolute Monocyte Count 1.17 k/cumm (0.11-0.7); Absolute Neutrophil Count 7.86 k/cumm (1.2-6.7); Basophils % 0.1; Eosinophils % 0.1; HCT 37.2 % (36.0-46.0); HGB 10.9 g/dL (12.0-15.5); Immature Grans % 1.1; Lymphocytes % 12.3; Mean Corp. HGB Concentration 29.3 g/dL (32.0-36.0); Mean Corpuscular Hemoglobin 23.3 pg (27.0-33.0); Mean Corpuscular Volume 79.5 fL (80-95); Mean Platelet Volume 10.6 fL (8.0-11.0); Monocytes % 11.2; Neutrophils % 75.2; Platelet Count 333 x1000/uL (130-400); RBC 4.68 m/cumm (4.00-5.20); RBC Distribution Width 16.4 % (11.7-14.6); White Blood Cell Count 10.46 k/cumm (4.4-10.8)
[2018-12-12] MEDS: methylPREDNISolone SUCC 125 MG VIAL IVP (09:41)
[2018-12-12] MEDS: PROPOFOL 1,000 MG/100 ML BTL 12.705 MG IVPB (09:42)
[2018-12-12] MEDS: Normal Saline 500 ML 1000 ML IV (09:42)
[2018-12-12 09:55] LABS: RBC 0-2 (0-2)
[2018-12-12 09:55] LABS: HCO3 29 mmol/L (22-28); pCO2 56 mmHg (34-47); pH 7.32 (7.35-7.45); pO2 49 mmHg (83-108); sO2 85 % (94-98); tCO2 28 mmol/L (22-29)
[2018-12-12 09:57] LABS: Site Right Radial
[2018-12-12 09:58] LABS: FIO2 100 %
[2018-12-12 09:59] LABS: Bacteria Few HPF (Negative); Crystals Moderate Amorphous HPF (Negative); Epithelial Cells Moderate HPF (Negative); Mucus Moderate (Negative)
[2018-12-12 10:00] LABS: C & S Indicated? No/Sq. Contamination; Casts 3-5 Coarse Granular LPF (Negative)
[2018-12-12 10:01] LABS: INR 1.1 (0.9-1.1); PTT Activated 25.5 sec (21.0-31.4); Prothrombin Time 10.7 sec (9.3-11.0)
[2018-12-12 10:03] LABS: *AMPHETAMINES SCREEN URINE Negative (Negative); *BARBITURATES SCREEN URINE Negative (Negative); *BENZODIAZEPINES SCREEN URINE Negative (Negative); Cannabinoids THC Negative (Negative); Cocaine Screen,Urine Negative (Negative); METHADONE URINE SCREEN Negative (Negative); OPIATES URINE SCREEN Negative (Negative)
[2018-12-12] MEDS: Omnipaque 350 MG/ML 100 ML BTL IJ (10:03)
[2018-12-12 10:07] LABS: Tricyclic Antidepressants Negative (Negative)
[2018-12-12 10:09] LABS: ALT 41 U/L (12-78); AST 43 U/L (15-37); Albumin 3.2 g/dL (3.4-5.0); Alkaline Phosphatase 99 U/L (46-116); Anion Gap 6.4 mmol/L (3-11); BUN 13 mg/dL (7-18); Bilirubin, Total 0.4 mg/dL (0.2-1.0); CO2 33.6 mmol/L (21.0-32.0); CREATININE 2.42 mg/dL (0.55-1.02); Calcium 8.3 mg/dL (8.5-10.1); Chloride 97 mmol/L (98-107); Estimated GFR 20.26 (mL/min/1.73m2); Glucose 137 mg/dL (70-100); Lipase 35 U/L (73-393); Magnesium 1.7 mg/dL (1.8-2.4); NT-proBNP 4209 pg/mL; Potassium 4.2 mmol/L (3.5-5.1); Sodium 137 mmol/L (136-145); TSH (W/Ref FT4) 0.01 uIU/mL (0.36-3.74); Total Protein 7.8 g/dL (6.4-8.2)
[2018-12-12 10:13] LABS: Troponin I 0.09 ng/mL (0.00-0.06)
--- NOTE | 2018-12-12 10:13 | DI.CT_ITS ---
SYMPTOMS/DIAGNOSIS: HYPOXIC, RESPIRATORY FAILURE, ? PNEUMONIA VS PE CHEST CTA FOR PULMONARY EMBOLISM: CT angiography was performed with multi slice acquisition and multi planar and 3D reconstruction. Comparison is made with chest x-ray performed earlier the same day. An endotracheal tube has been inserted which lies at the level of the christine and should be pulled back a few centimeters. There is mass or debris in the left main bronchus and branch bronchi. There is severe atelectasis of the left lung with significant midline shift toward the left. The pulmonary arteries are well opacified with IV contrast and no emboli are seen. The aorta is tortuous but normal in diameter. There is mild aortic calcification but no evidence of dissection. An nasogastric tube projects in the stomach. Evaluation of the lungs is somewhat limited by respiratory motion, however, the right lung appears clear. No pleural or pericardial effusions are seen. There is a severe dextroscoliosis of the thoracic spine. No fractures are seen. IMPRESSION: Severe atelectasis of the left lung with midline shift. There is debris in the left bronchi vs mass. No pulmonary emboli are seen.
[2018-12-12 10:29] LABS: FREE T4 1.73 ng/dL (0.76-1.46)
--- NOTE | 2018-12-12 11:03 | NUR.NOTE ---
Nursing Note: Multiple attempts to place an IV using ultrasound by nursing and physician. Physician to attempt a central line at this time.
--- NOTE | 2018-12-12 11:19 | DI.RAD_ITS ---
SYMPTOMS/DIAGNOSIS: CENTRAL LINE PLACEMENT PORTABLE CHEST: Comparison is made with the exam earlier the same day at 9:18 a.m. The exam is limited by rotation. The endotracheal tube has been pulled back to the level of the aortic arch. The nasogastric tube again projects in the stomach. A right- sided central venous catheter has been placed with the tip in the right atrium. No pneumothorax is seen. There is increased mediastinal shift toward the left and increased densities in the left upper lobe compared with the previous exam. IMPRESSION: Right central venous catheter tip lies in the right atrium. No pneumothorax. Increased mediastinal shift toward the left.
[2018-12-12 11:26] LABS: HCO3 28 mmol/L (22-28); pCO2 56 mmHg (34-47); pH 7.31 (7.35-7.45); pO2 49 mmHg (83-108); sO2 83 % (94-98); tCO2 27 mmol/L (22-29)
[2018-12-12 11:29] LABS: Site Left Radial
[2018-12-12 11:30] LABS: FIO2 100 %
[2018-12-12] MEDS: PIPERACILLIN/TAZO 4.5 GM in Normal Saline 100 ML IVPB (11:42)
[2018-12-12] MEDS: VANCOMYCIN 1,000 MG in Normal Saline 250 ML 166.6666 MG IVPB (11:43)
--- NOTE | 2018-12-12 11:45 | NUR.NOTE ---
Nursing Note: Triple lumen central line placed by Dr. Walker. Time Out performed, this scribe assisted. Pt had CXR which line placement was verified as well as tube placement verified as it had been pulled back 2 cm. gave this scribe permission to use central line for IV ABX.
--- NOTE | 2018-12-12 11:53 | NUR.NOTE ---
Nursing Note: MD notified of hypotension.
[2018-12-12] MEDS: Normal Saline 1,000 ML 100 ML IV (12:16)
[2018-12-12] MEDS: Vecuronium 10 MG VIAL IVP (12:19)
== END 2018-12-12 13:00 | disposition short-term general hospital (02) ==
PROVIDERS: Emergency Provider Emergency Medicine; PCP Family Medicine
DX: J96.01 Acute respiratory failure with hypoxia (principal); J98.11 Atelectasis; N17.9 Acute kidney failure, unspecified; T17.508A Unspecified foreign body in bronchus causing other injury, initial encounter; J44.9 Chronic obstructive pulmonary disease, unspecified; G47.33 Obstructive sleep apnea (adult) (pediatric); G35 Multiple sclerosis; I10 Essential (primary) hypertension; F17.210 Nicotine dependence, cigarettes, uncomplicated; Z86.711 Personal history of pulmonary embolism
CPT/HCPCS: 31500; 36415; 36556; 36592; 71045; 71275; 80053; 80307; 82805; 83690; 87040; 93005; 96361; 96365; 96366; 96367; 96368; 96375; 99291; 99292; 36600; 70450; 81003; 81015; 83735; 83880; 84439; 84443; 84484; 85025; 85610; 85730; 93010; J2310; J2543; J2930; J3490

== ENCOUNTER 2018-12-27 08:30 | Emergency (ER) | payer MEDICARE, MEDICAID, SELFPAY ==
[2018-12-27] VITALS (60 sets, daily range): BP systolic 99–136; BP diastolic 58–71; PULSE 75–125; RESP 11–33; TEMP 36.8; O2SAT 60–99
--- NOTE | 2018-12-27 08:46 | ED.GENADUL_ITS ---
Discharge Plan Disposition Patient Disposition: HOME Condition: Stable Discharge Details Chief Complaint: AMS/LOC Clinical Impression: Chronic obstructive lung disease Primary Care Provider: Valerie Jiang ED Provider: Sudhir Walker Home Meds and New Rx's Prescriptions: New levofloxacin 750 mg tablet 750 mg PO DAILY Qty: 5 RF: 0 Continued mirtazapine 30 mg tablet 30 mg PO HS RF: 0 furosemide 20 mg tablet 40 mg PO DAILY RF: 0 Spiriva with HandiHaler 1 PUFF capsule, w/inhalation device 1 cap Inhalation DAILY RF: 0 Symbicort 60 PUFF HFA aerosol inhaler 2 puff Inhalation BID RF: 0 albuterol sulfate 2.5 mg /3 mL (0.083 %) Solution For Nebulization 2.5 mg INHALATION Q4H PRNRF: 0 melatonin 1 mg Tablet 6 mg PO HS PRNRF: 0 gabapentin [Neurontin] 600 mg Tablet 600 mg PO TID Qty: 42 RF: 0 omeprazole 40 mg capsule,delayed release(DR/EC) 40 mg PO DAILY Qty: 30 RF: 0 fondaparinux 7.5 mg/0.6 mL syringe 7.5 mg SC DAILY Qty: 6 RF: 0 prednisone 10 mg tablet 10 mg PO DAILY Qty: 45 RF: 0 montelukast [Singulair] 10 MG tablet 10 mg PO DAILY RF: 0 escitalopram oxalate [Lexapro] 20 MG tablet 20 mg PO DAILY RF: 0 atorvastatin 40 mg Tablet 40 mg PO HS RF: 0 amlodipine 5 mg Tablet 5 mg PO DAILY RF: 0 sumatriptan succinate 50 mg Tablet 50 mg PO DIRECTED RF: 0 losartan 100 mg Tablet 100 mg PO DAILY RF: 0 buprenorphine-naloxone [Suboxone] 2-0.5 mg Film 1 film Sublingual DAILY RF: 0 Nicotrol 10 mg Cartridge 10 mg Inhalation Q2H PRN PRNQty: 30 RF: 0 ibuprofen 800 mg tablet 800 mg PO TID PRN (Reason: pain) Qty: 30 RF: 0 prochlorperazine maleate [Compazine] 5 mg tablet 5 mg PO Q8H PRN PRN (Reason: nausea and vomiting) Qty: 10 RF: 0 Discharge Instructions Additional Instructions: take the antibiotic for your COPD follow up with your primary care provider within 1 week if you feel more ill, severe pain or have high fevers return to the emergency department Medical Decision Making 63 yo female with hx of copd, [place] tooth, htn, hld, donnie not on cpap, hep c, opioid dependence tx with suboxone, and PE, presents with fatigue. She was d/c'd from [facility] after being trasnferred from here after intubation for respiratory failure. She was d/'c on 12/15 and states she has been living in her car as she has no home. Her daughter brought her here and pt states I don't know why. On exam she is noted to have HR of 110, has eyes closed but opens to voice with clear speech. She has no focal deficits, denies chest pain, fevers, shortness of breath. She states she feels well other than having some feelings of tiredness. will obtain lab work to eval for anemia and electrolyte abnormalities and monitor pt remains stable, is sleeping but easily arousable without complaints. Labs show chronic tsh of 0.01 and mild elevation of owen t4, no clinical evidence of thyroid storm. Xray shows improved aeration from prior but does have residual left lower lobe infiltrate. The patient is absolutely declining to be hospitalized at this time and has capacity to make her own decisions. She has no fevers or leukocytosis so doubt pna but will tx with levoflxoiacn given she is declining hospitalization and can't tx from hcap. she has chronic weakness due to her [place] tooth and recent hospitalization, apparentlyd eclined rehab at [facility] [place] but is willing to go there today if possible, will consult care management care management and PT met with patient and recommended rehab but is unable to go to one today and refusing to stay in the hospital. She is going to leave against my advise and has capacity to do so, understands risks of leaving including and disability. I will tx her with abx though I doubt pna and likely has bronchitis vs copd exacerbation. Advsied f/u with pcp and return if she changes her mind or worsens Differential Diagnosis overdose, hypercanpnia, anemia Medical Records Medical records reviewed: Yes I reviewed the patient's medical records. Imaging Data Radiologic Study: Attestation: I personally reviewed and interpreted this imaging study as follows: Imaging: X-Ray Radiologist's impression: improved aeration, residual left lower lobe infiltrate Lab Data Lab results reviewed: Yes I reviewed the patient's lab results. ECG Data Attestation: I personally reviewed and interpreted this ECG (s) as follows: Prior ECG tracings: not available for review Interpretation: sinus tachycardia, rate of 118, pr 162, qtc 312 HPI General Mode of arrival: ambulatory . Date/Time Provider Initiated Documentation: 12/27/18 08:41 . Limitations to Documentation: no limitations . Information obtained by: patient . History of Present Illness 63 year old F presents to the emergency department with the chief complaint of fatigue, described as moderate, Patient started experiencing this unknown and it has been constant. No relieving factors improve symptom(s), No exacerbating factors reported . Patient did receive the following treatments prior to arrival, none Related Data Home Medications Medication Instructions Recorded Confirmed Spiriva with HandiHaler 1 cap INHALATION DAILY 12/25/12 12/12/18 Symbicort 2 puff INHALATION BID 08/25/14 12/12/18 montelukast [Singulair] 10 mg PO DAILY 08/17/16 12/12/18 escitalopram oxalate [Lexapro] 20 mg PO DAILY 09/08/16 12/12/18 albuterol sulfate 2.5 mg INHALATION Q4H PRN 01/23/18 12/12/18 atorvastatin 40 mg PO HS 05/04/18 12/12/18 furosemide 20 mg tablet 40 mg PO DAILY tab 06/18/18 12/12/18 mirtazapine 30 mg tablet 30 mg PO HS 06/18/18 12/12/18 amlodipine 5 mg PO DAILY 07/26/18 12/12/18 buprenorphine-naloxone [Suboxone] 1 film SUBLINGUAL DAILY 07/26/18 12/12/18 losartan 100 mg PO DAILY 07/26/18 12/12/18 sumatriptan succinate 50 mg PO DIRECTED 07/26/18 12/12/18 Nicotrol 10 mg INHALATION Q2H PRN PRN #30 ea 07/28/18 12/12/18 ibuprofen 800 mg PO TID PRN #30 tab 07/28/18 12/12/18 prochlorperazine maleate 5 mg PO Q8H PRN PRN #10 tab 07/28/18 12/12/18 [Compazine] melatonin 6 mg PO HS PRN 08/18/18 12/12/18 gabapentin [Neurontin] 600 mg PO TID #42 tab 08/23/18 12/12/18 omeprazole 40 mg PO DAILY #30 cap 08/23/18 12/12/18 fondaparinux 7.5 mg SC DAILY #6 ml 09/11/18 12/12/18 prednisone 10 mg PO DAILY #45 tab 09/11/18 12/12/18 levofloxacin 750 mg PO DAILY #5 tab 12/27/18 Previous Rx's Medication Instructions Recorded Nicotrol 10 mg INHALATION Q2H PRN PRN #30 ea 07/28/18 ibuprofen 800 mg PO TID PRN #30 tab 07/28/18 prochlorperazine maleate 5 mg PO Q8H PRN PRN #10 tab 07/28/18 [Compazine] gabapentin [Neurontin] 600 mg PO TID #42 tab 08/23/18 omeprazole 40 mg PO DAILY #30 cap 08/23/18 fondaparinux 7.5 mg SC DAILY #6 ml 09/11/18 prednisone 10 mg PO DAILY #45 tab 09/11/18 levofloxacin 750 mg PO DAILY #5 tab 12/27/18 Allergies Allergy/AdvReac Type Severity Reaction Status Date / Time No Known Allergies Allergy Unverified 12/12/18 12:36 General NEGRITA: 1 Review of Systems Review of Systems All systems reviewed & are unremarkable except as noted in HPI and below Constitutional Denies chills and Denies fever(s) ENT Denies change in voice Cardiovascular Denies chest pain and Denies dyspnea Respiratory Denies cough and Denies dyspnea Gastrointestinal Denies abdominal pain, Denies nausea and Denies vomiting Musculoskeletal Denies joint swelling Endocrine Denies cold intolerance and Denies heat intolerance [facility] Social History Smoking/Tobacco Use Status: Former Tobacco Use Quit Date: 08/13/18 Alcohol Intake: never Drug use: Never Substance use type: former substance user Do you feel safe at home: Yes Do you feel safe in your relationship?: Yes Additional Social history: Currently lives with her daughter, possible active drug use in the home Has been recently per clinic notes Exam Const General: no acute distress Orientation: other (eyes closed but opens to voice and speaks clearly) HENMT Head: normal to inspection Ears: external ears normal General nose exam: external nose normal Mouth: moist mucous membranes Eyes General: appearance normal, both eyes and all related structures Neck Neck: normal visual inspection Resp Effort & Inspection: normal respiratory effort and able to speak in complete sentences Cardio Rate: regular rate Skin General skin exam: no rashes or lesions noted Neuro General: oriented x3 Extrem General: normal to inspection Psych Mental Status: mental status grossly normal
[2018-12-27] MEDS: Normal Saline 1,000 ML 1000 ML IV (08:58)
[2018-12-27 09:12] LABS: Abs Immature Grans 0.05 k/cumm (0.0-0.09); Absolute Basophil Count 0.01 k/cumm (0.0-0.2); Absolute Eosinophil Count 0.01 k/cumm (0.0-0.7); Absolute Lymphocyte Count 0.54 k/cumm (1.2-3.4); Absolute Monocyte Count 0.38 k/cumm (0.11-0.7); Absolute Neutrophil Count 9.62 k/cumm (1.2-6.7); Basophils % 0.1; Eosinophils % 0.1; HCT 34.4 % (36.0-46.0); Immature Grans % 0.5; Lymphocytes % 5.1; Mean Corp. HGB Concentration 29.1 g/dL (32.0-36.0); Mean Corpuscular Hemoglobin 22.9 pg (27.0-33.0); Mean Corpuscular Volume 78.9 fL (80-95); Mean Platelet Volume 11.1 fL (8.0-11.0); Monocytes % 3.6; Neutrophils % 90.6; Platelet Count 327 x1000/uL (130-400); RBC 4.36 m/cumm (4.00-5.20); RBC Distribution Width 16.7 % (11.7-14.6); White Blood Cell Count 10.61 k/cumm (4.4-10.8)
[2018-12-27 09:23] LABS: INR 1.1 (0.9-1.1); PTT Activated 24.3 sec (21.0-31.4)
[2018-12-27 09:26] LABS: Bilirubin Small (Negative); Blood Negative (Negative); Clarity Sl Cloudy (Clear); Glucose Negative (Negative); Ketones Negative (Negative); Leukocyte Esterase Negative (Negative); Nitrite Negative (Negative); Specific Gravity >= 1.030 (1.005-1.025); Urobilinogen 0.2 EU/dL (Up TO 0.2)
[2018-12-27 09:29] LABS: BE (Venous) 1.7 mmol/L (-3-3); HCO3 (Venous) 28 mmol/L (22-28); O2 Sat (Venous) 87 % (70-80); TCO2 (Venous) 27 mmol/L (22-29); pCO2 (Venous) 61 mm/Hg (34-47); pH (Venous) 7.28 (7.32-7.43); pO2 (Venous) 55 mm/Hg (28-44)
[2018-12-27 09:33] LABS: *AMPHETAMINES SCREEN URINE Negative (Negative); *BARBITURATES SCREEN URINE Negative (Negative); *BENZODIAZEPINES SCREEN URINE Negative (Negative); Cannabinoids THC Negative (Negative); Cocaine Screen,Urine Negative (Negative); METHADONE URINE SCREEN Negative (Negative); OPIATES URINE SCREEN Negative (Negative)
[2018-12-27 09:34] LABS: Tricyclic Antidepressants Negative (Negative)
[2018-12-27 09:35] LABS: ALT 30 U/L (14-59); AST 21 U/L (15-37); Albumin 3.1 g/dL (3.4-5.0); Alkaline Phosphatase 84 U/L (46-116); Anion Gap 7.8 mmol/L (3-11); BUN 10 mg/dL (7-18); Bilirubin, Total 0.3 mg/dL (0.2-1.0); CO2 31.2 mmol/L (21.0-32.0); CREATININE 1.03 mg/dL (0.55-1.02); Calcium 8.3 mg/dL (8.5-10.1); Chloride 106 mmol/L (98-107); Glucose 158 mg/dL (70-100); Magnesium 1.6 mg/dL (1.8-2.4); Sodium 145 mmol/L (136-145); TSH (W/Ref FT4) 0.01 uIU/mL (0.36-3.74); Total Protein 7.2 g/dL (6.4-8.2)
--- NOTE | 2018-12-27 09:35 | DI.RAD_ITS ---
SYMPTOM/DIAGNOSIS: HYPOXIA CHEST X-RAY: Portable AP view. Comparison 12/12/18 Cardiac silhouette is within normal limits as is the pulmonary vasculature There has been improved aeration in the left lung base compared to the prior examination. No new infiltrates are seen. No gross effusions are identified. IMPRESSION: Improved aeration in the left lung base with a small residual infiltrate present.
[2018-12-27 09:49] LABS: Troponin I < 0.05 ng/mL (0.00-0.06)
[2018-12-27 09:51] LABS: Epithelial Cells Negative HPF (Negative)
[2018-12-27 09:52] LABS: Other Cells Moderate Renal (Negative)
[2018-12-27 09:53] LABS: Crystals Few Calcium Oxalate HPF (Negative); Mucus Heavy (Negative)
[2018-12-27 09:54] LABS: C & S Indicated? Yes
[2018-12-27 10:20] LABS: FREE T4 1.66 ng/dL (0.76-1.46)
[2018-12-27] MEDS: Acetaminophen 500 MG TAB 1000 MG PO (13:06)
[2018-12-27] MEDS: levoFLOXacin 500 MG, levoFLOXacin 250 MG 750 MG PO (13:07)
[2018-12-27] MEDS: Ondansetron 4 MG/2 ML VIAL (13:37)
--- NOTE | 2018-12-27 15:59 | PT.INIE ---
Date of service: 12/27/18 Time of Service: 12:46 PT Notes Inpatient Physical Therapy Evaluation Date: 12/27/2018 Referring Doctor: Sudhir Walker MD PT Orders: PT CONSULT: ER referral Precautions: Fall. Standard. Activity as tolerated. Patient Profile/Admitting Diagnosis: Patient is a 63-year-old female with past medical history significant for chronic obstructive pulmonary disease, history of substance abuse, Wmqjtyx-Ugzkj-Qvmdu, multiple sclerosis, and migraine headache who presented to the ED with chief complaint of fatigue. Patient was diagnosed with altered mental status and loss of consciousness. Referral for physical therapy was made in order to assess safety of patient to go home. 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) Depression (Chronic) Edema (Chronic) Goiter diffuse (Chronic) HTN (hypertension) (Chronic) Hepatitis C (Chronic) Hypercholesterolemia (Chronic) Left knee pain (Chronic) Lumbar back pain (Chronic) Migraine headache (Chronic) Multiple sclerosis (Chronic) PETERSON (obstructive sleep apnea) (Chronic) Opioid dependence (Chronic) Cocaine abuse (Resolved) Surgical History S/P cholecystectomy (Inactive) Status post shoulder surgery (Inactive) Social History/Home Situation: Patient has reportedly been living inside her car for a week now. She states that her 84 days of supplemental living arrangement staying in a hotel was up so she and her daughter had to move out. She has a pillowcase maker in the community who has been facilitating assisting with all of patient's housing arrangement. Patient received skilled physical therapy services at this hospital we will plan on doing this tomorrow, from 08/20/2018 through 08/24/2018 and was discharged at supervision level on mobility ADL Jimmy's using a front-wheeled walker. Equipment Owned/DME: [place], [facility] Subjective: Patient is agreeable PT consult. She complains about a pounding headache. She reports being nauseous and vomited x 6 during PT evaluation. She states that very much as she does not want her daughter to be alone at night without home. Objective: General Observation: Patient seen resting on ICU bed. High flow oxygen mentation in place. Telemetry monitoring in place. Patient appeared disheveled and mildly lethargic initially. Mental Status: Lethargic initially but oriented as to person, place, time, and purpose. Pain: Moderate to severe headache Vital Signs: Oxygen saturation ranged 90-95 on supplementation. ROM: Right Upper Extremity: Shoulder Flexion 0-110. Shoulder abduction 0-100. Elbow flexion WFL. Wrist flexion WFL. Functional opening and closing of hand WFL. Left Upper Extremity: Shoulder Flexion WFL. Shoulder abduction WFL. Elbow flexion WFL. Wrist flexion WFL. Functional opening and closing of hand WFL. Right Lower Extremity: Hip flexion WFL. Hip abduction WFL. Knee flexion WFL. Ankle dorsiflexion about 0-10 from a fully plantaerflexed position. Ankle plantarflexion allows 10 degrees. Left Lower Extremity: Hip flexion WFL. Hip abduction WFL. Knee flexion WFL. Ankle dorsiflexion WFL 0-20 from a fully plantaerflexed position. Ankle plantarflexion allows 20 degrees. Strength: Right Upper Extremity: Shoulder flexors 3-/5. Shoulder abductors 3-/5. Elbow flexors 4/5. Elbow extensors 4/5. Flight Operation Coordinator strong. Left Upper Extremity: Shoulder flexors 4-/5. Shoulder abductors 4-/5. Elbow flexors 4-/5. Elbow extensors 4-/5. Flight Operation Coordinator strong. Right Lower Extremity: Hip flexors 4-/5. Hip abductors 3+/5. Knee flexors 3+/5. Knee extensors 3+/5. Ankle dorsiflexors 3- /5. Ankle plantarflexors 3- /5. Left Lower Extremity: Hip flexors 4-/5. Hip abductors 3+/5. Knee flexors 3+/5. Knee extensors 3+/5. Ankle dorsiflexors 3- /5. Ankle plantarflexors 3- /5. BED MOBILITY LEVELS/TRANSFERS Rolling minimal assist Supine to sit minimal assist Sit to supine minimal assist Sit to stand minimal assist Stand to sit minimal assist Bed to chair minimal assist Chair to bed minimal assist Gait: Patient was a tolerate level surface ambulation of about 30 feet using a front wheeled minimal assist this and and standby assist/oxygen tank management/lines managed of student PT. Patient required verbal cueing for walker management, directional changes, and overall safety technique in order to reduce fall risk. Mild steppage gait on bilateral feet observed at the beginning stance phase for age extremity. Balance: Static Sitting: Good Dynamic Sitting: Good Static Standing: Fair Dynamic Standing: Fair Special Tests: Mobility Limitations Standardized Measure [facility] AM-PAC 6 clicks Basic Mobility Inpatient Short Form: Raw Score: 17 CMS Score: 51% deficit Informed Consent/Education: Patient instructed in purpose of PT consult and on safety recommendations in order to reduce fall risk and maximize functional performance. Assessment: Patient is a 63-year-old female with a diagnosis of altered status and loss of consciousness who presents mobility impairment and impaired safety awareness requiring the need for use of an assistive device. Patient presents with clinical signs and symptoms consistent with current/admitting diagnoses that have resulted to mobility limitations, gait instability, generalized weakness, and impairment of motor control as demonstrated by the following impairment level findings: 1. Decreased strength to B LE major muscle groups 2. Impaired standing balance 3. Impaired activity tolerance 4. Limitation of joint range of motion in bilateral ankles 5. Impaired safety awareness from altered mental status Impairments are contributing to the following functional limitations: 1. Dependent bed mobility skills 2. Increased dependence with transfers 3. Inability to safely ambulate without assistive device and physical assistance 4. Increase completion time for mobility ADL performance 5. Increased fall risk Patient is assessed as a [id number] moderate complexity based on the following: History: 63-year-old female with altered status and loss of consciousness with past history as indicated above Examination: Demonstrable impairment in strength, balance, and range of motion with underlying impairments and functional limitations as documented above Presentation:Evolving Decision Makin moderate complexity DISCHARGE RECOMMENDATIONS: Patient will benefit from skilled physical therapy services in order to address current impairments in in strength, range of motion, and mobility level. She will require use of a front wheeled walker to reduce fall risk and maximize independence with mobility ADL performance. TREATMENT CODE/TIME: 9716 2 x 35 minutes beginning at 12:48 PM. Thank you very much for this referral. Cydney Jesus PT, DPT, CLT [facility]
== END 2018-12-27 15:05 | disposition home or self-care (01) ==
PROVIDERS: Emergency Provider Emergency Medicine; PCP Family Medicine
DX: J44.9 Chronic obstructive pulmonary disease, unspecified (principal); R53.83 Other fatigue; G60.0 Hereditary motor and sensory neuropathy; I10 Essential (primary) hypertension; Z59.0 Homelessness; Z53.29 Procedure and treatment not carried out because of patient's decision for other reasons
CPT/HCPCS: 36415; 80053; 80307; 82805; 93005; 96361; 96374; 97162; 99285; 71045; 81003; 81015; 83735; 84439; 84443; 84484; 85025; 85610; 85730; 87086; 93010; J2405

== ENCOUNTER 2019-01-04 17:21 | Inpatient (IN) | payer MEDICARE, MEDICAID, SELFPAY ==
[2019-01-04] VITALS (72 sets, daily range): BP systolic 66–104; BP diastolic 29–72; PULSE 82–146; RESP 5–22; TEMP 35.4–36.5; O2SAT 78–100
--- NOTE | 2019-01-04 17:33 | DI.COMBO_ITS ---
SYMPTOM/DIAGNOSIS: UNRESPONSIVE, POSTERIOR HEADACHE, ? ACUTE CVA NONCONTRAST CRANIAL CT: A noncontrast cranial CT was performed. There is motion artifact which degrades the imaging somewhat. There appears to be mild generalized cerebral atrophy. No evidence of acute intracranial hemorrhage, mass effect or midline shift. No gross calvarial fracture. Orbital and temporal bone structures appear intact. Mastoid air cells and paranasal sinuses appear well aerated except for a probable retention cyst of right sphenoid sinus. CONCLUSION: No evidence of acute intracranial process. PA AND LATERAL CHEST: The heart is at the upper limits of normal in size to mildly enlarged. Slight prominent of pulmonary interstitial markings is noted, early CHF not excluded. Small pleural effusion noted. CONCLUSION: Question mild CHF, follow up chest radiographs recommended.
--- NOTE | 2019-01-04 17:35 | ED.GENADUL_ITS ---
Discharge Plan Disposition Patient Disposition: [facility] INPATIENT Condition: Fair Discharge Details Chief Complaint: AMS/LOC Clinical Impression: Acute exacerbation of chronic obstructive pulmonary disease (COPD), Hypercarbia, Methadone dependence, Elevated troponin Primary Care Provider: Valerie Jiang ED Provider: Kaylie Resendiz Home Meds and New Rx's Prescriptions: No Action mirtazapine 30 mg tablet 30 mg PO HS RF: 0 furosemide 20 mg tablet 40 mg PO DAILY RF: 0 apixaban 5 mg tablet 5 mg PO BID RF: 0 quetiapine 100 mg tablet 100 mg PO TID RF: 0 dexmethylphenidate [Focalin XR] 20 mg capsule,ER biphasic 50-50 20 mg PO DAILY RF: 0 roflumilast 500 mcg tablet 500 mcg PO DAILY RF: 0 ondansetron HCl [Zofran] 4 mg tablet 4 mg PO Q8H RF: 0 Spiriva with HandiHaler 1 PUFF capsule, w/inhalation device 1 cap Inhalation DAILY RF: 0 Symbicort 60 PUFF HFA aerosol inhaler 2 puff Inhalation BID RF: 0 albuterol sulfate 2.5 mg /3 mL (0.083 %) Solution For Nebulization 2.5 mg INHALATION Q4H PRNRF: 0 melatonin 1 mg Tablet 6 mg PO HS PRNRF: 0 gabapentin [Neurontin] 600 mg Tablet 600 mg PO TID Qty: 42 RF: 0 omeprazole 40 mg capsule,delayed release(DR/EC) 40 mg PO DAILY Qty: 30 RF: 0 fondaparinux 7.5 mg/0.6 mL syringe 7.5 mg SC DAILY Qty: 6 RF: 0 prednisone 10 mg tablet 10 mg PO DAILY Qty: 45 RF: 0 montelukast [Singulair] 10 MG tablet 10 mg PO DAILY RF: 0 escitalopram oxalate [Lexapro] 20 MG tablet 20 mg PO DAILY RF: 0 atorvastatin 40 mg Tablet 40 mg PO HS RF: 0 amlodipine 5 mg Tablet 5 mg PO DAILY RF: 0 sumatriptan succinate 50 mg Tablet 50 mg PO DIRECTED RF: 0 losartan 100 mg Tablet 100 mg PO DAILY RF: 0 buprenorphine-naloxone [Suboxone] 2-0.5 mg Film 1 film Sublingual DAILY RF: 0 Nicotrol 10 mg Cartridge 10 mg Inhalation Q2H PRN PRNQty: 30 RF: 0 ibuprofen 800 mg tablet 800 mg PO TID PRN (Reason: pain) Qty: 30 RF: 0 prochlorperazine maleate [Compazine] 5 mg tablet 5 mg PO Q8H PRN PRN (Reason: nausea and vomiting) Qty: 10 RF: 0 levofloxacin 750 mg tablet 750 mg PO DAILY Qty: 5 RF: 0 Discharge Data Discharge Physician: Kaylie Resendiz Medical Decision Making 63-year-old female with a history of COPD, PE, anxiety, hyperlipidemia, polysubstance abuse, obstructive sleep apnea on CPAP who is homeless and noncompliant with O2 at home who presents after unresponsive episode. EMS states that daughter found patient to be unresponsive but breathing. EMS gave 2 mg of Narcan and after 7 minutes patient was awake and alert. She is on methadone but denies any other alcohol, drug use or prescription opiates. Oxygen saturation 70s on 3 L per EMS. O2 sat mid to high 90s on 3 L on arrival to the ED. She is drowsy but arousable and oriented x3. She is able to follow commands. She has diminished breath sounds throughout. EKG notes a rate of 119, sinus with no acute ST ischemic changes. We will do a toxic and metabolic work-up. BP has ranged between 80s to 90 systolic. 1830 --unable to obtain IV access until now. No blood work yet obtained. Patient vitals stable. BP improved to systolic of 100. 1914 --Dr. Richards evaluated patient at bedside and she is arousable and able to answer questions easily. Labs still pending. 1949 --labs reviewed and note a normal white blood cell count, hemoglobin stable at 9.4, pH 7.2, PCO2 72 on ABG which is changed from baseline. K3, lactate 2.4, magnesium 1.3, troponin 0.54. CT head and chest x-ray negative for acute findings. Case discussed with Dr. Richards and accepts patient for admission. Will give nebs and steroids for possible COPD exacerbation with hypercarbia. Medical Records Medical records reviewed: Yes I reviewed the patient's medical records. Imaging Data Radiologic Study: Radiologist's impression: CT Head Without Contrast EXAM DATE/TIME: 01/04/2019 5:35 PM CLINICAL HISTORY: 63 years old, female; Other: Unresponsive; Additional info: Unresponsive, headache posterior, R/O CVA TECHNIQUE: Imaging protocol: Computed tomography of the head without contrast. Radiation optimization: All CT scans at this facility use at least one of these dose optimization techniques: automated exposure control; mA and/or kV adjustment per patient size (includes targeted exams where dose is matched to clinical indication); or iterative reconstruction. COMPARISON: CT HEAD WO 12/12/2018 9:49 AM FINDINGS: Limitations: Evaluation of the basilar portions of the brain and posterior cranial fossa are slightly suboptimal secondary to beam hardening artifact and patient motion. Brain: Global cerebral atrophy is consistent with patient's age. Decreased attenuation within the white matter tracts of both cerebral hemispheres is nonspecific but typically seen with small vessel disease/chronic white matter ischemic changes of aging. No CT scan evidence of acute stroke. No intracranial hemorrhage. No mass effect. Ventricles: Unremarkable. No ventriculomegaly. Bones/joints: Unremarkable. No acute fracture. Sinuses: Visualized sinuses are unremarkable. No fluid levels. Mastoid air cells: Visualized mastoid air cells are well aerated. Soft tissues: Unremarkable. IMPRESSION: No acute abnormality. Acute cerebrovascular accidents may not be visible on initial unenhanced head CT. Consider assessment with MRI as clinically indicated. XR Chest, 2 Views EXAM DATE/TIME: 01/04/2019 5:35 PM CLINICAL HISTORY: 63 years old, female; Other: Unresponsive, R/O acute disease; Additional info: Unresponsive, headache posterior, R/O CVA TECHNIQUE: Imaging protocol: XR of the chest Views: 2 views. COMPARISON: CR XR PORTABLE CHEST AP 12/27/2018 9:25 AM FINDINGS: Lungs: No pulmonary consolidation. Pleural space: No pleural effusion or pneumothorax. Heart/Mediastinum: A large gastric hiatus hernia is present. The cardiomediastinal silhouette and pulmonary vasculature are within normal limits given the AP technique. Bones/joints: Degenerative spondylosis of the thoracic spine. IMPRESSION: No acute abnormality. ECG Data Attestation: I personally reviewed and interpreted this ECG (s) as follows: Interpretation: Rate of 119, sinus, no acute ST elevation or depression. NV 160. QTc 445. QRS 102. HPI General Mode of arrival: ambulatory . Date/Time Provider Initiated Documentation: 01/04/19 17:33 . Limitations to Documentation: no limitations . Information obtained by: patient . HPI Narrative: Patient is a 63-year-old female with history of COPD, anxiety, hypertension, depression, hyperlipidemia, migraine, obstructive sleep apnea on CPAP who presents after unresponsive episode. EMS states that daughter attempted to wake patient but she was unresponsive. Upon EMS arrival, she was breathing but unresponsive and gave 2 mg of Narcan. After 7 minutes, she was awake and alert. She gets 30 mg of methadone daily. She denies any alcohol, prescription opiates or other drug us e. She denies any complaint of chest pain or shortness of breath. She does admit to posterior headache. Related Data Home Medications Medication Instructions Recorded Confirmed Spiriva with HandiHaler 1 cap INHALATION DAILY 12/25/12 01/04/19 Symbicort 2 puff INHALATION BID 08/25/14 01/04/19 montelukast [Singulair] 10 mg PO DAILY 08/17/16 01/04/19 escitalopram oxalate [Lexapro] 20 mg PO DAILY 09/08/16 01/04/19 albuterol sulfate 2.5 mg INHALATION Q4H PRN 01/23/18 01/04/19 atorvastatin 40 mg PO HS 05/04/18 01/04/19 furosemide 20 mg tablet 40 mg PO DAILY tab 06/18/18 01/04/19 mirtazapine 30 mg tablet 30 mg PO HS 06/18/18 01/04/19 amlodipine 5 mg PO DAILY 07/26/18 01/04/19 buprenorphine-naloxone [Suboxone] 1 film SUBLINGUAL DAILY 07/26/18 01/04/19 losartan 100 mg PO DAILY 07/26/18 01/04/19 sumatriptan succinate 50 mg PO DIRECTED 07/26/18 01/04/19 Nicotrol 10 mg INHALATION Q2H PRN PRN #30 ea 07/28/18 01/04/19 ibuprofen 800 mg PO TID PRN #30 tab 07/28/18 01/04/19 prochlorperazine maleate 5 mg PO Q8H PRN PRN #10 tab 07/28/18 12/12/18 [Compazine] melatonin 6 mg PO HS PRN 08/18/18 01/04/19 gabapentin [Neurontin] 600 mg PO TID #42 tab 08/23/18 01/04/19 omeprazole 40 mg PO DAILY #30 cap 08/23/18 01/04/19 fondaparinux 7.5 mg SC DAILY #6 ml 09/11/18 12/12/18 prednisone 10 mg PO DAILY #45 tab 09/11/18 01/04/19 levofloxacin 750 mg PO DAILY #5 tab 12/27/18 apixaban 5 mg tablet 5 mg PO BID 01/04/19 01/04/19 dexmethylphenidate 20 mg 20 mg PO DAILY 01/04/19 01/04/19 capsule,extended release [id number] ondansetron HCl 4 mg tablet 4 mg PO Q8H 01/04/19 01/04/19 quetiapine 100 mg tablet 100 mg PO TID 01/04/19 01/04/19 roflumilast 500 mcg tablet 500 mcg PO DAILY 01/04/19 01/04/19 Previous Rx's Medication Instructions Recorded Nicotrol 10 mg INHALATION Q2H PRN PRN #30 ea 07/28/18 ibuprofen 800 mg PO TID PRN #30 tab 07/28/18 prochlorperazine maleate 5 mg PO Q8H PRN PRN #10 tab 07/28/18 [Compazine] gabapentin [Neurontin] 600 mg PO TID #42 tab 08/23/18 omeprazole 40 mg PO DAILY #30 cap 08/23/18 fondaparinux 7.5 mg SC DAILY #6 ml 09/11/18 prednisone 10 mg PO DAILY #45 tab 09/11/18 levofloxacin 750 mg PO DAILY #5 tab 12/27/18 Allergies Allergy/AdvReac Type Severity Reaction Status Date / Time No Known Allergies Allergy Unverified 12/12/18 12:36 General Stated Complaint: AMS/LOC NEGRITA: 2 Review of Systems Review of Systems All systems reviewed & are unremarkable except as noted in HPI and below Constitutional Reports as per HPI, Denies chills and Denies fever(s) Eyes Denies blurry vision ENT Denies dizziness, Denies sore throat and Denies throat swelling Cardiovascular Denies chest pain and Denies dyspnea Respiratory Denies cough and Denies dyspnea Gastrointestinal Denies abdominal pain, Denies diarrhea and Denies vomiting Genitourinary Denies hematuria and Denies dysuria Musculoskeletal Denies back pain and Denies numbness Integumentary/Breasts Denies lesions and Denies rash Neurologic Denies dizziness, Denies focal weakness and Denies numbness Allergic/Immunologic Denies throat swelling PFSH Medical History Acute deep vein thrombosis (DVT) of brachial vein of right upper extremity (Acute) Allergic rhinitis (Chronic) Allergic rhinitis (Chronic) Anxiety (Chronic) Benign hypertension (Chronic) 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 With an FEV1 of 53%. Chronic pain (Chronic) Cocaine abuse (Resolved) Colon polyps (Chronic) Constipation (Chronic) Chronic COPD (chronic obstructive pulmonary disease) (Chronic) Depression (Chronic) Depressive disorder (Chronic) Edema (Chronic) Family history of colon cancer (Chronic) Goiter diffuse (Chronic) Hepatitis C (Chronic) Hepatitis C antibody test positive (Chronic) a. 09/2013 b. Has hepatology follow up scheduled History of suicide attempt (Chronic) a. History of multiple suicide attempts. HTN (hypertension) (Chronic) Hypercholesterolemia (Chronic) Hyperlipidemia (Chronic) Left knee pain (Chronic) Lumbar back pain (Chronic) Migraine (Chronic) Migraine headache (Chronic) Multinodular thyroid (Chronic) Multiple sclerosis (Chronic) a. No brain imaging found to confirm in our records. b. ? muscular dystrophy versus MS. Multiple sclerosis (Chronic) Opioid dependence (Chronic) PETERSON (obstructive sleep apnea) (Chronic) PETERSON (obstructive sleep apnea) (Chronic) Pancreatic mass (Chronic ~01/2017) stable/benign per MRI 02/09/2017, normal pancreas per CTA abdomen/pelvis 08/18/2018 Polysubstance abuse (Chronic) a. h/o IV drug abuse, quit 2012 b. On Suboxone maintenance Sleep apnea (Chronic) a. Not in outpatient chart but reported. Tobacco dependence syndrome (Chronic) Addiction since ; one to two packs per day. Tobacco use (Acute) Tobacco use disorder (Chronic 04/15/14) Surgical History H/O section (Inactive) History of Surgical Procedure (Chronic) a. Cholecystectomy. b. C-Sections. c. Shoulder surgery. d. Tubal ligation. e. Carpal tunnel surgery. S/P cholecystectomy (Inactive) Status post shoulder surgery (Inactive) Social History (Reviewed 01/04/19 @ 17:51 by FABIAN Hung Smoking/Tobacco Use Status: Former Tobacco Use Quit Date: 08/13/18 Alcohol Intake: never Drug use: Never Substance use type: former substance user Do you feel safe at home: Yes Do you feel safe in your relationship?: Yes Additional Social history: Currently lives with her daughter, possible active drug use in the home Has been recently per clinic notes Exam Const General: ill appearing Orientation: awake and oriented x3 HENMT Head: normal to inspection Ears: hearing grossly normal bilaterally, external ears normal and TM's normal bilaterally General nose exam: external nose normal Face and sinus: normal facial exam Mouth: oral mucosae normal Teeth and gingiva: dentition normal Throat: posterior oropharynx normal Eyes General: appearance normal, both eyes and all related structures Eyelids: eyelids normal Pupils: PERRL and dilated bilaterally EOM: EOM intact bilaterally Neck Neck: normal visual inspection Lymphatic: no lymphadenopathy noted Chest Chest: normal inspection of the chest Resp Effort & Inspection: normal respiratory effort and able to speak in complete sentences Auscultation: clear to auscultation bilaterally Cardio Rate: regular rate Rhythm: regular rhythm GI Inspection: normal to inspection Palpation: soft, not firm, no guarding, no hepatosplenomegaly, no masses and nontender Auscultation: normal bowel sounds Skin General skin exam: no rashes or lesions noted Neuro General: awake and oriented x3 Cognition: normal cognition Speech: speech normal Motor: muscle tone normal throughout Sensory Exam: no sensory deficits noted Extrem General: normal to inspection, full ROM and normal capillary refill Psych Appearance: grossly normal Mental Status: mental status grossly normal Speech and Movement: speech and movement normal Affect: normal affect Thought Process: normal Course Vital Signs Temperature 95.7 F L 01/04/19 17:26 Pulse 115 H 01/04/19 17:26 Respiratory Rate 01/04/19 17:26 Blood Pressure 99/53 L 01/04/19 17:26 Pulse Oximetry 93 L 01/04/19 17:26 Temperature 95.7 F L 01/04/19 17:26 Temperature Source Skin 01/04/19 17:26 Pulse 115 H 01/04/19 17:26 Respiratory Rate 22 01/04/19 17:26 Blood Pressure 99/53 L 01/04/19 17:26 Blood Pressure Position Supine 01/04/19 17:26 Pulse Oximetry 93 L 01/04/19 17:26 Oxygen Delivery Method Non-Rebreather 01/04/19 17:26 Oxygen Flow Rate 15 01/04/19 17:26 Pain Level 0 01/04/19 17:26 Comment 01/04/19 17:26
[2019-01-04] MEDS: Normal Saline 250 ML IV (18:36)
--- NOTE | 2019-01-04 18:38 | NUR.NOTE ---
mult iv attempts by mult nurses failed 20 established in left ac by this nurse lab at bedside for blood draw Nursing Note:
[2019-01-04 19:04] LABS: Abs Immature Grans 0.02 k/cumm (0.0-0.09); Absolute Basophil Count 0.01 k/cumm (0.0-0.2); Absolute Eosinophil Count 0.02 k/cumm (0.0-0.7); Absolute Lymphocyte Count 0.78 k/cumm (1.2-3.4); Absolute Neutrophil Count 7.35 k/cumm (1.2-6.7); Basophils % 0.1; Eosinophils % 0.2; HCT 31.3 % (36.0-46.0); HGB 9.4 g/dL (12.0-15.5); Immature Grans % 0.2; Lymphocytes % 8.5; Mean Corpuscular Hemoglobin 22.8 pg (27.0-33.0); Mean Platelet Volume 10.5 fL (8.0-11.0); Monocytes % 10.9; Neutrophils % 80.1; Platelet Count 246 x1000/uL (130-400); RBC 4.12 m/cumm (4.00-5.20); RBC Distribution Width 16.5 % (11.7-14.6); White Blood Cell Count 9.18 k/cumm (4.4-10.8)
[2019-01-04 19:06] LABS: BE (Venous) 3.9 mmol/L (-3-3); HCO3 (Venous) 32 mmol/L (22-28); O2 Sat (Venous) 91 % (70-80); TCO2 (Venous) 31 mmol/L (22-29); pCO2 (Venous) 76 mm/Hg (34-47); pH (Venous) 7.23 (7.32-7.43); pO2 (Venous) 73 mm/Hg (28-44)
--- NOTE | 2019-01-04 19:19 | DI.VRAD_ITS ---
EXAM: CT Head Without Contrast EXAM DATE/TIME: 01/04/2019 5:35 PM CLINICAL HISTORY: 63 years old, female; Other: Unresponsive; Additional info: Unresponsive, headache posterior, R/O CVA TECHNIQUE: Imaging protocol: Computed tomography of the head without contrast. Radiation optimization: All CT scans at this facility use at least one of these dose optimization techniques: automated exposure control; mA and/or kV adjustment per patient size (includes targeted exams where dose is matched to clinical indication); or iterative reconstruction. COMPARISON: CT HEAD WO 12/12/2018 9:49 AM FINDINGS: Limitations: Evaluation of the basilar portions of the brain and posterior cranial fossa are slightly suboptimal secondary to beam hardening artifact and patient motion. Brain: Global cerebral atrophy is consistent with patient's age. Decreased attenuation within the white matter tracts of both cerebral hemispheres is nonspecific but typically seen with small vessel disease/chronic white matter ischemic changes of aging. No CT scan evidence of acute stroke. No intracranial hemorrhage. No mass effect. Ventricles: Unremarkable. No ventriculomegaly. Bones/joints: Unremarkable. No acute fracture. Sinuses: Visualized sinuses are unremarkable. No fluid levels. Mastoid air cells: Visualized mastoid air cells are well aerated. Soft tissues: Unremarkable. IMPRESSION: No acute abnormality. Acute cerebrovascular accidents may not be visible on initial unenhanced head CT. Consider assessment with MRI as clinically indicated. Dictated and Authenticated by: Arun Bell MD. Ordering:BUZZ Lott MD
--- NOTE | 2019-01-04 19:20 | DI.VRAD_ITS ---
EXAM: XR Chest, 2 Views EXAM DATE/TIME: 01/04/2019 5:35 PM CLINICAL HISTORY: 63 years old, female; Other: Unresponsive, R/O acute disease; Additional info: Unresponsive, headache posterior, R/O CVA TECHNIQUE: Imaging protocol: XR of the chest Views: 2 views. COMPARISON: CR XR PORTABLE CHEST AP 12/27/2018 9:25 AM FINDINGS: Lungs: No pulmonary consolidation. Pleural space: No pleural effusion or pneumothorax. Heart/Mediastinum: A large gastric hiatus hernia is present. The cardiomediastinal silhouette and pulmonary vasculature are within normal limits given the AP technique. Bones/joints: Degenerative spondylosis of the thoracic spine. IMPRESSION: No acute abnormality. Dictated and Authenticated by: Arun Bell MD. Ordering:BUZZ Lott MD
[2019-01-04 19:26] LABS: Lactate 2.4 mmol/L (0.6-1.4)
[2019-01-04 19:30] LABS: ALT 42 U/L (14-59); AST 42 U/L (15-37); Alkaline Phosphatase 99 U/L (46-116); BUN 10 mg/dL (7-18); Bilirubin, Total 0.2 mg/dL (0.2-1.0); CREATININE 1.06 mg/dL (0.55-1.02); Calcium 8.3 mg/dL (8.5-10.1); Chloride 104 mmol/L (98-107); Estimated GFR 52.53 (mL/min/1.73m2); Glucose 146 mg/dL (70-100); Magnesium 1.3 mg/dL (1.8-2.4); NT-proBNP 295 pg/mL; Sodium 143 mmol/L (136-145); Total Protein 6.6 g/dL (6.4-8.2)
[2019-01-04 19:41] LABS: BE 4.7 mmol/L (-3-3); HCO3 32 mmol/L (22-28); pH 7.26 (7.35-7.45); pO2 99 mmHg (83-108); sO2 97 % (94-98); tCO2 31 mmol/L (22-29)
[2019-01-04 19:42] LABS: FIO2L 5 L; Site Right Radial; pCO2 72 mmHg (34-47)
[2019-01-04 19:44] LABS: ETHANOL BLOOD < 3.0 mg/dL (<3)
[2019-01-04 19:49] LABS: Acetaminophen < 2 ug/mL (10-30); Salicylate < 2.8 mg/dL (2.8-20.0)
[2019-01-04 19:52] LABS: Troponin I 0.54 ng/mL (0.00-0.06)
--- NOTE | 2019-01-04 20:05 | W.PM.HP.N ---
Date of service: 01/04/19 Time of Service: 20:05 Assessment and Plan (1) COPD (chronic obstructive pulmonary disease): Current visit: Yes Status: Chronic Somnolence secondary to hypoventilation, this in turn likely from COPD with perhaps element of primary obesity/hypoventilation syndrome. Will treat with nebs, steroids and BiPap. Troponin is noted, probably Type 2 ischemia, no signs or symptoms of ACS. Will give single dose ASA, consider stress test at some point, and will trend out troponins. Patient already on oral anticoagulant for other indications. Remains Full Code, unable to review and update in present state. History of Present Illness Narrative: 63 female with COPD, PETERSON, on home PAP but by report has not been using. She is homeless and staying at a motel. She was found stuporous today by her daughter and EMS summoned. Given Narcan in the field (she is on methaddone for h/o drug abuse) with no initial response but the report is that some seven minutes later she seemed to perk up. In any case here in ER she has been intermittently somnolent, ranging ffrom sleeping to having full conversations with me. Denies opiate use aside from usual Methaddone. In ER w/u of note for - head CT, - CXR and ABG showing hypoventilation with pH 7.26 and pCO2 76. She was placed in BiPap and addmitted for furrther evaluation. Incidental finsding of troponin of 0.5, with no EKG changes and no report of CP. 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 With an FEV1 of 53%. Chronic pain (Chronic) Cocaine abuse (Resolved) Colon polyps (Chronic) Constipation (Chronic) Chronic COPD (chronic obstructive pulmonary disease) (Chronic) Depression (Chronic) Depressive disorder (Chronic) Edema (Chronic) Family history of colon cancer (Chronic) Goiter diffuse (Chronic) Hepatitis C (Chronic) Hepatitis C antibody test positive (Chronic) a. 09/2013 b. Has hepatology follow up scheduled History of suicide attempt (Chronic) a. History of multiple suicide attempts. HTN (hypertension) (Chronic) Hypercholesterolemia (Chronic) Hyperlipidemia (Chronic) Left knee pain (Chronic) Lumbar back pain (Chronic) Migraine (Chronic) Migraine headache (Chronic) Multinodular thyroid (Chronic) Multiple sclerosis (Chronic) a. No brain imaging found to confirm in our records. b. ? muscular dystrophy versus MS. Multiple sclerosis (Chronic) Opioid dependence (Chronic) PETERSON (obstructive sleep apnea) (Chronic) PETERSON (obstructive sleep apnea) (Chronic) Pancreatic mass (Chronic ~01/2017) stable/benign per MRI 02/09/2017, normal pancreas per CTA abdomen/pelvis 08/18/2018 Polysubstance abuse (Chronic) a. h/o IV drug abuse, quit 2012 b. On Suboxone maintenance Sleep apnea (Chronic) a. Not in outpatient chart but reported. Tobacco dependence syndrome (Chronic) Addiction since ; one to two packs per day. Tobacco use (Acute) Tobacco use disorder (Chronic 04/15/14) Surgical History H/O section (Inactive) History of Surgical Procedure (Chronic) a. Cholecystectomy. b. C-Sections. c. Shoulder surgery. d. Tubal ligation. e. Carpal tunnel surgery. S/P cholecystectomy (Inactive) Status post shoulder surgery (Inactive) Social History Smoking/Tobacco Use Status: Former Tobacco Use Quit Date: 08/13/18 Alcohol Intake: never Drug use: Never Substance use type: former substance user Do you feel safe at home: Yes Do you feel safe in your relationship?: Yes Additional Social history: Currently lives with her daughter, possible active drug use in the home Has been recently per clinic notes Meds Home Medications Medication Instructions Recorded Confirmed Type Spiriva with HandiHaler 1 cap INHALATION DAILY 12/25/12 01/04/19 History Symbicort 2 puff INHALATION BID 08/25/14 01/04/19 History montelukast [Singulair] 10 mg PO DAILY 08/17/16 01/04/19 History escitalopram oxalate [Lexapro] 20 mg PO DAILY 09/08/16 01/04/19 History albuterol sulfate 2.5 mg INHALATION Q4H PRN 01/23/18 01/04/19 History atorvastatin 40 mg PO HS 05/04/18 01/04/19 History furosemide 20 mg tablet 40 mg PO DAILY tab 06/18/18 01/04/19 History mirtazapine 30 mg tablet 30 mg PO HS 06/18/18 01/04/19 History amlodipine 5 mg PO DAILY 07/26/18 01/04/19 History buprenorphine-naloxone [Suboxone] 1 film SUBLINGUAL DAILY 07/26/18 01/04/19 History losartan 100 mg PO DAILY 07/26/18 01/04/19 History sumatriptan succinate 50 mg PO DIRECTED 07/26/18 01/04/19 History Nicotrol 10 mg INHALATION Q2H PRN PRN #30 ea 07/28/18 01/04/19 Rx ibuprofen 800 mg PO TID PRN #30 tab 07/28/18 01/04/19 Rx prochlorperazine maleate 5 mg PO Q8H PRN PRN #10 tab 07/28/18 12/12/18 Rx [Compazine] melatonin 6 mg PO HS PRN 08/18/18 01/04/19 History gabapentin [Neurontin] 600 mg PO TID #42 tab 08/23/18 01/04/19 Rx omeprazole 40 mg PO DAILY #30 cap 08/23/18 01/04/19 Rx fondaparinux 7.5 mg SC DAILY #6 ml 09/11/18 12/12/18 Rx prednisone 10 mg PO DAILY #45 tab 09/11/18 01/04/19 Rx levofloxacin 750 mg PO DAILY #5 tab 12/27/18 Rx apixaban 5 mg tablet 5 mg PO BID 01/04/19 01/04/19 History dexmethylphenidate 20 mg 20 mg PO DAILY 01/04/19 01/04/19 History capsule,extended release -91 ondansetron HCl 4 mg tablet 4 mg PO Q8H 01/04/19 01/04/19 History quetiapine 100 mg tablet 100 mg PO TID 01/04/19 01/04/19 History roflumilast 500 mcg tablet 500 mcg PO DAILY 01/04/19 01/04/19 History Allergies Allergy/AdvReac Type Severity Reaction Status Date / Time No Known Allergies Allergy Unverified 12/12/18 12:36 Exam Narrative Exam Narrative: 99/53, 89, 35.4, 14. HEENT pupils 5 mm, reactive. neck supple, lungs diminished, few wheeze; heart distant but RRR; abdomen soft NT; extremities 1+ pedal edema; neuro sleepy, awakens to loud voice, able to converse and Ox3, and moves all 4s Results Labs : 01/04/19 18:50 01/04/19 18:50 Laboratory Results - last 24 hr 01/04/19 01/04/19 01/04/19 17:33 18:50 18:50 WBC 9.18 RBC 4.12 Hgb 9.4 L Hct 31.3 L MCV 76.0 L MCH 22.8 L MCHC 30.0 L RDW 16.5 H Plt Count 246 MPV 10.5 Immature Gran % 0.2 Neutrophils % 80.1 Lymphocytes % 8.5 Monocytes % 10.9 Eosinophils % 0.2 Basophils % 0.1 Absolute Neutrophils 7.35 H Absolute Lymphocytes 0.78 L Absolute Monocytes 1.00 H Absolute Eosinophils 0.02 Absolute Basophils 0.01 Sample Site Cancelled pCO2 Cancelled pO2 Cancelled O2 Saturation Cancelled ABG pH Cancelled ABG HCO3 Cancelled ABG Total CO2 Cancelled ABG Base Excess Cancelled VBG pH VBG pCO2 VBG pO2 VBG HCO3 VBG Total CO2 VBG O2 Saturation VBG Base Excess Oxygen Liter Flow Cancelled FiO2 Cancelled Sodium 143 Potassium 3.0 L Chloride 104 Carbon Dioxide 31.0 Anion Gap 8.0 BUN 10 Creatinine 1.06 H Estimated GFR/1.73 m2 52.53 Glucose 146 H Lactate Calcium 8.3 L Magnesium 1.3 L Total Bilirubin 0.2 AST 42 H ALT 42 Alkaline Phosphatase 99 Troponin I 0.54 H* NT-Pro-B Natriuret Pep 295 Total Protein 6.6 Albumin 3.0 L Salicylates Acetaminophen Ethyl Alcohol 01/04/19 01/04/19 01/04/19 18:50 18:50 18:50 WBC RBC Hgb Hct MCV MCH MCHC RDW Plt Count MPV Immature Gran % Neutrophils % Lymphocytes % Monocytes % Eosinophils % Basophils % Absolute Neutrophils Absolute Lymphocytes Absolute Monocytes Absolute Eosinophils Absolute Basophils Sample Site pCO2 pO2 O2 Saturation ABG pH ABG HCO3 ABG Total CO2 ABG Base Excess VBG pH VBG pCO2 VBG pO2 VBG HCO3 VBG Total CO2 VBG O2 Saturation VBG Base Excess Oxygen Liter Flow FiO2 Sodium Potassium Chloride Carbon Dioxide Anion Gap BUN Creatinine Estimated GFR/1.73 m2 Glucose Lactate 2.4 H* Calcium Magnesium Total Bilirubin AST ALT Alkaline Phosphatase Troponin I NT-Pro-B Natriuret Pep Total Protein Albumin Salicylates < 2.8 L Acetaminophen < 2 L Ethyl Alcohol < 3.0 01/04/19 01/04/19 18:50 19:25 WBC RBC Hgb Hct MCV MCH MCHC RDW Plt Count MPV Immature Gran % Neutrophils % Lymphocytes % Monocytes % Eosinophils % Basophils % Absolute Neutrophils Absolute Lymphocytes Absolute Monocytes Absolute Eosinophils Absolute Basophils Sample Site Right radial pCO2 72 H* pO2 99 O2 Saturation 97 ABG pH 7.26 L ABG HCO3 32 H ABG Total CO2 31 H ABG Base Excess 4.7 H VBG pH 7.23 L VBG pCO2 76 H VBG pO2 73 H VBG HCO3 32 H VBG Total CO2 31 H VBG O2 Saturation 91 H VBG Base Excess 3.9 H Oxygen Liter Flow 5 FiO2 Sodium Potassium Chloride Carbon Dioxide Anion Gap BUN Creatinine Estimated GFR/1.73 m2 Glucose Lactate Calcium Magnesium Total Bilirubin AST ALT Alkaline Phosphatase Troponin I NT-Pro-B Natriuret Pep Total Protein Albumin Salicylates Acetaminophen Ethyl Alcohol Last Vital Signs Temp 35.4 C L 01/04/19 17:26 Pulse 91 H 01/04/19 19:57 Resp 13 01/04/19 19:57 BP 99/53 L 01/04/19 17:26 Pulse Ox 94 L 01/04/19 19:57
[2019-01-04] MEDS: Albuterol/Ipratropium 3 ML UPD VIAL UPD (20:09)
[2019-01-04 20:27] LABS: BE 5.4 mmol/L (-3-3); HCO3 32 mmol/L (22-28); pH 7.27 (7.35-7.45); pO2 69 mmHg (83-108); sO2 92 % (94-98); tCO2 31 mmol/L (22-29)
[2019-01-04 20:29] LABS: FIO2 30 %; Site Right Radial; pCO2 71 mmHg (34-47)
[2019-01-04] MEDS: Normal Saline 500 ML IV (21:50)
[2019-01-04] MEDS: methylPREDNISolone SUCC 125 MG VIAL IVP (22:13)
[2019-01-04] MEDS: POTASSIUM CHLORIDE/0.45% NACL 1,000 ML 100 MEQ IV (22:35)
[2019-01-04] MEDS: Aspirin 325 MG TAB PO (22:48)
[2019-01-04] MEDS: POTASSIUM CHLORIDE 20 MEQ/100 ML BAG 50 MEQ IVPB (22:48)
[2019-01-04 22:52] LABS: Troponin I 0.45 ng/mL (0.00-0.06)
[2019-01-05] VITALS (103 sets, daily range): BP systolic 57–144; BP diastolic 25–75; PULSE 87–219; RESP 8–34; TEMP 36.4–37.3; O2SAT 89–99
[2019-01-05] MEDS: Albuterol/Ipratropium 3 ML UPD VIAL UPD ×4 (03:58→20:31)
[2019-01-05] MEDS: methylPREDNISolone SUCC 40 MG VIAL 20 MG IVP ×3 (03:59→23:54)
--- NOTE | 2019-01-05 07:33 | PDOC.CMIN ---
Care Management Initial Assess REASON FOR HOSPITALIZATION:: COPD, Cardiac Ischemia PAST MEDICAL HISTORY/PAST SURGICAL HISTORY:: Resp failure 06/2018, PETERSON, CAP, ambulatory dysfunction, acute exacerbation of COPD, dehydration, generalized weakness, chronic pain, Bwdpzey-Pcrvd-Modlo disease, hx colon cancer, constipation, pancreatic mass, COPD, benign hypertension, tobacco dependence syndrome, hyperlipidemia, lethargy, chronic anxiety, MS, sleep apnea, migraine, allergic rhinitis, depressive disorder, polysubstance abuse, multinodular thyroid, colon polyps, suicide attempt, surgical procedure, right lower lobe pneumonia, Hep C antibody treated with Harvoni PREVIOUS FUNCTIONAL STATUS/SOCIAL/FAMILY SUPPORTS:: Lona has been struggling with ongoing medical issues and housing. Lona is very close with her daughter, Melanie and together they attempt to meet their needs in the community but have been struggling for some time. CM met with Lona and Melanie recently on 12/27/18 in the Emergency Room and offered [facility] rehab stay for Lona but Lona declined admission as they had plans for housing at a hotel after weekend. She requires electricity for her oxygen and charges it at a friends house. Melanie and her had been staying in their car though per chart review appears the car was towed: Melanie Weathers called [facility] on 01.01.19, states client and daughter are homeless still; states [place] did not work out. daughter states client was cold so they rented 2 nights at [facility] and need to be out on 01.03.19. daughter states the friend's car they were staying in was towed and no longer an option to go back to CURRENT FUNCTIONAL STATUS:: Lona was sitting up on the side of the bed reporting she was feeling better and breathing better. She reported she and Melanie were currently staying at the [facility] and have found an apartment in [place]. Lona reports Melanie is finalizing paperwork but that she anticipates [facility] will pay her first, last and security deposit costs for the apartment. In the interim, she reports self-paying to stay at the [facility] with her monthly income. Lona is well engaged and pleasant in behavior. ADVANCE DIRECTIVES:: None on file at [facility] Has patient been provided with information about the portal?: Yes Did the patient sign up for the portal?: No CODE STATUS:: Full Code INSURANCE COVERAGE / FINANCIAL ISSUES:: Medicare, Medicaid CURRENT HOME/COMMUNITY SERVICES/EQUIPMENT:: [employer], [facility], MAT program, [facility]; behavioral health, [facility], [facility], and [facility] PRIMARY CARE PHYSICIAN:: Dr. Jiang POTENTIAL DISCHARGE NEEDS:: Follow up appointments, review of basic needs and current resources available. PATIENT/FAMILY EDUCATION NEEDS:: Discharge education, limitations and follow up plan of care including ask me three and self management. ANTICIPATED BARRIERS TO DISCHARGE:: None identified. TRANSPORTATION:: [facility] private vehicle. PLAN:: Pat will continue to be closely monitored and treated. CM will review current supports and support Pat in creating a safe discharge plan. Anticipate she will be discharged when medically ready with resumptions of community resources including home oxygen through [facility]. Pat intends on returning to the [facility] and working with Alma at [facility] with attaining a new apartment in [place]. Pat will likely discharge via [facility] or with a friend. CM continues to follow.
[2019-01-05 07:44] LABS: Anion Gap 11.8 mmol/L (3-11); CO2 22.2 mmol/L (21.0-32.0); Chloride 106 mmol/L (98-107); Potassium 3.7 mmol/L (3.5-5.1); Sodium 140 mmol/L (136-145)
[2019-01-05 08:55] LABS: *AMPHETAMINES SCREEN URINE Negative (Negative); *BARBITURATES SCREEN URINE Negative (Negative); *BENZODIAZEPINES SCREEN URINE Negative (Negative); Cannabinoids THC Negative (Negative); Cocaine Screen,Urine Negative (Negative); METHADONE URINE SCREEN POSITIVE (Negative); OPIATES URINE SCREEN Negative (Negative)
[2019-01-05 08:57] LABS: Tricyclic Antidepressants Negative (Negative)
[2019-01-05] MEDS: POTASSIUM CHLORIDE/0.45% NACL 1,000 ML 100 MEQ IV ×2 (08:58→16:22)
[2019-01-05 09:14] LABS: Bilirubin Small (Negative); Clarity Clear (Clear); Glucose Negative (Negative); Ketones Negative (Negative); Leukocyte Esterase Negative (Negative); Nitrite Negative (Negative); Specific Gravity 1.025 (1.005-1.025); pH 5.5 (5-8)
[2019-01-05] MEDS: Aspirin E.C. 81 MG TABEC PO (09:14)
[2019-01-05] MEDS: Gabapentin 600 MG TAB PO ×3 (09:14→20:31)
[2019-01-05] MEDS: Omeprazole 20 MG CAPCR 40 MG PO (09:14)
[2019-01-05] MEDS: Apixaban 5 MG TAB PO ×2 (09:14→20:31)
[2019-01-05] MEDS: Escitalopram 20 MG TAB PO (09:14)
[2019-01-05] MEDS: Methadone 10 MG TAB PO (09:14)
[2019-01-05 09:15] LABS: Blood Negative (Negative); RBC 0-2 (0-2)
[2019-01-05 09:16] LABS: Bacteria Few HPF (Negative); C & S Indicated? No/Sq. Contamination; Casts 0-2 Coarse Granular LPF (Negative); Crystals Negative HPF (Negative); Epithelial Cells Moderate HPF (Negative); Mucus Moderate (Negative)
[2019-01-05] MEDS: Roflumilast 500 MCG TAB PO (09:21)
--- NOTE | 2019-01-05 09:55 | PHARADMIT ---
Addendum entered by Rain Oliveira 01/06/19 12:54: Moved from ICU to M/S VS: BP 163/84, AFebrile, Mag 1.5, WBC 12.14 (steroids), iron level low Started home dose of Amlodipine, added Lasix, multivit with IRON IV to oral steroids today and will taper, duonebs changed to prn Oral Mag and Potassium MD spoke to [facility] to recommend they reduce her Methadone dose, she rec'd 10mg daily here and did well with it Possible discharge Monday01/07/19 Original Note: Admission Pharmacy Clinical Review COPD, CARDIAC ISCHEMIA Code Status Full Code Current Weight 82.8 kg Renally Cleared and Narrow Therapeutic Index Meds CrCl~43.5ml/min QTc Value / Action Taken qtc 445 BP Control, Fever BP soft 93/56, HR 92, Afebrile Electrolytes reviewed K+ 3.7, Mag 1.3 (KCL in IVF's, will need Mag replacement) DVT Prophylaxis Apixiban Opiate Usage / Scheduled Bowel Regimen Ordered none/none Plt/SCr for Heparin / Enoxaparin Plt 246 SCr 1.06 INR for Warfarin H/H stable, WBC/Bands H/H 9.4/31.3 WBC 9.18 Antibiotic appropriateness n/a, Urinalysis negative Cultures and Sensitivities none Surgical ABX d/c within 24 hr DM control / Insulin Dosing Heart Failure (Check EF%) (RAHEL's, B-Block, Diuretics) IV to PO Switch Home Meds Reviewed Home Meds Not Ordered Amlodipine, ?Suboxone, Focalin, Furosemide, Ibuprofen, Losartan, Melatonin, Remeron, Nicotine, Zofran, Compazine, Seroquel, Imitrex Comments CM social issues, pt homeless, ?medication compliance, many hosp.visits, long list of chronic diseases Troponin 0.45,0.3....?from hypoxia, on IV steroids Just recently started Methadone treatment at [facility]...pt very somnolent, possible withdrawl signs. rec'd Methadone 30mg x 2 days (per MD)...giving her only 10mg daily for now to kearney off withdrawl, but caution with somnolence from maybe too high a dose
[2019-01-05] MEDS: Tiotropium Bromide-Respimat 10 PUFF INH IH (11:09)
[2019-01-05] MEDS: Budesonide/Formoterol 160/4.5 6 GM 60 PUFF INH IH ×2 (11:09→20:31)
--- NOTE | 2019-01-05 11:26 | W.PM.PROGNOT ---
Date of Service Date of service: 01/05/19 Time of Service: 07:30 Assessment and Plan (1) Mental status, decreased: Current visit: No Status: Resolved This seems to have resolved. I can attribute this to CO2 narcosis and perhaps medication effects. It is possible that with the recent initiation of methadone there has been accumulation of metabolites leading to increase sedation. This is superimposed on chronic problems of COPD and obstructive sleep apnea. Is not clear if other medications may been playing a role as medication adherence is unknown. At this point with improvement in mental status I am placing her on lower dose methadone to avoid withdrawal symptoms, resuming her gabapentin for chronic pain management and her Lexapro for her anxiety and monitoring mental status. (2) COPD (chronic obstructive pulmonary disease): Current visit: Yes Status: Chronic No obvious infectious trigger for an exacerbation based on history, exam, absence of leukocytosis and no focal infiltrates on chest x-ray. She is been started on parenteral steroids which I am going to continue today, I am resuming her outpatient inhalers, montelukast and Roflumilast. As needed albuterol. Continue oxygen supplementation. (3) Acute on chronic respiratory failure with hypoxia and hypercapnia: Current visit: No Status: Acute This seems to have resolved with BiPAP and improvement in mental status. We will continue with monitoring. BiPAP overnight when asleep. Still needs CPAP unit for outpatient use but this will not occur until she has stable living arrangement. (4) Pulmonary embolism: Current visit: No Status: Acute Assuming she has been adherent with her anticoagulation regimen, and that assumption is uncertain, it is unlikely that pulmonary embolism is playing a role in her current presentation. Continue with current anticoagulation management. Qualifiers: Acute cor pulmonale presence: without acute cor pulmonale Chronicity: acute (5) PETERSON (obstructive sleep apnea): Current visit: No Status: Chronic Untreated as an outpatient. We will use BiPAP here. (6) Chronic pain: Current visit: No Status: Chronic Awake and I am comfortable resuming gabapentin at outpatient dose. Methadone as noted below. May need to supplement with acetaminophen but will see what her pain complaints are like. (7) Benign hypertension: Current visit: No Status: Chronic Blood pressure is soft to low, outpatient antihypertensives (amlodipine, losartan, furosemide) are all on hold. Monitor blood pressure response and likely reintroduce these at blood pressure comes up. (8) Chronic anxiety: Current visit: No Status: Chronic Resume Lexapro. I am holding mirtazapine given her problems with sedation. (9) Opioid dependence on agonist therapy: Current visit: Yes Status: Acute I am concerned about excessive sedation from methadone as well as QT prolongation (ECG pre-and post methadone show a slight increase in her QT interval of 0.03 mm) to avoid withdrawal symptoms I am maintaining her on methadone but at a much lower dose. Monitor for withdrawal symptoms and sedation. (10) Microcytic anemia: Current visit: Yes Status: Acute This is relatively new. Historically has not reported any melanotic stool. Check iron studies, reticulocyte count, stool for blood. Monitor CBC. (11) Hypotension: Current visit: Yes Status: Acute I am attributing this to her hypoxemia, CO2 retention and perhaps methadone/sedation. It has improved with IV fluids. Antihypertensive meds and diuretics remain on hold. She is received parenteral steroids because of concern about relative adrenal insufficiency but states that she has not been on prednisone for months. I am continuing the steroids because of her COPD. Likely switch to oral and wean. Continue to monitor blood pressure and restart antihypertensive treatment as blood pressure comes up. (12) Elevated troponin: Current visit: Yes Status: Acute No anginal type chest pain. No ischemic ECG changes and no known heart disease. This is probably demand ischemia from her hypoxemia and CO2 retention. Monitor for symptoms. Continue to trend troponin level. I am starting her on low-dose aspirin. Watch for bleeding. With her severe COPD I am not at all comfortable putting her on a beta-eduardo. Recheck lipids as they have not been assessed in 4 years. I do not think we need to anticoagulate her beyond her apixaban. (13) Homeless: Current visit: Yes Complicates discharge planning and ongoing medical management. Care management team involved. Subjective Interval history since last seen: 63-year-old woman with severe COPD, homeless with uncertain medication adherence admitted last night with obtundation/somnolence, CO2 retention requiring BiPAP support but not intubation?which was required on her presentation in November with similar scenario. Overnight blood pressure soft but has improved with IV hydration and initiation of parenteral steroids. The latter were started out of concern of adrenal insufficiency as prednisone is on her problem list. She is much more awake and alert this morning and tells me she has not been on prednisone since her hospital discharge last spring. She has recently been started on methadone 30 mg and she is only had 2 doses so far. Outpatient notes indicated that she was not stable enough for continued treatment in the outpatient setting with Suboxone and has been referred to the ART program for closer monitoring. She is a little vague when I question her about her adherence with her other medications but can list many of them off for affirms that she has been taking most but not all of her medications. On her list but when that she is not taking his quetiapine and prednisone. She reports that she has been using her inhalers and Daliresp as prescribed. She does not endorse any recent fevers, increased sputum production, hemoptysis. She does acknowledge chronic lower back discomfort, daily anterior sharp chest pain that is non-positional, nonpleuritic. She states this is been present ever since she was diagnosed with her pulmonary embolism and has not changed. She has not had any bleeding. She states she is not known to have any heart disease. She has had no dysrhythmias on telemetry overnight, sinus tachycardia. She has had limited urine output until this morning when she did void spontaneously. She has developed a little bit of twitching and is worried about opiate withdrawal symptoms. Exam Narrative Exam Narrative: Mildly tremulous, awake alert conversant and in no respiratory distress with oxygen on 2 L. Sclera clear. No facial asymmetry. No JVD. Lungs with very distant breath sounds, expiratory wheezing heard to all lung cerda. 1/6 systolic ejection murmur with no S3 or S4 pleural or pericardial friction rub. Bowel sounds present. Abdomen soft obese nontender. Extremities warm normal distal pulses no edema. She has spontaneous movement of all extremities. She is able to sit up unassisted. She knows she is in the hospital but not entirely sure why. Objective Objective Clinical Data: Abnormal lab results 01/04/19 01/04/19 01/04/19 Range/Units 18:50 18:50 18:50 Hgb 9.4 L (12.0-15.5) g/dL Hct 31.3 L (36.0-46.0) % MCV 76.0 L (80-95) fL MCH 22.8 L (27.0-33.0) pg MCHC 30.0 L (32.0-36.0) g/dL RDW 16.5 H (11.7-14.6) % Absolute Neutrophils 7.35 H (1.2-6.7) k/cumm Absolute Lymphocytes 0.78 L (1.2-3.4) k/cumm Absolute Monocytes 1.00 H (0.11-0.7) k/cumm pCO2 (34-47) mmHg pO2 (83-108) mmHg O2 Saturation (94-98) % ABG pH (7.35-7.45) ABG HCO3 (22-28) mmol/L ABG Total CO2 (22-29) mmol/L ABG Base Excess (-3-3) mmol/L VBG pH (7.32-7.43) VBG pCO2 (34-47) mm/Hg VBG pO2 (28-44) mm/Hg VBG HCO3 (22-28) mmol/L VBG Total CO2 (22-29) mmol/L VBG O2 Saturation (70-80) % VBG Base Excess (-3-3) mmol/L Potassium 3.0 L (3.5-5.1) mmol/L Anion Gap (3-11) mmol/L Creatinine 1.06 H (0.55-1.02) mg/dL Glucose 146 H (70-100) mg/dL Lactate 2.4 H* (0.6-1.4) mmol/L Calcium 8.3 L (8.5-10.1) mg/dL Magnesium 1.3 L (1.8-2.4) mg/dL AST 42 H (15-37) U/L Troponin I 0.54 H* (0.00-0.06) ng/mL Albumin 3.0 L (3.4-5.0) g/dL Urine Protein (Negative) mg/dL Urine Bilirubin (Negative) Urine Urobilinogen (Up TO 0.2) EU/dL Salicylates (2.8-20.0) mg/dL Acetaminophen (10-30) ug/mL 01/04/19 01/04/19 01/04/19 Range/Units 18:50 18:50 19:25 Hgb (12.0-15.5) g/dL Hct (36.0-46.0) % MCV (80-95) fL MCH (27.0-33.0) pg MCHC (32.0-36.0) g/dL RDW (11.7-14.6) % Absolute Neutrophils (1.2-6.7) k/cumm Absolute Lymphocytes (1.2-3.4) k/cumm Absolute Monocytes (0.11-0.7) k/cumm pCO2 72 H* (34-47) mmHg pO2 (83-108) mmHg O2 Saturation (94-98) % ABG pH 7.26 L (7.35-7.45) ABG HCO3 32 H (22-28) mmol/L ABG Total CO2 31 H (22-29) mmol/L ABG Base Excess 4.7 H (-3-3) mmol/L VBG pH 7.23 L (7.32-7.43) VBG pCO2 76 H (34-47) mm/Hg VBG pO2 73 H (28-44) mm/Hg VBG HCO3 32 H (22-28) mmol/L VBG Total CO2 31 H (22-29) mmol/L VBG O2 Saturation 91 H (70-80) % VBG Base Excess 3.9 H (-3-3) mmol/L Potassium (3.5-5.1) mmol/L Anion Gap (3-11) mmol/L Creatinine (0.55-1.02) mg/dL Glucose (70-100) mg/dL Lactate (0.6-1.4) mmol/L Calcium (8.5-10.1) mg/dL Magnesium (1.8-2.4) mg/dL AST (15-37) U/L Troponin I (0.00-0.06) ng/mL Albumin (3.4-5.0) g/dL Urine Protein (Negative) mg/dL Urine Bilirubin (Negative) Urine Urobilinogen (Up TO 0.2) EU/dL Salicylates < 2.8 L (2.8-20.0) mg/dL Acetaminophen < 2 L (10-30) ug/mL 01/04/19 01/04/19 01/05/19 Range/Units 20:18 22:13 07:25 Hgb (12.0-15.5) g/dL Hct (36.0-46.0) % MCV (80-95) fL MCH (27.0-33.0) pg MCHC (32.0-36.0) g/dL RDW (11.7-14.6) % Absolute Neutrophils (1.2-6.7) k/cumm Absolute Lymphocytes (1.2-3.4) k/cumm Absolute Monocytes (0.11-0.7) k/cumm pCO2 71 H* (34-47) mmHg pO2 69 L (83-108) mmHg O2 Saturation 92 L (94-98) % ABG pH 7.27 L (7.35-7.45) ABG HCO3 32 H (22-28) mmol/L ABG Total CO2 31 H (22-29) mmol/L ABG Base Excess 5.4 H (-3-3) mmol/L VBG pH (7.32-7.43) VBG pCO2 (34-47) mm/Hg VBG pO2 (28-44) mm/Hg VBG HCO3 (22-28) mmol/L VBG Total CO2 (22-29) mmol/L VBG O2 Saturation (70-80) % VBG Base Excess (-3-3) mmol/L Potassium (3.5-5.1) mmol/L Anion Gap 11.8 H (3-11) mmol/L Creatinine (0.55-1.02) mg/dL Glucose (70-100) mg/dL Lactate (0.6-1.4) mmol/L Calcium (8.5-10.1) mg/dL Magnesium (1.8-2.4) mg/dL AST (15-37) U/L Troponin I 0.45 H* (0.00-0.06) ng/mL Albumin (3.4-5.0) g/dL Urine Protein (Negative) mg/dL Urine Bilirubin (Negative) Urine Urobilinogen (Up TO 0.2) EU/dL Salicylates (2.8-20.0) mg/dL Acetaminophen (10-30) ug/mL 01/05/19 01/05/19 Range/Units 07:25 07:45 Hgb (12.0-15.5) g/dL Hct (36.0-46.0) % MCV (80-95) fL MCH (27.0-33.0) pg MCHC (32.0-36.0) g/dL RDW (11.7-14.6) % Absolute Neutrophils (1.2-6.7) k/cumm Absolute Lymphocytes (1.2-3.4) k/cumm Absolute Monocytes (0.11-0.7) k/cumm pCO2 (34-47) mmHg pO2 (83-108) mmHg O2 Saturation (94-98) % ABG pH (7.35-7.45) ABG HCO3 (22-28) mmol/L ABG Total CO2 (22-29) mmol/L ABG Base Excess (-3-3) mmol/L VBG pH (7.32-7.43) VBG pCO2 (34-47) mm/Hg VBG pO2 (28-44) mm/Hg VBG HCO3 (22-28) mmol/L VBG Total CO2 (22-29) mmol/L VBG O2 Saturation (70-80) % VBG Base Excess (-3-3) mmol/L Potassium (3.5-5.1) mmol/L Anion Gap (3-11) mmol/L Creatinine (0.55-1.02) mg/dL Glucose (70-100) mg/dL Lactate (0.6-1.4) mmol/L Calcium (8.5-10.1) mg/dL Magnesium (1.8-2.4) mg/dL AST (15-37) U/L Troponin I 0.30 H* (0.00-0.06) ng/mL Albumin (3.4-5.0) g/dL Urine Protein 30 H (Negative) mg/dL Urine Bilirubin Small H (Negative) Urine Urobilinogen 1.0 H (Up TO 0.2) EU/dL Salicylates (2.8-20.0) mg/dL Acetaminophen (10-30) ug/mL Vital Signs Temperature 36.7 C 01/05/19 08:45 Temperature Source Temporal Artery Scan 01/05/19 08:45 Pulse 102 H 01/05/19 10:00 Pulse 103 H 01/05/19 10:00 Respiratory Rate 15 01/05/19 10:00 Respiratory Effort 01/05/19 08:45 Respiratory Depth Normal 01/05/19 08:45 Respiratory Pattern Normal 01/05/19 08:45 Blood Pressure 101/53 L 01/05/19 10:00 Blood Pressure Mean 63 01/05/19 10:00 Blood Pressure Position Sitting 09/07/19 08:45 Pulse Oximetry 93 L 01/05/19 10:24 Oxygen Delivery Method Nasal Cannula 01/05/19 10:24 Oxygen Flow Rate 2 01/05/19 10:24 Fraction of Inspired Oxygen (FIO2) 30 01/05/19 00:10 Pain Level 0 01/05/19 08:45 Comment 01/04/19 17:26 Intake & Output 01/04/19 01/04/19 01/05/19 11:59 23:59 11:59 Intake Total 750 / 750 1360 / 1360 Output Total 300 / 300 Balance 750 / 750 1060 / 1060 Weight 82.3 kg 82.8 kg Intake: IV 750 / 750 1000 / 1000 Oral 360 / 360 Output: Urine 300 / 300 Other: Urine Color Dark Angela Urine Appearance Clear Urine Odor None Comment Pt unable to respond. Pt unable to respond. Voiding Methods Bedside Commode Laboratory Results WBC 9.18 k/cumm (4.4-10.8) 01/04/19 18:50 RBC 4.12 m/cumm (4.00-5.20) 01/04/19 18:50 Hgb 9.4 g/dL (12.0-15.5) L 01/04/19 18:50 Hct 31.3 % (36.0-46.0) L 01/04/19 18:50 MCV 76.0 fL (80-95) L 01/04/19 18:50 MCH 22.8 pg (27.0-33.0) L 01/04/19 18:50 MCHC 30.0 g/dL (32.0-36.0) L 01/04/19 18:50 RDW 16.5 % (11.7-14.6) H 01/04/19 18:50 Plt Count 246 x1000/uL (130-400) 01/04/19 18:50 MPV 10.5 fL (8.0-11.0) 01/04/19 18:50 Immature Gran % 0.2 01/04/19 18:50 80.1 01/04/19 18:50 8.5 01/04/19 18:50 10.9 01/04/19 18:50 0.2 01/04/19 18:50 0.1 01/04/19 18:50 Absolute Neutrophils 7.35 k/cumm (1.2-6.7) H 01/04/19 18:50 Absolute Lymphocytes 0.78 k/cumm (1.2-3.4) L 01/04/19 18:50 Absolute Monocytes 1.00 k/cumm (0.11-0.7) H 01/04/19 18:50 Absolute Eosinophils 0.02 k/cumm (0.0-0.7) 01/04/19 18:50 Absolute Basophils 0.01 k/cumm (0.0-0.2) 01/04/19 18:50 PT Cancelled 01/04/19 17:33 INR Cancelled 01/04/19 17:33 APTT Cancelled 01/04/19 17:33 Sample Site Cancelled 01/05/19 05:35 pCO2 Cancelled 01/05/19 05:35 pO2 Cancelled 01/05/19 05:35 O2 Saturation Cancelled 01/05/19 05:35 ABG pH Cancelled 01/05/19 05:35 ABG HCO3 Cancelled 01/05/19 05:35 ABG Total CO2 Cancelled 01/05/19 05:35 ABG Base Excess Cancelled 01/05/19 05:35 VBG pH 7.23 (7.32-7.43) L 01/04/19 18:50 VBG pCO2 76 mm/Hg (34-47) H 01/04/19 18:50 VBG pO2 73 mm/Hg (28-44) H 01/04/19 18:50 VBG HCO3 32 mmol/L (22-28) H 01/04/19 18:50 VBG Total CO2 31 mmol/L (22-29) H 01/04/19 18:50 VBG O2 Saturation 91 % (70-80) H 01/04/19 18:50 VBG Base Excess 3.9 mmol/L (-3-3) H 01/04/19 18:50 Oxygen Liter Flow Cancelled 01/05/19 05:35 Cancelled 01/05/19 05:35 Sodium 140 mmol/L (136-145) 01/05/19 07:25 Potassium 3.7 mmol/L (3.5-5.1) D 01/05/19 07:25 Chloride 106 mmol/L (98-107) 01/05/19 07:25 Carbon Dioxide 22.2 mmol/L (21.0-32.0) 01/05/19 07:25 11.8 mmol/L (3-11) H 01/05/19 07:25 BUN 10 mg/dL (7-18) 01/04/19 18:50 1.06 mg/dL (0.55-1.02) H 01/04/19 18:50 52.53 (mL/min/1.73m2) 01/04/19 18:50 Glucose 146 mg/dL (70-100) H 01/04/19 18:50 2.4 mmol/L (0.6-1.4) H* 01/04/19 18:50 Calcium 8.3 mg/dL (8.5-10.1) L 01/04/19 18:50 Magnesium 1.3 mg/dL (1.8-2.4) L 01/04/19 18:50 0.2 mg/dL (0.2-1.0) 01/04/19 18:50 AST 42 U/L (15-37) H 01/04/19 18:50 ALT 42 U/L (14-59) 01/04/19 18:50 99 U/L (46-116) 01/04/19 18:50 0.30 ng/mL (0.00-0.06) H* 01/05/19 07:25 NT-Pro-B Natriuret Pep 295 pg/mL (-299) 01/04/19 18:50 6.6 g/dL (6.4-8.2) 01/04/19 18:50 3.0 g/dL (3.4-5.0) L 01/04/19 18:50 Yellow (Yellow) 01/05/19 07:45 Clear (Clear) 01/05/19 07:45 5.5 (5-8) 01/05/19 07:45 Ur Specific [place] 1.025 (1.005-1.025) 01/05/19 07:45 30 mg/dL (Negative) H 01/05/19 07:45 Negative mg/dL (Negative) 01/05/19 07:45 Negative (Negative) 01/05/19 07:45 Negative (Negative) 01/05/19 07:45 Small (Negative) H 01/05/19 07:45 1.0 EU/dL (Up TO 0.2) H 01/05/19 07:45 Ur Leukocyte Esterase Negative (Negative) 01/05/19 07:45 0-2 (0-2) 01/05/19 07:45 5-10 HPF (0-5) 01/05/19 07:45 Ur Epithelial Cells Moderate HPF (Negative) 01/05/19 07:45 Negative HPF (Negative) 01/05/19 07:45 Few HPF (Negative) 01/05/19 07:45 0-2 coarse granular LPF (Negative) 01/05/19 07:45 Moderate (Negative) 01/05/19 07:45 Ur Culture Indicated? No/sq. contamination 01/05/19 07:45 Negative mg/dL (Negative) 01/05/19 07:45 Salicylates < 2.8 mg/dL (2.8-20.0) L 01/04/19 18:50 Negative (Negative) 01/05/19 07:45 Positive (Negative) 01/05/19 07:45 Acetaminophen < 2 ug/mL (10-30) L 01/04/19 18:50 Ur Barbiturates Screen Negative (Negative) 01/05/19 07:45 Ur Tricyclics Screen Negative (Negative) 01/05/19 07:45 Ur Amphetamines Screen Negative (Negative) 01/05/19 07:45 U Benzodiazepines Scrn Negative (Negative) 01/05/19 07:45 Negative (Negative) 01/05/19 07:45 Ur THC Screen Negative (Negative) 01/05/19 07:45 Ethyl Alcohol < 3.0 mg/dL (<3) 01/04/19 18:50
[2019-01-05] MEDS: Normal Saline Flush 10 ML SYR IVP (14:22)
[2019-01-05] MEDS: Docusate Sodium 100 MG CAP PO (20:45)
[2019-01-05] MEDS: Montelukast 10 MG TAB PO (22:22)
[2019-01-05] MEDS: Atorvastatin 40 MG TAB PO (22:22)
[2019-01-06] VITALS (64 sets, daily range): BP systolic 115–163; BP diastolic 50–125; PULSE 65–100; RESP 13–33; TEMP 36.7–37.1; O2SAT 92–96
[2019-01-06] MEDS: POTASSIUM CHLORIDE/0.45% NACL 1,000 ML 100 MEQ IV (02:13)
[2019-01-06] MEDS: Gabapentin 600 MG TAB PO ×3 (05:57→20:44)
[2019-01-06] MEDS: Budesonide/Formoterol 160/4.5 6 GM 60 PUFF INH IH ×2 (07:41→21:06)
[2019-01-06] MEDS: Tiotropium Bromide-Respimat 10 PUFF INH IH (07:41)
--- NOTE | 2019-01-06 07:45 | PDOC.CMPRO ---
Care Management Progress Note S/O: Pat transitioned out to the MED/SURG floor today. She was sleeping soundly when CM attempted to meet with her. CM continues to follow. A: 63 year old female admitted to [facility] 01/04/19 with COPD Exacerbation, Cardiac Ischemia P: Pat will continue to be closely monitored and treated. Anticipate she will be discharged when medically ready with resumptions of community resources including home oxygen through [facility]. Pat intends to return to the [facility] and is currently working with Alma at [facility] on attaining a new apartment in [place]. Pat will likely discharge via RCT or with a friend. CM continues to follow.
[2019-01-06] MEDS: Roflumilast 500 MCG TAB PO (08:12)
[2019-01-06] MEDS: Escitalopram 20 MG TAB PO (08:12)
[2019-01-06] MEDS: Furosemide 40 MG TAB PO (08:13)
[2019-01-06] MEDS: Omeprazole 20 MG CAPCR 40 MG PO (08:13)
[2019-01-06] MEDS: predniSONE 20 MG TAB 40 MG PO (08:13)
[2019-01-06] MEDS: Potassium Chloride 10 MEQ TABCR PO (08:13)
[2019-01-06] MEDS: Methadone 10 MG TAB PO (08:13)
[2019-01-06] MEDS: Aspirin E.C. 81 MG TABEC PO (08:13)
[2019-01-06] MEDS: Apixaban 5 MG TAB PO ×2 (08:13→20:44)
[2019-01-06 08:23] LABS: Magnesium 1.5 mg/dL (1.8-2.4)
[2019-01-06 08:27] LABS: HCT 30.5 % (36.0-46.0); HGB 9.3 g/dL (12.0-15.5); Mean Corp. HGB Concentration 30.5 g/dL (32.0-36.0); Mean Corpuscular Hemoglobin 22.7 pg (27.0-33.0); Mean Corpuscular Volume 74.4 fL (80-95); Mean Platelet Volume 10.8 fL (8.0-11.0); Platelet Count 247 x1000/uL (130-400); RBC Distribution Width 17.4 % (11.7-14.6); Reticulocyte 1.2 % (0.5-2.4); White Blood Cell Count 12.14 k/cumm (4.4-10.8)
[2019-01-06 08:37] LABS: Troponin I 0.13 ng/mL (0.00-0.06)
[2019-01-06 08:44] LABS: Calculated LDL 43 mg/dL; Cholesterol 104 mg/dL (50-200); HDL Cholesterol 52 mg/dL (40-60); Triglyceride 49 mg/dL (30-150)
[2019-01-06 08:47] LABS: Iron 22 ug/dL (50-175)
--- NOTE | 2019-01-06 09:39 | PGE_ITS ---
Date of Service Date of service: 01/06/19 Time of Service: 07:30 Assessment and Plan (1) Mental status, decreased: Current visit: No Status: Resolved Mental status appears to be at baseline. I think this is a metabolic problem related to hypoxemia, CO2 narcosis and medication. Going forward, its unclear if there will be recurrence because it is uncertain how well she does managing her own medications. (2) COPD (chronic obstructive pulmonary disease): Current visit: Yes Status: Chronic Breathing much improved. Has not required BiPAP or CPAP support overnight. I am switching her to oral steroids with a plan for a fairly rapid outpatient taper. Continue current inhalers. I do not see any indication for antibiotics at this time. (3) Elevated troponin: Current visit: Yes Status: Acute No anginal chest pains, no dysrhythmias, troponin has trended down. Probably troponin leak from demand ischemia but certainly has risk factors for coronary artery disease with her tobacco history and hypertension. Her lipids are quite low. I am not starting statin. Lung disease a relative contraindication to beta-eduardo. I am going to continue low-dose aspirin but if stools are heme positive I will stop this. I think she will need an ischemic work-up as an outpatient. (4) Pulmonary embolism: Current visit: No Status: Acute Thus far no bleeding complications with a combination of apixaban and aspirin. I think she needs indefinite anticoagulation. Qualifiers: Acute cor pulmonale presence: without acute cor pulmonale Chronicity: acute (5) Opioid dependence on agonist therapy: Current visit: Yes Status: Acute I spoke with the [facility] this morning advising them that she seems to be doing well, with no opiate cravings or withdrawal symptoms, on 10 mg of methadone. She seems to be comfortable going forward on this dose. (6) Chronic pain: Current visit: No Status: Chronic No pain complaints this morning. I will follow on her present regimen with the methadone at 10 mg and add acetaminophen as needed. (7) PETERSON (obstructive sleep apnea): Current visit: No Status: Chronic Untreated as an outpatient. Did not require CPAP or BiPAP overnight. Nevertheless I think in the long run she would benefit from a home unit but needs stable housing. (8) Benign hypertension: Current visit: No Status: Chronic Blood pressures are moving up. Resume furosemide today and amlodipine tomorrow, sooner if blood pressure spikes during the day. (9) Chronic anxiety: Current visit: No Status: Chronic Mirtazapine remains on hold. She seems more alert. Perhaps she does not need this on discharge? (10) Microcytic anemia: Current visit: Yes Status: Acute No stool for heme testing. Reticulocyte count is not elevated. H emoglobin relatively stable in the past 24 hours. Iron level is a little low. I am placing her on a multivitamin with iron. Further work-up for GI loss can occur as an outpatient. If we find heme positive stool here in the hospital I am stopping her aspirin. (11) Hypotension: Current visit: Yes Status: Acute Hypotension resolved. Blood pressure starting to climb. Stop IV fluids. I am reintroducing outpatient medications for blood pressure gradually as noted above. (12) Homeless: Current visit: Yes Complicates discharge planning and ongoing medical management. Care management team involved. (13) Hypomagnesemia: Current visit: Yes Status: Acute Mild, replace orally. Monitor episodically. (14) Hypokalemia: Current visit: Yes Status: Acute With ongoing diuretic use I am placing her on a daily low dose potassium supplement. Subjective Interval history since last seen: Mrs. Loya feels quite well this morning, slept well without BiPAP or CPAP, did not desaturate and has had normal room air SaO2 is 1 awake. Denies chest pain, abdominal pain, dysuria. Has not yet had a bowel movement and received a laxative last night. Did request Nicotrol Inhaler overnight. Denies cravings for opiates. Has had a little bit of a tremor. Her troponin has been trending down. She has had no dysrhythmias on telemetry. No overt bleeding on aspirin plus apixaban. Her blood pressure has been trending up. Venous access has been problematic. Getting blood for monitoring her metabolic problems has become more difficult. Exam Narrative Exam Narrative: She is awake alert talkative no respiratory distress whatsoever. Very mild tremor with intention. Afebrile, blood pressures pushing into the 1 40-1 50 systolic range, pulse in the 80s SaO2 90 to 96% on 2 L nasal cannula. No facial asymmetry. Cannot see neck veins well because of her neck size. Lungs have good aeration in the upper lung cerda diminished at the bases, no crackles, no wheeze. No pleural or pericardial friction rubs heard. Regular heart rhythm, no S3 or S4. Active bowel sounds with nontender abdomen. Lower extremities are warm with no pitting edema. She has spontaneous symmetric movement of all extremities. Sits up unassisted. Objective Objective Clinical Data: Abnormal lab results 01/06/19 01/06/19 01/06/19 Range/Units 07:30 08:17 08:17 WBC 12.14 H (4.4-10.8) k/cumm Hgb 9.3 L (12.0-15.5) g/dL Hct 30.5 L (36.0-46.0) % MCV 74.4 L (80-95) fL MCH 22.7 L (27.0-33.0) pg MCHC 30.5 L (32.0-36.0) g/dL RDW 17.4 H (11.7-14.6) % Magnesium 1.5 L (1.8-2.4) mg/dL Iron 22 L (50-175) ug/dL Troponin I 0.13 H* (0.00-0.06) ng/mL Vital Signs Temperature 36.8 C 01/06/19 03:29 Temperature Source Tympanic 01/06/19 03:29 Pulse 84 01/06/19 06:00 Pulse 85 01/06/19 06:10 Respiratory Rate 15 01/06/19 06:10 Respiratory Effort 01/06/19 03:29 Respiratory Depth Normal 01/06/19 03:29 Respiratory Pattern Tachypnea 01/06/19 03:29 Blood Pressure 140/80 01/06/19 06:00 Blood Pressure Mean 94 01/06/19 06:00 Blood Pressure Position Supine 01/05/19 20:05 Pulse Oximetry 96 01/06/19 06:10 Oxygen Delivery Method Nasal Cannula 01/06/19 03:29 Oxygen Flow Rate 2 01/06/19 03:29 Fraction of Inspired Oxygen (FIO2) 30 01/05/19 00:10 Pain Level 0 01/06/19 03:29 Comment 01/04/19 17:26 Intake & Output 01/05/19 01/05/19 01/06/19 11:59 23:59 11:59 Intake Total 1360 / 2353.333 993.333 / 2353.333 985 / 985 Output Total 300 / 800 500 / 800 350 / 350 Balance 1060 / 1553.333 493.333 / 1553.333 635 / 635 Weight 82.8 kg 82.8 kg Intake: IV 1000 / 1453.333 453.333 / 1453.333 985 / 985 Oral 360 / 900 540 / 900 Output: Urine 300 / 800 500 / 800 350 / 350 Other: Urine Color Dark Angela Yellow Yellow Urine Appearance Clear Clear Clear Urine Odor None None None Comment Pt unable to respond. voiding frequent small amounts but bladder scan showed insignificant postvoid residual. oob to commode to void 150cc's of clear yellow urine with a negative dipstick and sg of 1.015 Stool Occult Blood Negative Stool Size Large Stool Characteristics Soft Formed Brown Voiding Methods Bedside Commode Bedside Commode Bedside Commode Laboratory Results WBC 12.14 k/cumm (4.4-10.8) H 01/06/19 08:17 RBC 4.10 m/cumm (4.00-5.20) 01/06/19 08:17 Hgb 9.3 g/dL (12.0-15.5) L 01/06/19 08:17 Hct 30.5 % (36.0-46.0) L 01/06/19 08:17 MCV 74.4 fL (80-95) L 01/06/19 08:17 MCH 22.7 pg (27.0-33.0) L 01/06/19 08:17 MCHC 30.5 g/dL (32.0-36.0) L 01/06/19 08:17 RDW 17.4 % (11.7-14.6) H 01/06/19 08:17 Plt Count 247 x1000/uL (130-400) 01/06/19 08:17 MPV 10.8 fL (8.0-11.0) 01/06/19 08:17 Immature Gran % 0.2 01/04/19 18:50 80.1 01/04/19 18:50 8.5 01/04/19 18:50 10.9 01/04/19 18:50 0.2 01/04/19 18:50 0.1 01/04/19 18:50 Absolute Neutrophils 7.35 k/cumm (1.2-6.7) H 01/04/19 18:50 Absolute Lymphocytes 0.78 k/cumm (1.2-3.4) L 01/04/19 18:50 Absolute Monocytes 1.00 k/cumm (0.11-0.7) H 01/04/19 18:50 Absolute Eosinophils 0.02 k/cumm (0.0-0.7) 01/04/19 18:50 Absolute Basophils 0.01 k/cumm (0.0-0.2) 01/04/19 18:50 Retic Count 1.2 % (0.5-2.4) 01/06/19 08:17 PT Cancelled 01/04/19 17:33 INR Cancelled 01/04/19 17:33 APTT Cancelled 01/04/19 17:33 Sample Site Cancelled 01/05/19 05:35 pCO2 Cancelled 01/05/19 05:35 pO2 Cancelled 01/05/19 05:35 O2 Saturation Cancelled 01/05/19 05:35 ABG pH Cancelled 01/05/19 05:35 ABG HCO3 Cancelled 01/05/19 05:35 ABG Total CO2 Cancelled 01/05/19 05:35 ABG Base Excess Cancelled 01/05/19 05:35 VBG pH 7.23 (7.32-7.43) L 01/04/19 18:50 VBG pCO2 76 mm/Hg (34-47) H 01/04/19 18:50 VBG pO2 73 mm/Hg (28-44) H 01/04/19 18:50 VBG HCO3 32 mmol/L (22-28) H 01/04/19 18:50 VBG Total CO2 31 mmol/L (22-29) H 01/04/19 18:50 VBG O2 Saturation 91 % (70-80) H 01/04/19 18:50 VBG Base Excess 3.9 mmol/L (-3-3) H 01/04/19 18:50 Oxygen Liter Flow Cancelled 01/05/19 05:35 Cancelled 01/05/19 05:35 Sodium 140 mmol/L (136-145) 01/05/19 07:25 Potassium 3.7 mmol/L (3.5-5.1) D 01/05/19 07:25 Chloride 106 mmol/L (98-107) 01/05/19 07:25 Carbon Dioxide 22.2 mmol/L (21.0-32.0) 01/05/19 07:25 11.8 mmol/L (3-11) H 01/05/19 07:25 BUN 10 mg/dL (7-18) 01/04/19 18:50 1.06 mg/dL (0.55-1.02) H 01/04/19 18:50 52.53 (mL/min/1.73m2) 01/04/19 18:50 Glucose 146 mg/dL (70-100) H 01/04/19 18:50 2.4 mmol/L (0.6-1.4) H* 01/04/19 18:50 Calcium 8.3 mg/dL (8.5-10.1) L 01/04/19 18:50 Magnesium 1.5 mg/dL (1.8-2.4) L 01/06/19 07:30 Iron 22 ug/dL (50-175) L 01/06/19 08:17 TIBC Cancelled 01/06/19 05:35 Transferrin % Sat Cancelled 01/06/19 05:35 0.2 mg/dL (0.2-1.0) 01/04/19 18:50 AST 42 U/L (15-37) H 01/04/19 18:50 ALT 42 U/L (14-59) 01/04/19 18:50 99 U/L (46-116) 01/04/19 18:50 0.13 ng/mL (0.00-0.06) H* 01/06/19 07:30 NT-Pro-B Natriuret Pep 295 pg/mL (-299) 01/04/19 18:50 6.6 g/dL (6.4-8.2) 01/04/19 18:50 3.0 g/dL (3.4-5.0) L 01/04/19 18:50 Triglycerides 49 mg/dL (30-150) 01/06/19 08:17 104 mg/dL (50-200) 01/06/19 08:17 LDL Cholesterol, Calc 43 mg/dL 01/06/19 08:17 52 mg/dL (40-60) 01/06/19 08:17 Yellow (Yellow) 01/05/19 07:45 Clear (Clear) 01/05/19 07:45 5.5 (5-8) 01/05/19 07:45 Ur Specific [place] 1.025 (1.005-1.025) 01/05/19 07:45 30 mg/dL (Negative) H 01/05/19 07:45 Negative mg/dL (Negative) 01/05/19 07:45 Negative (Negative) 01/05/19 07:45 Negative (Negative) 01/05/19 07:45 Small (Negative) H 01/05/19 07:45 1.0 EU/dL (Up TO 0.2) H 01/05/19 07:45 Ur Leukocyte Esterase Negative (Negative) 01/05/19 07:45 0-2 (0-2) 01/05/19 07:45 5-10 HPF (0-5) 01/05/19 07:45 Ur Epithelial Cells Moderate HPF (Negative) 01/05/19 07:45 Negative HPF (Negative) 01/05/19 07:45 Few HPF (Negative) 01/05/19 07:45 0-2 coarse granular LPF (Negative) 01/05/19 07:45 Moderate (Negative) 01/05/19 07:45 Ur Culture Indicated? No/sq. contamination 01/05/19 07:45 Negative mg/dL (Negative) 01/05/19 07:45 Salicylates < 2.8 mg/dL (2.8-20.0) L 01/04/19 18:50 Negative (Negative) 01/05/19 07:45 Positive (Negative) 01/05/19 07:45 Acetaminophen < 2 ug/mL (10-30) L 01/04/19 18:50 Ur Barbiturates Screen Negative (Negative) 01/05/19 07:45 Ur Tricyclics Screen Negative (Negative) 01/05/19 07:45 Ur Amphetamines Screen Negative (Negative) 01/05/19 07:45 U Benzodiazepines Scrn Negative (Negative) 01/05/19 07:45 Negative (Negative) 01/05/19 07:45 Ur THC Screen Negative (Negative) 01/05/19 07:45 Ethyl Alcohol < 3.0 mg/dL (<3) 01/04/19 18:50
[2019-01-06] MEDS: Prenatal Multivitamin w/CA,FE TAB 1 TAB PO (10:30)
[2019-01-06] MEDS: Magnesium Lactate-SR 84 MG TABCR PO (10:30)
--- NOTE | 2019-01-06 11:15 | NUR.NOTE ---
Nursing Note: Patient ambulates from ICU to med/surg on 2 L of O2 N[place]. Patient arrives on unit at 1114 on 01/06/19. Patient alert and oriented x3. Heart rate regular. apical heart rate 78. Positive pedal and radial pulses bilaterally. Lungs clear in all lobes bilaterally. Normal bowel sounds in all quadrants. Non-pitting edema on bilateral upper extremities. More pronounced on right upper extremity. Trace edema on bilateral lower extremities. Nystagmus noted on lateral eye movement. Pupils fixed to light and accommodation, equal and round. Generalized tremors noted at baseline. Upon standing, patient requires 1 assist for steadiness. Patient denies chest pain, nausea and shortness of breath. VSS. BP 163/84. 90% O2 on 2 L.
[2019-01-06] MEDS: Montelukast 10 MG TAB PO (20:43)
[2019-01-06] MEDS: Atorvastatin 40 MG TAB PO (20:44)
[2019-01-07] MEDS: Acetaminophen 325 MG TAB 650 MG PO (03:14)
[2019-01-07 07:20] VITALS: BP 146/86; PULSE 78; RESP 19; TEMP 36.7; O2SAT 96
[2019-01-07] MEDS: Losartan 50 MG TAB 100 MG PO (07:52)
[2019-01-07] MEDS: Roflumilast 500 MCG TAB PO (07:52)
[2019-01-07] MEDS: Omeprazole 20 MG CAPCR 40 MG PO (07:52)
[2019-01-07] MEDS: predniSONE 20 MG TAB 40 MG PO (07:53)
[2019-01-07] MEDS: Escitalopram 20 MG TAB PO (07:53)
[2019-01-07] MEDS: Potassium Chloride 10 MEQ TABCR PO (07:53)
[2019-01-07] MEDS: amLODIPine 5 MG TAB PO (07:53)
[2019-01-07] MEDS: Gabapentin 600 MG TAB PO (07:53)
[2019-01-07] MEDS: Aspirin E.C. 81 MG TABEC PO (07:54)
[2019-01-07] MEDS: Apixaban 5 MG TAB PO (07:54)
[2019-01-07] MEDS: Furosemide 40 MG TAB PO (07:54)
[2019-01-07] MEDS: Methadone 10 MG TAB PO (07:54)
--- NOTE | 2019-01-07 09:46 | DSE_ITS ---
Date of service: 01/07/19 Time of Service: 09:46 DS: Diagnosis Discharge Diagnosis (1) Mental status, decreased: Status: Resolved Asessment and Plan: Lethargic on admission, improved within 24 hours. Mental status changes attributed to CO2 narcosis perhaps related to her underlying COPD, untreated sleep apnea and perhaps respiratory depression from medications. BiPAP support the first night and then improvement in mental status with stopping mirtazapine and decreasing methadone dose. Mental status has been clear since. (2) COPD (chronic obstructive pulmonary disease): Status: Chronic Asessment and Plan: Maintained on home inhalers, they are less, Singulair and supplemental oxygen, stable through this hospitalization with no exacerbation and no need for antibiotics. (3) Elevated troponin: Status: Acute Asessment and Plan: No chest pain complaints compatible with angina (initially complained of chronic chest pain that she attributed to her PE). Troponins trended down. No dysrhythmias. Thought to be likely due to demand ischemia. Started on aspirin with no bleeding complications. Advised to have outpatient stress test to evaluate further. (4) Pulmonary embolism: Status: Acute Asessment and Plan: No symptoms clearly attributable to this. Maintained on her outpatient dose of apixaban (5) Opioid dependence on agonist therapy: Status: Acute Asessment and Plan: Methadone decreased to 10 mg with no withdrawal symptoms and no drug cravings. I spoke with the [facility] on the weekend raising my concern about excessive sedation from methadone. At this point I do not know if I dose adjustment as planned and I defer to the [facility] program for further management. (6) Chronic pain: Status: Chronic Asessment and Plan: No flares of chronic pain on outpatient dose of gabapentin, methadone at 10 mg daily and as needed use of acetaminophen. (7) PETERSON (obstructive sleep apnea): Status: Chronic Asessment and Plan: She was on BiPAP her first night and then maintained oxygen saturations and had no mental status changes just using nasal cannula O2 at 2 L at nighttime. (8) Benign hypertension: Status: Chronic Asessment and Plan: She was hypotensive initially and blood pressure medicines were held. Blood pressures increased throughout hospital stay and on discharge she is placed back on her outpatient doses of losartan, amlodipine and furosemide (9) Chronic anxiety: Status: Chronic Asessment and Plan: No exacerbation of anxiety or depression during this hospitalization. QT interval was stable at about 0.45 with the combination of methadone and Lexapro. Symptoms were not worse with stopping mirtazapine. (10) Microcytic anemia: Status: Acute Asessment and Plan: Iron levels were a little low. Difficulty obtaining blood for further testing. She did not have a bowel movement during her h ospitalization to check for blood. She is being discharged on multivitamin with iron. Her anemia will need follow-up as an outpatient. (11) Hypotension: Status: Acute Asessment and Plan: Transiently hypotensive, improved with IV fluids, initiation of steroids. Blood pressure eventually high enough to reintroduce her outpatient antihypertensive medications. (12) Homeless: Asessment and Plan: No resolution to her housing insecurity during this hospitalization. (13) Hypomagnesemia: Status: Acute Asessment and Plan: Treated with IV and oral magnesium. Will need ongoing monitoring to determine when and if magnesium can be discontinued. (14) Hypokalemia: Status: Acute Asessment and Plan: Treated with oral supplementation and IV supplementation. Given ongoing diuretic use, being discharged on a potassium supplement. Discharge Plan Disposition Patient Disposition: HOME W/HOME HEALTH SERVICE Condition: Fair Discharge Details Chief Complaint: AMS/LOC Clinical Impression: Acute exacerbation of chronic obstructive pulmonary disease (COPD), Hypercarbia, Methadone dependence, Elevated troponin Reason For Visit: COPD,CARDIAC ISCHEMIA Admit Date/Time: 01/04/19 20:19 Admit Provider: Damion Richards Attending Provider: Damion Richards Primary Care Provider: Valerie Jiang ED Provider: Kaylie Resendiz Hospital Course Hospital Course: 63-year-old homeless woman admitted to the emergency room because of lethargy when she was discovered by her daughter to be somnolent and difficult to arouse. She received Narcan in the field with some improvement in mental status. Upon arrival in the emergency room she was still lethargic/somnolent, hypoventilating with a PCO2 of 72 and arterial blood gas and a pH of 7.26, prompting application of BiPAP. She had recently been started on methadone (replaced Suboxone) and had a list of other medications with potential for sedating side effects. Medication adherence unknown. She was admitted to the ICU on BiPAP support Hospital course as outlined by problem above. On the morning of discharge she is awake alert independent with ambulation, maintaining oxygen saturations in the mid 90% range on 2 L oxygen flow by nasal cannula. She is being discharged on a prednisone taper. She did not receive any antibiotics. She remains without stable housing. She will receive home health services. Diagnostic studies?noncontrast head CT with no acute infarct or mass. Hemoglobin 9.3, MCV 74.4. Iron level 22. Troponin 0.54 on admission steadily dropping to 0.13 the day prior to discharge. ECG with no acute ischemic changes. Chest x-ray without infiltrate or evidence of pulmonary edema, cardiomediastinal silhouette a little bit prominent. Home Meds and New Rx's Prescriptions: New acetaminophen [Tylenol] 325 mg Tablet 650 mg PO Q4H PRN PRNQty: 100 RF: 0 aspirin 81 mg Tablet,Delayed Release (Dr/Ec) 81 mg PO DAILY Qty: 100 RF: 1 potassium chloride [Klor-Con M10] 10 mEq Tablet,Er Particles/Crystals 10 meq PO DAILY Qty: 90 RF: 3 magnesium L-lactate [Magtab] 84 mg Tablet Extended Release 84 mg PO DAILY@1000 Qty: 90 RF: 1 PNV cmb#95-ferrous fumarate-FA [] 28 mg iron- 800 mcg Tablet 1 tab PO DAILY@1000 Qty: 100 RF: 0 prednisolone sodium phosphate 10 mg tablet,disintegrating 10 mg PO DAILY Qty: 20 RF: 0 Continued furosemide 20 mg tablet 40 mg PO DAILY RF: 0 apixaban 5 mg tablet 5 mg PO BID RF: 0 ondansetron HCl [Zofran] 4 mg tablet 4 mg PO Q8H RF: 0 Spiriva with HandiHaler 1 PUFF capsule, w/inhalation device 1 cap Inhalation DAILY RF: 0 Symbicort 60 PUFF HFA aerosol inhaler 2 puff Inhalation BID RF: 0 albuterol sulfate 2.5 mg /3 mL (0.083 %) Solution For Nebulization 2.5 mg INHALATION Q4H PRNRF: 0 melatonin 1 mg Tablet 6 mg PO HS PRNRF: 0 gabapentin [Neurontin] 600 mg Tablet 600 mg PO TID Qty: 42 RF: 0 omeprazole 40 mg capsule,delayed release(DR/EC) 40 mg PO DAILY Qty: 30 RF: 0 montelukast [Singulair] 10 MG tablet 10 mg PO DAILY RF: 0 escitalopram oxalate [Lexapro] 20 MG tablet 20 mg PO DAILY RF: 0 amlodipine 5 mg Tablet 5 mg PO DAILY RF: 0 sumatriptan succinate 50 mg Tablet 50 mg PO DIRECTED RF: 0 losartan 100 mg Tablet 100 mg PO DAILY RF: 0 Nicotrol 10 mg Cartridge 10 mg Inhalation Q2H PRN PRNQty: 30 RF: 0 ibuprofen 800 mg tablet 800 mg PO TID PRN (Reason: pain) Qty: 30 RF: 0 prochlorperazine maleate [Compazine] 5 mg tablet 5 mg PO Q8H PRN PRN (Reason: nausea and vomiting) Qty: 10 RF: 0 atorvastatin 40 mg Tablet 40 mg PO QHS RF: 0 Daliresp 500 mcg Tablet 500 mcg PO DAILY RF: 0 Discontinued mirtazapine 30 mg tablet 30 mg PO HS RF: 0 dexmethylphenidate [Focalin XR] 20 mg capsule,ER biphasic 50-50 20 mg PO DAILY RF: 0 Discharge Instructions Additional Instructions: Return to the [facility] program January 08. They will resume your methadone. you will be given an appointment for a stress test. Referrals: Valerie Jiang MD [Primary Care Provider] - (You will be given a date and time for this follow-up appointment.) Activity:: Activity as Tolerated Equipment/Supplies:: Oxygen (L/min Below) Diet:: As Tolerated Discharge Orders Discharge Orders: Discharge Order (Routine); Ordered 01/07/19 Ordered By: Kaushal Mckeon DS: Summary Time spent discussing smoking cessation with patient: 3 to 10 minutes Exam Narrative Exam Narrative: On the morning of admission she is talkative and in no distress. SaO2 on 2 L 96%. Temperature 36 7, blood pressure 146/86. No facial asymmetry. Neck veins are not distended. Distant breath sounds on lung exam with no crackles or wheeze. Regular heart rhythm, no S3 or S4. Active bowel sounds with nontender abdomen. No pitting edema in the extremities. Transfers independently. No tremor. DS: Data Vitals/I&O Vitals and I&O: Vital Signs Temperature 36.7 C 01/07/19 07:20 Temperature Source Tympanic 01/07/19 07:20 Pulse 78 01/07/19 07:20 Pulse Rhythm Regular 01/07/19 05:00 Pulse 89 01/06/19 09:15 Respiratory Rate 19 01/07/19 07:20 Respiratory Effort Non-Labored 01/07/19 05:00 Respiratory Depth Normal 01/07/19 05:00 Respiratory Pattern Normal 01/07/19 05:00 Blood Pressure 146/86 H 01/07/19 07:20 Blood Pressure Mean 75 01/06/19 09:15 Blood Pressure Position Supine 01/05/19 20:05 Pulse Oximetry 96 01/07/19 07:20 Oxygen Delivery Method Nasal Cannula 01/07/19 07:20 Oxygen Flow Rate 2 01/07/19 07:20 Fraction of Inspired Oxygen (FIO2) 30 01/05/19 00:10 Pain Level 2 01/07/19 07:54 Comment 01/04/19 17:26 Intake & Output 01/06/19 01/06/19 01/07/19 11:59 23:59 11:59 Intake Total 995 / 2365 1370 / 2365 Output Total 350 / 950 600 / 950 150 / 150 Balance 645 / 1415 770 / 1415 -150 / -150 Weight 82.8 kg 81.7 kg Intake: IV 995 / 2005 1010 / 2005 Oral 360 / 360 Output: Urine 350 / 950 600 / 950 150 / 150 Other: Urine Color Yellow Pale Pale Yellow Yellow Urine Appearance Clear Clear Clear Urine Odor None Normal None Comment oob to commode to void 150cc's of clear yellow urine with a negative dipstick and sg of 1.015 Stool Occult Blood Negative Stool Size Large Stool Characteristics Soft Formed Brown Voiding Methods Bedside Commode Toilet Toilet Labs on day of discharge: Labs from last 24 hours 01/05/19 07:45 Ur Buprenorphine Pending Ur Norbuprenorphine Pending [facility] Medical History (Updated 01/06/19 @ 10:11 by Kaushal Mckeon MD) Acute deep vein thrombosis (DVT) of brachial vein of right upper extremity (Acute) Allergic rhinitis (Chronic) Allergic rhinitis (Chronic) Anxiety (Chronic) Benign hypertension (Chronic) 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 With an FEV1 of 53%. Chronic pain (Chronic) Cocaine abuse (Resolved) Colon polyps (Chronic) Constipation (Chronic) Chronic COPD (chronic obstructive pulmonary disease) (Chronic) Depression (Chronic) Depressive disorder (Chronic) Edema (Chronic) Family history of colon cancer (Chronic) Goiter diffuse (Chronic) Hepatitis C (Chronic) Hepatitis C antibody test positive (Chronic) a. 09/2013 b. Has hepatology follow up scheduled History of suicide attempt (Chronic) a. History of multiple suicide attempts. Homeless (Acute) HTN (hypertension) (Chronic) Hypercholesterolemia (Chronic) Hyperlipidemia (Chronic) Left knee pain (Chronic) Lumbar back pain (Chronic) Migraine (Chronic) Migraine headache (Chronic) Multinodular thyroid (Chronic) Multiple sclerosis (Chronic) a. No brain imaging found to confirm in our records. b. ? muscular dystrophy versus MS. Multiple sclerosis (Chronic) Opioid dependence (Chronic) Opioid dependence on agonist therapy (Acute) PETERSON (obstructive sleep apnea) (Chronic) PETERSON (obstructive sleep apnea) (Chronic) Pancreatic mass (Chronic ~01/2017) stable/benign per MRI 02/09/2017, normal pancreas per CTA abdomen/pelvis 08/18/2018 Polysubstance abuse (Chronic) a. h/o IV drug abuse, quit 2012 b. On Suboxone maintenance Sleep apnea (Chronic) a. Not in outpatient chart but reported. Tobacco dependence syndrome (Chronic) Addiction since ; one to two packs per day. Tobacco use (Acute) Tobacco use disorder (Chronic 04/15/14) Surgical History H/O section (Inactive) History of Surgical Procedure (Chronic) a. Cholecystectomy. b. C-Sections. c. Shoulder surgery. d. Tubal ligation. e. Carpal tunnel surgery. S/P cholecystectomy (Inactive) Status post shoulder surgery (Inactive) Social History Smoking/Tobacco Use Status: Former Tobacco Use Quit Date: 08/13/18 Alcohol Intake: never Drug use: Never Substance use type: former substance user Do you feel safe at home: Yes Do you feel safe in your relationship?: Yes Additional Social history: Currently lives with her daughter, possible active drug use in the home Has been recently per clinic notes
--- NOTE | 2019-01-07 09:49 | PDOC.CMDIS ---
LACE Index Scoring Tool - Questions: Length of Stay (in days): 3 Acuity (Admit via E.D.?): Yes Comorbidities: Chronic Pulmonary Disease, Connective Tissue Disease, Liver or Renal Disease E.D. Visits: 9 - Answers: Total Score: 15 Risk of Readmission: High Risk Care Management Discharge Reason for Hospitalization: COPD, Cardiac Ischemia Discharge Plan: Lona will discharge when medically ready with resumptions of community resources including home oxygen through [employer]. She will have new [facility] RN orders per MD. Lona intends to return [facility] and is currently working with [place] at [facility] on attaining a new apartment in [place]. Lona will transport via [facility]. Patient/Family Education Needs: Review discharge instructions, discuss Ask Me Three. Services Needed at Discharge: Home Delivered Meals, Home Health Care Services (RN), Oxygen Therapy (Resumption)
--- NOTE | 2019-01-07 10:20 | PDOC.HHF2F ---
1. Encounter Date and Reason I certify that ROLLY KRUSE was seen by Kaushal Mckeon on 01/07/19 and that I had a [id number] encounter with this patient that meets the physician face to face encounter requirements. 2. Clinical Findings Supporting Skilled Need and Homebound Status I certify that home health services are medically necessary, include either intermittent correction and/or physical/speech therapy, and that this patient is homebound in that absences from the home require considerable and taxing effort and are infrequent or of short duration, or are attributable to the need to receive medical care. [X] (a) Attached documentation from encounter provides clinical findings supporting skilled need and homebound status (including what assistance patient requires to leave the home). The encounter with the patient was in whole, or in part, for the following medical condition, which is the primary reason for home health care: COPD,CARDIAC ISCHEMIA Assisted: To assess respiratory status, medication adherence Physical Therapy: Speech Therapy: Homebound: Due to multiple chronic medical problems 3. Certification and Authentication I certify that I composed the above information based on my clinical judgement relating to this patient's medical condition and, if applicable, clinical findings communicated to me by the NPP or inpatient physician who performed the Home Health Referral. All further orders will be obtained through Dr. Jiang (Community Based Physician - PCP)
[2019-01-07] MEDS: Tiotropium Bromide-Respimat 10 PUFF INH IH (10:24)
[2019-01-07] MEDS: Budesonide/Formoterol 160/4.5 6 GM 60 PUFF INH IH (10:25)
[2019-01-07] MEDS: Prenatal Multivitamin w/CA,FE TAB 1 TAB PO (10:40)
[2019-01-07] MEDS: Magnesium Lactate-SR 84 MG TABCR PO (10:40)
[2019-01-09 17:44] LABS: Buprenorphine 59.8 ng/mL; Norbuprenorphine 305.6 ng/mL
== END 2019-01-07 11:05 | disposition home health service (06) | DRG 947 ==
LOC: ER 20:53 → ICU 21:32 → MS 01-07 09:57 → ICU 01-10 15:30
PROVIDERS: Admitting Provider General Practice; Emergency Provider Physician Assistant; PCP Family Medicine; Visit Provider Internal Medicine
DX: R41.82 Altered mental status, unspecified (principal); J96.22 Acute and chronic respiratory failure with hypercapnia; J96.21 Acute and chronic respiratory failure with hypoxia; F11.20 Opioid dependence, uncomplicated; J44.9 Chronic obstructive pulmonary disease, unspecified; R74.8 Abnormal levels of other serum enzymes; R07.89 Other chest pain; G89.29 Other chronic pain; G47.33 Obstructive sleep apnea (adult) (pediatric); I10 Essential (primary) hypertension; F41.9 Anxiety disorder, unspecified; D50.9 Iron deficiency anemia, unspecified; I95.9 Hypotension, unspecified; Z59.0 Homelessness; E83.42 Hypomagnesemia; E87.6 Hypokalemia; F32.9 Major depressive disorder, single episode, unspecified; B19.20 Unspecified viral hepatitis C without hepatic coma; Z86.711 Personal history of pulmonary embolism
CPT/HCPCS: 36415; 80051; 80053; 80061; 80307; 82805; 85027; 93005; 94640; 96365; 96366; 99222; 99233; 99239; 99285; 70450; 71046; 80320; 80329; 81003; 81015; 83540; 83550; 83605; 83735; 83880; 84484; 85025; 85045; 85610; 85730; 93010; J2930; J3480; J3490; J7512; J7620

== ENCOUNTER 2019-01-11 20:46 | Inpatient (IN) | payer MEDICARE, MEDICAID, SELFPAY ==
[2019-01-11] VITALS (16 sets, daily range): BP systolic 102–132; BP diastolic 58–74; PULSE 68–88; RESP 8–19; TEMP 37.7; O2SAT 84–99
--- NOTE | 2019-01-11 20:50 | W.ED.GENAD ---
Discharge Plan Disposition Patient Dis[facility]: [facility] Condition: Good Discharge Details Chief Complaint: GenMedical Clinical Impression: Chronic obstructive lung disease, COPD exacerbation, Adult failure to thrive, Medical non-compliance Primary Care Provider: Valerie Jiang ED Provider: Dionte Whalen Home Meds and New Rx's Prescriptions: No Action furosemide 20 mg tablet 40 mg PO DAILY RF: 0 apixaban 5 mg tablet 5 mg PO BID RF: 0 ondansetron HCl [Zofran] 4 mg tablet 4 mg PO Q8H RF: 0 Spiriva with HandiHaler 1 PUFF capsule, w/inhalation device 1 cap Inhalation DAILY RF: 0 Symbicort 60 PUFF HFA aerosol inhaler 2 puff Inhalation BID RF: 0 albuterol sulfate 2.5 mg /3 mL (0.083 %) Solution For Nebulization 2.5 mg INHALATION Q4H PRNRF: 0 melatonin 1 mg Tablet 6 mg PO HS PRNRF: 0 gabapentin [Neurontin] 600 mg Tablet 600 mg PO TID Qty: 42 RF: 0 omeprazole 40 mg capsule,delayed release(DR/EC) 40 mg PO DAILY Qty: 30 RF: 0 montelukast [Singulair] 10 MG tablet 10 mg PO DAILY RF: 0 escitalopram oxalate [Lexapro] 20 MG tablet 20 mg PO DAILY RF: 0 amlodipine 5 mg Tablet 5 mg PO HS RF: 0 sumatriptan succinate 50 mg Tablet 50 mg PO DIRECTED RF: 0 losartan 100 mg Tablet 100 mg PO DAILY RF: 0 Nicotrol 10 mg Cartridge 10 mg Inhalation Q2H PRN PRNQty: 30 RF: 0 ibuprofen 800 mg tablet 800 mg PO TID PRN (Reason: pain) Qty: 30 RF: 0 prochlorperazine maleate [Compazine] 5 mg tablet 5 mg PO Q8H PRN PRN (Reason: nausea and vomiting) Qty: 10 RF: 0 atorvastatin 40 mg Tablet 40 mg PO QHS RF: 0 Daliresp 500 mcg Tablet 500 mcg PO DAILY RF: 0 acetaminophen [Tylenol] 325 mg Tablet 650 mg PO Q4H PRN PRNQty: 100 RF: 0 aspirin 81 mg Tablet,Delayed Release (Dr/Ec) 81 mg PO DAILY Qty: 100 RF: 1 potassium chloride [Klor-Con M10] 10 mEq Tablet,Er Particles/Crystals 10 meq PO DAILY Qty: 90 RF: 3 magnesium L-lactate [Magtab] 84 mg Tablet Extended Release 84 mg PO DAILY@1000 Qty: 90 RF: 1 PNV cmb#95-ferrous fumarate-FA [] 28 mg iron- 800 mcg Tablet 1 tab PO DAILY@1000 Qty: 100 RF: 0 prednisolone sodium phosphate 10 mg tablet,disintegrating 10 mg PO DAILY Qty: 20 RF: 0 Medical Decision Making This is a 63-year-old female with a past medical history of COPD, Jcgwkwt-Rwzyx-Hbmsj, hypertension, hyperlipidemia, obstructive sleep apnea not on CPAP, hep C, opioid dependence on Suboxone and previous pulmonary embolism on elequis. She was recently admitted for altered mental status secondary to CO2 narcosis, she had a mild elevation in her troponin which gradually trended down. She was discharged on 01/07/2019. She presents today for evaluation of continuing to feel unwell. She states that she was not able to fill her steroid as directed. She has been taking her Eliquis, and inhalers as directed. She is not currently on antibiotics. She states that her oxygen continues to remain in the 80s in spite of using extra oxygen at home. She continues to feel fatigued, short of breath, and have continued chronic chest pain. The patient's physical exam demonstrates decreased breath sounds throughout, minimal crackles at the bases, she is mildly hypoxic after walking in in the mid 80s. No significant tachycardia. Temperature is slightly elevated at 37.7. She has not been able to take her home steroids. Physical exam is otherwise unremarkable with no acute significant abdominal tenderness, no pulse asymmetry, no evidence of severe cyanosis. With the patient's elevated temperature, continued fatigue and shortness of breath I do feel that cardiac evaluation is indicated. We will evaluate for potential pneumonia, and UTI. The patient has not had any recent CT scans for further reassessment of her pulmonary status, and I do feel that reassessment of her chronic PEs is certainly indicated with her continued failure on an outpatient basis in regards to her respiratory status. Certainly may be a component of noncompliance and chronic COPD but I feel with the confounding variable of her chronic PEs that repeat assessment is certainly indicated at this time. I do feel that the patient will require admission, as well as placement. I did contact place management and they agree that she is not a good candidate for continued outpatient care she has continued feelings and readmissions and repeat visits. We will continue our work-up, and after further assessment will contact hospitalist for admission. 12:13 AM EKG is unremarkable, and unchanged from prior. Troponin is normal, minimal white count 11.32, hemoglobin stable, no left shift. No bandemia. Venous blood gas demonstrates a PCO2 of 54, pH is stable and at baseline. Electrolytes normal. proBNP normal. Lipase normal, TSH less than 0.01, free T4 1.61, which is at her baseline. Signs and symptoms are clinically inconsistent with thyroid storm. CT angios has returned and demonstrates no evidence of PE in spite of her history of PE. 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 I did contact the radiologist and discussed the case with him, and he compared the prior CTAs and demonstrates that there is no evidence of acute change in this. I feel that this is just an incidental finding. Dr. Richards has come and evaluated the patient. At this time I do feel that she is stable for admission. Diagnosis COPD exacerbation, failure to thrive, medical noncompliance. Patient will be admitted to the floor for further management. I have extensively reviewed the treatment plan with the patient. I have addressed all patient concerns at this time. I have also discussed the plan with the admitting physician and they agree with the current assessment and plan and have agreed to assume responsibility for the patient. All parties demonstrate verbal understanding and agreement with our assessment and plan at this time. EKG 21: 34 Rate 76, sinus rhythm, intervals normal, no significant ST elevation or depression. Slightly atypical P wave morphology, may be indicative of right atrial enlargement. However bifid P wave in V3 may just be artifactual. No significant Q waves, no evidence of STEMI. CT CHEST PE CTA 12/12/2018 10:07 AM FINDINGS: Pulmonary arteries: There are no intraluminal filling defects to suggest acute pulmonary embolus. 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 Aorta: Aorta demonstrates mild atherosclerotic calcification. Lungs: There is mild bibasilar atelectasis. Pleural space: Unremarkable. No pneumothorax. No pleural effusion. Heart: Unremarkable. No cardiomegaly. No pericardial effusion. Lymph nodes: Unremarkable. No enlarged lymph nodes. Bones/joints: Degenerative changes of the thoracic spine without acute osseous abnormality. Moderate curvature of the thoracic spine apex right. Soft tissues: Unremarkable. IMPRESSION: 1. There are no intraluminal filling defects to suggest acute pulmonary embolus. 2. 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 Dictated and Authenticated by: Nate Edwards MD. HPI General Date/Time Provider Initiated Documentation: 01/11/19 20:47. HPI Narrative: This is a 63-year-old female with a past medical history of COPD, Mkqrpqe-Jlfkv-Czlcw, hypertension, hyperlipidemia, obstructive sleep apnea not on CPAP, hep C, opioid dependence on Suboxone and previous pulmonary embolism on elequis. She was recently admitted for altered mental status secondary to CO2 narcosis, she had a mild elevation in her troponin which gradually trended down. She was discharged on 01/07/2019. She presents today for evaluation of continuing to feel unwell. She states that she was not able to fill her steroid as directed. She has been taking her Eliquis, and inhalers as directed. She is not currently on antibiotics. She states that her oxygen continues to remain in the 80s in spite of using extra oxygen at home. She continues to feel fatigued, short of breath, and have continued chronic chest pain. She states that her chest pain feels like her chronic chest pain but slightly worse than normal. She does admit to a pleuritic component. She denies any hemoptysis. She does admit to mild fever and chills at home. She does admit to occasional vomiting, including this morning but denies any hematemesis, or current nausea or abdominal pain right now. She denies any diarrhea or hematochezia. She denies any current antibiotic use. She states that she continues to be homeless and does not feel that her current situation is safe for her. She denies any other complaints, any other modifying factors. She denies any IV or illicit drug use or any alcohol use. Related Data Home Medications Medication Instructions Recorded Confirmed Spiriva with HandiHaler 1 cap INHALATION DAILY 12/25/12 01/11/19 Symbicort 2 puff INHALATION BID 08/25/14 01/11/19 montelukast [Singulair] 10 mg PO DAILY 08/17/16 01/11/19 escitalopram oxalate [Lexapro] 20 mg PO DAILY 09/08/16 01/11/19 albuterol sulfate 2.5 mg INHALATION Q4H PRN 01/23/18 01/11/19 furosemide 20 mg tablet 40 mg PO DAILY tab 06/18/18 01/11/19 amlodipine 5 mg PO HS 07/26/18 01/11/19 losartan 100 mg PO DAILY 07/26/18 01/11/19 sumatriptan succinate 50 mg PO DIRECTED 07/26/18 01/11/19 Nicotrol 10 mg INHALATION Q2H PRN PRN #30 ea 07/28/18 01/11/19 ibuprofen 800 mg PO TID PRN #30 tab 07/28/18 01/11/19 prochlorperazine maleate 5 mg PO Q8H PRN PRN #10 tab 07/28/18 01/11/19 [Compazine] melatonin 6 mg PO HS PRN 08/18/18 01/11/19 gabapentin [Neurontin] 600 mg PO TID #42 tab 08/23/18 01/11/19 omeprazole 40 mg PO DAILY #30 cap 08/23/18 01/11/19 Daliresp 500 mcg PO DAILY 01/04/19 01/11/19 apixaban 5 mg tablet 5 mg PO BID 01/04/19 01/11/19 atorvastatin 40 mg PO QHS 01/04/19 01/11/19 ondansetron HCl 4 mg tablet 4 mg PO Q8H 01/04/19 01/11/19 PNV cmb#95-ferrous fumarate-FA 1 tab PO DAILY@1000 #100 tab 01/07/19 01/11/19 [] acetaminophen [Tylenol] 650 mg PO Q4H PRN PRN #100 tab 01/07/19 01/11/19 aspirin 81 mg PO DAILY #100 tab 01/07/19 01/11/19 magnesium L-lactate [Magtab] 84 mg PO DAILY@1000 #90 tab 01/07/19 01/11/19 potassium chloride [Klor-Con M10] 10 meq PO DAILY #90 tab 01/07/19 01/11/19 prednisolone sodium phosphate 10 mg PO DAILY #20 tab 01/07/19 01/11/19 Previous Rx's Medication Instructions Recorded Nicotrol 10 mg INHALATION Q2H PRN PRN #30 ea 07/28/18 ibuprofen 800 mg PO TID PRN #30 tab 07/28/18 prochlorperazine maleate 5 mg PO Q8H PRN PRN #10 tab 07/28/18 [Compazine] gabapentin [Neurontin] 600 mg PO TID #42 tab 08/23/18 omeprazole 40 mg PO DAILY #30 cap 08/23/18 PNV cmb#95-ferrous fumarate-FA 1 tab PO DAILY@1000 #100 tab 01/07/19 [] acetaminophen [Tylenol] 650 mg PO Q4H PRN PRN #100 tab 01/07/19 aspirin 81 mg PO DAILY #100 tab 01/07/19 magnesium L-lactate [Magtab] 84 mg PO DAILY@1000 #90 tab 01/07/19 potassium chloride [Klor-Con M10] 10 meq PO DAILY #90 tab 01/07/19 prednisolone sodium phosphate 10 mg PO DAILY #20 tab 01/07/19 Allergies Allergy/AdvReac Type Severity Reaction Status Date / Time No Known Allergies Allergy Unverified 01/04/19 20:26 General NEGRITA: 2 Review of Systems Review of Systems ROS Unobtainable: All systems reviewed & are unremarkable except as noted in HPI and below PFSH Medical History Acute deep vein thrombosis (DVT) of brachial vein of right upper extremity (Acute) Allergic rhinitis (Chronic) Allergic rhinitis (Chronic) Anxiety (Chronic) Benign hypertension (Chronic) 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 With an FEV1 of 53%. Chronic pain (Chronic) Cocaine abuse (Resolved) Colon polyps (Chronic) Constipation (Chronic) Chronic COPD (chronic obstructive pulmonary disease) (Chronic) Depression (Chronic) Depressive disorder (Chronic) Edema (Chronic) Family history of colon cancer (Chronic) Goiter diffuse (Chronic) Hepatitis C (Chronic) Hepatitis C antibody test positive (Chronic) a. 09/2013 b. Has hepatology follow up scheduled History of suicide attempt (Chronic) a. History of multiple suicide attempts. Homeless (Acute) HTN (hypertension) (Chronic) Hypercholesterolemia (Chronic) Hyperlipidemia (Chronic) Left knee pain (Chronic) Lumbar back pain (Chronic) Migraine (Chronic) Migraine headache (Chronic) Multinodular thyroid (Chronic) Multiple sclerosis (Chronic) a. No brain imaging found to confirm in our records. b. ? muscular dystrophy versus MS. Multiple sclerosis (Chronic) Opioid dependence (Chronic) Opioid dependence on agonist therapy (Acute) PETERSON (obstructive sleep apnea) (Chronic) PETERSON (obstructive sleep apnea) (Chronic) Pancreatic mass (Chronic ~01/2017) stable/benign per MRI 02/09/2017, normal pancreas per CTA abdomen/pelvis 08/18/2018 Polysubstance abuse (Chronic) a. h/o IV drug abuse, quit 2012 b. On Suboxone maintenance Sleep apnea (Chronic) a. Not in outpatient chart but reported. Tobacco dependence syndrome (Chronic) Addiction since ; one to two packs per day. Tobacco use (Acute) Tobacco use disorder (Chronic 04/15/14) Social History Smoking/Tobacco Use Status: Former Tobacco Use Quit Date: 08/13/18 Alcohol Intake: never Drug use: Never Substance use type: former substance user Do you feel safe at home: Yes Do you feel safe in your relationship?: Yes Additional Social history: Currently lives with her daughter, possible active drug use in the home Has been recently per clinic notes Exam Narrative Exam Narrative: 1.Const: Well-nourished, Well-developed, appearing stated age 2.Eyes: PERRL, no conjunctival injection, and symmetrical lids. 3.ENT: Atraumatic external nose and ears. Dry MM. Neck: Symmetric, trachea midline, No thyromegaly. 4.CVS: +S1/S2, No murmurs or gallops. Peripheral pulses 2+ and equal in all extremities. Brisk capillary refill in all extremities. 5.RESP: Unlabored respiratory effort. Mild crackles in the bases, decreased breath sounds throughout, no appreciable wheezes at this time. 6.GI: Soft, Nontender/Nondistended, No hepatosplenomegaly. No guarding or rebound. No pain at epigastric, pain at McBurney's point, and no evidence of Ortega sign. 7.MSK: Normocephalic/Atraumatic, Extremities w/o deformity or ttp No cyanosis or clubbing, Normal movement of all extremities 8.Skin: Warm, Dry. No rashes or lesions. 9.Neuro: historical society director II-XII grossly intact. Sensation grossly intact, no focal neurologic deficits. 10.Psych: (AAO) x3. Appropriate mood and affect
[2019-01-11 21:19] LABS: Bilirubin Small (Negative); Blood Negative (Negative); Clarity Sl Cloudy (Clear); Glucose Negative (Negative); Ketones Trace mg/dL (Negative); Leukocyte Esterase Negative (Negative); Nitrite Negative (Negative)
[2019-01-11 21:27] LABS: Bacteria Few HPF (Negative); Crystals Negative HPF (Negative); Epithelial Cells Many HPF (Negative); Mucus Heavy (Negative); RBC 0-2 (0-2)
[2019-01-11 21:28] LABS: C & S Indicated? C&S Done As Ordered; Casts Negative LPF (Negative)
[2019-01-11] MEDS: Lidocaine 5% Patch 1 PATCH TP (22:08)
[2019-01-11] MEDS: Acetaminophen 500 MG TAB 1000 MG PO (22:09)
[2019-01-11] MEDS: Albuterol/Ipratropium 3 ML UPD VIAL UPD (22:09)
[2019-01-11] MEDS: methylPREDNISolone SUCC 125 MG VIAL IVP (22:18)
[2019-01-11] MEDS: Ondansetron 4 MG/2 ML VIAL IVP (22:18)
[2019-01-11 22:27] LABS: HCO3 (Venous) 35 mmol/L (22-28); O2 Sat (Venous) 59 % (70-80); TCO2 (Venous) 32 mmol/L (22-29); pCO2 (Venous) 54 mm/Hg (34-47); pH (Venous) 7.41 (7.32-7.43); pO2 (Venous) 32 mm/Hg (28-44)
[2019-01-11 22:28] LABS: Abs Immature Grans 0.03 k/cumm (0.0-0.09); Absolute Basophil Count 0.02 k/cumm (0.0-0.2); Absolute Eosinophil Count 0.35 k/cumm (0.0-0.7); Absolute Lymphocyte Count 3.85 k/cumm (1.2-3.4); Absolute Neutrophil Count 6.26 k/cumm (1.2-6.7); Basophils % 0.2; Eosinophils % 3.1; HCT 34.3 % (36.0-46.0); HGB 10.5 g/dL (12.0-15.5); Immature Grans % 0.3; Mean Corp. HGB Concentration 30.6 g/dL (32.0-36.0); Mean Corpuscular Hemoglobin 22.8 pg (27.0-33.0); Mean Corpuscular Volume 74.4 fL (80-95); Mean Platelet Volume 10.4 fL (8.0-11.0); Monocytes % 7.1; Neutrophils % 55.3; Platelet Count 366 x1000/uL (130-400); RBC 4.61 m/cumm (4.00-5.20); RBC Distribution Width 16.9 % (11.7-14.6); White Blood Cell Count 11.32 k/cumm (4.4-10.8)
[2019-01-11 22:47] LABS: ALT 31 U/L (14-59); AST 16 U/L (15-37); Albumin 3.5 g/dL (3.4-5.0); Alkaline Phosphatase 94 U/L (46-116); Anion Gap 5.1 mmol/L (3-11); BUN 14 mg/dL (7-18); Bilirubin, Total 0.4 mg/dL (0.2-1.0); CO2 32.9 mmol/L (21.0-32.0); CREATININE 0.69 mg/dL (0.55-1.02); Calcium 8.7 mg/dL (8.5-10.1); Chloride 104 mmol/L (98-107); Glucose 118 mg/dL (70-100); Potassium 3.5 mmol/L (3.5-5.1); Sodium 142 mmol/L (136-145); Total Protein 6.9 g/dL (6.4-8.2)
[2019-01-11 22:49] LABS: Anisocytosis 1+; Hypochromasia 1+; Microcytosis 2+; Troponin I < 0.05 ng/mL (0.00-0.06)
[2019-01-11 22:50] LABS: Poikilocytes 1+; Polychromasia Present
[2019-01-11 22:55] LABS: Lipase 54 U/L (73-393); NT-proBNP 116 pg/mL; TSH (W/Ref FT4) < 0.01 uIU/mL (0.36-3.74)
[2019-01-11 23:14] LABS: FREE T4 1.61 ng/dL (0.76-1.46)
[2019-01-11 23:21] LABS: INR 1.1 (0.9-1.1); PTT Activated 22.6 sec (21.0-31.4); Prothrombin Time 10.9 sec (9.3-11.0)
--- NOTE | 2019-01-11 23:22 | DI.CT_ITS ---
SYMPTOM/DIAGNOSIS: CHEST PAIN, KNOWN PE, WORSENING HYPOXIA PE CHEST CT: CT angiography was performed with multi slice acquisition and multi planar and 3D reconstruction. A PE CT was carried out according to the usual protocol with an intravenous injection of 70 cc's of Omnipaque 350. There is nothing to suggest pulmonary embolic disease. 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 There are mild atherosclerotic changes involving the aorta. Note is made of mild bibasilar atelectasis. There is no pneumothorax or pleural effusion. The heart is not enlarged. There is no pericardial effusion. The lymph nodes are unremarkable. No acute bony abnormality is seen. The soft tissues are unremarkable. SUMMARY: There is no evidence of pulmonary embolic disease. 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 in diameter.
--- NOTE | 2019-01-11 23:28 | HPE_ITS ---
Date of service: 01/11/19 Time of Service: 23:28 Assessment and Plan Assessment and plan (1) SOB (shortness of breath): Status: Acute Assessment and plan: SOB. I think we can probably call this simple COPD vexacerbation at this point. I do note slight fever, minimal leukocytosis, may be an element of bronchitis so might be worrth oral antibiotics in addition to streroids and inhalers. Will otherwise continue usual meds as is. The thyrotoxicosis is noted incidentall; this appears to be subclinical. I do not see that this is being treated. A scan from 2012 reports out a toxic multinodular goiter but it would be best to update along with a thyroid uptake. History of Present Illness History of Present Illness Chief Complaint: SOB Narrative: 63 female with COPD, chronic PE on Eliquis, recently here for respiratory failure secondaru to COPD and hypoventilation due to meds (opiates). Sent out on steroid taper but has not been taking due to social factors (homeless, insurance). Returns with recurrent SOB and overall weakness. In ER was given steroids and updrafts with some improvement. CT chest without acute findings. Admitted for further management. 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 With an FEV1 of 53%. Chronic pain (Chronic) Cocaine abuse (Resolved) Colon polyps (Chronic) Constipation (Chronic) Chronic COPD (chronic obstructive pulmonary disease) (Chronic) Depression (Chronic) Depressive disorder (Chronic) Edema (Chronic) Family history of colon cancer (Chronic) Goiter diffuse (Chronic) Hepatitis C (Chronic) Hepatitis C antibody test positive (Chronic) a. 09/2013 b. Has hepatology follow up scheduled History of suicide attempt (Chronic) a. History of multiple suicide attempts. Homeless (Acute) HTN (hypertension) (Chronic) Hypercholesterolemia (Chronic) Hyperlipidemia (Chronic) Left knee pain (Chronic) Lumbar back pain (Chronic) Migraine (Chronic) Migraine headache (Chronic) Multinodular thyroid (Chronic) Multiple sclerosis (Chronic) a. No brain imaging found to confirm in our records. b. ? muscular dystrophy versus MS. Multiple sclerosis (Chronic) Opioid dependence (Chronic) Opioid dependence on agonist therapy (Acute) PETERSON (obstructive sleep apnea) (Chronic) PETERSON (obstructive sleep apnea) (Chronic) Pancreatic mass (Chronic ~01/2017) stable/benign per MRI 02/09/2017, normal pancreas per CTA abdomen/pelvis 08/18/2018 Polysubstance abuse (Chronic) a. h/o IV drug abuse, quit 2012 b. On Suboxone maintenance Sleep apnea (Chronic) a. Not in outpatient chart but reported. Tobacco dependence syndrome (Chronic) Addiction since ; one to two packs per day. Tobacco use (Acute) Tobacco use disorder (Chronic 04/15/14) Social History Smoking/Tobacco Use Status: Former Tobacco Use Quit Date: 08/13/18 Alcohol Intake: never Drug use: Never Substance use type: former substance user Do you feel safe at home: Yes Do you feel safe in your relationship?: Yes Additional Social history: Currently lives with her daughter, possible active drug use in the home Has been recently per clinic notes Meds Home Medications and Allergies Home Medications Medication Instructions Recorded Confirmed Type Spiriva with HandiHaler 1 cap INHALATION DAILY 12/25/12 01/11/19 History Symbicort 2 puff INHALATION BID 08/25/14 01/11/19 History montelukast [Singulair] 10 mg PO DAILY 08/17/16 01/11/19 History escitalopram oxalate [Lexapro] 20 mg PO DAILY 09/08/16 01/11/19 History albuterol sulfate 2.5 mg INHALATION Q4H PRN 01/23/18 01/11/19 History furosemide 20 mg tablet 40 mg PO DAILY tab 06/18/18 01/11/19 History amlodipine 5 mg PO HS 07/26/18 01/11/19 History losartan 100 mg PO DAILY 07/26/18 01/11/19 History sumatriptan succinate 50 mg PO DIRECTED 07/26/18 01/11/19 History Nicotrol 10 mg INHALATION Q2H PRN PRN #30 ea 07/28/18 01/11/19 Rx ibuprofen 800 mg PO TID PRN #30 tab 07/28/18 01/11/19 Rx prochlorperazine maleate 5 mg PO Q8H PRN PRN #10 tab 07/28/18 01/11/19 Rx [Compazine] melatonin 6 mg PO HS PRN 08/18/18 01/11/19 History gabapentin [Neurontin] 600 mg PO TID #42 tab 08/23/18 01/11/19 Rx omeprazole 40 mg PO DAILY #30 cap 08/23/18 01/11/19 Rx Daliresp 500 mcg PO DAILY 01/04/19 01/11/19 History apixaban 5 mg tablet 5 mg PO BID 01/04/19 01/11/19 History atorvastatin 40 mg PO QHS 01/04/19 01/11/19 History ondansetron HCl 4 mg tablet 4 mg PO Q8H 01/04/19 01/11/19 History PNV cmb#95-ferrous fumarate-FA 1 tab PO DAILY@1000 #100 tab 01/07/19 01/11/19 Rx [] acetaminophen [Tylenol] 650 mg PO Q4H PRN PRN #100 tab 01/07/19 01/11/19 Rx aspirin 81 mg PO DAILY #100 tab 01/07/19 01/11/19 Rx magnesium L-lactate [Magtab] 84 mg PO DAILY@1000 #90 tab 01/07/19 01/11/19 Rx potassium chloride [Klor-Con M10] 10 meq PO DAILY #90 tab 01/07/19 01/11/19 Rx prednisolone sodium phosphate 10 mg PO DAILY #20 tab 01/07/19 01/11/19 Rx Allergies Allergy/AdvReac Type Severity Reaction Status Date / Time No Known Allergies Allergy Unverified 01/04/19 20:26 Exam Narrative Exam Narrative: 37.7, 132/74, 88, 19, 96%. HEENT AT/NC; neck supple; lungs dimished but clear; heart RRR 2/6 sys murmur LUSB; abdomen soft NT; extremities 1+ pedal edema; neuro alert, ox3, moves all 4s Results Labs Result diagrams: 01/11/19 22:15 01/11/19 22:15 Labs: Laboratory Results - last 24 hr 01/11/19 01/11/19 01/11/19 21:10 22:15 22:15 WBC RBC Hgb Hct MCV MCH MCHC RDW Plt Count MPV Immature Gran % Neutrophils % Lymphocytes % Monocytes % Eosinophils % Basophils % Absolute Neutrophils Absolute Lymphocytes Absolute Monocytes Absolute Eosinophils Absolute Basophils RBC Morphology Polychromasia Hypochromasia Poikilocytosis Anisocytosis Microcytosis PT INR APTT VBG pH 7.41 VBG pCO2 54 H VBG pO2 32 VBG HCO3 35 H VBG Total CO2 32 H VBG O2 Saturation 59 L VBG Base Excess 10.0 H Sodium 142 Potassium 3.5 Chloride 104 Carbon Dioxide 32.9 H Anion Gap 5.1 BUN 14 Creatinine 0.69 Estimated GFR/1.73 m2 >= 60.00 Glucose 118 H Lactate Calcium 8.7 Total Bilirubin 0.4 AST 16 ALT 31 Alkaline Phosphatase 94 Troponin I < 0.05 NT-Pro-B Natriuret Pep Total Protein 6.9 Albumin 3.5 Lipase TSH Free T4 Urine Color Yellow Urine Clarity Sl cloudy Urine pH 6.0 Ur Specific [place] 1.020 Urine Protein 30 H Urine Ketones Trace H Urine Blood Negative Urine Nitrite Negative Urine Bilirubin Small H Urine Urobilinogen 1.0 H Ur Leukocyte Esterase Negative Urine RBC 0-2 Urine WBC 3-5 Ur Epithelial Cells Many Urine Crystals Negative Urine Bacteria Few Urine Casts Negative Urine Mucus Heavy Ur Culture Indicated? C&s done as ordered Urine Glucose Negative 01/11/19 01/11/19 01/11/19 22:15 22:15 22:15 WBC 11.32 H RBC 4.61 Hgb 10.5 L Hct 34.3 L MCV 74.4 L MCH 22.8 L MCHC 30.6 L RDW 16.9 H Plt Count 366 D MPV 10.4 Immature Gran % 0.3 Neutrophils % 55.3 Lymphocytes % 34.0 Monocytes % 7.1 Eosinophils % 3.1 Basophils % 0.2 Absolute Neutrophils 6.26 Absolute Lymphocytes 3.85 H Absolute Monocytes 0.80 H Absolute Eosinophils 0.35 Absolute Basophils 0.02 RBC Morphology See below Polychromasia Present Hypochromasia 1+ Poikilocytosis 1+ Anisocytosis 1+ Microcytosis 2+ PT INR APTT VBG pH VBG pCO2 VBG pO2 VBG HCO3 VBG Total CO2 VBG O2 Saturation VBG Base Excess Sodium Potassium Chloride Carbon Dioxide Anion Gap BUN Creatinine Estimated GFR/1.73 m2 Glucose Lactate 1.0 Calcium Total Bilirubin AST ALT Alkaline Phosphatase Troponin I NT-Pro-B Natriuret Pep 116 Total Protein Albumin Lipase 54 L TSH < 0.01 L Free T4 1.61 H Urine Color Urine Clarity Urine pH Ur Specific [place] Urine Protein Urine Ketones Urine Blood Urine Nitrite Urine Bilirubin Urine Urobilinogen Ur Leukocyte Esterase Urine RBC Urine WBC Ur Epithelial Cells Urine Crystals Urine Bacteria Urine Casts Urine Mucus Ur Culture Indicated? Urine Glucose 01/11/19 22:15 WBC RBC Hgb Hct MCV MCH MCHC RDW Plt Count MPV Immature Gran % Neutrophils % Lymphocytes % Monocytes % Eosinophils % Basophils % Absolute Neutrophils Absolute Lymphocytes Absolute Monocytes Absolute Eosinophils Absolute Basophils RBC Morphology Polychromasia Hypochromasia Poikilocytosis Anisocytosis Microcytosis PT 10.9 INR 1.1 APTT 22.6 VBG pH VBG pCO2 VBG pO2 VBG HCO3 VBG Total CO2 VBG O2 Saturation VBG Base Excess Sodium Potassium Chloride Carbon Dioxide Anion Gap BUN Creatinine Estimated GFR/1.73 m2 Glucose Lactate Calcium Total Bilirubin AST ALT Alkaline Phosphatase Troponin I NT-Pro-B Natriuret Pep Total Protein Albumin Lipase TSH Free T4 Urine Color Urine Clarity Urine pH Ur Specific [place] Urine Protein Urine Ketones Urine Blood Urine Nitrite Urine Bilirubin Urine Urobilinogen Ur Leukocyte Esterase Urine RBC Urine WBC Ur Epithelial Cells Urine Crystals Urine Bacteria Urine Casts Urine Mucus Ur Culture Indicated? Urine Glucose Last Vital Signs Temp 37.7 C H 01/11/19 20:57 Pulse 88 01/11/19 20:57 Resp 19 01/11/19 20:57 BP 132/74 01/11/19 20:57 Pulse Ox 96 01/11/19 22:09
[2019-01-11] MEDS: Omnipaque 350 MG/ML 100 ML BTL IJ (23:33)
--- NOTE | 2019-01-11 23:59 | DI.VRAD_ITS ---
Addendum created by Nate Edwards MD on 01/12/2019 12:08:50 AM EDT Findings were discussed with ANDREE AVINA at 01/12/2019 12:07 AM EDT. The aberrant right subclavian artery origin aneurysm is without significant interval change from the prior study dated 12/12/2018. This is consistent with a Kommerell diverticulum. Initial report created on 01/11/2019 11:59:29 PM EDT EXAM: CT Angiography Chest With Contrast EXAM DATE/TIME: 01/11/2019 9:05 PM CLINICAL HISTORY: 63 years old, female; Chest pain; Additional info: Chest pain, known pe, hypoxic, worsening, HX copd and hypertension TECHNIQUE: Imaging protocol: Computed tomographic angiography of the chest with intravenous contrast. 3D rendering: MIP reconstructed images were created and reviewed. Radiation optimization: All CT scans at this facility use at least one of these dose optimization techniques: automated exposure control; mA and/or kV adjustment per patient size (includes targeted exams where dose is matched to clinical indication); or iterative reconstruction. Contrast material: [id number]; Contrast volume: 70 ml; Contrast route: IV RT UPPER ARM 18G; COMPARISON: CT CHEST PE CTA 12/12/2018 10:07 AM FINDINGS: Pulmonary arteries: There are no intraluminal filling defects to suggest acute pulmonary embolus. 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 Aorta: Aorta demonstrates mild atherosclerotic calcification. Lungs: There is mild bibasilar atelectasis. Pleural space: Unremarkable. No pneumothorax. No pleural effusion. Heart: Unremarkable. No cardiomegaly. No pericardial effusion. Lymph nodes: Unremarkable. No enlarged lymph nodes. Bones/joints: Degenerative changes of the thoracic spine without acute osseous abnormality. Moderate curvature of the thoracic spine apex right. Soft tissues: Unremarkable. IMPRESSION: 1. There are no intraluminal filling defects to suggest acute pulmonary embolus. 2. 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 Dictated and Authenticated by: Nate Edwards MD. Ordering:HERMES Rapp MD
[2019-01-12] VITALS (16 sets, daily range): BP systolic 109–142; BP diastolic 50–73; PULSE 74–91; RESP 1–20; TEMP 36.5–36.9; O2SAT 91–96
[2019-01-12] MEDS: Albuterol/Ipratropium 3 ML UPD VIAL UPD ×5 (06:07→23:30)
[2019-01-12] MEDS: methylPREDNISolone SUCC 40 MG VIAL 20 MG IVP ×3 (06:07→21:32)
--- NOTE | 2019-01-12 07:28 | NUR.NOTE ---
Nursing Note: 0727: this scribe speaks with Jayda RN dispensing nurse at [facility] to confirm pt's dosing of methadone. pt last received dosing on 01/11/19 at 1115. dose of methadone was 14mg. dose increased from 10 mg to 14mg on 01/11/19 by CHESTER Landis.
[2019-01-12] MEDS: Escitalopram 20 MG TAB PO (07:58)
[2019-01-12] MEDS: Losartan 50 MG TAB 100 MG PO (07:58)
[2019-01-12] MEDS: Omeprazole 20 MG CAPCR 40 MG PO (07:58)
[2019-01-12] MEDS: Furosemide 20 MG TAB 40 MG PO (07:58)
[2019-01-12] MEDS: Gabapentin 600 MG TAB PO ×3 (07:58→19:11)
[2019-01-12] MEDS: Apixaban 5 MG TAB PO ×2 (07:58→19:11)
[2019-01-12] MEDS: Potassium Chloride 10 MEQ TABCR PO (07:58)
[2019-01-12] MEDS: Ondansetron 4 MG TAB PO ×3 (07:58→23:31)
[2019-01-12] MEDS: Aspirin E.C. 81 MG TABEC PO (07:58)
[2019-01-12] MEDS: Roflumilast 500 MCG TAB PO (07:59)
--- NOTE | 2019-01-12 08:21 | PHARADMIT ---
Addendum entered by Shreyas Salgado III 01/13/19 14:15: Pharmacy Note Subjective MD worried about patients thyoid (goiter ??) ruling out hot spot & nodules. Objective vs-ok No Labs Assessment Methadone & Symbicort ordered, maribell hoffman'd Plan Decision of Swing Bed vs SNF, right now her Methadone is what the SNFs are balking at. Original Note: Admission Pharmacy Clinical Review COPD Code Status Full Code Current Weight Wgt-76.6 kg Renally Cleared and Narrow Therapeutic Index Meds CrCl~ 57.66 mL/min Meds-OK QTc Value / Action Taken QTc-427 NA BP Control, Fever BP-123/69 Tmax-37.7C Electrolytes reviewed Na-142 K+3.5 DVT Prophylaxis Apixaban, ASA-ec Opiate Usage / Scheduled Bowel Regimen Ordered None No Plt/SCr for Heparin / Enoxaparin Plts-366 SCr-0.69 INR for Warfarin inr-1.1 H/H stable, WBC/Bands H&H-10.5/34.3 WBC-11.32 Antibiotic appropriateness None Cultures and Sensitivities Blood, Urine- pending Surgical ABX d/c within 24 hr NA DM control / Insulin Dosing BG-118 Heart Failure (Check EF%) (RAHEL's, B-Block, Diuretics) Norvasc, Lasix, LOsartan IV to PO Switch No Home Meds Reviewed Yes Home Meds Not Ordered Symbicort, Melatonin Comments
[2019-01-12] MEDS: Magnesium Lactate-SR 84 MG TABCR PO (09:59)
[2019-01-12] MEDS: Prenatal Multivitamin w/CA,FE TAB 1 TAB PO (09:59)
[2019-01-12] MEDS: Normal Saline Flush 10 ML SYR (10:00)
[2019-01-12] MEDS: Tiotropium Bromide-Respimat 10 PUFF INH IH (10:16)
[2019-01-12] MEDS: Methadone 10 MG TAB PO (12:28)
--- NOTE | 2019-01-12 13:14 | W.PM.PROGNOT ---
Date of Service Date of service: 01/12/19 Time of Service: 13:15 Assessment and Plan Assessment and plan (1) COPD (chronic obstructive pulmonary disease): Status: Chronic Assessment and plan: Acute exacerbation of COPD, likely due to medication non-compliance. Patient did not flower picker her prescribed steroids following her discharge. - Appears improved. Continue steroids and wean as able. Continue nebs. No indication for antibiotics at this time. (2) Low TSH level: Status: Acute Assessment and plan: Undetectable and low TSH levels dating back to 2012, with normal to minimally elevated FT4, and mention of a Multi-nodular Goiter by records. - Prior Thyroid ultrasound with MNG - subsequent Nuclear scan with no evidence of a dominant thyroid, and mention of a few areas of decreased uptake. - Unsure of actual etiology, especially in light of a lack of apparent hot nodule on prior imaging. Highly doubt sick euthyroid or recovery from a thyroiditis given clinical picture and duration of abnormal TSH. - Check FT3 and Thyrotropin Receptor Ab. Patient will also benefit from repeat imaging with RAIU +/- repeat ultrasound, as well as Endocrinology follow-up, but for now findings are chronic and asymptomatic. (3) Opioid dependence on agonist therapy: Status: Acute Assessment and plan: Continue Methadone at lowered 10mg daily dose. (4) Pulmonary embolism: Status: Acute Assessment and plan: Currently on AC with Apixaban. Qualifiers: Chronicity: acute Acute cor pulmonale presence: without acute cor pulmonale (5) Hyperlipidemia: Status: Chronic Assessment and plan: Continue statin therapy. (6) Benign hypertension: Status: Chronic Assessment and plan: Currently on CCB and ARB. Also takes daily diuretic therapy with Furosemide. (7) Homeless: Status: Acute Assessment and plan: CM working on likely SNF placement. (8) Elevated troponin: Status: Acute Assessment and plan: Minimally elevated troponin last hospitalization in the setting of acute illness, very likely demand related ischemia. May merit outpatient stress. Currently asymptomatic, and with admission troponin negative for ischemia. (9) DVT prophylaxis: Status: Acute Assessment and plan: On chronic anticoagulation. Also on PPI for GI prophylaxis. Subjective Subjective Interval history since last seen: 63-year-old homeless woman with a prior history of COPD with frequent hospitalizations, admitted from [facility] Emergency Department on 01/11 with a diagnosis of acute exacerbation of her underlying COPD. Mrs. Loya has a Past Medical History significant for COPD, PETERSON not utilizing CPAP, Bfketxy-Kkyvv-Ccneo dz, HTN, dyslipidemia, MS, depression/anxiety, and Tobacco Use. She is on chronic Methadone through [facility]. Her history also includes a diagnosis of RUE DVT, as well as admission for PE in August of this year, for which she has remained on anticoagulation since. The patient has had multiple admissions for COPD exacerbation, along with evidence of recurrent hypoxic, hypercapneic respiratory failure in the setting of CO2 narcosis with untreated PETERSON, COPD, and medications such as gabapentin and narcotics. She was just admitted with such a clinical picture between 01/04 and 01/07, during which time she was treated with BiPAP therapy, decrease in Methadone dose, and steroids. Her troponins were also noted to be minimally elevated, likely due to demand related ischemia. Upon discharge she was unable to fill her prescribed prednisone, and presented back to the ED with reported recurrence of her dyspnea. She was referred for admission for further evaluation and treatment. This morning Ms. Loya appears improved, and reports feeling better as well. No overnight events reported. Remains afebrile. Exam Narrative Exam Narrative: General: Patient appears comfortable, AAOX3, NAD Neck: Supple CV: Regular, nontachycardic, S1S2, No rubs, murmurs, or gallops. Pulmonary: Clear to auscultation bilaterally, no crackles, wheezing, or rhonchi Abdomen: + Bowel Sounds, soft, nontender, nondistended, obese in contour Vascular: No lower extremity edema Psych: Normal mood and affect. Objective Objective Clinical Data: Abnormal lab results 01/11/19 01/11/19 01/11/19 Range/Units 21:10 22:15 22:15 WBC (4.4-10.8) k/cumm Hgb (12.0-15.5) g/dL Hct (36.0-46.0) % MCV (80-95) fL MCH (27.0-33.0) pg MCHC (32.0-36.0) g/dL RDW (11.7-14.6) % Absolute Lymphocytes (1.2-3.4) k/cumm Absolute Monocytes (0.11-0.7) k/cumm VBG pCO2 54 H (34-47) mm/Hg VBG HCO3 35 H (22-28) mmol/L VBG Total CO2 32 H (22-29) mmol/L VBG O2 Saturation 59 L (70-80) % VBG Base Excess 10.0 H (-3-3) mmol/L Carbon Dioxide 32.9 H (21.0-32.0) mmol/L Glucose 118 H (70-100) mg/dL Lipase (73-393) U/L TSH (0.36-3.74) uIU/mL Free T4 (0.76-1.46) ng/dL Urine Protein 30 H (Negative) mg/dL Urine Ketones Trace H (Negative) mg/dL Urine Bilirubin Small H (Negative) Urine Urobilinogen 1.0 H (Up TO 0.2) EU/dL 01/11/19 01/11/19 Range/Units 22:15 22:15 WBC 11.32 H (4.4-10.8) k/cumm Hgb 10.5 L (12.0-15.5) g/dL Hct 34.3 L (36.0-46.0) % MCV 74.4 L (80-95) fL MCH 22.8 L (27.0-33.0) pg MCHC 30.6 L (32.0-36.0) g/dL RDW 16.9 H (11.7-14.6) % Absolute Lymphocytes 3.85 H (1.2-3.4) k/cumm Absolute Monocytes 0.80 H (0.11-0.7) k/cumm VBG pCO2 (34-47) mm/Hg VBG HCO3 (22-28) mmol/L VBG Total CO2 (22-29) mmol/L VBG O2 Saturation (70-80) % VBG Base Excess (-3-3) mmol/L Carbon Dioxide (21.0-32.0) mmol/L Glucose (70-100) mg/dL Lipase 54 L (73-393) U/L TSH < 0.01 L (0.36-3.74) uIU/mL Free T4 1.61 H (0.76-1.46) ng/dL Urine Protein (Negative) mg/dL Urine Ketones (Negative) mg/dL Urine Bilirubin (Negative) Urine Urobilinogen (Up TO 0.2) EU/dL Vital Signs Temperature 36.6 C 01/12/19 08:11 Temperature Source Temporal Artery Scan 01/12/19 08:11 Pulse 77 01/12/19 08:11 Pulse Rhythm Regular 01/12/19 11:51 Respiratory Rate 20 01/12/19 08:11 Respiratory Effort 01/12/19 11:51 Respiratory Depth Normal 01/12/19 08:00 Respiratory Pattern Normal 01/12/19 08:00 Blood Pressure 123/69 01/12/19 08:11 Blood Pressure Mean 68 01/12/19 00:15 Pulse Oximetry 96 01/12/19 13:05 Oxygen Delivery Method Nasal Cannula 01/12/19 13:05 Oxygen Flow Rate 2 01/12/19 13:05 Pain Level 0 01/12/19 09:38 Intake & Output 01/11/19 01/12/19 01/12/19 23:59 11:59 23:59 Intake Total 10 10 Output Total 400 / 400 Balance -390 / -390 Weight 76.6 kg 76.6 kg Intake: IV Output: Urine 400 / 400 Other: Urine Color Straw Urine Appearance Clear Urine Odor Normal Voiding Methods Toilet Laboratory Results WBC 11.32 k/cumm (4.4-10.8) H 01/11/19 22:15 RBC 4.61 m/cumm (4.00-5.20) 01/11/19 22:15 Hgb 10.5 g/dL (12.0-15.5) L 01/11/19 22:15 Hct 34.3 % (36.0-46.0) L 01/11/19 22:15 MCV 74.4 fL (80-95) L 01/11/19 22:15 MCH 22.8 pg (27.0-33.0) L 01/11/19 22:15 MCHC 30.6 g/dL (32.0-36.0) L 01/11/19 22:15 RDW 16.9 % (11.7-14.6) H 01/11/19 22:15 Plt Count 366 x1000/uL (130-400) D 01/11/19 22:15 MPV 10.4 fL (8.0-11.0) 01/11/19 22:15 Immature Gran % 0.3 01/11/19 22:15 Neutrophils % 55.3 01/11/19 22:15 Lymphocytes % 34.0 01/11/19 22:15 Monocytes % 7.1 01/11/19 22:15 Eosinophils % 3.1 01/11/19 22:15 Basophils % 0.2 01/11/19 22:15 Absolute Neutrophils 6.26 k/cumm (1.2-6.7) 01/11/19 22:15 Absolute Lymphocytes 3.85 k/cumm (1.2-3.4) H 01/11/19 22:15 Absolute Monocytes 0.80 k/cumm (0.11-0.7) H 01/11/19 22:15 Absolute Eosinophils 0.35 k/cumm (0.0-0.7) 01/11/19 22:15 Absolute Basophils 0.02 k/cumm (0.0-0.2) 01/11/19 22:15 RBC Morphology See below 01/11/19 22:15 Polychromasia Present 01/11/19 22:15 Hypochromasia 1+ 01/11/19 22:15 Poikilocytosis 1+ 01/11/19 22:15 Anisocytosis 1+ 01/11/19 22:15 Microcytosis 2+ 01/11/19 22:15 PT 10.9 sec (9.3-11.0) 01/11/19 22:15 INR 1.1 (0.9-1.1) 01/11/19 22:15 APTT 22.6 sec (21.0-31.4) 01/11/19 22:15 VBG pH 7.41 (7.32-7.43) 01/11/19 22:15 VBG pCO2 54 mm/Hg (34-47) H 01/11/19 22:15 VBG pO2 32 mm/Hg (28-44) 01/11/19 22:15 VBG HCO3 35 mmol/L (22-28) H 01/11/19 22:15 VBG Total CO2 32 mmol/L (22-29) H 01/11/19 22:15 VBG O2 Saturation 59 % (70-80) L 01/11/19 22:15 VBG Base Excess 10.0 mmol/L (-3-3) H 01/11/19 22:15 Sodium 142 mmol/L (136-145) 01/11/19 22:15 Potassium 3.5 mmol/L (3.5-5.1) 01/11/19 22:15 Chloride 104 mmol/L (98-107) 01/11/19 22:15 Carbon Dioxide 32.9 mmol/L (21.0-32.0) H 01/11/19 22:15 Anion Gap 5.1 mmol/L (3-11) 01/11/19 22:15 BUN 14 mg/dL (7-18) 01/11/19 22:15 Creatinine 0.69 mg/dL (0.55-1.02) 01/11/19 22:15 Estimated GFR/1.73 m2 >= 60.00 (mL/min/1.73m2) 01/11/19 22:15 Glucose 118 mg/dL (70-100) H 01/11/19 22:15 Lactate 1.0 mmol/L (0.6-1.4) 01/11/19 22:15 Calcium 8.7 mg/dL (8.5-10.1) 01/11/19 22:15 Total Bilirubin 0.4 mg/dL (0.2-1.0) 01/11/19 22:15 AST 16 U/L (15-37) 01/11/19 22:15 ALT 31 U/L (14-59) 01/11/19 22:15 Alkaline Phosphatase 94 U/L (46-116) 01/11/19 22:15 Troponin I < 0.05 ng/mL (0.00-0.06) 01/11/19 22:15 NT-Pro-B Natriuret Pep 116 pg/mL (-299) 01/11/19 22:15 Total Protein 6.9 g/dL (6.4-8.2) 01/11/19 22:15 Albumin 3.5 g/dL (3.4-5.0) 01/11/19 22:15 Lipase 54 U/L (73-393) L 01/11/19 22:15 TSH < 0.01 uIU/mL (0.36-3.74) L 01/11/19 22:15 Free T4 1.61 ng/dL (0.76-1.46) H 01/11/19 22:15 Urine Color Yellow (Yellow) 01/11/19 21:10 Urine Clarity Sl cloudy (Clear) 01/11/19 21:10 Urine pH 6.0 (5-8) 01/11/19 21:10 Ur Specific [place] 1.020 (1.005-1.025) 01/11/19 21:10 Urine Protein 30 mg/dL (Negative) H 01/11/19 21:10 Urine Ketones Trace mg/dL (Negative) H 01/11/19 21:10 Urine Blood Negative (Negative) 01/11/19 21:10 Urine Nitrite Negative (Negative) 01/11/19 21:10 Urine Bilirubin Small (Negative) H 01/11/19 21:10 Urine Urobilinogen 1.0 EU/dL (Up TO 0.2) H 01/11/19 21:10 Ur Leukocyte Esterase Negative (Negative) 01/11/19 21:10 Urine RBC 0-2 (0-2) 01/11/19 21:10 Urine WBC 3-5 HPF (0-5) 01/11/19 21:10 Ur Epithelial Cells Many HPF (Negative) 01/11/19 21:10 Urine Crystals Negative HPF (Negative) 01/11/19 21:10 Urine Bacteria Few HPF (Negative) 01/11/19 21:10 Urine Casts Negative LPF (Negative) 01/11/19 21:10 Urine Mucus Heavy (Negative) 01/11/19 21:10 Ur Culture Indicated? C&s done as ordered 01/11/19 21:10 Urine Glucose Negative mg/dL (Negative) 01/11/19 21:10
[2019-01-12] MEDS: Normal Saline Flush 10 ML SYR IVP (13:54)
[2019-01-12] MEDS: Acetaminophen 325 MG TAB 650 MG PO ×2 (13:55→23:31)
--- NOTE | 2019-01-12 17:13 | INITIAL_ITS ---
Care Management Initial Assess REASON FOR HOSPITALIZATION:: COPD PAST MEDICAL HISTORY/PAST SURGICAL HISTORY:: Acute deep vein thrombosis (DVT) of brachial vein of right upper extremity (Acute), Allergic rhinitis (Chronic), Anxiety (Chronic), Benign hypertension (Chronic), 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), Long-term benzodiazepines through [facility], Chronic obstructive lung disease (Chronic)With an FEV1 of 53%, Chronic pain (Chronic), Cocaine abuse (Resolved), Colon polyps (Chronic), Constipation (Chronic), Chronic. COPD (chronic obstructive pulmonary disease) (Chronic), Depressive disorder (Chronic), Edema (Chronic), Family history of colon cancer (Chronic), Goiter diffuse (Chronic), Hepatitis C antibody test positive (Chronic), History of suicide attempt (Chronic), Homeless (Acute), HTN (hypertension) (Chronic). Hypercholesterolemia (Chronic), Hyperlipidemia (Chronic), Left knee pain (Chronic), Lumbar back pain (Chronic), Migraine (Chronic), Multinodular thyroid (Chronic), Multiple sclerosis (Chronic), Opioid dependence on agonist therapy (Acute), PETERSON (obstructive sleep apnea) (Chronic), Pancreatic mass (Chronic ~01/2017), Polysubstance abuse (Chronic), Tobacco dependence syndrome (Chronic) PREVIOUS FUNCTIONAL STATUS/SOCIAL/FAMILY SUPPORTS:: She and her adult daughter had been living with a friend in subsidized housing ([facility]) apparently illegally. States she was paying $300/mo to her friend, Ant De Leon, so that they could stay in the apartment. Details get a bit fuzzy but the final outcome was that they all were evicted from the [facility] apartment. Tatum and her daughter borrowed a car from a friend and were living in that until they had to recently give it back. Since that time the were living under a local bridge with sleeping bags and blankets. They were not able to get on of the tents [employer] wa distributing. Tatum has not been using her oxygen, the Trilegy machine from last admission was not delivered because she has no address and she did not fill her prescriptions. She also could not get services because she had no address. CURRENT FUNCTIONAL STATUS:: Sittin in bed with head elevated receiving oxygen via nasal cannula. Appears pale and eshausted. States she and her daughter cannot go on living this way. ADVANCE DIRECTIVES:: None on file Has patient been provided with information about the portal?: No Did the patient sign up for the portal?: No CODE STATUS:: Full Code INSURANCE COVERAGE / FINANCIAL ISSUES:: Medicare. Medicaid CURRENT HOME/COMMUNITY SERVICES/EQUIPMENT:: Has sportable oxygen and no other services due to homelessness. PRIMARY CARE PHYSICIAN:: [facility] Medicine: Valerie Jiang MD POTENTIAL DISCHARGE NEEDS:: Placement in short term SNF, assistance with housing applications and community services PATIENT/FAMILY EDUCATION NEEDS:: Discharge instructions ANTICIPATED BARRIERS TO DISCHARGE:: Willingness to accept short term SNF placement TRANSPORTATION:: Will need to be arranged PLAN:: Tatum will need short term SNF placement and would prefer [facility]. She will also need extensive assistance with applications for housing and available community resources.
--- NOTE | 2019-01-12 18:52 | NUR.NOTE ---
Pt complaint left sided non-radiating chest pain, that relieves when she relaxes, and worsens when she gets anxious. No dizziness, no nausea, no vomiting. Same was reported to the charge nurse.
[2019-01-12 19:37] LABS: Troponin I < 0.05 ng/mL (0.00-0.06)
[2019-01-12] MEDS: Montelukast 10 MG TAB PO (21:31)
[2019-01-12] MEDS: Atorvastatin 40 MG TAB PO (21:31)
[2019-01-12] MEDS: amLODIPine 5 MG TAB PO (21:32)
[2019-01-13] VITALS (11 sets, daily range): BP systolic 119–148; BP diastolic 69–76; PULSE 79–115; RESP 1–20; TEMP 36.4–37.4; O2SAT 95–100
[2019-01-13] MEDS: Albuterol/Ipratropium 3 ML UPD VIAL UPD ×6 (04:07→23:23)
[2019-01-13] MEDS: methylPREDNISolone SUCC 40 MG VIAL 20 MG IVP (06:20)
[2019-01-13] MEDS: Normal Saline Flush 10 ML SYR IVP (06:21)
[2019-01-13 07:42] LABS: Troponin I < 0.05 ng/mL (0.00-0.06)
[2019-01-13] MEDS: Apixaban 5 MG TAB PO ×2 (08:21→19:53)
[2019-01-13] MEDS: Losartan 50 MG TAB 100 MG PO (08:21)
[2019-01-13] MEDS: Omeprazole 20 MG CAPCR 40 MG PO (08:21)
[2019-01-13] MEDS: Gabapentin 600 MG TAB PO ×3 (08:21→19:53)
[2019-01-13] MEDS: Escitalopram 20 MG TAB PO (08:21)
[2019-01-13] MEDS: Methadone 10 MG TAB PO (08:21)
[2019-01-13] MEDS: Furosemide 20 MG TAB 40 MG PO (08:21)
[2019-01-13] MEDS: Roflumilast 500 MCG TAB PO (08:21)
[2019-01-13] MEDS: Aspirin E.C. 81 MG TABEC PO (08:21)
[2019-01-13] MEDS: Potassium Chloride 10 MEQ TABCR PO (08:22)
[2019-01-13] MEDS: Ondansetron 4 MG TAB PO ×3 (08:22→23:23)
[2019-01-13] MEDS: Prenatal Multivitamin w/CA,FE TAB 1 TAB PO (09:47)
[2019-01-13] MEDS: Magnesium Lactate-SR 84 MG TABCR PO (09:47)
--- NOTE | 2019-01-13 10:51 | PGE_ITS ---
Date of Service Date of service: 01/13/19 Time of Service: 10:51 Assessment and Plan Assessment and plan (1) COPD (chronic obstructive pulmonary disease): Status: Chronic Assessment and plan: Acute exacerbation of COPD, likely due to medication non-compliance. Patient did not picking supervisor her prescribed steroids following her discharge. - Appears improved. Continue steroids but wean and change to oral prednisone. Continue nebs. No indication for antibiotics at this time. (2) Low TSH level: Status: Acute Assessment and plan: Undetectable and low TSH levels dating back to 2012, with normal to minimally elevated FT4, and mention of a Multi-nodular Goiter by records. - Prior Thyroid ultrasound with [facility] in 2012 - subsequent Nuclear scan with no evidence of a dominant thyroid, and mention of a few areas of decreased uptake. - Unsure of actual etiology, especially in light of a lack of apparent hot nodule on prior imaging. Highly doubt sick euthyroid or recovery from a thyroiditis given clinical picture and duration of abnormal TSH. - Check FT3 and Thyrotropin Receptor Ab. Patient will also benefit from repeat imaging with RAIU +/- repeat ultrasound, as well as Endocrinology follow-up, but for now findings are chronic, stable, and asymptomatic. (3) Opioid dependence on agonist therapy: Status: Acute Assessment and plan: Chronic pain on chronic opiates in the past - previously on suboxone, now on Methadone. Continue Methadone at lowered 10mg daily dose. Patient will not benefit from increased dose given her risks and history of somnolence with subsequent CO2 retention. (4) Pulmonary embolism: Status: Acute Assessment and plan: Currently on AC with Apixaban. Qualifiers: Chronicity: acute Acute cor pulmonale presence: without acute cor pulmonale (5) Hyperlipidemia: Status: Chronic Assessment and plan: Continue statin therapy. (6) Benign hypertension: Status: Chronic Assessment and plan: Currently on CCB and ARB. Also takes daily diuretic therapy with Furosemide. (7) Homeless: Status: Acute Assessment and plan: CM working on likely SNF placement. (8) Elevated troponin: Status: Acute Assessment and plan: Minimally elevated troponin last hospitalization in the setting of acute illness, very likely demand related ischemia. May merit outpatient stress. Currently asymptomatic, and with admission troponin negative for ischemia. (9) DVT prophylaxis: Status: Acute Assessment and plan: On chronic anticoagulation. Also on PPI for GI prophylaxis. Subjective Subjective Interval history since last seen: 63-year-old homeless woman with a prior history of COPD with frequent hospitalizations, admitted from [facility] Emergency Department on 01/11 with a diagnosis of acute exacerbation of her underlying COPD. Mrs. Loya has a Past Medical History significant for COPD, PETERSON not utilizing CPAP, Goceqxb-Qjdmk-Pqbbn dz, HTN, dyslipidemia, MS, depression/anxiety, and Tobacco Use. She is on chronic Methadone through [facility]. Her history also includes a diagnosis of RUE DVT, as well as admission for PE in August of this year, for which she has remained on anticoagulation since. The patient has had multiple admissions for COPD exacerbation, along with evidence of recurrent hypoxic, hypercapneic respiratory failure in the setting of CO2 narcosis with untreated PETERSON, COPD, and medications such as gabapentin and narcotics. She was just admitted with such a clinical picture between 01/04 and 01/07, during which time she was treated with BiPAP therapy, decrease in Methadone dose, and steroids. Her troponins were also noted to be minimally elevated, likely due to demand related ischemia. Upon discharge she was unable to fill her prescribed prednisone, and presented back to the ED with reported recurrence of her dyspnea. She was referred for admission for further evaluation and treatment. This morning Ms. Loya appears vastly improved, and reports feeling better as well. No overnight events reported. Remains afebrile. Exam Narrative Exam Narrative: General: Patient appears comfortable, AAOX3, NAD Neck: Supple CV: Regular, nontachycardic, S1S2, No rubs, murmurs, or gallops. Pulmonary: Clear to auscultation bilaterally, no crackles, wheezing, or rhonchi Abdomen: + Bowel Sounds, soft, nontender, nondistended, obese in contour Vascular: No lower extremity edema Psych: Normal mood and affect. Objective Objective Clinical Data: Vital Signs Temperature 36.8 C 01/12/19 23:29 Temperature Source Tympanic 01/12/19 23:29 Pulse 90 01/13/19 07:55 Pulse Rhythm Regular 01/13/19 08:46 Respiratory Rate 20 01/13/19 07:55 Respiratory Effort Non-Labored 01/13/19 08:46 Respiratory Depth Normal 01/13/19 08:46 Respiratory Pattern Normal 01/13/19 08:46 Blood Pressure 142/71 H 01/12/19 23:29 Blood Pressure Mean 68 01/12/19 00:15 Pulse Oximetry 98 01/13/19 07:55 Oxygen Delivery Method Nasal Cannula 01/13/19 08:06 Oxygen Flow Rate 2 01/13/19 08:06 Pain Level 3 01/13/19 08:45 Intake & Output 01/12/19 01/12/19 01/13/19 11:59 23:59 11:59 Intake Total 10 / 810 800 / 810 320 / 320 Output Total 400 / 400 400 / 400 Balance -390 / 410 800 / 410 -80 / -80 Weight 76.6 kg Intake: IV Oral 780 / 780 300 / 300 Output: Urine 400 / 400 400 / 400 Other: Urine Color Straw Pale Yellow Urine Appearance Clear Clear Clear Urine Odor Normal None Comment no urinary issues voiced pt voided ad jon in toilet; urine not assessed at this time. no hat in toilet Voiding Methods Toilet Toilet Toilet Laboratory Results WBC 11.32 k/cumm (4.4-10.8) H 01/11/19 22:15 RBC 4.61 m/cumm (4.00-5.20) 01/11/19 22:15 Hgb 10.5 g/dL (12.0-15.5) L 01/11/19 22:15 Hct 34.3 % (36.0-46.0) L 01/11/19 22:15 MCV 74.4 fL (80-95) L 01/11/19 22:15 MCH 22.8 pg (27.0-33.0) L 01/11/19 22:15 MCHC 30.6 g/dL (32.0-36.0) L 01/11/19 22:15 RDW 16.9 % (11.7-14.6) H 01/11/19 22:15 Plt Count 366 x1000/uL (130-400) D 01/11/19 22:15 MPV 10.4 fL (8.0-11.0) 01/11/19 22:15 Immature Gran % 0.3 01/11/19 22:15 Neutrophils % 55.3 01/11/19 22:15 Lymphocytes % 34.0 01/11/19 22:15 Monocytes % 7.1 01/11/19 22:15 Eosinophils % 3.1 01/11/19 22:15 Basophils % 0.2 01/11/19 22:15 Absolute Neutrophils 6.26 k/cumm (1.2-6.7) 01/11/19 22:15 Absolute Lymphocytes 3.85 k/cumm (1.2-3.4) H 01/11/19 22:15 Absolute Monocytes 0.80 k/cumm (0.11-0.7) H 01/11/19 22:15 Absolute Eosinophils 0.35 k/cumm (0.0-0.7) 01/11/19 22:15 Absolute Basophils 0.02 k/cumm (0.0-0.2) 01/11/19 22:15 RBC Morphology See below 01/11/19 22:15 Polychromasia Present 01/11/19 22:15 Hypochromasia 1+ 01/11/19 22:15 Poikilocytosis 1+ 01/11/19 22:15 Anisocytosis 1+ 01/11/19 22:15 Microcytosis 2+ 01/11/19 22:15 PT 10.9 sec (9.3-11.0) 01/11/19 22:15 INR 1.1 (0.9-1.1) 01/11/19 22:15 APTT 22.6 sec (21.0-31.4) 01/11/19 22:15 VBG pH 7.41 (7.32-7.43) 01/11/19 22:15 VBG pCO2 54 mm/Hg (34-47) H 01/11/19 22:15 VBG pO2 32 mm/Hg (28-44) 01/11/19 22:15 VBG HCO3 35 mmol/L (22-28) H 01/11/19 22:15 VBG Total CO2 32 mmol/L (22-29) H 01/11/19 22:15 VBG O2 Saturation 59 % (70-80) L 01/11/19 22:15 VBG Base Excess 10.0 mmol/L (-3-3) H 01/11/19 22:15 Sodium 142 mmol/L (136-145) 01/11/19 22:15 Potassium 3.5 mmol/L (3.5-5.1) 01/11/19 22:15 Chloride 104 mmol/L (98-107) 01/11/19 22:15 Carbon Dioxide 32.9 mmol/L (21.0-32.0) H 01/11/19 22:15 Anion Gap 5.1 mmol/L (3-11) 01/11/19 22:15 BUN 14 mg/dL (7-18) 01/11/19 22:15 Creatinine 0.69 mg/dL (0.55-1.02) 01/11/19 22:15 Estimated GFR/1.73 m2 >= 60.00 (mL/min/1.73m2) 01/11/19 22:15 Glucose 118 mg/dL (70-100) H 01/11/19 22:15 Lactate 1.0 mmol/L (0.6-1.4) 01/11/19 22:15 Calcium 8.7 mg/dL (8.5-10.1) 01/11/19 22:15 Total Bilirubin 0.4 mg/dL (0.2-1.0) 01/11/19 22:15 AST 16 U/L (15-37) 01/11/19 22:15 ALT 31 U/L (14-59) 01/11/19 22:15 Alkaline Phosphatase 94 U/L (46-116) 01/11/19 22:15 Troponin I < 0.05 ng/mL (0.00-0.06) 01/13/19 06:50 NT-Pro-B Natriuret Pep 116 pg/mL (-299) 01/11/19 22:15 Total Protein 6.9 g/dL (6.4-8.2) 01/11/19 22:15 Albumin 3.5 g/dL (3.4-5.0) 01/11/19 22:15 Lipase 54 U/L (73-393) L 01/11/19 22:15 TSH < 0.01 uIU/mL (0.36-3.74) L 01/11/19 22:15 Free T4 1.61 ng/dL (0.76-1.46) H 01/11/19 22:15 Urine Color Yellow (Yellow) 01/11/19 21:10 Urine Clarity Sl cloudy (Clear) 01/11/19 21:10 Urine pH 6.0 (5-8) 01/11/19 21:10 Ur Specific [place] 1.020 (1.005-1.025) 01/11/19 21:10 Urine Protein 30 mg/dL (Negative) H 01/11/19 21:10 Urine Ketones Trace mg/dL (Negative) H 01/11/19 21:10 Urine Blood Negative (Negative) 01/11/19 21:10 Urine Nitrite Negative (Negative) 01/11/19 21:10 Urine Bilirubin Small (Negative) H 01/11/19 21:10 Urine Urobilinogen 1.0 EU/dL (Up TO 0.2) H 01/11/19 21:10 Ur Leukocyte Esterase Negative (Negative) 01/11/19 21:10 Urine RBC 0-2 (0-2) 01/11/19 21:10 Urine WBC 3-5 HPF (0-5) 01/11/19 21:10 Ur Epithelial Cells Many HPF (Negative) 01/11/19 21:10 Urine Crystals Negative HPF (Negative) 01/11/19 21:10 Urine Bacteria Few HPF (Negative) 01/11/19 21:10 Urine Casts Negative LPF (Negative) 01/11/19 21:10 Urine Mucus Heavy (Negative) 01/11/19 21:10 Ur Culture Indicated? C&s done as ordered 01/11/19 21:10 Urine Glucose Negative mg/dL (Negative) 01/11/19 21:10 TSH Receptor Ab Cancelled 01/11/19 22:15
[2019-01-13] MEDS: Budesonide/Formoterol 160/4.5 6 GM 60 PUFF INH IH ×2 (12:17→19:53)
[2019-01-13] MEDS: Acetaminophen 325 MG TAB 650 MG PO (16:29)
[2019-01-13 16:58] LABS: T3,Free 5.9 pg/ml (2.8-5.3)
--- NOTE | 2019-01-13 17:02 | CMPROGNOTE_ITS ---
Care Management Progress Note S/O: Met with Tatum and her adult daughter, Melanie Weathers, who is staying with her all day and night. Tatum and Melanie are both homeless and have been staying together most recently under a local bridge with only sleeping bags and blankets. When asked about her priorities Tatum stated the most important thing was to secure subsidized housing for she and her daughter. Stated she was willing to accept short term SNF placement at [facility] so she could get well enough to live independently in the community. Knows she is going to need assistance with applications and the appeals process for [employer] and [employer]. Apparently she has had negative interactions with all three. A: 63 yo female admitted for COPD. Multiple admissions and visits to the ED. P: Tatum will need short term SNF placement. Referrals will need to be made. Needs extensive assistance with her number one priority which is to secure subsidized housing for herself and daughter.
[2019-01-13] MEDS: predniSONE 20 MG TAB 40 MG PO (19:53)
[2019-01-13] MEDS: amLODIPine 5 MG TAB PO (21:28)
[2019-01-13] MEDS: Atorvastatin 40 MG TAB PO (21:28)
[2019-01-13] MEDS: Montelukast 10 MG TAB PO (21:28)
[2019-01-14 07:10] VITALS: BP 156/79; PULSE 79; RESP 20; TEMP 36.8; O2SAT 98
[2019-01-14 07:35] VITALS: PULSE 77; RESP 18; RESP 4; O2SAT 98
[2019-01-14] MEDS: Albuterol/Ipratropium 3 ML UPD VIAL UPD ×2 (07:35→11:35)
[2019-01-14 07:38] VITALS: RESP 1; RESP 18
[2019-01-14] MEDS: Budesonide/Formoterol 160/4.5 6 GM 60 PUFF INH IH (07:42)
[2019-01-14] MEDS: Potassium Chloride 10 MEQ TABCR PO (08:22)
[2019-01-14] MEDS: Apixaban 5 MG TAB PO (08:22)
[2019-01-14] MEDS: Furosemide 20 MG TAB 40 MG PO (08:23)
[2019-01-14] MEDS: Aspirin E.C. 81 MG TABEC PO (08:23)
[2019-01-14] MEDS: Gabapentin 600 MG TAB PO ×2 (08:23→13:27)
[2019-01-14] MEDS: predniSONE 20 MG TAB 40 MG PO (08:23)
[2019-01-14] MEDS: Escitalopram 20 MG TAB PO (08:23)
[2019-01-14] MEDS: Losartan 50 MG TAB 100 MG PO (08:23)
[2019-01-14] MEDS: Roflumilast 500 MCG TAB PO (08:24)
[2019-01-14] MEDS: Omeprazole 20 MG CAPCR 40 MG PO (08:24)
[2019-01-14] MEDS: Ondansetron 4 MG TAB PO (08:24)
[2019-01-14] MEDS: Methadone 10 MG TAB PO (08:24)
[2019-01-14] MEDS: Acetaminophen 325 MG TAB 650 MG PO (08:40)
--- NOTE | 2019-01-14 09:25 | CMPROGNOTE_ITS ---
Care Management Progress Note SACHIN spoke with [facility] who were unable to offer a bed due to opiate management services in the community. SACHIN called [facility] in [place]: [phone]. SACHIN spoke with Laura who reported two female beds available for today. Shelby recommended this contract technical writer connect with the [facility] to request assistance with transitioning services to [place] and coordinating Guest Dosing in the interim. SACHIN called [facility] [phone] and spoke with Melanie Aviles's identified Counselor. Sharon identified Lona's counselor as Shelia Teran. Sharon reported she would prioritize this information and notify the MD of relocation and stated Shelia was across the weeks from her and she would notify her as well. SACHIN did not hear back from Sharon, and called [facility] to confirm. SACHIN spoke with a coordinator who reported Lona and Melanie would have access to their medications tomorrow. SACHIN coordinated transport with [facility] with a private local flatbed driver from [facility] to [facility].
--- NOTE | 2019-01-14 09:25 | PDOC.CMPRO ---
Care Management Progress Note SACHIN spoke with [facility] who were unable to offer a bed due to opiate management services in the community. SACHIN called [facility] in [place]: [phone]. SACHIN spoke with Laura who reported two female beds available for today. Shelby recommended this travel writer connect with the [facility] to request assistance with transitioning services to [place] and coordinating Guest Dosing in the interim. SACHIN called [facility] [phone] and spoke with Melanie Aviles's identified Counselor. Sharon identified Lona's counselor as Shelia Teran. Sharon reported she would prioritize this information and notify the MD of relocation and stated Shelia was across the weeks from her and she would notify her as well. SACHIN did not hear back from Sharon, and called [facility] to confirm. SACHIN spoke with a coordinator who reported Lona and Melanie would have access to their medications tomorrow. SACHIN coordinated transport with [facility] with a private mobile lounge driver from [facility] to [facility].
[2019-01-14] MEDS: Magnesium Lactate-SR 84 MG TABCR PO (10:03)
[2019-01-14] MEDS: Prenatal Multivitamin w/CA,FE TAB 1 TAB PO (10:03)
[2019-01-14 11:15] LABS: Absolute Lymphocyte Count 1.16 k/cumm (1.2-3.4); HGB 10.3 g/dL (12.0-15.5); Immature Grans % 0.9; Lymphocytes % 10.6; Mean Corp. HGB Concentration 30.3 g/dL (32.0-36.0); Mean Corpuscular Hemoglobin 22.6 pg (27.0-33.0); Mean Corpuscular Volume 74.7 fL (80-95); Mean Platelet Volume 10.5 fL (8.0-11.0); Monocytes % 4.9; Neutrophils % 83.6; RBC 4.55 m/cumm (4.00-5.20); White Blood Cell Count 10.91 k/cumm (4.4-10.8)
[2019-01-14 11:20] LABS: Absolute Monocyte Count 0.53 k/cumm (0.11-0.7); Absolute Neutrophil Count 9.12 k/cumm (1.2-6.7)
[2019-01-14 11:23] LABS: Anion Gap 6.3 mmol/L (3-11); BUN 15 mg/dL (7-18); CO2 30.7 mmol/L (21.0-32.0); CREATININE 0.63 mg/dL (0.55-1.02); Calcium 8.9 mg/dL (8.5-10.1); Chloride 101 mmol/L (98-107); Glucose 125 mg/dL (70-100); Magnesium 1.7 mg/dL (1.8-2.4); Potassium 4.3 mmol/L (3.5-5.1); Sodium 138 mmol/L (136-145)
[2019-01-14 11:35] VITALS: PULSE 89; RESP 1; RESP 18
[2019-01-14 11:37] VITALS: RESP 1
[2019-01-14 11:44] LABS: Anisocytosis 1+; Diff Comment RBC Morph Reviewed; Hypochromasia 3+; Microcytosis 3+; Polychromasia Present
[2019-01-14 11:45] LABS: Poikilocytes 1+
--- NOTE | 2019-01-14 12:31 | DSE_ITS ---
Date of service: 01/14/19 Time of Service: 12:32 DS: Diagnosis Discharge Diagnosis (1) COPD (chronic obstructive pulmonary disease): Status: Chronic (2) Low TSH level: Status: Acute (3) Opioid dependence on agonist therapy: Status: Acute (4) Pulmonary embolism: Status: Acute (5) Hyperlipidemia: Status: Chronic (6) Benign hypertension: Status: Chronic (7) Homeless: Status: Acute (8) Elevated troponin: Status: Acute Discharge Plan Disposition Patient Disposition: OTHER Condition: Stable Discharge Details Chief Complaint: GenMedical Clinical Impression: Chronic obstructive lung disease, COPD exacerbation, Adult failure to thrive, Medical non-compliance Reason For Visit: COPD Admit Date/Time: 01/11/19 23:45 Admit Provider: Damion Richards Attending Provider: Damion Richards Primary Care Provider: Valerie Jiang ED Provider: Dionte Whalen Hospital Course Hospital Course: Chief Complaint: Dyspnea HPI: 63-year-old homeless woman with a prior history of COPD with frequent hospitalizations, admitted from [facility] Emergency Department on 01/11 with a diagnosis of acute exacerbation of her underlying COPD. Mrs. Loya has a Past Medical History significant for COPD, PETERSON not utilizing CPAP, Fdpmvyf-Glnvi-Wfyzv dz, HTN, dyslipidemia, depression/anxiety, and Tobacco Use. She is on chronic Methadone through [facility]. Her history also includes a diagnosis of RUE DVT, as well as admission for PE in August of this year, for which she has remained on anticoagulation since. The patient has had multiple admissions for COPD exacerbation, along with evidence of recurrent hypoxic, hypercapneic respiratory failure in the setting of CO2 narcosis with untreated PETERSON, COPD, and medications such as gabapentin and narcotics. She was just admitted with such a clinical picture between 01/04 and 01/07, during which time she was treated with BiPAP therapy, decrease in Methadone dose, and steroids. Her troponins were also noted to be minimally elevated, likely due to demand related ischemia. Upon discharge she was unable to fill her prescribed prednisone, and presented back to the ED with reported recurrence of her dyspnea. She was referred for admission for further evaluation and treatment. This morning Ms. Loya appears vastly improved, and reports feeling better as well. No overnight events reported. Remains afebrile. Assessment and Plan: (1) COPD (chronic obstructive pulmonary disease): Acute exacerbation of COPD, likely due to medication non-compliance. Patient did not picking supervisor her prescribed steroids following her discharge. - Appears improved. Continue steroids with plans for a slow taper. Continue nebs. No indication for antibiotics at this time. Also on Home Oxygen. (2) Low TSH level: Undetectable and low TSH levels dating back to 2012, with normal to minimally elevated FT4, and mention of a Multi-nodular Goiter by records. - Prior Thyroid ultrasound with [facility] in 2012 - subsequent Nuclear scan with no evidence of a dominant thyroid, and mention of a few areas of decreased uptake. Unsure of actual etiology, especially in light of a lack of apparent hot nodule on prior imaging. Highly doubt sick euthyroid or recovery from a thyroiditis given clinical picture and duration of abnormal TSH. FT3 checked and minimally elevated (as well as her FT4). Thyrotropin Receptor Ab is ordered and pending. Patient will also benefit from repeat imaging with RAIU +/- repeat ultrasound, as well as Endocrinology follow-up, but for now findings are chronic, stable, and asymptomatic. (3) Opioid dependence on agonist therapy: Chronic pain on chronic opiates in the past - previously on suboxone, now on Methadone. Patient has had worsening somnolence and recurrence of CO2 Narcosis with prior dose increase. Continue Methadone at lowered 10mg daily dose. Patient will not benefit from increased dose given her risks and history of somnolence with subsequent CO2 retention. (4) Pulmonary embolism: Currently on AC with Apixaban. (5) Hyperlipidemia: Continue statin therapy. (6) Benign hypertension: Currently on CCB and ARB. Also takes daily diuretic therapy with Furosemide. (7) Homeless: Patient has been accepted, along with her daughter, into the [facility] in [facility], with plans for introduction to clinical social work therapist once there. Will also ensure via Case Management that Ms. Loya has appropriate PCP follow-up as well in a timely manner. (8) Elevated troponin: Minimally elevated troponin last hospitalization in the setting of acute illness, very likely demand related ischemia. May merit outpatient stress. Currently asymptomatic, and with admission troponin negative for ischemia. Home Meds and New Rx's Prescriptions: New methadone [Dolophine] 10 mg Tablet 10 mg PO DAILY Qty: 0 RF: 0 prednisone 10 mg tablet 10 mg PO DAILY Qty: 45 RF: 0 Continued furosemide 20 mg tablet 40 mg PO DAILY RF: 0 apixaban 5 mg tablet 5 mg PO BID RF: 0 ondansetron HCl [Zofran] 4 mg tablet 4 mg PO Q8H RF: 0 Spiriva with HandiHaler 1 PUFF capsule, w/inhalation device 1 cap Inhalation DAILY RF: 0 Symbicort 60 PUFF HFA aerosol inhaler 2 puff Inhalation BID RF: 0 albuterol sulfate 2.5 mg /3 mL (0.083 %) Solution For Nebulization 2.5 mg INHALATION Q4H PRNRF: 0 melatonin 1 mg Tablet 6 mg PO HS PRNRF: 0 gabapentin [Neurontin] 600 mg Tablet 600 mg PO TID Qty: 42 RF: 0 omeprazole 40 mg capsule,delayed release(DR/EC) 40 mg PO DAILY Qty: 30 RF: 0 montelukast [Singulair] 10 MG tablet 10 mg PO DAILY RF: 0 escitalopram oxalate [Lexapro] 20 MG tablet 20 mg PO DAILY RF: 0 amlodipine 5 mg Tablet 5 mg PO HS RF: 0 sumatriptan succinate 50 mg Tablet 50 mg PO DIRECTED RF: 0 losartan 100 mg Tablet 100 mg PO DAILY RF: 0 Nicotrol 10 mg Cartridge 10 mg Inhalation Q2H PRN PRNQty: 30 RF: 0 ibuprofen 800 mg tablet 800 mg PO TID PRN (Reason: pain) Qty: 30 RF: 0 prochlorperazine maleate [Compazine] 5 mg tablet 5 mg PO Q8H PRN PRN (Reason: nausea and vomiting) Qty: 10 RF: 0 atorvastatin 40 mg Tablet 40 mg PO QHS RF: 0 Daliresp 500 mcg Tablet 500 mcg PO DAILY RF: 0 acetaminophen [Tylenol] 325 mg Tablet 650 mg PO Q4H PRN PRNQty: 100 RF: 0 aspirin 81 mg Tablet,Delayed Release (Dr/Ec) 81 mg PO DAILY Qty: 100 RF: 1 potassium chloride [Klor-Con M10] 10 mEq Tablet,Er Particles/Crystals 10 meq PO DAILY Qty: 90 RF: 3 magnesium L-lactate [Magtab] 84 mg Tablet Extended Release 84 mg PO DAILY@1000 Qty: 90 RF: 1 PNV cmb#95-ferrous fumarate-FA [] 28 mg iron- 800 mcg Tablet 1 tab PO DAILY@1000 Qty: 100 RF: 0 Discontinued methadone 10 mg Tablet 14 mg PO DAILY RF: 0 prednisolone sodium phosphate 10 mg tablet,disintegrating 10 mg PO DAILY Qty: 20 RF: 0 Discharge Instructions Stand Alone Forms: Nursing Discharge Form Referrals: Valerie Jiang MD [Primary Care Provider] - Activity:: No Strenuous Activity Equipment/Supplies:: No Equipment Needed Diet:: As Tolerated Discharge Orders Discharge Orders: Discharge Order (Routine); Ordered 01/14/19 Ordered By: Dylan Stephens DS: Summary Status at Discharge Functional status at discharge: independent ambulation Overall status at discharge: patient is back to baseline Mental Status: mental status grossly normal Speech and Movement: speech and movement normal Mood: congruent mood Affect: normal affect Exam Narrative Exam Narrative: General: Patient appears comfortable, AAOX3, NAD Neck: Supple CV: Regular, nontachycardic, S1S2, No rubs, murmurs, or gallops. Pulmonary: Clear to auscultation bilaterally, no crackles, wheezing, or rhonchi Abdomen: + Bowel Sounds, soft, nontender, nondistended, obese in contour Vascular: No lower extremity edema Psych: Normal mood and affect. Psych Mental Status: mental status grossly normal Speech and Movement: speech and movement normal Mood: congruent mood Affect: normal affect DS: Data Vitals/I&O Vitals and I&O: Vital Signs Temperature 36.8 C 01/14/19 07:10 Temperature Source Tympanic 01/14/19 07:10 Pulse 89 01/14/19 11:35 Pulse Rhythm Regular 01/14/19 08:15 Respiratory Rate 18 01/14/19 11:35 Respiratory Effort Non-Labored 01/14/19 08:15 Respiratory Depth Normal 01/14/19 08:15 Respiratory Pattern Normal 01/14/19 08:15 Blood Pressure 156/79 H 01/14/19 07:10 Blood Pressure Mean 68 01/12/19 00:15 Pulse Oximetry 98 01/14/19 07:35 Oxygen Delivery Method Room Air 01/14/19 11:35 Oxygen Flow Rate 0 01/14/19 11:35 Pain Level 8 01/14/19 08:40 Intake & Output 01/13/19 01/14/19 01/14/19 23:59 11:59 23:59 Intake Total 720 / 1440 790 / 790 Output Total 300 / 300 Balance 720 / 1040 490 / 490 Intake: Oral 720 / 1420 790 / 790 Output: Urine 300 / 300 Other: Urine Color Yellow Urine Appearance Clear Urine Odor Normal Voiding Methods Toilet Toilet Data Completed and Pending Completed studies during hospitalization [Text1]: Exam(s) 01/[address]:CT chest PE CTA SYMPTOM/DIAGNOSIS: CHEST PAIN, KNOWN PE, WORSENING HYPOXIA PE CHEST CT: CT angiography was performed with multi slice acquisition and multi planar and 3D reconstruction. A PE CT was carried out according to the usual protocol with an intravenous injection of 70 cc's of Omnipaque 350. There is nothing to suggest pulmonary embolic disease. 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 There are mild atherosclerotic changes involving the aorta. Note is made of mild bibasilar atelectasis. There is no pneumothorax or pleural effusion. The heart is not enlarged. There is no pericardial effusion. The lymph nodes are unremarkable. No acute bony abnormality is seen. The soft tissues are unremarkable. SUMMARY: There is no evidence of pulmonary embolic disease. 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 in diameter. Labs on day of discharge: Labs from last 24 hours 01/14/19 01/14/19 01/11/19 11:10 11:10 22:15 WBC 10.91 H RBC 4.55 Hgb 10.3 L Hct 34.0 L MCV 74.7 L MCH 22.6 L MCHC 30.3 L RDW 18.0 H Plt Count MPV 10.5 Immature Gran % 0.9 Neutrophils % 83.6 Lymphocytes % 10.6 Monocytes % 4.9 Eosinophils % 0.0 Basophils % 0.0 Absolute Neutrophils 9.12 H Absolute Lymphocytes 1.16 L Absolute Monocytes 0.53 Absolute Eosinophils 0.00 Absolute Basophils 0.00 Differential Comment Rbc morph reviewed RBC Morphology See below Polychromasia Present Hypochromasia 3+ Poikilocytosis 1+ Anisocytosis 1+ Microcytosis 3+ Sodium 138 Potassium 4.3 D Chloride 101 Carbon Dioxide 30.7 Anion Gap 6.3 BUN 15 Creatinine 0.63 Estimated GFR/1.73 m2 >= 60.00 Glucose 125 H Calcium 8.9 Magnesium 1.7 L Free T3 pg/mL 5.9 H Preliminary micro results at discharge 01/11/19 21:45 Blood Culture - Preliminary Blood NO GROWTH 48 HOURS 01/11/19 22:15 Blood Culture - Preliminary Blood NO GROWTH 48 HOURS [facility] Medical History Acute deep vein thrombosis (DVT) of brachial vein of right upper extremity (Acute) Allergic rhinitis (Chronic) Allergic rhinitis (Chronic) Anxiety (Chronic) Benign hypertension (Chronic) 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 With an FEV1 of 53%. Chronic pain (Chronic) Cocaine abuse (Resolved) Colon polyps (Chronic) Constipation (Chronic) Chronic COPD (chronic obstructive pulmonary disease) (Chronic) Depression (Chronic) Depressive disorder (Chronic) Edema (Chronic) Family history of colon cancer (Chronic) Goiter diffuse (Chronic) Hepatitis C (Chronic) Hepatitis C antibody test positive (Chronic) a. 09/2013 b. Has hepatology follow up scheduled History of suicide attempt (Chronic) a. History of multiple suicide attempts. Homeless (Acute) HTN (hypertension) (Chronic) Hypercholesterolemia (Chronic) Hyperlipidemia (Chronic) Left knee pain (Chronic) Lumbar back pain (Chronic) Migraine (Chronic) Migraine headache (Chronic) Multinodular thyroid (Chronic) Multiple sclerosis (Chronic) a. No brain imaging found to confirm in our records. b. ? muscular dystrophy versus MS. Multiple sclerosis (Chronic) Opioid dependence (Chronic) Opioid dependence on agonist therapy (Acute) PETERSON (obstructive sleep apnea) (Chronic) PETERSON (obstructive sleep apnea) (Chronic) Pancreatic mass (Chronic ~01/2017) stable/benign per MRI 02/09/2017, normal pancreas per CTA abdomen/pelvis 08/18/2018 Polysubstance abuse (Chronic) a. h/o IV drug abuse, quit 2012 b. On Suboxone maintenance Sleep apnea (Chronic) a. Not in outpatient chart but reported. Tobacco dependence syndrome (Chronic) Addiction since 13; one to two packs per day. Tobacco use (Acute) Tobacco use disorder (Chronic 04/15/14) Surgical History H/O section (Inactive) History of Surgical Procedure (Chronic) a. Cholecystectomy. b. C-Sections. c. Shoulder surgery. d. Tubal ligation. e. Carpal tunnel surgery. S/P cholecystectomy (Inactive) Status post shoulder surgery (Inactive) Social History Smoking/Tobacco Use Status: Former Tobacco Use Quit Date: 08/13/18 Alcohol Intake: never Drug use: Never Substance use type: former substance user Do you feel safe at home: Yes Do you feel safe in your relationship?: Yes Additional Social history: Currently lives with her daughter, possible active drug use in the home Has been recently per clinic notes
[2019-01-14 16:19] LABS: Thyrotropin Receptor Ab <1.00 IU/L
== END 2019-01-14 15:00 | disposition other institution (70) | DRG 191 ==
LOC: ER 01-12 00:18 → MS 01-12 00:55
PROVIDERS: Admitting Provider General Practice; Emergency Provider Student in an Organized Health Care Education/Training Program; PCP Family Medicine; Visit Provider Internal Medicine
DX: J44.1 Chronic obstructive pulmonary disease with (acute) exacerbation (principal); F11.20 Opioid dependence, uncomplicated; R94.6 Abnormal results of thyroid function studies; T38.0X6A Underdosing of glucocorticoids and synthetic analogues, initial encounter; Z91.120 Patient's intentional underdosing of medication regimen due to financial hardship; Z59.0 Homelessness; E78.5 Hyperlipidemia, unspecified; G47.33 Obstructive sleep apnea (adult) (pediatric); I10 Essential (primary) hypertension; F41.8 Other specified anxiety disorders; F17.210 Nicotine dependence, cigarettes, uncomplicated; G60.0 Hereditary motor and sensory neuropathy; Z86.711 Personal history of pulmonary embolism; Z79.01 Long term (current) use of anticoagulants
CPT/HCPCS: 36415; 71275; 80048; 80053; 82805; 83690; 87040; 93005; 94640; 96374; 99222; 99232; 99239; 99285; 81003; 81015; 83605; 83735; 83880; 84235; 84439; 84443; 84481; 84484; 85025; 85610; 85730; 87086; 93010; J2405; J2930; J3490; J7512; J7620; J8597